=== PATIENT | female | born 1960 | race Caucasian/White ===

== ENCOUNTER 2017-02-17 14:08 | Emergency (ER) | payer MEDICAID, SELFPAY ==
[2017-02-17 14:09] VITALS: BP 162/93; PULSE 95; RESP 16; TEMP 36.9; O2SAT 99; BMI 18.6
--- NOTE | 2017-02-17 14:19 | RAD_ITS ---
STUDY: X-RAY - LEFT ELBOW REASON FOR EXAM: Female, 56 years old. Pain after fall. TECHNIQUE: 3 view(s) of the elbow. COMPARISON: None. FINDINGS: Normal visualized humerus, radius and ulna. Normal radiocapitellar and ulnotrochlear articulations. There is borderline dorsal soft tissue swelling. There is no demonstrated fracture. RAD/Elbow min 3 Views IMPRESSION: No acute fracture of the left elbow. Electronically Signed: Joey Masterson MD at 14:52 EDT , Service support ,
--- NOTE | 2017-02-17 14:19 | RAD_ITS ---
STUDY: X-RAY - LEFT SHOULDER REASON FOR EXAM: Female, 56 years old. Fall, pain. TECHNIQUE: 2 view(s) of the shoulder. COMPARISON: None. FINDINGS: Normal glenohumeral articulation. Normal acromioclavicular joint. Normal acromion. Normal humeral head and visualized proximal humerus. There is suggestion of posterior lateral soft tissue swelling. 4-5 mm calcification seen along the superficial and deep soft tissue interface of the dorsal lateral proximal left upper arm. There is no demonstrated fracture. Normal visualized pulmonary apex. There are degenerative arthroses of the mid cervical spine. RAD/Shoulder min 2 Views IMPRESSION: No acute fracture of the left shoulder. Electronically Signed: Joey Masterson MD at 14:55 EDT , Service support ,
--- NOTE | 2017-02-17 14:20 | ED.VISSUMM ---
- ER Visit Summary Date of Service: 02/17/17 Chief Complaint: Fall History of Present Illness: The patient is a 56 F who was kicking a ball when she stepped on it and fell onto her left shoulder and elbow. This happened last night. She currently has pain in the left elbow and shoulder. She tried ibuprofen at home without any relief. No previous injuries or surgeries to these areas Physical Examination: Left shoulder exam reveals tenderness distally. There is no clavicular tenderness. She has painful range of motion. Left elbow is tender on the lateral condyle. No olecranon tenderness. No swelling. She has painful range of motion of that area as well. Test Results: Left shoulder and left elbow x-rays interpreted by myself reveal no evidence of fracture or dislocation Emergency Department Course and Treatment: She will be discharged with naproxen. She will ice each area and will follow up with her PCP Treatment Plan: [] Disposition: Discharge Impression: Left shoulder contusion, left elbow contusion ED Disposition - Plan for ED Patient: Chief Complaint: Fall Referrals: Leslie Snowden [Primary Care Provider] -
[2017-02-17 14:21] VITALS: BP 168/85; PULSE 90; RESP 14; O2SAT 95
[2017-02-17] MEDS: HYDROcodone Bitartrate/Apap 5/325 Tablet PO (14:48)
--- NOTE | 2017-02-17 14:48 | ED.DEP ---
ED Disposition - Plan for ED Patient: Disposition: Home or Assisted Living Chief Complaint: Fall Instructions: ED Contusion Upper Ext Prescriptions: Naproxen [Naprosyn] 500 mg PO BID PRN #20 tablet Referrals: Leslie Snowden [Primary Care Provider] -
[2017-02-17 14:58] VITALS: BP 156/70; PULSE 80; RESP 14; O2SAT 99
== END 2017-02-17 15:00 | disposition home or self-care (01) ==
PROVIDERS: Emergency Provider Emergency Medicine
DX: S40.012A Contusion of left shoulder, initial encounter (principal); S50.02XA Contusion of left elbow, initial encounter; J44.9 Chronic obstructive pulmonary disease, unspecified; Z72.0 Tobacco use; Z79.51 Long term (current) use of inhaled steroids; Z79.899 Other long term (current) drug therapy; W18.31XA Fall on same level due to stepping on an object, initial encounter; Y92.89 Other specified places as the place of occurrence of the external cause; Y99.8 Other external cause status
CPT/HCPCS: 73030; 73080; 99283

== ENCOUNTER 2017-07-18 09:53 | Emergency (ER) | payer MEDICAID, SELFPAY ==
[2017-07-18 09:54] VITALS: BP 163/98; PULSE 82; RESP 18; TEMP 36; O2SAT 99; BMI 19.2
[2017-07-18 10:37] VITALS: PULSE 84; RESP 24; O2SAT 99
[2017-07-18] MEDS: Ipratropium/Albuterol Sulfate 3 ML AMPUL.NEB INHALATION (10:37)
--- NOTE | 2017-07-18 10:52 | RAD_ITS ---
STUDY: X-RAY CHEST REASON FOR EXAM: Female, 56 years old. Two-week history of generalized illness. History of asthma. TECHNIQUE: PA and lateral views of the chest. COMPARISON: Comparison is made with prior study dated July 25, 2016. FINDINGS: Hyperinflation. Stable mild increased interstitial markings at the lung bases suggestive of bibasilar scarring. No acute infiltration is seen. There is no demonstrated pleural abnormality. Normal size heart. Normal mediastinum and lenka. Normal visualized pulmonary arteries. Normal visualized aortic arch and descending thoracic aorta. Normal visualized thoracic spine. Normal visualized ribs, clavicles, and shoulders. There is no demonstrated abnormality of the visualized soft tissue structures of the upper abdomen. RAD/Chest PA and Lateral IMPRESSION: Hyperinflation. Stable bibasilar linear scarring. Electronically Signed: Pato Paniagua MD at 11:11 EDT Tel [phone], Service support ,
--- NOTE | 2017-07-18 11:41 | ED.VISSUMM ---
- ER Visit Summary Date of Service: 07/18/17 Chief Complaint: Possible pneumonia History of Present Illness: The patient is a 56 F presenting for evaluation due to concern for possible pneumonia. Patient states that she has been sick over the course the last 2 weeks. She has an underlying history of COPD. Patient states that for 2 weeks she has had subjective fevers cough that is productive of sputum. Patient states that her albuterol inhalers have not been helping. She denies runny nose or sore throat. Patient does smoke. She denies any chest pain associated with this. Review of systems otherwise negative. Physical Examination: Vital signs are within normal limits, patient is afebrile. General: Patient is well-nourished well-developed and in no acute distress. Head: Normocephalic, atraumatic Eyes: Pupils equal round and reactive bilaterally, extra occular motion intact bialterally ENT: Moist mucous membranes Neck: Supple, no lymphadenopathy, no JVD, no meningismus CVS: Heart regular rate and rhythm, no murmurs, rubs or gallops, radial pulses 2+ bilaterally Resp: Respirations nondistressed, wheezes throughout the lung schwab bilaterally Abdomen: Soft, nontender, nondistended, no palpable masses, normal bowel sounds Back: Nontender Extremities: Nontender, atraumatic, active full range of motion, no peripheral edema Skin: warm, no rashes, no petechia Neuro: Alert and oriented x 4, CN 2-12 intact, no lateralizing neurological defecits Psyc: Normal affect Test Results: PA and lateral chest x-ray by radiology found to show chronic changes no acute pathology Emergency Department Course and Treatment: Patient presented secondary to 2 weeks of illness with cough and wheezing. X-ray shows no infiltrate. Patient will be treated for bronchitis at this point with a course of prednisone and follow-up with her primary care physician. Disposition: Discharge Impression: 1. Bronchitis 2. Tobacco use This note was generated with [employer] dictation software. It may contain incorrect words, spelling, and punctuation that were not noted in review of the chart prior to signing ED Disposition - Plan for ED Patient: Disposition: Home or Assisted Living Chief Complaint: General Illness Diagnosis: Bronchitis Instructions: ED COPD Flare Prescriptions: Prednisone [Deltasone] 60 mg PO DAILY #15 tab Referrals: Leslie Snowden [Primary Care Provider] - 1 Week if not improving
[2017-07-18 11:48] VITALS: BP 134/84; PULSE 88; RESP 16; O2SAT 98
== END 2017-07-18 11:49 | disposition home or self-care (01) ==
PROVIDERS: Emergency Provider Emergency Medicine
DX: J40 Bronchitis, not specified as acute or chronic (principal); J44.9 Chronic obstructive pulmonary disease, unspecified; Z72.0 Tobacco use; I11.0 Hypertensive heart disease with heart failure; I50.9 Heart failure, unspecified; G62.9 Polyneuropathy, unspecified; Z79.51 Long term (current) use of inhaled steroids; Z79.52 Long term (current) use of systemic steroids; Z79.899 Other long term (current) drug therapy
CPT/HCPCS: 71046; 94640; 99282

== ENCOUNTER 2017-09-28 11:23 | Emergency (ER) | payer MEDICARE, MEDICAID, SELFPAY ==
[2017-09-28 11:24] VITALS: BP 160/98; PULSE 101; RESP 16; TEMP 36.5; BMI 18.8
--- NOTE | 2017-09-28 11:35 | ED.VISSUMM ---
- ER Visit Summary Date of Service: 09/28/17 Chief Complaint: Right hand pain status post fall 9 days ago History of Present Illness: The patient is a 57 F who presents with right hand pain status post fall. She was walking her dog 9 days ago. She presents because of persistent pain. She states the pain is worse with movement of her right little finger and if she applies any pressure to her hand. She is right-hand dominant. She denies any other injury. Physical Examination: Blood pressure is elevated 160/98 heart rate is 101. There is pain the patient over the fifth metacarpal and MCP joint. There is no rotational malalignment. Sensation is normal. Capillary refill is normal. Median, radial and ulnar function intact. Test Results: Three-view x-ray of the hand was obtained. There is no evidence of fracture, subluxation or dislocation. There is arthritic changes noted of the DIP joint in particular right index and right middle finger. No foreign body noted. Emergency Department Course and Treatment: Three-view x-ray of the right hand was ordered to evaluate for fracture. Treatment Plan: Ice, elevation, rest and anti-inflammatory medication Disposition: Discharged to home with appropriate home-going instructions Impression: Right hand pain secondary to blunt trauma (contusion), initial encounter This note was generated with [employer] dictation software. It may contain incorrect words, spelling, and punctuation that were not noted in review of the chart prior to signing ED Disposition - Plan for ED Patient: Disposition: Home or Assisted Living Chief Complaint: Upper Extremity Injury Instructions: ED Contusion Hand Referrals: Leslie Snowden [Primary Care Provider] - As Needed Additional Instructions: Take either 4 Advil every 8 hours for the next 2-3 days for pain or 2 Aleve every 12 hours for the next 2-3 days for pain.
--- NOTE | 2017-09-28 11:45 | RAD_ITS ---
STUDY: X-RAY - RIGHT HAND REASON FOR EXAM: Hurt hand last day walking her dog. TECHNIQUE: 3 view(s) of the hand. COMPARISON: Radiographs 04/21/2016. FINDINGS: Normal radiocarpal articulation. Normal distal radioulnar joint. Normal visualized carpal bones. Normal carpal articulations There is joint space narrowing of the carpometacarpal articulation of the thumb. Normal second through fifth carpometacarpal joints. Normal metacarpi. Normal metacarpophalangeal joint of the thumb. Normal interphalangeal joint of the thumb. Normal proximal and distal phalanges of the thumb. Normal metacarpophalangeal joints of the second through fifth fingers. There is joint space narrowing of the second through fifth distal interphalangeal joints with marginal osteophytes of the second and fifth distal interphalangeal joints. Normal phalanges of the second through fifth fingers. The soft tissue structures are unremarkable. RAD/Hand Min 3 Views IMPRESSION: Arthrosis of the first carpometacarpal joint and second through fifth distal interphalangeal joints. No demonstrated fracture on the current study. Electronically Signed: Philip Dobson MD at 12:29 EDT Tel , Service support ,
== END 2017-09-28 12:20 | disposition home or self-care (01) ==
PROVIDERS: Emergency Provider Emergency Medicine
DX: S60.221A Contusion of right hand, initial encounter (principal); M79.641 Pain in right hand; I10 Essential (primary) hypertension; J44.9 Chronic obstructive pulmonary disease, unspecified; Z72.0 Tobacco use; Z79.899 Other long term (current) drug therapy; W18.30XA Fall on same level, unspecified, initial encounter; Y93.K1 Activity, walking an animal; Y92.89 Other specified places as the place of occurrence of the external cause; Y99.8 Other external cause status
CPT/HCPCS: 73130; 99282

== ENCOUNTER 2017-12-08 21:14 | Inpatient (IN) | payer MEDICARE, MEDICAID, SELFPAY ==
[2017-12-08] VITALS (10 sets, daily range): BP systolic 148–195; BP diastolic 89–139; PULSE 97–125; RESP 18–31; TEMP 36.7–36.9; O2SAT 95–98; BMI 19.0; BMI 19.2
[2017-12-08] MEDS: 0.9% Normal Saline 1,000 ML 150 ML IV (21:21)
[2017-12-08] MEDS: Ipratropium/Albuterol Sulfate 3 ML AMPUL.NEB INHALATION (21:21)
[2017-12-08] MEDS: MethylPREDNISolone 125 MG/2 ML Vial IV (21:21)
[2017-12-08] MEDS: Albuterol 2.5 MG/3 ML VIAL.NEB. INHALATION ×3 (21:23→21:38)
--- NOTE | 2017-12-08 21:23 | ED.DCSUM_ITS ---
- ER Visit Summary Date of Service: 12/08/17 Chief Complaint: Shortness of breath History of Present Illness: The patient is a 57 F presents to the emergency department increasing shortness of breath. Patient has a history of COPD and is on home oxygen. She states over the past 24 hours, she has had gradual worsening shortness of breath. She feels like she cannot take a deep breath. She is coughing with some scant sputum. She has chest tightness when she coughs. She has tried nebulizers at home with little relief. Last time she was on antibiotics was greater than 4 months ago. She denies any fevers or chills. She denies any exertional chest pain. Physical Examination: Vital signs reviewed General: Well-nourished, well-developed Head: Normocephalic, atraumatic Eyes: Pupils equal and reactive, extraocular muscles intact Neck, supple, no lymphadenopathy Heart: Regular rate and rhythm Respiratory: Mild respiratory distress with wheezing throughout Abdomen: Soft, nontender, nondistended, no peritoneal signs Back: Nontender Extremities: Nontender, no edema, no cords Skin: Normal color no rash Neuro: Alert and oriented, no focal or lateralizing deficits Test Results: [] Emergency Department Course and Treatment: The patient presents with moderate respiratory distress, wheezing in all schwab, diminished air movement. IV was established. The patient was started on nebulized aerosols. She was given Solu -Medrol. Her x-ray does not show any infiltrate. Screening labs including cardiac enzymes are normal. Her EKG shows sinus tachycardia without acute ischemic change. Even with treatment, the patient had persistent bronchospasm. She still had resting tachypnea. She was covered with azithromycin. Given her persistent tachypnea and new oxygen requirement, I do for the patient is going require admission. Patient was discussed with the hospitalist. Treatment Plan: [] Disposition: Admit Impression: COPD exacerbation with hypoxia This note was generated with [employer] dictation software. It may contain incorrect words, spelling, and punctuation that were not noted in review of the chart prior to signing ED Disposition - Plan for ED Patient: Chief Complaint: Shortness of Breath Referrals: Leslie Snowden [Primary Care Provider] -
[2017-12-08 21:34] LABS: Absolute Lymphocyte Count 2.75 X10^3/ul (0.83-4.51); Absolute Neutrophil Count 5.8 X10^3/uL (2.0-7.7); Basophil# 0.02 X10^3/uL; Basophil% 0.2 % (0-1); Differential Indicated SCAN CRITERIA MET; Eosinophil# 0.08 X10^3/uL; Eosinophils% 0.8 % (0-5); Hemoglobin 14.8 g/dl (12.0-15.0); Lymphocyte # 2.75 X10^3/ul (4.0); Lymphocyte % 28.8 % (19-41); Mean Corp Hgb Conc 33.6 g/gl (32-36); Mean Corpuscular Hgb 31.8 pg (27.0-32.0); Mean Corpuscular Volume 94.6 fL (81-99); Mean Platelet Vol. 9.1 fl (6.2-12.0); Monocyte# 0.85 X10^3/uL; Monocyte% 8.9 % (0-10); Neutrophil # 5.83 X10^3/uL (2.7-7.7); Neutrophil % 61.1 % (47-70); POSITIVE COUNT NO; POSITIVE DIFFERENTIAL NO; POSITIVE MORPHOLOGY YES; Platelet Count 184 K/mm3 (150-450); RBC Distribution Width SD 44.9 fl (35.1-43.9); Red Blood Count 4.65 M/mm3 (4.2-5.4); White Blood Count 9.6 K/mm3 (4.4-11.0)
[2017-12-08 21:43] LABS: Anion Gap 13 (5-15); BUN 8 mg/dL (7-18); BUN/Creat Ratio 12.2 RATIO (10-20); Calcium,Total 9.7 mg/dL (8.5-10.1); Chloride 106 mmol/L (98-107); Creatinine, Serum 0.66 mg/dL (0.55-1.02); EST Glomerular Filtration Rate 99 mL/min (>60); Est Glom Filt Rate - Afr Amer 120 mL/min (>60); Estimated Creatinine Clearance 76.31 ml/min; Glucose 83 mg/dL (74-106); Potassium 3.3 mmol/L (3.5-5.1); Sodium Level 140 mmol/L (136-145)
[2017-12-08 21:59] LABS: Differential Comment SCANNED
--- NOTE | 2017-12-08 22:36 | PCM.HP.STD ---
Problem List (1) COPD exacerbation Status: Acute (2) History of carpal tunnel surgery of left wrist Status: Resolved (3) Asthma Status: Chronic (4) Emphysema Status: Chronic (5) Orthopnea Status: Chronic (6) Body aches Status: Chronic (7) Depression Status: Chronic (8) [place] (obstructive sleep apnea) Status: Chronic Comment: Continued non-compliance. Patient states she is unable to tolerate the CPAP because of things from my past. (9) COLD (chronic obstructive lung disease) Status: Chronic Comment: Recent pulmonary function test actually show some improvement. No change in maintenance medications. No signs of an exacerbation at this time. Educated patient that as long as she continues to smoke PFTs will be every 6 months. Follow up with Dr Ragland in 6 months after obtaining PFTs. (10) Benign essential hypertension Status: Chronic (11) Tobacco user Status: Chronic Comment: Strongly encouraged smoking cessation. Patient is not interested at this time. (12) History of pulmonary embolism Status: Chronic (13) COPD with acute exacerbation Status: Suspected (14) Angioedema Status: Chronic (15) Hyponatremia Status: Chronic (16) Thrush Status: Chronic History of Present Illness Date of Admission: 12/08/17 Chief Complaint: Shortness of breath for 2 days The patient is a 57 year old F with history of COPD with chronic shortness of breath but not on home oxygen and noncompliant to CPAP came to ER with progressive worsening of shortness of breath for 2 days along with wheezing. Patient had sick contact with her grandson who probably has asthma/viral bronchitis. She has chronic cough but has gotten worse sputum. Chest x-ray in ED does not show acute infiltrates. [] In ED, she is sinus tachycardia, heart rate in 1 14/min, blood pressure elevated 152/97, tachypneic 25-30/min pulse ox 95%, on room air Past Medical History Past Medical History (Chronic Problems): Chronic Problems (Last Reviewed 03/23/17 @ 10:52 by RAJAN Hall) Asthma (Chronic) Emphysema (Chronic) Orthopnea (Chronic) Body aches (Chronic) Depression (Chronic) [place] (obstructive sleep apnea) (Chronic) Continued non-compliance. Patient states she is unable to tolerate the CPAP because of things from my past. COLD (chronic obstructive lung disease) (Chronic) Recent pulmonary function test actually show some improvement. No change in maintenance medications. No signs of an exacerbation at this time. Educated patient that as long as she continues to smoke PFTs will be every 6 months. Follow up with Dr Ragland in 6 months after obtaining PFTs. Benign essential hypertension (Chronic) Tobacco user (Chronic) Strongly encouraged smoking cessation. Patient is not interested at this time. History of pulmonary embolism (Chronic) Angioedema (Chronic) Hyponatremia (Chronic) Thrush (Chronic) Medical History: Medical History (Last Reviewed 03/23/17 @ 10:52 by Carolina Thomason NP-Sky) Asthma (Chronic) J45.909 Emphysema (Chronic) J43.9 Orthopnea (Chronic) R06.01 Body aches (Chronic) R52 Depression (Chronic) F32.9 [place] (obstructive sleep apnea) (Chronic) G47.33 Continued non-compliance. Patient states she is unable to tolerate the CPAP because of things from my past. COLD (chronic obstructive lung disease) (Chronic) J44.9 Recent pulmonary function test actually show some improvement. No change in maintenance medications. No signs of an exacerbation at this time. Educated patient that as long as she continues to smoke PFTs will be every 6 months. Follow up with Dr Ragland in 6 months after obtaining PFTs. Benign essential hypertension (Chronic) I10 Tobacco user (Chronic) Z72.0 Strongly encouraged smoking cessation. Patient is not interested at this time. History of pulmonary embolism (Chronic) Z86.711 COPD with acute exacerbation (Suspected) J44.1 Angioedema (Acute) T78.3XXA Hyponatremia (Acute) E87.1 Thrush (Acute) B37.0 Allergies lisinopril Allergy (Verified 07/18/17 09:55) Angioedema codeine Adverse Reaction (Intermediate, Verified 07/18/17 09:55) / Home Medications: Ambulatory Orders Medication Instructions Recorded Fluticasone/Vilanterol [Breo 1 puff INHALATION BID 07/25/16 Ellipta 100-25 Mcg INH] umeclidinium 62.5 mcg/actuation 1 inh INHALATION QDAY #30 ea 11/23/17 blister powder for inhalation Surgical History: Surgical History (Last Reviewed 03/23/17 @ 10:52 by RAJAN Hall) History of carpal tunnel surgery of left wrist (Resolved) Z98.890 Surgical History: no surgical history Psychiatric History: No pertinent psych hx [employer] History: No pertinent [employer] history Smoking Status: Current every day smoker - *Family History Paternal Family History: Family History (Last Reviewed 03/23/17 @ 10:52 by RAJAN Hall) Mother Asthma Depression Father Respiratory abnormality, unspecified History Items: COPD Sibling Family History: Family History (Last Reviewed 03/23/17 @ 10:52 by RAJAN Hall) Mother Asthma Depression Father Respiratory abnormality, unspecified History Items: COPD Maternal Family History: Family History (Last Reviewed 03/23/17 @ 10:52 by RAJAN Hall) Mother Asthma Depression Father Respiratory abnormality, unspecified History Items: COPD, No pertinent history Review of Systems Constitutional: Denies: Chills, Fever, Weight Change HEENT: Denies: Head Aches, Sinus Congestion, Sinus Drainage Cardiovascular: Denies: Chest Pain, Palpitations Respiratory: Reports: Cough, Shortness of breath at rest, Shortness of breath upon exertion, Sputum production, Wheezing Gastrointestinal: Denies: Abdominal Pain, Nausea, Vomiting Genitourinary: Denies: Dysuria Musculoskeletal: Denies: Joint Pain, Joint Tenderness Skin: Denies: Rash, Wounds Neurological: Denies: Numbness, Tingling, Focal weakness Psychiatric: Denies: Anxiety, Depression, Homicidal Ideations, Suicidal Ideations Hematologic/ Lymphatic: Denies: Easy Bruising, Easy Bleeding VTE Information - Inpt Only VTE Present on Admission: No VTE Mechan Device Prophylaxis: None VTE Pharm Prophylaxis ordered?: Yes Patient Problems: Active and Suspected Problems (Last Reviewed 03/23/17 @ 10:52 by RAJAN Hall) COPD exacerbation (Acute) - Physical Exam General: Alert, Oriented x3, Cooperative HEENT: Atraumatic, PERRLA, EOMI, Normocephalic Neck: Supple, No JVD, Negative Carotid Bruits Lungs: Diminished, Rhonchi, Short of Breath, Tachypneic, Using Accessory Muscles, Wheezes Cardiovascular: Normal S1, Normal S2, No murmurs, Tachycardic Abdomen: Bowel Sounds Present, Soft, Non Tender, Non-Distended Extremities: No edema, Capillary Refill Less than 3 Seconds Skin: No rashes, No breakdown Musculoskeletal: No Tenderness to Palpation of Joints or Extremities, Arthritic Changes, Muscle Wasting Neurological: Cranial nerves II-XII grossly intact, Neuro grossly intact Psych/Mental Status: Normal Affect, Appropriate Vital Signs Temp Pulse Resp BP Pulse Ox 98.0 F 114 H 18 152/97 H 97 12/08/17 21:15 12/08/17 22:29 12/08/17 22:29 12/08/17 22:29 12/08/17 22:29 Oxygen Delivery Method Room Air Weight: 113 lb 5.082 oz Body Mass Index (BMI) 19.0 Laboratory Tests Past 24 Hrs 12/08/17 12/08/17 21:19 21:19 WBC 9.6 RBC 4.65 Hgb 14.8 Hct 44.0 MCV 94.6 MCH 31.8 MCHC 33.6 RDW 13.0 RDW Differential 44.9 H Plt Count 184 MPV 9.1 Immature Gran % (Auto) 0.200 Neut % (Auto) 61.1 Lymph % (Auto) 28.8 [place] % (Auto) 8.9 Eos % (Auto) 0.8 Baso % (Auto) 0.2 Absolute Neuts (auto) 5.8 Absolute Lymphs (auto) 2.75 Total Counted Not Reportable Differential Comment SCANNED Sodium 140 Potassium 3.3 L Chloride 106 Carbon Dioxide 21.0 Anion Gap 13 BUN 8 Creatinine 0.66 Estim Creat Clear Calc 76.31 Est GFR (MDRD) Af Amer 120 Est GFR (MDRD) Non-Af 99 BUN/Creatinine Ratio 12.2 Glucose 83 Calcium 9.7 Troponin I < 0.015 Assessment/Plan All Active Problems (Last Reviewed 03/23/17 @ 10:52 by Carolina Thomason, OCE[employer]OGRAPHIC METEOROLOGIST-C) COPD exacerbation (Acute) History of carpal tunnel surgery of left wrist (Resolved) The patient is a 57 year old F with history of COPD with chronic shortness of breath but not on home oxygen and noncompliant to CPAP came to ER with progressive worsening of shortness of breath for 2 days along with wheezing. Patient had sick contact with her grandson who probably has asthma/viral bronchitis. She has chronic cough but has gotten worse sputum. Chest x-ray in ED does not show acute infiltrates. [] In ED, she is sinus tachycardia, heart rate in 1 14/min, blood pressure elevated 181/105, 152/97, tachypneic 25-30/min pulse ox 95%, on room air 1 COPD exacerbation probably due to viral bronchitis: Patient is being admitted in MedSurg floor. On bronchodilator [id number], IV Solu-Medrol, chest physiotherapy, incentive spirometry and oxygen therapy to keep pulse ox more than 90%. BiPAP as needed for extreme shortness of breath or respiratory failure 2. Obstructive sleep apnea, noncompliant to CPAP: Patient states that she cannot get CPAP. 3. Hypertension: Blood pressure is elevated. She has angioedema because of lisinopril. Not on any antihypertensive medication at home. Started on hydralazine and HCTZ. Other comorbidities include chronic tobacco use and dependence, and history of pulmonary embolism. Tobacco cessation advised patient had PE January 2013 and completed treatment DVT prophylaxis: Lovenox 40 mg subcutaneous daily Code Visit Inpatient E&M: [id number] In Hosp L3
[2017-12-08] MEDS: 0.9% Normal Saline 1,000 ML 50 ML IV (23:30)
[2017-12-08] MEDS: hydrALAZINE 25 MG Tablet PO (23:54)
[2017-12-08] MEDS: Enoxaparin 40 MG/0.4 ML Syringe SC (23:54)
[2017-12-09] VITALS (10 sets, daily range): BP systolic 132–164; BP diastolic 75–99; PULSE 78–95; RESP 14–22; TEMP 36.6–36.9; O2SAT 96–99
[2017-12-09] MEDS: hydrALAZINE 25 MG Tablet PO (05:52)
[2017-12-09] MEDS: 0.9% NaCl Peripheral Flush Adult/Peds IV ×2 (05:56→11:35)
[2017-12-09 06:37] LABS: Anion Gap 12 (5-15); BUN 7 mg/dL (7-18); BUN/Creat Ratio 13.5 RATIO (10-20); Chloride 107 mmol/L (98-107); Creatinine, Serum 0.52 mg/dL (0.55-1.02); EST Glomerular Filtration Rate 129 mL/min (>60); Est Glom Filt Rate - Afr Amer 156 mL/min (>60); Estimated Creatinine Clearance 95.72 ml/min; Glucose 167 mg/dL (74-106); Potassium 4.2 mmol/L (3.5-5.1); Sodium Level 141 mmol/L (136-145)
[2017-12-09] MEDS: Ipratropium/Albuterol Sulfate 3 ML AMPUL.NEB INHALATION ×3 (07:23→19:08)
[2017-12-09] MEDS: Acetaminophen 325 MG Tablet 650 MG PO ×2 (08:24→21:22)
[2017-12-09] MEDS: HYDROCHLOROTHIAZIDE 12.5 MG CAPSULE PO (08:25)
[2017-12-09] MEDS: guaiFENesin 1,200 MG Tablet 1200 MG PO ×2 (08:25→21:18)
[2017-12-09] MEDS: Enoxaparin 40 MG/0.4 ML Syringe SC (08:25)
--- NOTE | 2017-12-09 08:40 | CPS ---
Patient working on PEP therapy on own.
--- NOTE | 2017-12-09 09:45 | PCM.PROGNOTE ---
Patient Problems: Active and Suspected Problems (Last Updated 12/09/17 @ 08:41 by Lloyd Shirley MD) COPD exacerbation (Acute) Subjective: Chief complaint: Follow-up after admission for acute COPD exacerbation and probably an anxiety. Patient seen and examined. No acute events overnight. She reported some improvement of his shortness of breath. She was breathing hard although her chest auscultation was clear. She is anxious and restless. She reported dry cough, no sputum production. She denied chest pain, palpitation or dizziness. Her vital signs are stable, pulse ox is maintained at 99% on 2 L. - Physical Exam General: Alert, Oriented x3, Cooperative, - - Anxious, restless. HEENT: Atraumatic, PERRLA, EOMI, Normocephalic Oral: Moist Mucosa, No Gingival or Mucosal Lesions/ Ulcerations Neck: Supple, No JVD, Negative Carotid Bruits, Trachea Midline, Thyroid Normal Size and Texture Lungs: Clear to auscultation, No rhonchi, No wheeze, No rales, Diminished Cardiovascular: Regular rate, Regular Rhythm, Normal S1, Normal S2, No murmurs Abdomen: Bowel Sounds Present, Soft, Non Tender, Non-Distended, No Hepato-splenomegaly Extremities: No clubbing, No cyanosis, No edema Skin: No rashes, No breakdown Lymphatic: No Cervical, Supraclavicular, or Inguinal Adenopathy Neurological: Cranial nerves II-XII grossly intact, Motor Exam 5/5 strength throughout Psych/Mental Status: Anxious, Restless, Alert and oriented to time, place, person, mood and affect Vital Signs Temp Pulse Resp BP Pulse Ox 98.4 F 79 22 H 149/96 H 99 12/09/17 08:30 12/09/17 08:30 12/09/17 08:30 12/09/17 08:30 12/09/17 08:30 Oxygen Flow Rate (L/min) 2 Oxygen Delivery Method Nasal Cannula Weight: 111 lb 15.917 oz Body Mass Index (BMI) 19.2 Intake and Output for Last 24 Hours 12/07/17 12/08/17 12/09/17 23:59 23:59 23:59 Intake Total 313 / 313 2047 Balance 313 / 313 2047 Microbiology Past 72 Hours 12/08/17 23:30 Influenza Types A,B Direct FA (FELIBERTO) - Final Mucosa - Nasopharyngeal 12/08/17 23:15 Gram Stain - Preliminary Sputum, Expectorated/Coughed Laboratory Tests Past 24 Hrs 12/09/17 05:40 Sodium 141 Potassium 4.2 Chloride 107 Carbon Dioxide 22.0 Anion Gap 12 BUN 7 Creatinine 0.52 L Estim Creat Clear Calc 95.72 Est GFR (MDRD) Af Amer 156 Est GFR (MDRD) Non-Af 129 BUN/Creatinine Ratio 13.5 Glucose 167 H Calcium 9.0 Clinical Impression(s) from Imaging Studies Chest X-Ray 12/08/17 21:18 IMPRESSION: Hyperexpansion of the lungs, consistent with COPD. No evidence for acute cardiopulmonary pathology. Electronically Signed: Valentin Harvey MD at 22:27 EDT , Service support , Medical Necessity - Tobacco Use Smoking Status: Current every day smoker Tobacco Use: Cigarettes Assessment/Plan All Active Problems (Last Reviewed 03/23/17 @ 10:52 by Carolina Thomason NP-C) COPD exacerbation (Acute) History of carpal tunnel surgery of left wrist (Resolved) This is a 57 years old female patient presented to the ED because of shortness of breath and she was admitted as a case of acute COPD exacerbation for treatment. #1 acute COPD exacerbation: She is on IV steroids, antibiotics and bronchodilators. This morning, patient is anxious, restless, breathing hard. Chest auscultation is clear, no wheezing or rhonchi, no rails. Her pulse ox is 99% on 2 L. A chest x-ray showed no acute findings. She may have mild COPD exacerbation but definitely, she has an anxiety attack and she is restless. Plan: Continue bronchodilators, DC IV steroids, start oral prednisone, DC IV azithromycin, start Xanax as needed for anxiety, ambulate. #2 anxiety/depression: Patient has been on citalopram at home. At this time, she is anxious, restless. This is contributing to her symptoms. Plan to continue citalopram and will start Xanax as needed. #3 hypertension: Blood pressure is slightly elevated. She was started on hydralazine and HCTZ on admission. At home, she has been on Norvasc and Aldactone. Plan: Will DC hydralazine, resume Norvasc, continue HCTZ, hold Aldactone. #4 DVT prophylaxis: Subcu Lovenox. This note was generated with [employer] dictation software. It may contain incorrect words, spelling, and punctuation that were not noted in checking the note before signing. Code Visit Inpatient E&M: 18206 Subs Hosp L2
[2017-12-09] MEDS: ALPRAZolam 0.5 MG Tablet PO ×2 (10:26→21:22)
[2017-12-09] MEDS: Famotidine 20 MG Tablet PO (10:26)
[2017-12-09] MEDS: amLODIPine 5 MG Tablet PO (10:26)
[2017-12-09] MEDS: Montelukast 10 MG Tablet PO (10:26)
[2017-12-09] MEDS: Citalopram 20 MG Tablet PO (10:26)
[2017-12-09] MEDS: Albuterol 2.5 MG/3 ML VIAL.NEB. INHALATION (11:09)
[2017-12-09] MEDS: Gabapentin 100 MG Capsule 200 MG PO ×2 (11:33→16:31)
--- NOTE | 2017-12-09 12:10 | CPS ---
PEP therapy done on own.
[2017-12-09] MEDS: Pravastatin 20 MG Tablet 10 MG PO (21:17)
[2017-12-10] MEDS: Ipratropium/Albuterol Sulfate 3 ML AMPUL.NEB INHALATION ×2 (00:29→06:50)
[2017-12-10 00:31] VITALS: PULSE 86; RESP 16
[2017-12-10 03:00] VITALS: BP 124/78; PULSE 65; RESP 14; TEMP 36.9; O2SAT 96
[2017-12-10 06:50] VITALS: PULSE 88; RESP 16; O2SAT 94
[2017-12-10 08:08] VITALS: BP 134/86; PULSE 80; RESP 18; TEMP 37.1; O2SAT 98
[2017-12-10 08:10] VITALS: O2SAT 97; O2SAT 98
[2017-12-10] MEDS: Gabapentin 100 MG Capsule 200 MG PO (08:11)
[2017-12-10] MEDS: predniSONE 20 MG Tablet 40 MG PO (08:11)
[2017-12-10] MEDS: amLODIPine 5 MG Tablet PO (08:12)
[2017-12-10] MEDS: Citalopram 20 MG Tablet PO (08:12)
[2017-12-10] MEDS: Famotidine 20 MG Tablet PO (08:12)
[2017-12-10] MEDS: guaiFENesin 1,200 MG Tablet 1200 MG PO (08:12)
[2017-12-10] MEDS: HYDROCHLOROTHIAZIDE 12.5 MG CAPSULE PO (08:13)
[2017-12-10] MEDS: Montelukast 10 MG Tablet PO (08:13)
[2017-12-10] MEDS: 0.9% NaCl Peripheral Flush Adult/Peds IV (09:32)
--- NOTE | 2017-12-10 09:47 | PCM.DC ---
- Discharge Diagnoses Current Active Problems: Current Active and Chronic Problems (Last Updated 12/09/17 @ 08:41 by Lloyd Shirley MD) COPD exacerbation (Acute) You will use the following diet at home:: Cardiac Your food should be the consistency of: Regular Your liquids should be the consistency of: Regular/Thin Discharge Activity: Return to Normal Activity May resume sexual activity in: No Restrictions Weight Bearing Status: Weight bearing as tolerated Call your doctor if you observe: Shortness of breath Allergies/Adverse Reactions: Allergies lisinopril Allergy (Verified 07/18/17 09:55) Angioedema codeine Adverse Reaction (Intermediate, Verified 07/18/17 09:55) / Medications to take at Discharge Fluticasone/Vilanterol [Breo Ellipta 100-25 Mcg INH] 1 puff INHALATION BID 07/25/16 umeclidinium 62.5 mcg/actuation blister powder for inhalation 1 inh INHALATION QDAY #30 ea 11/23/17 Albuterol Inhaler [Ventolin Hfa] 2 puff INHALATION Q4H PRN PRN 12/08/17 Amlodipine [Norvasc] 5 mg PO DAILY 12/09/17 Cholecalciferol (Vitamin D3) [Vitamin D3] 50,000 unit PO QWEEK 12/09/17 Citalopram [Celexa] 20 mg PO DAILY 12/09/17 Gabapentin [Neurontin] 200 mg PO TIDCM 12/09/17 Montelukast [Singulair] 10 mg PO DAILY 12/09/17 Pravastatin Sodium [Pravachol] 10 mg PO QHS 12/09/17 Ranitidine [Zantac] 150 mg PO DAILY 12/09/17 Spironolactone 25 mg PO DAILY 12/09/17 Azithromycin 500 mg PO DAILY #3 tab 12/10/17 Prednisone 40 mg PO DAILY #10 tab 12/10/17 The following prescriptions were given: Azithromycin 500 mg PO DAILY #3 tab Prednisone 40 mg PO DAILY #10 tab Primary Care Physician: Leslie Snowden [Primary Care Provider] - Please follow up with your Primary Care Physician in: one week Test Results: Test results from this visit will be discussed in further detail at your follow-up appointment, if applicable. Please Follow Up With: Jelani Ragland MD When: one sue Proposed Discharge Date: 12/10/17
--- NOTE | 2017-12-10 09:51 | DCINST_ITS ---
- Discharge Diagnoses Current Active Problems: Current Active and Chronic Problems (Last Updated 12/09/17 @ 08:41 by Lloyd Shirley MD) COPD exacerbation (Acute) You will use the following diet at home:: Cardiac Your food should be the consistency of: Regular Your liquids should be the consistency of: Regular/Thin Discharge Activity: Return to Normal Activity May resume sexual activity in: No Restrictions Weight Bearing Status: Weight bearing as tolerated Call your doctor if you observe: Shortness of breath Allergies/Adverse Reactions: Allergies lisinopril Allergy (Verified 07/18/17 09:55) Angioedema codeine Adverse Reaction (Intermediate, Verified 07/18/17 09:55) / Medications to take at Discharge Fluticasone/Vilanterol [Breo Ellipta 100-25 Mcg INH] 1 puff INHALATION BID 07/25 umeclidinium 62.5 mcg/actuation blister powder for inhalation 1 inh INHALATION QDAY #30 ea 11/23/17 Albuterol Inhaler [Ventolin Hfa] 2 puff INHALATION Q4H PRN PRN 12/08/17 Amlodipine [Norvasc] 5 mg PO DAILY 12/09/17 Cholecalciferol (Vitamin D3) [Vitamin D3] 50,000 unit PO QWEEK 12/09/17 Citalopram [Celexa] 20 mg PO DAILY 12/09/17 Gabapentin [Neurontin] 200 mg PO TIDCM 12/09/17 Montelukast [Singulair] 10 mg PO DAILY 12/09/17 Pravastatin Sodium [Pravachol] 10 mg PO QHS 12/09/17 Ranitidine [Zantac] 150 mg PO DAILY 12/09/17 Spironolactone 25 mg PO DAILY 12/09/17 Azithromycin 500 mg PO DAILY #3 tab 12/10/17 Prednisone 40 mg PO DAILY #10 tab 12/10/17 The following prescriptions were given: Azithromycin 500 mg PO DAILY #3 tab Prednisone 40 mg PO DAILY #10 tab Primary Care Physician: Leslie Snowden [Primary Care Provider] - Please follow up with your Primary Care Physician in: one week Test Results: Test results from this visit will be discussed in further detail at your follow- up appointment, if applicable. Please Follow Up With: Jelani Ragland MD When: one sue Proposed Discharge Date: 12/10/17
--- NOTE | 2017-12-10 09:51 | PCM.DC.SUM ---
Discharge Date and Diagnosis Date of Admission: 12/08/17 Date of Discharge: 12/10/17 - Primary Discharge Diagnosis Active and Suspected Problems (Last Updated 12/09/17 @ 08:41 by Lloyd Shirley MD) COPD exacerbation (Acute) - Secondary Discharge Diagnosis Chronic Problems (Last Updated 12/09/17 @ 08:41 by Lloyd Shirley MD) Asthma (Chronic) Emphysema (Chronic) Depression (Chronic) [place] (obstructive sleep apnea) (Chronic) Continued non-compliance. Patient states she is unable to tolerate the CPAP because of things from my past. Benign essential hypertension (Chronic) Tobacco user (Chronic) Strongly encouraged smoking cessation. Patient is not interested at this time. History of pulmonary embolism (Chronic) Angioedema (Chronic) Hospital Course and Treatment Imaging Results: Diagnostic Data Chest X-Ray 12/08/17 21:18 IMPRESSION: Hyperexpansion of the lungs, consistent with COPD. No evidence for acute cardiopulmonary pathology. Electronically Signed: Valentin Harvey MD at 22:27 EDT , Service support , Laboratory Tests 12/08/17 12/08/17 12/09/17 21:19 21:19 05:40 WBC 9.6 RBC 4.65 Hgb 14.8 Hct 44.0 MCV 94.6 MCH 31.8 MCHC 33.6 RDW 13.0 RDW Differential 44.9 H Plt Count 184 MPV 9.1 Immature Gran % (Auto) 0.200 Neut % (Auto) 61.1 Lymph % (Auto) 28.8 Rowan % (Auto) 8.9 Eos % (Auto) 0.8 Baso % (Auto) 0.2 Absolute Neuts (auto) 5.8 Absolute Lymphs (auto) 2.75 Total Counted Not Reportable Differential Comment SCANNED Sodium 140 141 Potassium 3.3 L 4.2 Chloride 106 107 Carbon Dioxide 21.0 22.0 Anion Gap 13 12 BUN 8 7 Creatinine 0.66 0.52 L Estim Creat Clear Calc 76.31 95.72 Est GFR (MDRD) Af Amer 120 156 Est GFR (MDRD) Non-Af 99 129 BUN/Creatinine Ratio 12.2 13.5 Glucose 83 167 H Calcium 9.7 9.0 Troponin I < 0.015 none Operations: None Procedures: None Summary of Care Provided: The patient is a 57 year old F with a history of COPD, not on home oxyen, HTN, history of remote PE and hyponatremia. She was admitted with a complaint of worsening shortness of breath with associated wheezing. She had been in contact with her grandson who has asthma and viral bronchitis. She was admitted and managed for acute COPD exacerbation. Chest x-ray done in the ED did not show any acute infiltrates. She was started on IV azithromycin and breathing treatments with DuoNeb's and also Solu-Medrol. Patient improved shortness of breath resolved. Wheezing also resolved and patient was discharged home on 12/10/2017. Patient seen and examined today prior to discharge. She had no complaints and felt very well. She denied any fever or chills, any cough or chest pain, shortness of breath, abdominal pain, any diarrhea vomiting. She claims compliance with her inhalers at home and this was reinforced that she should be compliant with them. Review of systems otherwise negative. On examination Vitals: Vital Signs Height 5 ft 4 in Weight: 111 lb 15.917 oz Weight in Pounds 112.0 lbs Pulse Ox [AMBULATING on Room 97 Air] Pulse Ox [At REST on Room Air] 98 Pulse Ox 98 Temperature 98.7 F Pulse Rate 80 Respiratory Rate 18 Blood Pressure 134/86 Blood Pressure Position Sitting []General: Alert, Oriented x3, Cooperative,calm HEENT: Atraumatic, PERRLA, EOMI, Normocephalic Oral: Moist Mucosa, No Gingival or Mucosal Lesions/ Ulcerations Neck: Supple, No JVD, Negative Carotid Bruits, Trachea Midline, Lungs: Clear to auscultation, No rhonchi, No wheeze, No rales, Cardiovascular: Regular rate, Regular Rhythm, Normal S1, Normal S2, No murmurs Abdomen: Bowel Sounds Present, Soft, Non Tender, Non-Distended, No Hepato-splenomegaly Extremities: No clubbing, No cyanosis, No edema Skin: No rashes, No breakdown Lymphatic: No Cervical, Supraclavicular, or Inguinal Adenopathy Neurological: Cranial nerves II-XII grossly intact, Motor Exam 5/5 strength throughout Psych/Mental Status: normal affect,Alert and oriented to time, place, person, mood and affect Plan is to discharge patient home today on p.o. azithromycin 500 mg ?3 days and a 5 day course of p.o. prednisone 40 mg daily. 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 Discharge Activity: Return to Normal Activity May resume sexual activity in: No Restrictions Weight Bearing Status: Weight bearing as tolerated Call your doctor if you observe: Shortness of breath Home Medications: Medications to take at Discharge Fluticasone/Vilanterol [Breo Ellipta 100-25 Mcg INH] 1 puff INHALATION BID 07/25/16 umeclidinium 62.5 mcg/actuation blister powder for inhalation 1 inh INHALATION QDAY #30 ea 11/23/17 Albuterol Inhaler [Ventolin Hfa] 2 puff INHALATION Q4H PRN PRN 12/08/17 Amlodipine [Norvasc] 5 mg PO DAILY 12/09/17 Cholecalciferol (Vitamin D3) [Vitamin D3] 50,000 unit PO QWEEK 12/09/17 Citalopram [Celexa] 20 mg PO DAILY 12/09/17 Gabapentin [Neurontin] 200 mg PO TIDCM 12/09/17 Montelukast [Singulair] 10 mg PO DAILY 12/09/17 Pravastatin Sodium [Pravachol] 10 mg PO QHS 12/09/17 Ranitidine [Zantac] 150 mg PO DAILY 12/09/17 Spironolactone 25 mg PO DAILY 12/09/17 Amoxicillin/Potassium Clav [Augmentin 875-125 Tablet] 1 ea PO BID #10 tab 12/10/17 Prednisone 40 mg PO DAILY #10 tab 12/10/17 Following Prescrptions Were Given to Patient: Prednisone 40 mg PO DAILY #10 tab Amoxicillin/Potassium Clav [Augmentin 875-125 Tablet] 1 ea PO BID #10 tab Primary Care Physician: Leslie Snowden [Primary Care Provider] - Please follow up with your Primary Care Physician in: one week Please Follow Up With: Jelani Ragland MD When: one wek Disposition: Home Minutes spent on discharge:: 35 Patient Condition:: Stable Medical Necessity - Tobacco Use Smoking Status: Current every day smoker Tobacco Use: Cigarettes Meaningful Use Info Meaningful Use Diagnoses (Choose all that apply): None applicable Code Visit Inpatient E&M: 37173 Disch Hosp
--- NOTE | 2017-12-10 10:25 | CASEMGMT ---
JHONATHAN TIDWELL Face to Face with patient for initial transition planning/care coordination assessment. RN CM introduced self and role at [facility]. Patient sitting up in bed, alert and oriented. Patient willing to participate in assessment and is able to answer all questions appropriately. Care providers, pharmacy, and demographics verified. See link attached. Patient wishes to discharge home, denies need for home health at this time. Patient states she has no further needs or concerns at this time. CM to follow for discharge planning needs that may arise. Disposition Plan: Patient to discharge home with family support and follow-up plans in place. Gabrielle ERWIN, RN, CM
--- NOTE | 2017-12-13 15:41 | CASEMGMT ---
JHONATHAN TIDWELL Discharge Follow-up Phone Call: DARLENE: Fatuma Strata: 4 Call Date: 12/13/17 Discharge Date: 12/10/17 Time of Call: 1540 Duration: 3 min Admitting Diagnosis: COPD EXA JHONATHAN TIDWELL completed follow-up phone call after recent hospitalization. Patient states that she is doing better. Patient had no questions regarding discharge instructions and was able to pickle processor prescriptions with no problems. Patient has follow-up appts scheduled with Dr. Powell and PCP. Patient had no further questions or concerns.
== END 2017-12-10 11:15 | disposition home or self-care (01) | DRG 192 ==
LOC: ED 22:14 → MS3 22:29
PROVIDERS: Admitting Provider Internal Medicine; Emergency Provider Emergency Medicine; Visit Provider Student in an Organized Health Care Education/Training Program
DX: J44.0 Chronic obstructive pulmonary disease with (acute) lower respiratory infection (principal); J20.8 Acute bronchitis due to other specified organisms; J44.1 Chronic obstructive pulmonary disease with (acute) exacerbation; F17.210 Nicotine dependence, cigarettes, uncomplicated; R09.02 Hypoxemia; G47.33 Obstructive sleep apnea (adult) (pediatric); Z86.711 Personal history of pulmonary embolism; I10 Essential (primary) hypertension; F32.9 Major depressive disorder, single episode, unspecified
CPT/HCPCS: 36415; 71045; 80048; 84484; 85025; 87070; 87205; 87804; 93005; 94640; 94667; 94668; 99283; 99406; J7030; A4216

== ENCOUNTER → 2017-12-24 09:12 | Outpatient (CLI) | payer MEDICARE, MEDICAID, SELFPAY ==
--- NOTE | 2017-12-24 13:17 | PFT ---
INTRODUCTION: The patient is a 57-year-old female that presents for pulmonary function testing secondary to a diagnosis of COPD. Respiratory therapy reports good patient effort. Bronchodilators were used during testing. INTERPRETATION: Forced expiration spirometry demonstrates the presence of a moderately severe large airways obstructive ventilatory defect. There was no significant response to aerosolized bronchodilators. Spirograms are of good quality and do not plateau indicating slow emptying of the lungs. Body plethysmography was performed and reveals an elevated TLC and RV, indicative of underlying hyperinflation and air-trapping. Diffusing capacity by single breath CO is moderately reduced at 55% of predicted. When compared to previous pulmonary function studies dated February 2017, there has been a 15% reduction in FEV1. IMPRESSION: These pulmonary function studies demonstrate the presence of an irreversible moderately severe large airways obstructive ventilatory defect with associated hyperinflation, air trapping and reduction in diffusing capacity. There has been worsening in the patient's PFTs since they were last completed in February 2017.
== END ==
PROVIDERS: Visit Provider Nurse Practitioner Acute Care
DX: J43.9 Emphysema, unspecified (principal)
CPT/HCPCS: 94060; 94726; 94729

== ENCOUNTER → 2018-01-05 08:27 | Outpatient (CLI) | payer MEDICARE, MEDICAID, SELFPAY ==
--- NOTE | 2018-01-05 08:17 | BI_ITS ---
MAMMOGRAPHY - BILATERAL SCREENING REASON FOR EXAM: Female, 57 years old. Routine annual screening examination. PERTINENT HISTORY: Non-contributory. TECHNIQUE: Digital bilateral breast tessa (3D mammographic acquisition) in the CC and MLO projections. 2-D mediolateral oblique (MLO) and craniocaudad (CC) views of both breasts were obtained. CAD: Full Field Digital Mammography with Computer Added Detection was performed. COMPARISON: Comparison is made with prior study dated 2016. FINDINGS: Breast Composition: The breasts are heterogeneously dense, which may obscure small masses. There are no dominant masses or suspicious calcifications. No other significant abnormalities are identified. There has been no significant change since the prior study. BI/SCREENING MAMM (CAD), BILAT IMPRESSION: Stable bilateral screening mammogram. Yearly follow-up mammogram recommended. (A) ASSESSMENT CATEGORY: BIRADS Category 1: Negative. A letter regarding these results will be sent to the patient by the facility within 30 days. Approximately 10% of breast cancers are not detected by mammography. A normal mammogram should not delay biopsy of a clinically suspicious abnormality. [id number] Electronically Signed: Pato Paniagua MD at 8:16 EDT Tel [phone], Service support ,
== END ==
DX: Z12.31 Encounter for screening mammogram for malignant neoplasm of breast (principal)
CPT/HCPCS: 77063; 77067

== ENCOUNTER 2018-04-19 07:06 | Day surgery (SDC) | payer MEDICARE, MEDICAID, SELFPAY ==
[2017-12-25 10:53] VITALS: BMI 18.8
[2018-04-19] VITALS (7 sets, daily range): BP systolic 120–140; BP diastolic 80–91; PULSE 76–83; RESP 16–18; TEMP 36.2–36.8; O2SAT 96–98; BMI 19.2
--- NOTE | 2018-04-19 08:25 | H&P.OPEN ---
History of Present Illness Date of Admission: 04/19/18 The patient is a 57 year old F here for screening colonoscopy. She has never had a colonoscopy in the past. She reports that she does have family history of colon cancer in her father who from the colon cancer. This was less than age 60. She denies any abdominal pain or blood in her stool. She has no inadvertent weight loss. Past Medical/Surgical History - Planned Operation Planned Operative Procedure/s: colonoscopy open access Date of Operative Procedure: 03/15/18 Permit Signed: No S.O.S: No Is This Patient Having a Total Joint: No - Previous Hospitalizations/Surgeries HX Hospitalizations: Yes - pneumonia 3yrs ago HX of Surgeries: back injections. deviated septum. carpal tunnel bilat Any Problems With Anesthesia: No You/Your Family Experience Fever (Hyperthermia) With Anes: No Cholinesterase deficiency: No - Cardiovascular Hx Chest Pain within Last 2 months: No Hx of Irregular Heartbeat and/or Afib: No Hx Heart Attack: No Hx Congestive Heart Failure: No Hx Rheumatic Fever: No Hx Hypertension: Yes - controlled with med Hx Internal Defibrillator: No Hx Pacemaker: No Hx Cardiac Catheterization: No Hx Cardiac Surgery/Stents/Etc.: No Hx Stress Test: No - echo 2017 HX Edema: No Hx Pain in Legs when Walking/Leg Cramps: Yes - leg pain d/t back - Respiratory Chronic Cough: Yes HX of Shortness of Breath: Yes - sob with 2 flights of stairs Hoarseness: No Hx Chronic Obstructive Pulmonary Disease (COPD): Yes Hx Asthma: Yes Hx Emphysema: Yes Hx Sleep Apnea: Yes CPAP: Yes - doesnt wear BIPAP: No Hx Oxygen Use at Home: No Hx Respiratory Tract Infection/Cold (presently): No Result (for STOP score): Positive Hx Smoking: Yes - 1ppd for 47 Smoking Status: Current every day smoker - Gastrointestinal Hx Gastroesophageal Reflux: Yes Controlled With Meds: Yes Hx Gastrointestinal Disorders: No Hx Gastrointestinal Bleed: No Hx Ulcer: No Hx Hiatal Hernia: No Difficulty Chewing/Swallowing: No Recent Onset of Swallowing Problems: No Special diet followed at home: No Hx Unplanned Weight Loss of 20#: No HX Unplanned Weight Gain of 20#: No - Neurological Hx Seizures: No HX Syncope/Blackout Spells/Unconsciousness: Yes - passed out many yrs ago Hx CVA/Stroke: No Hx Transient Ischemic Attacks (TIA): No Hx Multiple Sclerosis: No Hx Parkinson's Disease: No Hx Head/Neck Injury: No Hx Headaches: Yes Hx Back Injury/Pain: Yes - back injury yrs ago/back injections/bilat leg pain Recent Onset of Speech Difficulty: No Restless Legs: Yes Does patient have nerve stimulator: No Patient instructed to have device shut off: No Rep notified?: No - Blood Disorder Hx Leukemia: No Bleeding Tendencies: No Hx Deep Vein Thrombosis: Yes - 6yrs ago dvt and pe Hx High Cholesterol: Yes - on med Blood Transmitted Disease: No Hx Hepatitis: No Hx Cirrhosis: No Hx Anemia: Yes - low iron Hx Blood Disorders: No - Reproduction : No Is Patient Lactating: No Hx Hysterectomy: No Hx Tubal Ligation: No Are You Post Menopause: Yes - Genitourinary Hx Renal Disease: No Hx Dialysis: No - Musculoskeletal Hx Arthritis: Yes Hx Rheumatoid Arthritis: No Hx Gout: No Recent Onset of an Orthopedic Problem: No - Endocrine Hx Diabetes: No Thyroid Disease: No Hx Steroid Therapy: Yes - back injection 3 weeks ago - Psycho/Social Hx Substance Use: No Hx Alcohol Use: Yes - ALMOST DAILY 0-4 BEERS PER DAY Hx Anxiety: Yes - on med Hx Depression: Yes - on med Mental Illness: No Hx Dementia: No - Miscellaneous Hx Cancer: No Recent Exposure to Contagious Disease: No Active MRSA: No Hx of C-Diff: No Any Loose Teeth: No - upper denture Additional information pertinent to anesthesia:: SMOKES 1PPD FOR 47+ YRS Allergies lisinopril Allergy (Verified 04/15/18 14:36) Angioedema codeine Adverse Reaction (Intermediate, Verified 04/15/18 14:36) / Paternal Family History: Family History (Last Reviewed 12/25/17 @ 06:57 by Rozina Cardenas) Mother Asthma Depression Father Respiratory abnormality, unspecified COPD Sibling Family History: Family History (Last Reviewed 12/25/17 @ 06:57 by Rozina Cardenas) Mother Asthma Depression Father Respiratory abnormality, unspecified COPD Maternal Family History: Family History (Last Reviewed 12/25/17 @ 06:57 by Rozina Cardenas) Mother Asthma Depression Father Respiratory abnormality, unspecified COPD, No pertinent history - Discharge Is Pt Admitted From a Intermediate, or a [facility]: No Who Could Help: family After D/C, Where Do you Plan to Go: Return Home - Physical Exam General: Alert, Oriented x3, Cooperative Neck: No JVD Lungs: Normal air movement Cardiovascular: Regular rate, Regular Rhythm Abdomen: Soft, Non Tender, Non-Distended Vital Signs Temp Pulse Resp BP Pulse Ox 98.2 F 83 16 136/91 H 96 04/19/18 07:31 04/19/18 07:31 04/19/18 07:31 04/19/18 07:31 04/19/18 07:31 Oxygen Delivery Method Room Air Weight: 111 lb 15.917 oz Body Mass Index (BMI) 19.2 Assessment/Plan All Active Problems (Last Reviewed 12/25/17 @ 06:57 by Rozina Cardenas) COPD exacerbation (Acute) History of carpal tunnel surgery of left wrist (Resolved) 57-year-old female for screening colonoscopy 1. The patient reports that she did have a family history of colon cancer in her father at less than age 60. For that reason even if there are no polyps I would recommend repeat colonoscopy for surveillance in 5 years. 2. I explained endoscopy in detail to the patient. I explained the risks including but not limited to stroke or heart attack with anesthesia, perforation of the GI tract, bleeding, infection. I explained that any of these could necessitate further emergency surgery. The patient understands and all questions were answered sufficiently. The patient wishes to proceed with procedure. Sander Veliz MD Pager: [facility] [address] [place] [address], [address] [place] [address] Office: Surgery Risks - Colonoscopy Risks Include but are not Limited To: Risks include but are not limited to: Bleeding, perforation requiring further surgery, inability to complete colonoscopy requiring barium enema.
--- NOTE | 2018-04-19 08:55 | OP.ENDO_ITS ---
Patient Name: Mariia Reilly Procedure Date: 04/19/2018 8:28 AM Date of : 1960 Age: 57 Procedure: Colonoscopy Indications: Screening in patient at increased risk: Colorectal cancer in father before age 60 Providers: Sander Veliz MD Referring MD: Sander Veliz MD Medicines: Monitored Anesthesia Care Patient Profile: This is a 57 year old female. Refer to note in patient chart for documentation of history and physical. Last Colonoscopy: none. The patient's first colonoscopy is today. Complications: No immediate complications. Procedure: Pre-Anesthesia Assessment: - Prior to the procedure, a History and Physical was performed, and patient medications and allergies were reviewed. The patient's tolerance of previous anesthesia was also reviewed. The risks and benefits of the procedure and the sedation options and risks were discussed with the patient. All questions were answered, and informed consent was obtained. Prior Anticoagulants: The patient has taken no previous anticoagulant or antiplatelet agents. After reviewing the risks and benefits, the patient was deemed in satisfactory condition to undergo the procedure. After I obtained informed consent, the scope was passed under direct vision. Throughout the procedure, the patient's blood pressure, pulse, and oxygen saturations were monitored continuously. The colonoscope was introduced through the anus and advanced to the cecum, identified by appendiceal orifice and ileocecal valve. The colonoscopy was performed without difficulty. The patient tolerated the procedure well. The quality of the bowel preparation was unsatisfactory. Scope In: 8:36:52 AM Scope Withdrawal Time 0 hours 3 minutes 23 seconds Scope Out: 8:51:23 AM Total Procedure Duration Time 0 hours 14 minutes 31 seconds Findings: The exam was otherwise without abnormality on direct and retroflexion views. Impression: - Preparation of the colon was unsatisfactory. - The examination was otherwise normal on direct and retroflexion views. - No specimens collected. Recommendation: - Discharge patient to home. - Resume previous diet. - Continue present medications. - Repeat colonoscopy in 6 months because the bowel preparation was poor. Procedure Code(s): --- Professional --- G0105, 33, Colorectal cancer screening; colonoscopy on individual at high risk Diagnosis Code(s): --- Professional --- Z80.0, Family history of malignant neoplasm of digestive organs CPT copyright 2017 [employer]. All rights reserved. The codes documented in this report are preliminary and upon picking supervisor review may be revised to meet current compliance requirements. Sander Veliz MD 04/19/2018 8:55:11 AM This report has been signed electronically. Number of Addenda: 0 Note Initiated On: 04/19/2018 8:28 AM
== END 2018-04-19 09:37 | disposition home or self-care (01) ==
LOC: EN 07:08 → AC 07:10
PROVIDERS: Referring Provider Surgery; Visit Provider Surgery
PROC: 0DJD8ZZ Inspection of Lower Intestinal Tract, Via Natural or Artificial Opening Endoscopic (ICD-10-PCS; CPT 45378; principal; 2018-04-19 08:25)
DX: Z12.11 Encounter for screening for malignant neoplasm of colon (principal); K21.9 Gastro-esophageal reflux disease without esophagitis; D50.9 Iron deficiency anemia, unspecified; E78.00 Pure hypercholesterolemia, unspecified; F41.9 Anxiety disorder, unspecified; F32.9 Major depressive disorder, single episode, unspecified; I10 Essential (primary) hypertension; J44.9 Chronic obstructive pulmonary disease, unspecified; J45.909 Unspecified asthma, uncomplicated; G47.30 Sleep apnea, unspecified; F17.200 Nicotine dependence, unspecified, uncomplicated; Z80.0 Family history of malignant neoplasm of digestive organs; Z86.718 Personal history of other venous thrombosis and embolism; Z79.899 Other long term (current) drug therapy
CPT/HCPCS: G0121; J7120

== ENCOUNTER → 2018-04-22 09:19 | Outpatient (CLI) | payer MEDICARE, MEDICAID, SELFPAY ==
[2018-04-19 07:31] VITALS: BMI 19.2
--- NOTE | 2018-04-22 10:00 | MRI_ITS ---
STUDY: MRI LUMBAR SPINE WITHOUT CONTRAST REASON FOR EXAM: Female, 57 years old. LOW BACK PAIN, LEFT LEG PAIN, LEG NUMBNESS. TECHNIQUE: Standardized fat and water weighted pulse sequences were obtained in the sagittal and axial planes. COMPARISON: None FINDINGS: T12-L1: Normal endplates. Normal disc height, hydration and morphology. Normal bilateral facet joints. Normal central canal and bilateral lateral recesses. Normal bilateral intervertebral neural foramina. Normal lumbar lordosis. There is mild scoliosis Normal conus medullaris that terminates at the L1 L1-2: There is minimal disc space narrowing and endplate spondylosis. There is no significant disc herniation, central canal or foraminal stenosis. L2-3: There is mild disc space narrowing and endplates spondylosis. There is mild disc bulge asymmetric to the left with mild left foraminal stenosis. There is no significant central canal or right foraminal stenosis. There is mild facet arthropathy L3-4: There is mild disc space narrowing and endplates spondylosis. There is a mild disc bulge and facet arthropathy with mild central canal stenosis. There is mild bilateral foraminal stenosis. L4-5: There is severe disc space narrowing and endplates spondylosis. There is a moderate disc bulge and facet arthropathy asymmetric to the right with severe right foraminal stenosis. There is moderate central canal and mild left foraminal stenosis. L5-S1: There is minimal disc space narrowing and endplates spondylosis. There is mild disc bulge asymmetric to the left with moderate left lateral recess and foraminal stenosis. There is no significant central canal or right foraminal stenosis. Normal visualized sacral ala. Normal visualized paraspinous soft tissue structures. MRI/Spine Lumbar (Routine) IMPRESSION: L4/L5: Severe right foraminal stenosis. Moderate central canal stenosis. L5/S1: Moderate lateral recess and foraminal stenosis. Multilevel degenerative changes. Electronically Signed: Gerardo Levin MD at 9:30 EST Tel , Service support ,
== END ==
PROVIDERS: Referring Provider Anesthesiology Pain Medicine; Visit Provider Anesthesiology Pain Medicine
DX: M54.5 Low back pain (principal); M79.605 Pain in left leg
CPT/HCPCS: 72148

== ENCOUNTER 2018-06-17 14:42 | Inpatient (IN) | payer MEDICARE, MEDICAID, SELFPAY ==
[2018-04-19 07:31] VITALS: BMI 19.2
[2018-06-17] VITALS (13 sets, daily range): BP systolic 125–177; BP diastolic 75–98; PULSE 92–117; RESP 20–28; TEMP 36.4–37.7; O2SAT 96–99; BMI 19.9
--- NOTE | 2018-06-17 15:17 | RAD_ITS ---
STUDY: X-RAY CHEST REASON FOR EXAM: Female, 57 years old. Cough shortness of breath history of COPD TECHNIQUE: Single x2 AP portable view of the chest. COMPARISON: December 08, 2017 chest x-ray FINDINGS: The prior study there is increased haziness of the lung bases and increased interstitial markings. There is no demonstrated pleural abnormality. Normal size heart. Normal mediastinum and lenka. Normal visualized pulmonary arteries. Normal visualized aortic arch and descending thoracic aorta. Normal visualized thoracic spine. Normal visualized ribs, clavicles, and shoulders. There is no demonstrated abnormality of the visualized soft tissue structures of the upper abdomen. RAD/Chest 1 View (Portable) IMPRESSION: Interval increased haziness of the lung bases may represent atelectasis versus developing lower lobe infiltrates. Electronically Signed: Jeanette Chin MD at 16:32 EST Tel , Service support ,
--- NOTE | 2018-06-17 15:17 | EKG12_ITS ---
Test Reason : SOB Blood Pressure : / mmHG Vent. Rate : 099 BPM Atrial Rate : 099 BPM P-R Int : 150 ms QRS Dur : 084 ms QT Int : 388 ms P-R-T Axes : 063 084 073 degrees QTc Int : 497 ms Normal sinus rhythm Nonspecific ST abnormality Prolonged QT Abnormal ECG Confirmed by CAITLIN MART ([id number]), magazine editor HUE ESPINAL ([id number]) on 06/21/2018 1:29:50 PM Referred By: José Manuel Webb Confirmed By:CAITLIN MART
--- NOTE | 2018-06-17 15:18 | ED.VISSUMM ---
- ER Visit Summary Date of Service: 06/17/18 Chief Complaint: Shortness of breath History of Present Illness: The patient is a 57 F with a history of COPD presenting with 3-4 days of shortness of breath, cough, and wheezing. She states that this feels like a COPD exacerbation and see is concerned that she could have bronchitis. She denies pleuritic chest pain or lower extremity pain/swelling. She denies history of DVT or PE. Physical Examination: She is slightly tachypneic and she has diffuse wheezing in all lung schwab but is still moving air fairly well. Moderate respiratory distress. Pulse oximetry 97% on 2 L. Redness along the lower extremity venous system, palpable cords, or other evidence of DVT. Test Results: X-ray reveals questionable early bilateral lower lobe infiltrates. Flu swab negative. Labs fairly unremarkable. Emergency Department Course and Treatment: She was given IV Solu-Medrol and 3 breathing treatments. She improved slightly but is still wheezing a fair amount. Treatment Plan: She ambulated on room air, her heart rate went into the 140s and she was hypoxic. She does not wear home oxygen so I do therefore feel she meets criteria for hospitalization. Disposition: Admit Impression: Initial encounter acute exacerbation of COPD secondary to early community-acquired pneumonia This note was generated with [employer] dictation software. It may contain incorrect words, spelling, and punctuation that were not noted in review of the chart prior to signing ED Disposition - Plan for ED Patient: Referrals: [facility] Alex,Leslie Snowden [NON-STAFF] -
[2018-06-17 15:29] LABS: Absolute Neutrophil Count 2.6 X10^3/uL (2.0-7.7); Basophil# 0.01 X10^3/uL; Basophil% 0.2 % (0-1); Eosinophil# 0.05 X10^3/uL; Hematocrit 45.1 % (37-47); Hemoglobin 15.1 g/dl (12.0-15.0); Lymphocyte % 28.7 % (19-41); Mean Corp Hgb Conc 33.5 g/gl (32-36); Mean Corpuscular Hgb 32.5 pg (27.0-32.0); Monocyte# 0.78 X10^3/uL; Neutrophil # 2.63 X10^3/uL (2.7-7.7); Neutrophil % 53.9 % (47-70); Platelet Count 171 K/mm3 (150-450); RBC Distribution Width CV 12.6 % (11.6-14.6); RBC Distribution Width SD 43.9 fl (35.1-43.9); Red Blood Count 4.65 M/mm3 (4.2-5.4); White Blood Count 4.9 K/mm3 (4.4-11.0)
[2018-06-17 15:33] LABS: POSITIVE COUNT NO; POSITIVE DIFFERENTIAL NO; POSITIVE MORPHOLOGY NO
[2018-06-17] MEDS: Albuterol 2.5 MG/3 ML VIAL.NEB. INHALATION ×3 (15:42→15:59)
[2018-06-17] MEDS: Ipratropium/Albuterol Sulfate 3 ML AMPUL.NEB INHALATION ×2 (15:42→20:22)
[2018-06-17] MEDS: MethylPREDNISolone 125 MG/2 ML Vial IV (15:49)
[2018-06-17 16:40] LABS: Anion Gap 11 (5-15); BUN 9 mg/dL (7-18); BUN/Creat Ratio 14.5 RATIO (10-20); Chloride 105 mmol/L (98-107); Creatinine, Serum 0.62 mg/dL (0.55-1.02); EST Glomerular Filtration Rate 105 mL/min (>60); Est Glom Filt Rate - Afr Amer 127 mL/min (>60); Estimated Creatinine Clearance 83.13 ml/min; Glucose 94 mg/dL (74-106); Potassium 3.1 mmol/L (3.5-5.1); Sodium Level 137 mmol/L (136-145)
--- NOTE | 2018-06-17 16:45 | ED.RN ---
Spoke with Dr. Mendoza about pt's sepsis screen. Due to her heart rate, respirations, and risk for infection she meets sepsis criteria. Dr. Mendoza does not think she is septic.
--- NOTE | 2018-06-17 17:37 | ED.RN ---
pt with increased respiratory rate and hr on ambulation. pt placed back on monitor after ambulating and was satting 90% on ra. pt continues to cough and reports sob. dr. peck at bedside with pt.
--- NOTE | 2018-06-17 17:44 | ED.RN ---
per dr. otero sepsis protocol not needed.
[2018-06-17] MEDS: Ceftriaxone 1 GM/50 ML BAG IV (17:57)
--- NOTE | 2018-06-17 17:59 | PCM.HP.STD ---
Problem List (1) COPD exacerbation Status: Acute History of Present Illness Date of Admission: 06/17/18 Chief Complaint: shortness of breath. The patient is a 57 year old F presents with 3 days of dyspnea on exertion. Patient was doing well up until then where patient has been having chills, chest pain, nonproductive cough and dyspnea on exertion. Patient has had a history of COPD exacerbations before but this is more pronounced. Patient presented to the emergency room and was tachypneic and tachycardic. She received Rocephin, azithromycin, bronchodilators and Solu-Medrol. She is currently off of oxygen but still feeling short of breath particular with her paroxysms of cough. [] Past Medical History Past Medical History (Chronic Problems): Chronic Problems (Last Reviewed 12/25/17 @ 06:57 by Rozina Cardenas) Asthma (Chronic) Emphysema (Chronic) Depression (Chronic) [place] (obstructive sleep apnea) (Chronic) Continued non-compliance. Patient states she is unable to tolerate the CPAP because of things from my past. Benign essential hypertension (Chronic) Tobacco user (Chronic) Strongly encouraged smoking cessation. Patient is not interested at this time. History of pulmonary embolism (Chronic) Angioedema (Chronic) Medical History: Medical History (Last Reviewed 06/17/18 @ 18:01 by José Manuel Webb DO) Asthma (Chronic) J45.909 Emphysema (Chronic) J43.9 Depression (Chronic) F32.9 [place] (obstructive sleep apnea) (Chronic) G47.33 Continued non-compliance. Patient states she is unable to tolerate the CPAP because of things from my past. Benign essential hypertension (Chronic) I10 Tobacco user (Chronic) Z72.0 Strongly encouraged smoking cessation. Patient is not interested at this time. History of pulmonary embolism (Chronic) Z86.711 Angioedema (Chronic) T78.3XXA Allergies lisinopril Allergy (Verified 06/17/18 14:49) Angioedema Sulfa (Sulfonamide Antibiotics) Allergy (Verified 06/17/18 14:49) Itching codeine Adverse Reaction (Intermediate, Verified 06/17/18 14:49) / Home Medications: Ambulatory Orders Medication Instructions Recorded Fluticasone/Vilanterol [Breo 1 puff INHALATION QHS 07/25/16 Ellipta 100-25 Mcg INH] Amlodipine [Norvasc] 5 mg PO DAILY 12/09/17 Gabapentin [Neurontin] 100 mg PO TIDCM 12/09/17 Ranitidine [Zantac] 150 mg PO BID 12/09/17 Spironolactone 25 mg PO DAILY 12/09/17 Meloxicam [Mobic] 7.5 mg PO BID 03/13/18 Duloxetine Hcl [Cymbalta] 30 mg PO DAILY 04/15/18 Albuterol Sulfate [Proair Hfa] 2 puff INHALATION Q4H PRN PRN 06/17/18 Pravastatin Sodium 10 mg PO DAILY 06/17/18 Spironolactone [Aldactone] 25 mg PO DAILY 06/17/18 Umeclidinium [place] Inhaler 1 inh INHALATION DAILY 06/17/18 [Incruse Ellipta Inhaler] Surgical History: Surgical History (Last Reviewed 06/17/18 @ 18:01 by José Manuel Webb DO) History of carpal tunnel surgery of left wrist (Resolved) Z98.890 Psychiatric History: No pertinent psych hx OPERATIONS SECTION MANAGER History: No pertinent OPERATIONS SECTION MANAGER history Smoking Status: Current every day smoker Tobacco Use: Cigarettes Alcohol: Rare Drugs: None - *Family History Paternal Family History: Family History (Last Reviewed 06/17/18 @ 18:01 by José Manuel Webb DO) Mother Asthma Depression Father Respiratory abnormality, unspecified History Items: COPD Sibling Family History: Family History (Last Reviewed 06/17/18 @ 18:01 by José Manuel Webb DO) Mother Asthma Depression Father Respiratory abnormality, unspecified History Items: COPD Maternal Family History: Family History (Last Reviewed 06/17/18 @ 18:01 by José Manuel Webb DO) Mother Asthma Depression Father Respiratory abnormality, unspecified History Items: COPD, No pertinent history Review of Systems Constitutional: Reports: Chills. Denies: Anorexia, Fever Eyes: Denies: Blurred vision, Double vision HEENT: Denies: Head Aches, Sinus Congestion, Sinus Drainage Cardiovascular: Reports: Chest Pain. Denies: Edema Respiratory: Reports: Cough, Shortness of breath upon exertion. Denies: Sputum production Gastrointestinal: Denies: Abdominal Pain, Nausea, Vomiting Genitourinary: Denies: Dysuria Musculoskeletal: Denies: Joint Pain, Joint Tenderness Skin: Denies: Rash, Wounds Neurological: Denies: Blurred vision, Double vision, Focal weakness, Numbness, Tingling Psychiatric: Denies: Homicidal Ideations, Suicidal Ideations Hematologic/ Lymphatic: Denies: Easy Bruising, Easy Bleeding, Hx of blood clot Comment: A 10 point review of systems were negative except as mentioned in the history of present illness and the other review of systems. VTE Information - Inpt Only VTE Present on Admission: No VTE Mechan Device Prophylaxis: None VTE Pharm Prophylaxis ordered?: Yes - Physical Exam General: Alert, Cooperative, No apparent distress HEENT: Atraumatic, Normocephalic, - - Impacted wax in ear canals bilaterally, unable to sit see the tympanic membranes. Oral: Moist Mucosa, No Gingival or Mucosal Lesions/ Ulcerations Neck: No Nodes, Thyroid Normal Size and Texture Lungs: Diminished, Wheezes - Faint Cardiovascular: Regular rate, Regular Rhythm, Normal S1, Normal S2, No murmurs Abdomen: Bowel Sounds Present, Soft, Non Tender, Non-Distended, No Hepato-splenomegaly Extremities: No edema, No Calf Tenderness Skin: No rashes, No breakdown Psych/Mental Status: Normal Affect, Appropriate Vital Signs Temp Pulse Resp BP Pulse Ox 37.7 C H 117 H 20 H 161/96 H 96 06/17/18 17:42 06/17/18 17:57 06/17/18 17:57 06/17/18 17:57 06/17/18 17:57 Oxygen Flow Rate (L/min) 2 Oxygen Delivery Method Room Air Weight: 52.6 kg Body Mass Index (BMI) 19.9 Microbiology Past 72 Hours 06/17/18 15:45 Influenza Types A,B Direct FA (FELIBERTO) - Final Mucosa - Nasopharyngeal Laboratory Tests Past 24 Hrs 06/17/18 06/17/18 06/17/18 15:07 15:07 15:50 WBC 4.9 RBC 4.65 Hgb 15.1 H Hct 45.1 MCV 97.0 MCH 32.5 H MCHC 33.5 RDW 12.6 RDW Differential 43.9 Plt Count 171 MPV 10.0 Immature Gran % (Auto) 0.200 Neut % (Auto) 53.9 Lymph % (Auto) 28.7 [place] % (Auto) 16.0 H Eos % (Auto) 1.0 Baso % (Auto) 0.2 Absolute Neuts (auto) 2.6 Absolute Lymphs (auto) 1.40 Total Counted Not Reportable Sodium Cancelled Cancelled Potassium Cancelled Cancelled Chloride Cancelled Cancelled Carbon Dioxide Cancelled Cancelled Anion Gap Cancelled Cancelled BUN Cancelled Cancelled Creatinine Cancelled Cancelled Estim Creat Clear Calc Cancelled Cancelled Est GFR (MDRD) Af Amer Cancelled Cancelled Est GFR (MDRD) Non-Af Cancelled Cancelled BUN/Creatinine Ratio Cancelled Cancelled Glucose Cancelled Cancelled Calcium Cancelled Cancelled Troponin I Cancelled Cancelled 06/17/18 16:14 WBC RBC Hgb Hct MCV MCH MCHC RDW RDW Differential Plt Count MPV Immature Gran % (Auto) Neut % (Auto) Lymph % (Auto) [place] % (Auto) Eos % (Auto) Baso % (Auto) Absolute Neuts (auto) Absolute Lymphs (auto) Total Counted Sodium 137 Potassium 3.1 L Chloride 105 Carbon Dioxide 21.0 Anion Gap 11 BUN 9 Creatinine 0.62 Estim Creat Clear Calc 83.13 Est GFR (MDRD) Af Amer 127 Est GFR (MDRD) Non-Af 105 BUN/Creatinine Ratio 14.5 Glucose 94 Calcium 9.0 Troponin I < 0.015 EKG reviewed and showed sinus tachycardia with a QTC of 497. Chest x-ray reviewed and showed hyperinflated airways bilaterally. Questionable left lower lobe infiltrate. Assessment/Plan All Active Problems (Last Reviewed 12/25/17 @ 06:57 by Rozina Cardenas) COPD exacerbation (Acute) History of carpal tunnel surgery of left wrist (Resolved) 1. Acute COPD exacerbation: Patient is tachypneic and wheezing with diminished breath sounds. Continue with bronchodilators and Solu-Medrol. Comp gated by her ongoing smoking. 2. Possible pneumococcal pneumonia: Patient will be on azithromycin and Rocephin. Check sputum culture, urinary antigens for Streptococcus and Legionella. Pulmonary toilet. 3. Hypokalemia: Replace. Check magnesium. 4. DVT prophylaxis with low molecular weight heparin. Code Visit OBSV E&M: 93321 Initial observation care L2
[2018-06-17] MEDS: Pravastatin 20 MG Tablet 10 MG PO (21:27)
[2018-06-17] MEDS: guaiFENesin 1,200 MG Tablet 1200 MG PO (21:32)
[2018-06-17] MEDS: Famotidine 20 MG Tablet PO (21:32)
[2018-06-17] MEDS: Meloxicam 7.5 MG Tablet PO (21:32)
[2018-06-17] MEDS: 0.9% NaCl Peripheral Flush Adult/Peds IV (21:33)
[2018-06-17] MEDS: Acetaminophen 325 MG Tablet 650 MG PO (23:08)
[2018-06-18] VITALS (10 sets, daily range): BP systolic 137–157; BP diastolic 78–99; PULSE 57–103; RESP 16–20; TEMP 36.6–37.2; O2SAT 94–97
[2018-06-18] MEDS: 0.9% NaCl Peripheral Flush Adult/Peds IV ×3 (05:34→12:37)
[2018-06-18 05:51] LABS: Anion Gap 11 (5-15); BUN 14 mg/dL (7-18); BUN/Creat Ratio 24.8 RATIO (10-20); Calcium,Total 8.9 mg/dL (8.5-10.1); Chloride 105 mmol/L (98-107); Creatinine, Serum 0.56 mg/dL (0.55-1.02); EST Glomerular Filtration Rate 117 mL/min (>60); Est Glom Filt Rate - Afr Amer 142 mL/min (>60); Estimated Creatinine Clearance 92.04 ml/min; Glucose 152 mg/dL (74-106); Magnesium 2.1 mg/dL (1.6-2.6); Potassium 4.2 mmol/L (3.5-5.1); Sodium Level 135 mmol/L (136-145)
[2018-06-18] MEDS: Acetaminophen 325 MG Tablet 650 MG PO ×3 (06:31→21:56)
[2018-06-18] MEDS: Ipratropium/Albuterol Sulfate 3 ML AMPUL.NEB INHALATION ×5 (06:41→23:32)
[2018-06-18] MEDS: Gabapentin 100 MG Capsule 200 MG PO ×3 (08:31→17:34)
[2018-06-18] MEDS: Umeclidinium Bromide Inhaler 1 PUFF INHALATION (08:32)
--- NOTE | 2018-06-18 10:25 | CASEMGMT ---
RN YAW Face to Face with patient for initial transition planning/care coordination assessment. RN CM introduced self and role at [facility]. Patient lying in bed, alert and oriented. Patient willing to participate in assessment and is able to answer all questions appropriately. Care providers, pharmacy, and demographics verified. Patient wishes to discharge home, denies need for home health at this time. Patient states she has no further needs or concerns at this time. CM to follow for discharge planning needs that may arise. PCP: Leslie dubois Specialists: Obie, pulmonology Preferred Pharmacy: [facility] Pres[facility] Benefit: yes Living Will/HPOA: None LNOK: Fiance Living Arrangements: Patient lives with momo in 1 story home with 2 steps to enter to the home. Patient states that she is independent at home. Transportation: self/fiance DME/HHC: Patient states she has a nebulizer at home. Patient states that she had a cpap or bipap but she couldn't stand it so she threw it out. No home oxygen at home. Denied previous HHC/SNF. Patient was to have PFT this week but rescheduled testing and follow-up appt with Obie. Disposition Plan: Patient to discharge home with family support and follow-up plans in place. Gabrielle ERWIN, RN, CM
[2018-06-18] MEDS: DULoxetine Hcl 30 MG Capsule PO (10:38)
[2018-06-18] MEDS: guaiFENesin 1,200 MG Tablet 1200 MG PO ×2 (10:38→21:55)
[2018-06-18] MEDS: Meloxicam 7.5 MG Tablet PO ×2 (10:38→21:55)
[2018-06-18] MEDS: Enoxaparin 40 MG/0.4 ML Syringe SC (10:38)
[2018-06-18] MEDS: Ceftriaxone 1 GM/50 ML BAG IV (10:38)
[2018-06-18] MEDS: Spironolactone 25 MG Tablet PO (10:38)
[2018-06-18] MEDS: amLODIPine 5 MG Tablet PO (10:38)
[2018-06-18] MEDS: Famotidine 20 MG Tablet PO ×2 (10:38→21:54)
--- NOTE | 2018-06-18 12:58 | PCM.PN.HOSP ---
Subjective: Continues to have a nonproductive cough and says that she feels short of breath despite the fact that she has oxygenating to 98% on room air Vitals/I&O's: Vital Signs Temp Pulse Resp BP Pulse Ox 98.7 F 85 20 H 157/96 H 96 06/18/18 08:27 06/18/18 11:14 06/18/18 11:14 06/18/18 08:27 06/18/18 08:27 Oxygen Flow Rate (L/min) 1 Oxygen Delivery Method Room Air Weight: 115 lb 15.41 oz Body Mass Index (BMI) 19.9 Intake and Output for Last 24 Hours 06/16/18 06/17/18 06/18/18 23:59 23:59 23:59 Intake Total 1341 / 1341 2053 / 2053 Output Total 3100 / 3100 Balance 1341 / 1341 -1046 / -1046 General: Alert, Oriented x3, Cooperative, No apparent distress HEENT: Atraumatic, PERRLA, EOMI, Normocephalic Oral: Moist Mucosa Neck: Supple, No JVD, Trachea Midline Lungs: Normal air movement, No rhonchi, No rales, Diminished, Wheezes Cardiovascular: Regular rate, Regular Rhythm, Normal S1, Normal S2, No murmurs Abdomen: Soft, Non Tender, Non-Distended, No Hepato-splenomegaly Extremities: No edema, Capillary Refill Less than 3 Seconds Skin: No rashes, No breakdown Neurological: Neuro grossly intact, Sensory exam intact to light touch and pain Psych/Mental Status: Normal Affect, Appropriate Microbiology Past 72 Hours 06/17/18 22:20 Urine, Clean Catch Streptococcus pneumoniae Antigen (M - Final 06/17/18 22:20 Urine, Clean Catch Legionella Antigen - Final 06/17/18 15:45 Mucosa - Nasopharyngeal Influenza Types A,B Direct FA (FELIBERTO) - Final Laboratory Results 06/17/18 15:07: WBC 4.9, RBC 4.65, Hgb 15.1 H, Hct 45.1, MCV 97.0, MCH 32.5 H, MCHC 33.5, RDW 12.6, RDW Differential 43.9, Plt Count 171, MPV 10.0, Immature Gran % (Auto) 0.200, Neut % (Auto) 53.9, Lymph % (Auto) 28.7, [place] % (Auto) 16.0 H, Eos % (Auto) 1.0, Baso % (Auto) 0.2, Absolute Neuts (auto) 2.6, Absolute Lymphs (auto) 1.40, Total Counted Not Reportable 06/17/18 15:07: Sodium Cancelled, Potassium Cancelled, Chloride Cancelled, Carbon Dioxide Cancelled, Anion Gap Cancelled, BUN Cancelled, Creatinine Cancelled, Estim Creat Clear Calc Cancelled, Est GFR (MDRD) Af Amer Cancelled, Est GFR (MDRD) Non-Af Cancelled, BUN/Creatinine Ratio Cancelled, Glucose Cancelled, Calcium Cancelled, Troponin I Cancelled 06/17/18 15:50: Sodium Cancelled, Potassium Cancelled, Chloride Cancelled, Carbon Dioxide Cancelled, Anion Gap Cancelled, BUN Cancelled, Creatinine Cancelled, Estim Creat Clear Calc Cancelled, Est GFR (MDRD) Af Amer Cancelled, Est GFR (MDRD) Non-Af Cancelled, BUN/Creatinine Ratio Cancelled, Glucose Cancelled, Calcium Cancelled, Troponin I Cancelled 06/17/18 16:14: Sodium 137, Potassium 3.1 L, Chloride 105, Carbon Dioxide 21.0, Anion Gap 11, BUN 9, Creatinine 0.62, Estim Creat Clear Calc 83.13, Est GFR (MDRD) Af Amer 127, Est GFR (MDRD) Non-Af 105, BUN/Creatinine Ratio 14.5, Glucose 94, Calcium 9.0, Troponin I < 0.015 06/18/18 05:18: Sodium 135 L, Potassium 4.2, Chloride 105, Carbon Dioxide 19.0 L, Anion Gap 11, BUN 14, Creatinine 0.56, Estim Creat Clear Calc 92.04, Est GFR (MDRD) Af Amer 142, Est GFR (MDRD) Non-Af 117, BUN/Creatinine Ratio 24.8 H, Glucose 152 H, Calcium 8.9, Magnesium 2.1 Current Medications Acetaminophen (Tylenol) 650 mg PO Q6H PRN PRN PRN Reason: Mild Pain (1-3)/Temp > 100.7 F Last Admin: 06/18/18 12:37 Dose: 650 mg Albuterol Sulfate (Ventolin Aerosols) 2.5 mg INHALATION Q2H PRN PRN PRN Reason: SHORTNESS OF BREATH Albuterol/Ipratropium (Duoneb) 3 ml INHALATION Q4H.RT [facility] Last Admin: 06/18/18 11:14 Dose: 3 ml Amlodipine Besylate (Norvasc) 5 mg PO DAILY [facility] Last Admin: 06/18/18 10:38 Dose: 5 mg Duloxetine HCl (Cymbalta) 30 mg PO DAILY [facility] Last Admin: 06/18/18 10:38 Dose: 30 mg Enoxaparin Sodium (Lovenox) 40 mg SC DAILY@1000 [facility] Last Admin: 06/18/18 10:38 Dose: 40 mg Famotidine (Pepcid) 20 mg PO BID [facility] Last Admin: 06/18/18 10:38 Dose: 20 mg Gabapentin (Neurontin) 200 mg PO TIDCM [facility] Last Admin: 06/18/18 11:30 Dose: 200 mg Guaifenesin (Mucinex) 1,200 mg PO BID [facility] Last Admin: 06/18/18 10:38 Dose: 1,200 mg Sodium Chloride () 500 mls @ 999 mls/hr IV .Q31M ONE Last Admin: 06/17/18 15:49 Dose: 999 mls/hr Azithromycin 500 mg/ Dextrose 255 mls @ 250 mls/hr IV Q24 [facility] Stop: 06/20/18 11:02 Last Admin: 06/18/18 11:26 Dose: 250 mls/hr Ceftriaxone Sodium (Rocephin) 1 gm in 50 mls @ 100 mls/hr IV Q24 [facility] Last Admin: 06/18/18 10:38 Dose: 100 mls/hr Magnesium Hydroxide (Milk Of Magnesia) 30 ml PO DAILY PRN PRN PRN Reason: Constipation Meloxicam (Mobic) 7.5 mg PO BID [facility] Last Admin: 06/18/18 10:38 Dose: 7.5 mg Methylprednisolone (Solu-Medrol) 40 mg IV Q8 [facility] Last Admin: 06/18/18 05:34 Dose: 40 mg Nicotine (Nicoderm Cq (Pbkc)) 21 mg TRANSDERM. DAILY [facility] Last Admin: 06/18/18 10:38 Dose: 21 mg Ondansetron HCl (Zofran) 4 mg IV Q8H PRN PRN PRN Reason: NAUSEA Pravastatin Sodium (Pravachol) 10 mg PO QHS [facility] Last Admin: 06/17/18 21:27 Dose: 10 mg Sodium Chloride () 5 - 15 ml IV UD PRN PRN Reason: SALINE FLUSH Last Admin: 06/18/18 12:37 Dose: 10 ml Spironolactone (Aldactone) 25 mg PO DAILY [facility] Last Admin: 06/18/18 10:38 Dose: 25 mg Medical Necessity - Tobacco Use Smoking Status: Current every day smoker Tobacco Use: Cigarettes Assessment/Plan All Active Problems (Last Reviewed 06/17/18 @ 18:01 by José Manuel Webb DO) COPD exacerbation (Acute) History of carpal tunnel surgery of left wrist (Resolved) 1. Acute COPD exacerbation/Community acquired pneumonia -O2 sat normal on RA - C/w steroids and inhalers - C/w rocephin and azithro based on the CXR with possible b/l lower lobe infiltrates 2. Depression - stable - c/w cymbalta 3. HTN/HLD - stable - c./w norvasc, aldactone and pravastatin DVT: Lovenox Code Visit Inpatient E&M: 19446 Subs Hosp L2
--- NOTE | 2018-06-18 13:10 | PN_ITS ---
Subjective: Continues to have a nonproductive cough and says that she feels short of breath despite the fact that she has oxygenating to 98% on room air Vitals/I&O's: Vital Signs Temp Pulse Resp BP Pulse Ox 98.7 F 85 20 H 157/96 H 96 06/18/18 08:27 06/18/18 11:14 06/18/18 11:14 06/18/18 08:27 06/18/18 08:27 Oxygen Flow Rate (L/min) 1 Oxygen Delivery Method Room Air Weight: 115 lb 15.41 oz Body Mass Index (BMI) 19.9 Intake and Output for Last 24 Hours 06/16/18 06/17/18 06/18/18 23:59 23:59 23:59 Intake Total 1341 / 1341 2053 / 2053 Output Total 3100 / 3100 Balance 1341 / 1341 -1046 / -1046 General: Alert, Oriented x3, Cooperative, No apparent distress HEENT: Atraumatic, PERRLA, EOMI, Normocephalic Oral: Moist Mucosa Neck: Supple, No JVD, Trachea Midline Lungs: Normal air movement, No rhonchi, No rales, Diminished, Wheezes Cardiovascular: Regular rate, Regular Rhythm, Normal S1, Normal S2, No murmurs Abdomen: Soft, Non Tender, Non-Distended, No Hepato-splenomegaly Extremities: No edema, Capillary Refill Less than 3 Seconds Skin: No rashes, No breakdown Neurological: Neuro grossly intact, Sensory exam intact to light touch and pain Psych/Mental Status: Normal Affect, Appropriate Microbiology Past 72 Hours 06/17/18 22:20 Urine, Clean Catch Streptococcus pneumoniae Antigen (M - Final 06/17/18 22:20 Urine, Clean Catch Legionella Antigen - Final 06/17/18 15:45 Mucosa - Nasopharyngeal Influenza Types A,B Direct FA (FELIBERTO) - Final Laboratory Results 06/17/18 15:07: WBC 4.9, RBC 4.65, Hgb 15.1 H, Hct 45.1, MCV 97.0, MCH 32.5 H, MCHC 33.5, RDW 12.6, RDW Differential 43.9, Plt Count 171, MPV 10.0, Immature Gran % (Auto) 0.200, Neut % (Auto) 53.9, Lymph % (Auto) 28.7, [place] % (Auto) 16.0 H, Eos % (Auto) 1.0, Baso % (Auto) 0.2, Absolute Neuts (auto) 2.6, Absolute Lymphs (auto) 1.40, Total Counted Not Reportable 06/17/18 15:07: Sodium Cancelled, Potassium Cancelled, Chloride Cancelled, Carbon Dioxide Cancelled, Anion Gap Cancelled, BUN Cancelled, Creatinine Cancelled, Estim Creat Clear Calc Cancelled, Est GFR (MDRD) Af Amer Cancelled, Est GFR (MDRD) Non-Af Cancelled, BUN/Creatinine Ratio Cancelled, Glucose Cancelled, Calcium Cancelled, Troponin I Cancelled 06/17/18 15:50: Sodium Cancelled, Potassium Cancelled, Chloride Cancelled, Carbon Dioxide Cancelled, Anion Gap Cancelled, BUN Cancelled, Creatinine Cancelled, Estim Creat Clear Calc Cancelled, Est GFR (MDRD) Af Amer Cancelled, Est GFR (MDRD) Non-Af Cancelled, BUN/Creatinine Ratio Cancelled, Glucose Cancelled, Calcium Cancelled, Troponin I Cancelled 06/17/18 16:14: Sodium 137, Potassium 3.1 L, Chloride 105, Carbon Dioxide 21.0, Anion Gap 11, BUN 9, Creatinine 0.62, Estim Creat Clear Calc 83.13, Est GFR (MDRD) Af Amer 127, Est GFR (MDRD) Non-Af 105, BUN/Creatinine Ratio 14.5, Glucose 94, Calcium 9.0, Troponin I < 0.015 06/18/18 05:18: Sodium 135 L, Potassium 4.2, Chloride 105, Carbon Dioxide 19.0 L , Anion Gap 11, BUN 14, Creatinine 0.56, Estim Creat Clear Calc 92.04, Est GFR (MDRD) Af Amer 142, Est GFR (MDRD) Non-Af 117, BUN/Creatinine Ratio 24.8 H, Glucose 152 H, Calcium 8.9, Magnesium 2.1 Current Medications Acetaminophen (Tylenol) 650 mg PO Q6H PRN PRN PRN Reason: Mild Pain (1-3)/Temp > 100.7 F Last Admin: 06/18/18 12:37 Dose: 650 mg Albuterol Sulfate (Ventolin Aerosols) 2.5 mg INHALATION Q2H PRN PRN PRN Reason: SHORTNESS OF BREATH Albuterol/Ipratropium (Duoneb) 3 ml INHALATION Q4H.RT [facility] Last Admin: 06/18/18 11:14 Dose: 3 ml Amlodipine Besylate (Norvasc) 5 mg PO DAILY [facility] Last Admin: 06/18/18 10:38 Dose: 5 mg Duloxetine HCl (Cymbalta) 30 mg PO DAILY [facility] Last Admin: 06/18/18 10:38 Dose: 30 mg Enoxaparin Sodium (Lovenox) 40 mg SC DAILY@1000 [facility] Last Admin: 06/18/18 10:38 Dose: 40 mg Famotidine (Pepcid) 20 mg PO BID [facility] Last Admin: 06/18/18 10:38 Dose: 20 mg Gabapentin (Neurontin) 200 mg PO TIDCM [facility] Last Admin: 06/18/18 11:30 Dose: 200 mg Guaifenesin (Mucinex) 1,200 mg PO BID [facility] Last Admin: 06/18/18 10:38 Dose: 1,200 mg Sodium Chloride () 500 mls @ 999 mls/hr IV .Q31M ONE Last Admin: 06/17/18 15:49 Dose: 999 mls/hr Azithromycin 500 mg/ Dextrose 255 mls @ 250 mls/hr IV Q24 [facility] Stop: 06/20/18 11:02 Last Admin: 06/18/18 11:26 Dose: 250 mls/hr Ceftriaxone Sodium (Rocephin) 1 gm in 50 mls @ 100 mls/hr IV Q24 [facility] Last Admin: 06/18/18 10:38 Dose: 100 mls/hr Magnesium Hydroxide (Milk Of Magnesia) 30 ml PO DAILY PRN PRN PRN Reason: Constipation Meloxicam (Mobic) 7.5 mg PO BID [facility] Last Admin: 06/18/18 10:38 Dose: 7.5 mg Methylprednisolone (Solu-Medrol) 40 mg IV Q8 [facility] Last Admin: 06/18/18 05:34 Dose: 40 mg Nicotine (Nicoderm Cq (Pbkc)) 21 mg TRANSDERM. DAILY [facility] Last Admin: 06/18/18 10:38 Dose: 21 mg Ondansetron HCl (Zofran) 4 mg IV Q8H PRN PRN PRN Reason: NAUSEA Pravastatin Sodium (Pravachol) 10 mg PO QHS [facility] Last Admin: 06/17/18 21:27 Dose: 10 mg Sodium Chloride () 5 - 15 ml IV UD PRN PRN Reason: SALINE FLUSH Last Admin: 06/18/18 12:37 Dose: 10 ml Spironolactone (Aldactone) 25 mg PO DAILY [facility] Last Admin: 06/18/18 10:38 Dose: 25 mg Medical Necessity - Tobacco Use Smoking Status: Current every day smoker Tobacco Use: Cigarettes Assessment/Plan All Active Problems (Last Reviewed 06/17/18 @ 18:01 by José Manuel Webb DO) COPD exacerbation (Acute) History of carpal tunnel surgery of left wrist (Resolved) 1. Acute COPD exacerbation/Community acquired pneumonia -O2 sat normal on RA - C/w steroids and inhalers - C/w rocephin and azithro based on the CXR with possible b/l lower lobe infiltrates 2. Depression - stable - c/w cymbalta 3. HTN/HLD - stable - c./w norvasc, aldactone and pravastatin DVT: Lovenox Code Visit Inpatient E&M: 79820 Subs Hosp L2
[2018-06-18] MEDS: Pravastatin 20 MG Tablet 10 MG PO (21:55)
[2018-06-19] MEDS: Ipratropium/Albuterol Sulfate 3 ML AMPUL.NEB INHALATION ×3 (02:37→10:41)
[2018-06-19 02:38] VITALS: PULSE 92; RESP 16
[2018-06-19 03:15] VITALS: BP 157/72; PULSE 108; RESP 16; TEMP 36.8; O2SAT 97
[2018-06-19] MEDS: Acetaminophen 325 MG Tablet 650 MG PO ×2 (05:26→11:21)
[2018-06-19 06:53] VITALS: PULSE 88; RESP 20; O2SAT 91
--- NOTE | 2018-06-19 08:34 | PCM.DC ---
You will use the following diet at home:: Regular Your food should be the consistency of: Regular Your liquids should be the consistency of: Regular/Thin Discharge Activity: Return to Normal Activity, No Restrictions Call your doctor if you observe: Fever of 101 or Higher, Shortness of breath, Dizziness, Fainting spells, Swelling in the ankles, Chest pain, Increased palpitations (irregular heartbeat) Allergies/Adverse Reactions: Allergies lisinopril Allergy (Verified 06/17/18 14:49) Angioedema Sulfa (Sulfonamide Antibiotics) Allergy (Verified 06/17/18 14:49) Itching codeine Adverse Reaction (Intermediate, Verified 06/17/18 14:49) / Medications to take at Discharge Fluticasone/Vilanterol [Breo Ellipta 100-25 Mcg INH] 1 puff INHALATION QHS 07/25/16 Amlodipine [Norvasc] 5 mg PO DAILY 12/09/17 Gabapentin [Neurontin] 100 mg PO TIDCM 12/09/17 Ranitidine [Zantac] 150 mg PO BID 12/09/17 Meloxicam [Mobic] 7.5 mg PO BID 03/13/18 Duloxetine Hcl [Cymbalta] 30 mg PO DAILY 04/15/18 Albuterol Sulfate [Proair Hfa] 2 puff INHALATION Q4H PRN PRN 06/17/18 Pravastatin Sodium 10 mg PO DAILY 06/17/18 Spironolactone [Aldactone] 25 mg PO DAILY 06/17/18 Umeclidinium [place] Inhaler [Incruse Ellipta Inhaler] 1 inh INHALATION DAILY 06/17/18 Amoxicillin/Potassium Clav [Augmentin 875-125 Tablet] 1 each PO BID #10 tablet 06/19/18 Azithromycin 500 mg PO DAILY #4 tablet 06/19/18 Prednisone [Deltasone] 40 mg PO DAILY #14 tablet 06/19/18 The following prescriptions were given: Azithromycin 500 mg PO DAILY #4 tablet Prednisone [Deltasone] 40 mg PO DAILY #14 tablet Amoxicillin/Potassium Clav [Augmentin 875-125 Tablet] 1 each PO BID #10 tablet Primary Care Physician: Leslie Valles [NON-STAFF] - Please follow up with your Primary Care Physician in: 3-5 days Test Results: Test results from this visit will be discussed in further detail at your follow-up appointment, if applicable.
--- NOTE | 2018-06-19 08:40 | DS.PCM_ITS ---
Discharge Date and Diagnosis Date of Admission: 06/17/18 Date of Discharge: 06/19/18 - Secondary Discharge Diagnosis Chronic Problems (Last Reviewed 06/17/18 @ 18:01 by José Manuel Webb DO) Asthma (Chronic) Emphysema (Chronic) Depression (Chronic) [place] (obstructive sleep apnea) (Chronic) Continued non-compliance. Patient states she is unable to tolerate the CPAP because of things from my past. Benign essential hypertension (Chronic) Tobacco user (Chronic) Strongly encouraged smoking cessation. Patient is not interested at this time. History of pulmonary embolism (Chronic) Angioedema (Chronic) Hospital Course and Treatment Imaging Results: CXR IMPRESSION: Interval increased haziness of the lung bases may represent atelectasis versus developing lower lobe infiltrates. Consults: None Operations: None Procedures: None Summary of Care Provided: Per HPI: The patient is a 57 year old F presents with 3 days of dyspnea on exertion. Patient was doing well up until then where patient has been having chills, chest pain, nonproductive cough and dyspnea on exertion. Patient has had a history of COPD exacerbations before but this is more pronounced. Patient presented to the emergency room and was tachypneic and tachycardic. She received Rocephin, azithromycin, bronchodilators and Solu-Medrol. She is currently off of oxygen but still feeling short of breath particular with her paroxysms of cough. Hospital Course: 1. Acute COPD exacerbation/community-acquired pneumonia likely gram-positive [id number] female who presented with 3 days of dyspnea on exertion. She was found to have bilateral lower lobe infiltrates with a nonproductive cough. She said that she was having chills but did not have a fever. She was started on steroids and antibiotics which she has tolerated well and has significantly improved in her symptoms. She is okay to go home and will finish Augmentin and azithromycin as well as prednisone for 7 days. She is to follow- up with her PCP in 3-5 days. 2. Her other medical diagnoses were evaluated in her home medications were continued where appropriate Objective: General: Alert, Oriented x3, Cooperative, No apparent distress HEENT: Atraumatic, PERRLA, EOMI, Normocephalic Oral: Moist Mucosa Neck: Supple, No JVD, Trachea Midline Lungs: Normal air movement, No rhonchi, No rales, Diminished, Wheezes Cardiovascular: Regular rate, Regular Rhythm, Normal S1, Normal S2, No murmurs Abdomen: Soft, Non Tender, Non-Distended, No Hepato-splenomegaly Extremities: No edema, Capillary Refill Less than 3 Seconds Skin: No rashes, No breakdown Neurological: Neuro grossly intact, Sensory exam intact to light touch and pain Psych/Mental Status: Normal Affect, Appropriate - Physical Exam Vital Signs Temp Pulse Resp BP Pulse Ox 98.2 F 88 20 H 157/72 H 91 06/19/18 03:15 06/19/18 06:53 06/19/18 06:53 06/19/18 03:15 06/19/18 06:53 Oxygen Flow Rate (L/min) 1 Oxygen Delivery Method Room Air Weight: 115 lb 15.41 oz Body Mass Index (BMI) 19.9 Intake and Output for Last 24 Hours 06/17/18 06/18/18 06/19/18 23:59 23:59 23:59 Intake Total 1341 / 1341 2054 / 2054 900 / 900 Output Total 3100 / 3100 Balance 1341 / 1341 -1046 / -1046 900 / 900 Microbiology Past 72 Hours 06/17/18 22:20 Streptococcus pneumoniae Antigen (M - Final Urine, Clean Catch 06/17/18 22:20 Legionella Antigen - Final Urine, Clean Catch 06/17/18 15:45 Influenza Types A,B Direct FA (FELIBERTO) - Final Mucosa - Nasopharyngeal Discharge Activity: Return to Normal Activity, No Restrictions Call your doctor if you observe: Fever of 101 or Higher, Shortness of breath, Dizziness, Fainting spells, Swelling in the ankles, Chest pain, Increased palpitations (irregular heartbeat) Home Medications: Medications to take at Discharge Fluticasone/Vilanterol [Breo Ellipta 100-25 Mcg INH] 1 puff INHALATION QHS 07/25/16 Amlodipine [Norvasc] 5 mg PO DAILY 12/09/17 Gabapentin [Neurontin] 100 mg PO TIDCM 12/09/17 Ranitidine [Zantac] 150 mg PO BID 12/09/17 Meloxicam [Mobic] 7.5 mg PO BID 03/13/18 Duloxetine Hcl [Cymbalta] 30 mg PO DAILY 04/15/18 Albuterol Sulfate [Proair Hfa] 2 puff INHALATION Q4H PRN PRN 06/17/18 Pravastatin Sodium 10 mg PO DAILY 06/17/18 Spironolactone [Aldactone] 25 mg PO DAILY 06/17/18 Umeclidinium [place] Inhaler [Incruse Ellipta Inhaler] 1 inh INHALATION DAILY 06/17/18 Amoxicillin/Potassium Clav [Augmentin 875-125 Tablet] 1 each PO BID #10 tablet 06/19/18 Azithromycin 500 mg PO DAILY #4 tablet 06/19/18 Prednisone [Deltasone] 40 mg PO DAILY #14 tablet 06/19/18 Following Prescrptions Were Given to Patient: Azithromycin 500 mg PO DAILY #4 tablet Prednisone [Deltasone] 40 mg PO DAILY #14 tablet Amoxicillin/Potassium Clav [Augmentin 875-125 Tablet] 1 each PO BID #10 tablet Primary Care Physician: Leslie Valles [NON-STAFF] - Please follow up with your Primary Care Physician in: 3-5 days Disposition: Home Minutes spent on discharge:: 35 Patient Condition:: Good Medical Necessity - Tobacco Use Smoking Status: Current every day smoker Tobacco Use: Cigarettes Meaningful Use Info Meaningful Use Diagnoses (Choose all that apply): None applicable Code Visit Inpatient E&M: 02604 Disch Hosp
[2018-06-19 09:46] VITALS: BP 157/95; PULSE 98; RESP 22; TEMP 36.9; O2SAT 98
[2018-06-19] MEDS: amLODIPine 5 MG Tablet PO (09:48)
[2018-06-19] MEDS: Enoxaparin 40 MG/0.4 ML Syringe SC (09:48)
[2018-06-19] MEDS: Gabapentin 100 MG Capsule 200 MG PO ×2 (09:48→11:21)
[2018-06-19] MEDS: DULoxetine Hcl 30 MG Capsule PO (09:48)
[2018-06-19] MEDS: Spironolactone 25 MG Tablet PO (09:48)
[2018-06-19] MEDS: Meloxicam 7.5 MG Tablet PO (09:48)
[2018-06-19] MEDS: Umeclidinium Bromide Inhaler 1 PUFF INHALATION (09:48)
[2018-06-19] MEDS: Famotidine 20 MG Tablet PO (09:48)
[2018-06-19] MEDS: guaiFENesin 1,200 MG Tablet 1200 MG PO (09:48)
[2018-06-19] MEDS: Ceftriaxone 1 GM/50 ML BAG IV (10:00)
[2018-06-19] MEDS: 0.9% NaCl Peripheral Flush Adult/Peds IV (10:00)
[2018-06-19 10:41] VITALS: PULSE 88; RESP 20
[2018-06-19] MEDS: Benzonatate 100 MG Capsule PO (11:21)
--- NOTE | 2018-06-20 15:15 | CASEMGMT ---
JHONATHAN TIDWELL Discharge Follow-Up Phone Call. Lace:?9? Strata: 3 Discharge Date: 06/19/18 Adm Dx:?? COPD Call placed to pt to inquire about how she has been feeling since she was discharged from the hospital. When pt answered the phone, noted pt sounded very SOB and having difficulty speaking in full sentences. Pt states that she can barely walk from room to room d/t the SOB. Pt states she still feels as bad and as SOB as she did when she came into the hospital. Pt states she has been taking her prescriptions as prescribed and made an appt @ the [facility] for Saturday 06/24 and that she has a call out to Dr Ragland and is awaiting a return call. Advised pt to return to [facility] ER to be evaluated. Pt states she does not have a ride to come to the hospital at this time but that her fiance will be returning in a couple of hours and she will see if he can bring her in. Suggested for pt to call but pt states I am not going to call the squad. Pt stated, I'm just going to wait until my fiance gets here. Discussed concerns with pt waiting for her fiance to return home and pt made aware respiratory status can worsen/decline rapidly and again advised she call . Pt again states she is going to wait on her fiance to arrive. Analy ERWIN RN, CM
== END 2018-06-19 13:30 | disposition home or self-care (01) | DRG 190 ==
LOC: ED 15:45 → MS3 18:15
PROVIDERS: Emergency Provider Emergency Medicine; Family Provider Nurse Practitioner Family; PCP Nurse Practitioner Family; Visit Provider Family Medicine
DX: J44.0 Chronic obstructive pulmonary disease with (acute) lower respiratory infection (principal); J15.9 Unspecified bacterial pneumonia; E87.6 Hypokalemia; J44.1 Chronic obstructive pulmonary disease with (acute) exacerbation; F17.210 Nicotine dependence, cigarettes, uncomplicated; F32.9 Major depressive disorder, single episode, unspecified; I10 Essential (primary) hypertension; Z86.711 Personal history of pulmonary embolism; G47.33 Obstructive sleep apnea (adult) (pediatric); Z91.19 Patient's noncompliance with other medical treatment and regimen; Z79.899 Other long term (current) drug therapy
CPT/HCPCS: 36415; 71045; 80048; 83735; 84484; 85025; 87449; 87804; 93005; 94640; 94667; 94668; 99285; 99406; J7030; J7040; A4216

== ENCOUNTER 2018-06-20 18:20 | Inpatient (IN) | payer MEDICARE, MEDICAID, SELFPAY ==
[2018-06-17 18:46] VITALS: BMI 19.9
[2018-06-20] VITALS (11 sets, daily range): BP systolic 134–167; BP diastolic 90–106; PULSE 85–108; RESP 16–22; TEMP 36.5–36.9; O2SAT 92–97
--- NOTE | 2018-06-20 19:26 | EKG12_ITS ---
Test Reason : SOB Blood Pressure : / mmHG Vent. Rate : 105 BPM Atrial Rate : 105 BPM P-R Int : 142 ms QRS Dur : 078 ms QT Int : 356 ms P-R-T Axes : 076 085 071 degrees QTc Int : 470 ms Sinus tachycardia Possible Anterior infarct , age undetermined Abnormal ECG Confirmed by TEDDY MILLIGAN, TERRY ([id number]), advertising editor HUE ESPINAL ([id number]) on 06/25/2018 9:12:11 AM Referred By: MOY Confirmed By:TERRY ESPINAL MD
--- NOTE | 2018-06-20 19:30 | RAD_ITS ---
STUDY: X-RAY CHEST REASON FOR EXAM: Female, 57 years old. Cough TECHNIQUE: Single AP portable view of the chest. COMPARISON: 06/17/2018. FINDINGS: The lungs are hyperexpanded. There are coarsened interstitial markings suggestive of mild chronic fibrosis. No gross focal infiltrates. No gross effusions. Normal size heart. Normal mediastinum and lenka. There is prominence of the pulmonary hilar arteries without peripheral pulmonary vascular congestion, suggesting pulmonary hypertension. Normal visualized aortic arch and descending thoracic aorta. Normal visualized thoracic spine. Normal visualized ribs, clavicles, and shoulders. There is no demonstrated abnormality of the visualized soft tissue structures of the upper abdomen. RAD/Chest 1 View (Portable) IMPRESSION: There are findings consistent with COPD. There is no evidence of acute chest disease. Electronically Signed: Cain Gordillo MD at 19:54 EST , Service support ,
[2018-06-20] MEDS: Ipratropium/Albuterol Sulfate 3 ML AMPUL.NEB INHALATION (19:51)
[2018-06-20 19:54] LABS: Absolute Lymphocyte Count 0.81 X10^3/ul (0.83-4.51); Absolute Neutrophil Count 4.2 X10^3/uL (2.0-7.7); Basophil# 0.01 X10^3/uL; Basophil% 0.2 % (0-1); Hematocrit 43.7 % (37-47); Hemoglobin 14.9 g/dl (12.0-15.0); Lymphocyte # 0.81 X10^3/ul (4.0); Mean Corp Hgb Conc 34.1 g/gl (32-36); Mean Corpuscular Hgb 32.8 pg (27.0-32.0); Mean Corpuscular Volume 96.3 fL (81-99); Mean Platelet Vol. 9.6 fl (6.2-12.0); Monocyte# 0.73 X10^3/uL; Monocyte% 12.7 % (0-10); Neutrophil # 4.22 X10^3/uL (2.7-7.7); Neutrophil % 73.1 % (47-70); POSITIVE COUNT NO; POSITIVE DIFFERENTIAL NO; POSITIVE MORPHOLOGY NO; Platelet Count 188 K/mm3 (150-450); RBC Distribution Width CV 12.3 % (11.6-14.6); RBC Distribution Width SD 43.4 fl (35.1-43.9); Red Blood Count 4.54 M/mm3 (4.2-5.4); White Blood Count 5.8 K/mm3 (4.4-11.0)
[2018-06-20] MEDS: MethylPREDNISolone 125 MG/2 ML Vial 60 MG IV (20:03)
[2018-06-20] MEDS: 0.9% Normal Saline 1,000 ML 150 ML IV (20:03)
[2018-06-20 20:06] LABS: Anion Gap 9 (5-15); BUN 11 mg/dL (7-18); BUN/Creat Ratio 19.2 RATIO (10-20); Calcium,Total 9.3 mg/dL (8.5-10.1); Chloride 101 mmol/L (98-107); Creatinine, Serum 0.57 mg/dL (0.55-1.02); EST Glomerular Filtration Rate 115 mL/min (>60); Est Glom Filt Rate - Afr Amer 139 mL/min (>60); Estimated Creatinine Clearance 90.77 ml/min; Glucose 95 mg/dL (74-106); Potassium 3.7 mmol/L (3.5-5.1); Sodium Level 134 mmol/L (136-145)
--- NOTE | 2018-06-20 21:22 | CT_ITS ---
STUDY: CTA CHEST REASON FOR EXAM: Female, 57 years old. Increasing shortness of breath. Currently being treated for pneumonia. RADIATION DOSAGE (If Supplied By Facility): CTDIvol = ( 6.33 ) mGy, DLP = ( 158.64 ) mGycm TECHNIQUE: The examination was performed with the intravenous administration of Isovue 370 100 IV. Post-processing of the angiographic images was performed, with multiplanar reformation and 3D reconstruction. Individualized dose optimization techniques were used for this CT. COMPARISON: Chest, June 20, 2018. CTA of the chest, July 25, 2016. FINDINGS: Normal enhancement of the main pulmonary artery and right and left pulmonary arteries. Normal enhancement of the bilateral peripheral pulmonary arteries. There is no demonstrated pulmonary embolism. There is atherosclerotic changes of the thoracic aorta without aneurysm There is no demonstrated aortic dissection. Normal heart and pericardium. Normal mediastinum. Normal hilar regions. Normal visualized trachea and bronchi. The lungs are hyper expanded, with flattening of the hemidiaphragms. There are mild emphysematous changes in lungs without mass or infiltrate. Normal pulmonary parenchyma. Normal pleura. Normal chest wall structures. There is a small hypodensity in the anterior right thyroid measuring approximately 6 mm . There are degenerative changes of thoracic spine. Normal visualized upper abdomen. CT/CTA Chest W/WO Contrast IMPRESSION: 1. No evidence of pulmonary embolus. 2. Atherosclerotic changes of the thoracic aorta without aneurysm or dissection. 3. Emphysematous changes lungs without mass or infiltrate. Electronically Signed: Mundo Watson DO at 22:00 EST Tel [phone], Service support ,
--- NOTE | 2018-06-20 23:03 | ED.VISSUMM ---
- ER Visit Summary Date of Service: 06/20/18 Chief Complaint: Shortness of breath History of Present Illness: The patient is a 57 F who was discharged in the hospital yesterday after being admitted 2 days for pneumonia. She is currently on Augmentin, Zithromax, and prednisone. Patient does have a history of asthma and COPD. She states she cannot hold a conversation or walk because of her shortness of breath. She continues to have dry cough. She tried 3 aerosol treatments today without significant improvement. She has not noted fever. Physical Examination: Blood pressure is 167/106, temperature 97.7, heart rate 108, respiratory rate 20, pulse ox 97% on room air. Patient is sitting upright in bed. She is in no acute distress. She is able to speak for a 5 word sentences, but does become winded when straining together multiple sentences. Head and neck examination unremarkable. Heart is regular rate and rhythm. Lung sounds are slightly diminished throughout. Abdomen is soft and nontender. Test Results: EKG is sinus at 105 with no acute ischemia. Portable chest x-ray shows COPD changes with no acute disease. CBC and chemistry studies are normal. Lactate is normal. Blood cultures were obtained. CTA of the chest shows no evidence of PE. There are atherosclerotic changes of the thoracic aorta noted. Emphysematous changes to the lungs are noted without mass or infiltrate. Emergency Department Course and Treatment: Patient did receive a DuoNeb treatment here along with Solu-Medrol. On repeat evaluation O2 sats were 90-92% on room air. She has good air movement on auscultation without wheezes. Patient is ambulated down the lin to the restroom. She became very dyspneic and was holding on in order to ambulate. O2 sats dropped to 88 with ambulation. Once sitting at rest in bed symptoms did improve. At this time patient will be discussed with hospitalist for readmission. She will need ambulation pulse ox to determine if she needs home oxygen. Treatment Plan: [] Disposition: Admit Impression: COPD exacerbation with mild hypoxia This note was generated with [employer] dictation software. It may contain incorrect words, spelling, and punctuation that were not noted in review of the chart prior to signing ED Disposition - Plan for ED Patient: Referrals: Aminah Brown, PEDRO LUIS-C [Primary Care Provider] -
--- NOTE | 2018-06-20 23:36 | HP.PCM_ITS ---
Problem List (1) COPD exacerbation Status: Acute (2) DEN[place] (obstructive sleep apnea) Status: Chronic Comment: Continued non-compliance. Patient states she is unable to tolerate the CPAP because of things from my past. (3) Tobacco user Status: Chronic Comment: Strongly encouraged smoking cessation. Patient is not interested at this time. History of Present Illness Date of Admission: 06/20/18 Chief Complaint: SHORTNESS OF BREATH The patient is a 57 year old F with a significant history of hypertension; depression; PE; obstructive sleep apnea; who was admitted on 06/17/2018 and discharged on 06/19/2018 for acute COPD exacerbation and possible community- acquired pneumonia presenting unremitting shortness of breath. Patient denies shortness of breath at rest. However she reports shortness of breath with mild activities like a conversant and mild exertion like going to the bathroom. At the emergency department patient was found to have oxygen saturation of 88% on room air. She reports wheezing at home. On her last discharge as stated above patient was discharged home on azithromycin and Augmentin as well as prednisone. She reports being compliant with all her medication. On the last admission her rapid influenza screen was unremarkable. On this presentation to emergency department CTA of the chest was unremarkable for PE. Past Medical History Past Medical History (Chronic Problems): Chronic Problems (Last Reviewed 06/21/18 @ 00:19 by David Nails MD) Asthma (Chronic) Emphysema (Chronic) Depression (Chronic) DENVER (obstructive sleep apnea) (Chronic) Continued non-compliance. Patient states she is unable to tolerate the CPAP because of things from my past. Benign essential hypertension (Chronic) Tobacco user (Chronic) Strongly encouraged smoking cessation. Patient is not interested at this time. History of pulmonary embolism (Chronic) Angioedema (Chronic) Medical History: Medical History (Last Reviewed 06/21/18 @ 00:19 by David Nails MD) Asthma (Chronic) J45.909 Emphysema (Chronic) J43.9 Depression (Chronic) F32.9 DEN[place] (obstructive sleep apnea) (Chronic) G47.33 Continued non-compliance. Patient states she is unable to tolerate the CPAP because of things from my past. Benign essential hypertension (Chronic) I10 Tobacco user (Chronic) Z72.0 Strongly encouraged smoking cessation. Patient is not interested at this time. History of pulmonary embolism (Chronic) Z86.711 Angioedema (Chronic) T78.3XXA Allergies lisinopril Allergy (Verified 06/20/18 18:21) Angioedema Sulfa (Sulfonamide Antibiotics) Allergy (Verified 06/20/18 18:21) Itching codeine Adverse Reaction (Intermediate, Verified 06/20/18 18:21) / Home Medications: Ambulatory Orders Medication Instructions Recorded Fluticasone/Vilanterol [Breo 1 puff INHALATION QHS 07/25/16 Ellipta 100-25 Mcg INH] Amlodipine [Norvasc] 5 mg PO DAILY 12/09/17 Gabapentin [Neurontin] 100 mg PO TIDCM 12/09/17 Ranitidine [Zantac] 150 mg PO BID 12/09/17 Meloxicam [Mobic] 7.5 mg PO BID 03/13/18 Duloxetine Hcl [Cymbalta] 30 mg PO DAILY 04/15/18 Albuterol Sulfate [Proair Hfa] 2 puff INHALATION Q4H PRN PRN 06/17/18 Pravastatin Sodium 10 mg PO DAILY 06/17/18 Spironolactone [Aldactone] 25 mg PO DAILY 06/17/18 Umeclidinium [place] Inhaler 1 inh INHALATION DAILY 06/17/18 [Incruse Ellipta Inhaler] Amoxicillin/Potassium Clav 1 each PO BID #10 tablet 06/19/18 [Augmentin 875-125 Tablet] Azithromycin 500 mg PO DAILY #4 tablet 06/19/18 Prednisone [Deltasone] 40 mg PO DAILY #14 tablet 06/19/18 nicotine 14 mg/24 hr daily 1 patch TRANSDERMAL DAILY #28 ea 06/20/18 transdermal patch Surgical History: Surgical History (Last Reviewed 06/21/18 @ 00:19 by David Nails MD) History of carpal tunnel surgery of left wrist (Resolved) Z98.890 Lives: With Family Smoking Status: Current every day smoker Tobacco Use: Cigarettes Alcohol: Rare - *Family History Paternal Family History: Family History (Last Reviewed 06/21/18 @ 00:19 by David Nails MD) Mother Asthma Depression Father Respiratory abnormality, unspecified History Items: COPD Sibling Family History: Family History (Last Reviewed 06/21/18 @ 00:19 by David Nails MD) Mother Asthma Depression Father Respiratory abnormality, unspecified History Items: COPD Maternal Family History: Family History (Last Reviewed 06/21/18 @ 00:19 by David Nails MD) Mother Asthma Depression Father Respiratory abnormality, unspecified History Items: COPD, No pertinent history Review of Systems Constitutional: Denies: Chills, Fever, Weight Change HEENT: Denies: Head Aches, Sinus Congestion, Sinus Drainage Cardiovascular: Denies: Chest Pain, Palpitations Respiratory: Reports: Cough, Shortness of breath upon exertion, Wheezing. Denies: Shortness of breath at rest, Sputum production Gastrointestinal: Denies: Abdominal Pain, Nausea, Vomiting Genitourinary: Denies: Dysuria Musculoskeletal: Denies: Joint Pain, Joint Tenderness Skin: Denies: Rash, Wounds Neurological: Denies: Numbness, Tingling, Focal weakness Psychiatric: Denies: Anxiety, Depression, Homicidal Ideations, Suicidal Ideations Hematologic/ Lymphatic: Denies: Easy Bruising, Easy Bleeding VTE Information - Inpt Only VTE Present on Admission: No VTE Mechan Device Prophylaxis: None VTE Pharm Prophylaxis ordered?: Yes - Physical Exam General: Alert, Oriented x3, Cooperative HEENT: Atraumatic, PERRLA, EOMI, Normocephalic Neck: Supple, No JVD, Negative Carotid Bruits Lungs: Tachypneic, Wheezes - mild and transient; lungs were clear therafter. Cardiovascular: Regular rate, No murmurs Abdomen: Bowel Sounds Present, Soft, Non Tender Extremities: No edema, Capillary Refill Less than 3 Seconds Skin: No rashes, No breakdown Musculoskeletal: No Tenderness to Palpation of Joints or Extremities Neurological: Neuro grossly intact Psych/Mental Status: Normal Affect, Appropriate Vital Signs Temp Pulse Resp BP Pulse Ox 98.5 F 89 16 134/92 H 94 06/20/18 23:14 06/20/18 23:14 06/20/18 23:14 06/20/18 21:20 06/20/18 23:14 Oxygen Flow Rate (L/min) 2 Oxygen Delivery Method Room Air Weight: 52.8 kg Body Mass Index (BMI) 20.0 Laboratory Tests Past 24 Hrs 06/20/18 06/20/18 06/20/18 19:40 19:40 19:40 WBC 5.8 RBC 4.54 Hgb 14.9 Hct 43.7 MCV 96.3 MCH 32.8 H MCHC 34.1 RDW 12.3 RDW Differential 43.4 Plt Count 188 MPV 9.6 Immature Gran % (Auto) 0.000 Neut % (Auto) 73.1 H Lymph % (Auto) 14.0 L [place] % (Auto) 12.7 H Eos % (Auto) 0.0 Baso % (Auto) 0.2 Absolute Neuts (auto) 4.2 Absolute Lymphs (auto) 0.81 L Total Counted Not Reportable Sodium 134 L Potassium 3.7 Chloride 101 Carbon Dioxide 24.0 Anion Gap 9 BUN 11 Creatinine 0.57 Estim Creat Clear Calc 90.77 Est GFR (MDRD) Af Amer 139 Est GFR (MDRD) Non-Af 115 BUN/Creatinine Ratio 19.2 Glucose 95 Lactic Acid 1.0 Calcium 9.3 Assessment/Plan All Active Problems (Last Reviewed 06/21/18 @ 00:19 by David Nails MD) COPD exacerbation (Acute) History of carpal tunnel surgery of left wrist (Resolved) The patient is a 57 year old F with a significant history of hypertension; depression; PE; obstructive sleep apnea; who was admitted on 06/17/2018 and discharged on 06/19/2018 for acute COPD exacerbation and possible community- acquired pneumonia returning with persistent shortness of breath consistent with acute exacerbation of COPD Acute exacerbation of COPD CXR independently reviewed confirms hyperinflated lungs with flattening of diaphragms consistent with COPD with no acute cardiopulmonary process. A chest CTA did not show pulmonary embolism. It showed emphysematous changes of the lung without any mass or infiltrates. Scheduled DuoNeb Albuterol as needed Received Solu-Medrol 125 mg at emergency department. We will continue Solu- Medrol 40 mg every 8 hours. We will continue Augmentin and azithromycin the patient was discharged home on. Oxygen as needed Incruse and Breo Ellipta continued. Mucinex for cough We will order comprehensive respiratory pathogen panel. Monitor BMP and CBC Hypertension On presentation her blood pressure was not within goal. Amlodipine continued. Trend blood pressure and adjust blood pressure medication. Obstructive sleep apnea Patient reports that she is unable to tolerate home CPAP so she does not use it. Oxygen as needed. Hyperlipidemia Pravastatin continued GERD Zantac continued Tobacco abuse We will continue home nicotine patch Counselled Chronic lower back pain Mobic and Neurontin continued. Depression Cymbalta continued DVT Prophylaxis Lovenox ordered Code Visit Inpatient E&M: 18838 Init Hosp L3
[2018-06-21] VITALS (14 sets, daily range): BP systolic 131–160; BP diastolic 70–94; PULSE 65–104; RESP 16–24; TEMP 36.6–37.3; O2SAT 93–97; BMI 19.3
[2018-06-21] MEDS: Albuterol 2.5 MG/3 ML VIAL.NEB. INHALATION ×2 (01:07→08:49)
[2018-06-21] MEDS: 0.9% NaCl Peripheral Flush Adult/Peds IV ×3 (05:37→22:15)
[2018-06-21] MEDS: Ipratropium/Albuterol Sulfate 3 ML AMPUL.NEB INHALATION ×5 (05:48→22:30)
[2018-06-21 07:32] LABS: Absolute Lymphocyte Count 0.55 X10^3/ul (0.83-4.51); Absolute Neutrophil Count 2.3 X10^3/uL (2.0-7.7); Basophil# 0.01 X10^3/uL; Basophil% 0.3 % (0-1); Hematocrit 44.1 % (37-47); Hemoglobin 14.8 g/dl (12.0-15.0); Lymphocyte # 0.55 X10^3/ul (4.0); Lymphocyte % 18.3 % (19-41); Mean Corp Hgb Conc 33.6 g/gl (32-36); Mean Corpuscular Hgb 31.9 pg (27.0-32.0); Mean Platelet Vol. 9.4 fl (6.2-12.0); Monocyte# 0.16 X10^3/uL; Monocyte% 5.3 % (0-10); Neutrophil # 2.28 X10^3/uL (2.7-7.7); Neutrophil % 75.8 % (47-70); Platelet Count 194 K/mm3 (150-450); RBC Distribution Width CV 12.3 % (11.6-14.6); RBC Distribution Width SD 42.5 fl (35.1-43.9); Red Blood Count 4.64 M/mm3 (4.2-5.4)
[2018-06-21 07:34] LABS: Differential Indicated SCAN CRITERIA MET; POSITIVE COUNT NO; POSITIVE DIFFERENTIAL YES; POSITIVE MORPHOLOGY NO
[2018-06-21 07:39] LABS: Anion Gap 9 (5-15); BUN 12 mg/dL (7-18); BUN/Creat Ratio 21.9 RATIO (10-20); Calcium,Total 9.3 mg/dL (8.5-10.1); Chloride 100 mmol/L (98-107); Creatinine, Serum 0.55 mg/dL (0.55-1.02); EST Glomerular Filtration Rate 121 mL/min (>60); Est Glom Filt Rate - Afr Amer 146 mL/min (>60); Estimated Creatinine Clearance 90.83 ml/min; Glucose 122 mg/dL (74-106); Potassium 3.9 mmol/L (3.5-5.1); Sodium Level 131 mmol/L (136-145)
--- NOTE | 2018-06-21 08:23 | NURSING ---
Pt is very SOB just sitting in chair. Asking about inhalers that she takes at home that she hasn't had. This nurse texted Dr. Weinstein to see if we can resume these meds.
[2018-06-21] MEDS: Gabapentin 100 MG Capsule PO ×3 (08:35→17:18)
[2018-06-21] MEDS: amLODIPine 5 MG Tablet PO (08:50)
[2018-06-21] MEDS: Enoxaparin 40 MG/0.4 ML Syringe SC (08:50)
[2018-06-21] MEDS: Spironolactone 25 MG Tablet PO (08:50)
[2018-06-21] MEDS: Famotidine 20 MG Tablet PO ×2 (08:50→22:16)
[2018-06-21] MEDS: Meloxicam 7.5 MG Tablet PO ×2 (08:50→22:16)
[2018-06-21] MEDS: Azithromycin 250 MG Tablet 500 MG PO (08:50)
[2018-06-21] MEDS: DULoxetine Hcl 30 MG Capsule PO (08:50)
[2018-06-21] MEDS: Amox/Clavulanate 875 MG Tablet PO ×2 (08:50→17:24)
[2018-06-21] MEDS: guaiFENesin 1,200 MG Tablet 1200 MG PO ×2 (08:51→22:16)
[2018-06-21] MEDS: Acetaminophen 325 MG Tablet 650 MG PO ×2 (08:51→17:18)
--- NOTE | 2018-06-21 09:06 | PN_ITS ---
Subjective: Patient seen and examined. She complained of feeling vey SOB. Has a non- productive cough. Denies fever or chills. Vitals/I&O's: Vital Signs Temp Pulse Resp BP Pulse Ox 98.1 F 98 24 H 131/78 H 93 06/21/18 08:41 06/21/18 08:41 06/21/18 08:41 06/21/18 08:41 06/21/18 08:41 Oxygen Flow Rate (L/min) 2 Oxygen Delivery Method Room Air Weight: 50.984 kg Body Mass Index (BMI) 19.3 Intake and Output for Last 24 Hours 06/19/18 06/20/18 06/21/18 23:59 23:59 23:59 Intake Total 350 / 350 Balance 350 / 350 General: Alert, Oriented x3, Cooperative, - - in mild respiratory distress HEENT: Atraumatic, PERRLA, EOMI, Normocephalic Oral: Moist Mucosa Neck: Supple, No JVD, Negative Carotid Bruits Lungs: Diminished Cardiovascular: Regular rate, Regular Rhythm, Normal S1, Normal S2, No murmurs Abdomen: Bowel Sounds Present, Soft, Non Tender, Non-Distended, No Hepato- splenomegaly Extremities: No edema Skin: No rashes, No breakdown Musculoskeletal: No Tenderness to Palpation of Joints or Extremities Lymphatic: No Cervical, Supraclavicular, or Inguinal Adenopathy Neurological: Cranial nerves II-XII grossly intact, Neuro grossly intact Psych/Mental Status: Normal Affect, Appropriate Laboratory Results 06/20/18 19:40: WBC 5.8, RBC 4.54, Hgb 14.9, Hct 43.7, MCV 96.3, MCH 32.8 H, MCHC 34.1, RDW 12.3, RDW Differential 43.4, Plt Count 188, MPV 9.6, Immature Gran % (Auto) 0.000, Neut % (Auto) 73.1 H, Lymph % (Auto) 14.0 L, [place] % (Auto) 12.7 H, Eos % (Auto) 0.0, Baso % (Auto) 0.2, Absolute Neuts (auto) 4.2, Absolute Lymphs (auto) 0.81 L, Total Counted Not Reportable 06/20/18 19:40: Sodium 134 L, Potassium 3.7, Chloride 101, Carbon Dioxide 24.0, Anion Gap 9, BUN 11, Creatinine 0.57, Estim Creat Clear Calc 90.77, Est GFR (MDRD) Af Amer 139, Est GFR (MDRD) Non-Af 115, BUN/Creatinine Ratio 19.2, Glucose 95, Calcium 9.3 06/20/18 19:40: Lactic Acid 1.0 06/21/18 06:50: Sodium 131 L, Potassium 3.9, Chloride 100, Carbon Dioxide 22.0, Anion Gap 9, BUN 12, Creatinine 0.55, Estim Creat Clear Calc 90.83, Est GFR (MDRD) Af Amer 146, Est GFR (MDRD) Non-Af 121, BUN/Creatinine Ratio 21.9 H, Glucose 122 H, Calcium 9.3 06/21/18 06:50: WBC 3.0 L, RBC 4.64, Hgb 14.8, Hct 44.1, MCV 95.0, MCH 31.9, MCHC 33.6, RDW 12.3, RDW Differential 42.5, Plt Count 194, MPV 9.4, Immature Gran % (Auto) 0.300, Neut % (Auto) 75.8 H, Lymph % (Auto) 18.3 L, [place] % (Auto) 5.3, Eos % (Auto) 0.0, Baso % (Auto) 0.3, Absolute Neuts (auto) 2.3, Absolute Lymphs (auto) 0.55 L, Total Counted Not Reportable, Differential Comment COMMENT Current Medications Acetaminophen (Tylenol) 650 mg PO Q6H PRN PRN PRN Reason: PAIN Last Admin: 06/21/18 08:51 Dose: 650 mg Albuterol Sulfate (Ventolin Aerosols) 2.5 mg INHALATION Q2H PRN PRN PRN Reason: SHORTNESS OF BREATH Last Admin: 06/21/18 08:49 Dose: 2.5 mg Albuterol/Ipratropium (Duoneb) 3 ml INHALATION Q4H.RT SERGIO Last Admin: 06/21/18 05:48 Dose: 3 ml Amlodipine Besylate (Norvasc) 5 mg PO DAILY [facility] Last Admin: 06/21/18 08:50 Dose: 5 mg Amoxicillin/Clavulanate Potassium (Augmentin Tablet) 875 mg PO BIDCM [facility] Stop: 03/11/19 08:01 Last Admin: 06/21/18 08:50 Dose: 875 mg Azithromycin (Zithromax) 500 mg PO DAILY [facility] Stop: 06/21/18 10:01 Last Admin: 06/21/18 08:50 Dose: 500 mg Benzonatate (Tessalon Perle) 100 mg PO Q4H PRN PRN PRN Reason: COUGH Duloxetine HCl (Cymbalta) 30 mg PO DAILY [facility] Last Admin: 06/21/18 08:50 Dose: 30 mg Enoxaparin Sodium (Lovenox) 40 mg SC DAILY@1000 [facility] Last Admin: 06/21/18 08:50 Dose: 40 mg Famotidine (Pepcid) 20 mg PO BID [facility] Last Admin: 06/21/18 08:50 Dose: 20 mg Gabapentin (Neurontin) 100 mg PO TIDCM [facility] Last Admin: 06/21/18 08:35 Dose: 100 mg Guaifenesin (Mucinex) 1,200 mg PO BID [facility] Last Admin: 06/21/18 08:51 Dose: 1,200 mg Magnesium Hydroxide (Milk Of Magnesia) 30 ml PO DAILY PRN PRN PRN Reason: Constipation Meloxicam (Mobic) 7.5 mg PO BID [facility] Last Admin: 06/21/18 08:50 Dose: 7.5 mg Methylprednisolone (Solu-Medrol) 40 mg IV Q8 [facility] Last Admin: 06/21/18 05:34 Dose: 40 mg Nicotine (Nicoderm Cq (Pbkc)) 21 mg TRANSDERM. DAILY [facility] Last Admin: 06/21/18 08:50 Dose: 21 mg Pravastatin Sodium (Pravachol) 10 mg PO DAILY@2200 [facility] Sodium Chloride () 5 - 15 ml IV UD PRN PRN Reason: SALINE FLUSH Last Admin: 06/21/18 05:37 Dose: 10 ml Spironolactone (Aldactone) 25 mg PO DAILY [facility] Last Admin: 06/21/18 08:50 Dose: 25 mg Medical Necessity - Tobacco Use Smoking Status: Current every day smoker Tobacco Use: Cigarettes Assessment/Plan All Active Problems (Last Reviewed 06/21/18 @ 00:19 by David Nails MD) COPD exacerbation (Acute) History of carpal tunnel surgery of left wrist (Resolved) 57-year-old female past medical history hypertension, depression, history of PE, [place] was recently admitted and discharged for acute COPD exacerbation seen with progressive shortness of breath. 1. Acute COPD exacerbation, history of COPD, not on oxygen, currently on 4 L of oxygen Admitting CT was negative for PE. Patient is on oral antibiotics that she was discharged home with. Resp panel is negative Will continue on breathing treatments, IV steroids 2.Hypertension, controlled, continue home medication, continue to monitor vitals. 3.DEN[place], non-compliant with CPAP 4. Hyperlipidemia, on statin 5. GERD, on Zantac 6. Nicotine dependence, advised to quit 7. DVT prophylaxis with Lovenox subcu Code Visit Inpatient E&M: 72412 Subs Hosp L2
--- NOTE | 2018-06-21 09:08 | NURSING ---
Addendum entered by Valentina Prince 06/21/18 09:12: Rajan from [facility] Original Note: ABg's ordered and EKG. Rajan up here and already in room performing.
--- NOTE | 2018-06-21 09:12 | EKGRS_ITS ---
Test Reason : Blood Pressure : / mmHG Vent. Rate : 092 BPM Atrial Rate : 092 BPM P-R Int : 150 ms QRS Dur : 088 ms QT Int : 384 ms P-R-T Axes : 079 085 074 degrees QTc Int : 474 ms Normal sinus rhythm Normal ECG When compared with ECG of 20-JUN-2018 18:35, MANUAL COMPARISON REQUIRED, DATA IS UNCONFIRMED Confirmed by TEDDY MILLIGAN, TERRY ([id number]), associate entertainment editor HUE ESPINAL ([id number]) on 06/28/2018 9:05:27 AM Referred By: GREER Confirmed By:TERRY ESPINAL MD
--- NOTE | 2018-06-21 09:26 | NURSING ---
ABG's done and EKG done. Dr. Weinstein aware of Normal EKG.
[2018-06-21 09:36] LABS: Allen Test POS; Base Excess -4 mmol/L (-2 to +2); Bicarbonate 19.9 mmol/L (22-26); Blood Gas Specimen Type ART; O2 Delivery Device Room Air; PO2 63 mmHG (75-100); SITE L Radial; SO2 94 % (95-99); Time Given 920; Total Carbon Dioxide 21 mmol/L; pCO2 26.9 mmHg (35-45); pH 7.48 (7.35-7.45)
[2018-06-21] MEDS: LORazepam 1 MG Tablet PO (10:34)
--- NOTE | 2018-06-21 11:30 | CASEMGMT ---
JHONATHAN TIDWELL Re-admission note: Recent admission to [facility] w/Acute Exac COPD and CAP. Was treated with IV atb's and solumedrol. Discharged home 06/19/18 on PO atb's and Prednisone and instructions were to f/u with PCP @ [facility] in 3-5 days. Per CM note, pt had PFT's scheduled this week, but had to reschedule testing and follow-up appt with Dr Ragland. 06/20/18: Re-admitted to [facility] with Acute Exac COPD. To room to talk with pt. Pt sitting up in chair bedside bed. Introduced self and JHONATHAN TIDWELL role. *Pt states she was able to get in for an appt with Dr Ragland on 07/12 but does not think the PFT's will be done until July but she is unsure. *Does not have home O2. Will need Home oxygen qualification testing completed on day of discharge. States does not have preference of DME company. Anticipate that pt will discharge over the weekend. JHONATHAN TIDWELL, Gabrielle, states she will place Green sheet on chart for weekend staff w/instructions for setting up home O2 in the event that pt does qualify for O2. *Discussed CCN with pt for COPD. Pt provided with CCN rac card. Pt states she will consider it and will let staff know if she would like a referral sent. *Disposition Plan: Patient to discharge home with support of fiance and follow-up plans in place. May need Home O2. Pt is considering CCN referral. Analy WILLIAMSONN JHONATHAN TIDWELL
[2018-06-21] MEDS: Benzonatate 100 MG Capsule PO ×2 (12:58→17:18)
--- NOTE | 2018-06-21 13:03 | NURSING ---
tHIS NURSE AWARE THAT RESP PANEL WAS NOT READ TODAY B/C IT WAS CONTAMINATED.
[2018-06-21] MEDS: Pravastatin 20 MG Tablet 10 MG PO (22:16)
[2018-06-22] VITALS (15 sets, daily range): BP systolic 137–149; BP diastolic 80–93; PULSE 85–99; RESP 16–24; TEMP 36.8–37.4; O2SAT 90–100
[2018-06-22] MEDS: Acetaminophen 325 MG Tablet 650 MG PO ×3 (02:29→17:19)
[2018-06-22] MEDS: Benzonatate 100 MG Capsule PO ×3 (02:30→17:18)
[2018-06-22] MEDS: 0.9% NaCl Peripheral Flush Adult/Peds IV ×3 (05:39→21:54)
[2018-06-22] MEDS: Ipratropium/Albuterol Sulfate 3 ML AMPUL.NEB INHALATION ×5 (07:05→23:23)
[2018-06-22] MEDS: Gabapentin 100 MG Capsule PO ×3 (08:34→17:18)
[2018-06-22] MEDS: Meloxicam 7.5 MG Tablet PO ×2 (08:34→21:53)
[2018-06-22] MEDS: Enoxaparin 40 MG/0.4 ML Syringe SC (08:34)
[2018-06-22] MEDS: Spironolactone 25 MG Tablet PO (08:34)
[2018-06-22] MEDS: Amox/Clavulanate 875 MG Tablet PO ×2 (08:35→17:18)
[2018-06-22] MEDS: DULoxetine Hcl 30 MG Capsule PO (08:35)
[2018-06-22] MEDS: amLODIPine 5 MG Tablet PO (08:35)
[2018-06-22] MEDS: guaiFENesin 1,200 MG Tablet 1200 MG PO ×2 (08:35→21:52)
[2018-06-22] MEDS: Famotidine 20 MG Tablet PO ×2 (08:35→21:49)
--- NOTE | 2018-06-22 08:48 | NURSING ---
wALKED AROUND THE UNIT WITH THIS NURSE AND PHYSICAL THERAPY. SPO2 92-94% ON RA WHILE WALKING.
--- NOTE | 2018-06-22 09:24 | CPS ---
Patient reported work on PEP Therapy Device on own.
--- NOTE | 2018-06-22 09:25 | CPS ---
Patient weaned to room air, sats at 90%, placed patient back on 1lpm for patient comfort, RN aware.
[2018-06-22] MEDS: Oseltamivir Phosphate 75 MG Capsule PO ×2 (12:35→21:52)
--- NOTE | 2018-06-22 13:57 | CPS ---
Patient working on PEP Therapy on own.
--- NOTE | 2018-06-22 16:06 | PCM.PN.HOSP ---
Subjective: Patient seen and examined. She feels a little better. Still has shortness of breath. Been off oxygen. Respiratory panel came back positive for influenza. Objective: Physical exam: General: Alert, Oriented x3, Cooperative, appears comfortable at rest, not on oxygen, no conversational dyspnea HEENT: Atraumatic, PERRLA, EOMI, Normocephalic Oral: Moist Mucosa Neck: Supple, No JVD, Negative Carotid Bruits Lungs: Diminished Cardiovascular: Regular rate, Regular Rhythm, Normal S1, Normal S2, No murmurs Abdomen: Bowel Sounds Present, Soft, Non Tender, Non-Distended, No Hepato-splenomegaly Extremities: No edema Skin: No rashes, No breakdown Musculoskeletal: No Tenderness to Palpation of Joints or Extremities Lymphatic: No Cervical, Supraclavicular, or Inguinal Adenopathy Neurological: Cranial nerves II-XII grossly intact, Neuro grossly intact Psych/Mental Status: Normal Affect, Appropriate Vitals/I&O's: Vital Signs Temp Pulse Resp BP Pulse Ox 98.6 F 99 20 H 146/93 H 91 06/22/18 15:32 06/22/18 15:32 06/22/18 15:32 06/22/18 15:32 06/22/18 15:32 Oxygen Flow Rate (L/min) 1 Oxygen Delivery Method Room Air Weight: 50.984 kg Body Mass Index (BMI) 19.3 Intake and Output for Last 24 Hours 06/20/18 06/21/18 06/22/18 23:59 23:59 23:59 Intake Total 1450 / 1450 850 / 850 Balance 1450 / 1450 850 / 850 Microbiology Past 72 Hours 06/21/18 12:51 Mucosa - Nasopharyngeal Respiratory Panel (PCR) - Final Influenza A (Subtype H3) Current Medications Acetaminophen (Tylenol) 650 mg PO Q6H PRN PRN PRN Reason: PAIN Last Admin: 06/22/18 08:35 Dose: 650 mg Albuterol Sulfate (Ventolin Aerosols) 2.5 mg INHALATION Q2H PRN PRN PRN Reason: SHORTNESS OF BREATH Last Admin: 06/21/18 08:49 Dose: 2.5 mg Albuterol/Ipratropium (Duoneb) 3 ml INHALATION Q4H.RT SERGIO Last Admin: 06/22/18 15:29 Dose: 3 ml Amlodipine Besylate (Norvasc) 5 mg PO DAILY [facility] Last Admin: 06/22/18 08:35 Dose: 5 mg Amoxicillin/Clavulanate Potassium ([facility]in [facility]) [facility] Stop: 06/24/18 08:01 Last Admin: 06/22/18 08:35 Dose: 875 mg Benzonatate (Tessalon Perle) 100 mg PO Q4H PRN PRN PRN Reason: COUGH Last Admin: 06/22/18 08:34 Dose: 100 mg Duloxetine HCl (Cymbalta) 30 mg PO DAILY [facility] Last Admin: 06/22/18 08:35 Dose: 30 mg Enoxaparin Sodium (Lovenox) 40 mg SC DAILY@1000 [facility] Last Admin: 06/22/18 08:34 Dose: 40 mg Famotidine (Pepcid) 20 mg PO BID [facility] Last Admin: 06/22/18 08:35 Dose: 20 mg Gabapentin (Neurontin) 100 mg PO TIDCM [facility] Last Admin: 06/22/18 12:35 Dose: 100 mg Guaifenesin (Mucinex) 1,200 mg PO BID [facility] Last Admin: 06/22/18 08:35 Dose: 1,200 mg Magnesium Hydroxide (Milk Of Magnesia) 30 ml PO DAILY PRN PRN PRN Reason: Constipation Meloxicam (Mobic) 7.5 mg PO BID [facility] Last Admin: 06/22/18 08:34 Dose: 7.5 mg Methylprednisolone (Solu-Medrol) 40 mg IV Q8 [facility] Last Admin: 06/22/18 15:29 Dose: 40 mg Nicotine (Nicoderm Cq (Pbkc)) 21 mg TRANSDERM. DAILY [facility] Last Admin: 06/22/18 08:33 Dose: 21 mg Oseltamivir Phosphate (Tamiflu) 75 mg PO BID [facility] Stop: 06/26/18 22:01 Last Admin: 06/22/18 12:35 Dose: 75 mg Pravastatin Sodium (Pravachol) 10 mg PO DAILY@2200 [facility] Last Admin: 06/21/18 22:16 Dose: 10 mg Sodium Chloride () 5 - 15 ml IV UD PRN PRN Reason: SALINE FLUSH Last Admin: 06/22/18 15:29 Dose: 10 ml Spironolactone (Aldactone) 25 mg PO DAILY [facility] Last Admin: 06/22/18 08:34 Dose: 25 mg Medical Necessity - Tobacco Use Smoking Status: Current every day smoker Tobacco Use: Cigarettes Assessment/Plan All Active Problems (Last Reviewed 06/21/18 @ 00:19 by David Nails MD) COPD exacerbation (Acute) History of carpal tunnel surgery of left wrist (Resolved) 57-year-old female past medical history hypertension, depression, history of PE, [place] was recently admitted and discharged for acute COPD exacerbation seen with progressive shortness of breath. 1. Acute COPD exacerbation secondary to acute influenza A bronchitis, history of COPD, Improving, will continue on IV steroids, breathing treatments, oral antibiotics 2. Acute influenza A bronchitis, on Tamiflu 3.Hypertension, controlled, continue home medication, continue to monitor vitals. 4.[place], non-compliant with CPAP 5. Hyperlipidemia, on statin 6. GERD, on Zantac 7. Nicotine dependence, advised to quit 8. DVT prophylaxis with Lovenox subcu Code Visit Inpatient E&M: 92564 Subs Hosp L2
--- NOTE | 2018-06-22 16:09 | PN_ITS ---
Subjective: Patient seen and examined. She feels a little better. Still has shortness of breath. Been off oxygen. Respiratory panel came back positive for influenza. Objective: Physical exam: General: Alert, Oriented x3, Cooperative, appears comfortable at rest, not on oxygen, no conversational dyspnea HEENT: Atraumatic, PERRLA, EOMI, Normocephalic Oral: Moist Mucosa Neck: Supple, No JVD, Negative Carotid Bruits Lungs: Diminished Cardiovascular: Regular rate, Regular Rhythm, Normal S1, Normal S2, No murmurs Abdomen: Bowel Sounds Present, Soft, Non Tender, Non-Distended, No Hepato- splenomegaly Extremities: No edema Skin: No rashes, No breakdown Musculoskeletal: No Tenderness to Palpation of Joints or Extremities Lymphatic: No Cervical, Supraclavicular, or Inguinal Adenopathy Neurological: Cranial nerves II-XII grossly intact, Neuro grossly intact Psych/Mental Status: Normal Affect, Appropriate Vitals/I&O's: Vital Signs Temp Pulse Resp BP Pulse Ox 98.6 F 99 20 H 146/93 H 91 06/22/18 15:32 06/22/18 15:32 06/22/18 15:32 06/22/18 15:32 06/22/18 15:32 Oxygen Flow Rate (L/min) 1 Oxygen Delivery Method Room Air Weight: 50.984 kg Body Mass Index (BMI) 19.3 Intake and Output for Last 24 Hours 06/20/18 06/21/18 06/22/18 23:59 23:59 23:59 Intake Total 1450 / 1450 850 / 850 Balance 1450 / 1450 850 / 850 Microbiology Past 72 Hours 06/21/18 12:51 Mucosa - Nasopharyngeal Respiratory Panel (PCR) - Final Influenza A (Subtype H3) Current Medications Acetaminophen (Tylenol) 650 mg PO Q6H PRN PRN PRN Reason: PAIN Last Admin: 06/22/18 08:35 Dose: 650 mg Albuterol Sulfate (Ventolin Aerosols) 2.5 mg INHALATION Q2H PRN PRN PRN Reason: SHORTNESS OF BREATH Last Admin: 06/21/18 08:49 Dose: 2.5 mg Albuterol/Ipratropium (Duoneb) 3 ml INHALATION Q4H.RT SERGIO Last Admin: 06/22/18 15:29 Dose: 3 ml Amlodipine Besylate (Norvasc) 5 mg PO DAILY [facility] Last Admin: 06/22/18 08:35 Dose: 5 mg Amoxicillin/Clavulanate Potassium ([facility]in Tablet) [facility] Stop: 06/24/18 08:01 Last Admin: 06/22/18 08:35 Dose: 875 mg Benzonatate (Tessalon Perle) 100 mg PO Q4H PRN PRN PRN Reason: COUGH Last Admin: 06/22/18 08:34 Dose: 100 mg Duloxetine HCl (Cymbalta) 30 mg PO DAILY [facility] Last Admin: 06/22/18 08:35 Dose: 30 mg Enoxaparin Sodium (Lovenox) 40 mg SC DAILY@1000 [facility] Last Admin: 06/22/18 08:34 Dose: 40 mg Famotidine (Pepcid) 20 mg PO BID [facility] Last Admin: 06/22/18 08:35 Dose: 20 mg Gabapentin (Neurontin) 100 mg PO TIDCM [facility] Last Admin: 06/22/18 12:35 Dose: 100 mg Guaifenesin (Mucinex) 1,200 mg PO BID [facility] Last Admin: 06/22/18 08:35 Dose: 1,200 mg Magnesium Hydroxide (Milk Of Magnesia) 30 ml PO DAILY PRN PRN PRN Reason: Constipation Meloxicam (Mobic) 7.5 mg PO BID [facility] Last Admin: 06/22/18 08:34 Dose: 7.5 mg Methylprednisolone (Solu-Medrol) 40 mg IV Q8 [facility] Last Admin: 06/22/18 15:29 Dose: 40 mg Nicotine (Nicoderm Cq (Pbkc)) 21 mg TRANSDERM. DAILY [facility] Last Admin: 06/22/18 08:33 Dose: 21 mg Oseltamivir Phosphate (Tamiflu) 75 mg PO BID [facility] Stop: 06/26/18 22:01 Last Admin: 06/22/18 12:35 Dose: 75 mg Pravastatin Sodium (Pravachol) 10 mg PO DAILY@2200 [facility] Last Admin: 06/21/18 22:16 Dose: 10 mg Sodium Chloride () 5 - 15 ml IV UD PRN PRN Reason: SALINE FLUSH Last Admin: 06/22/18 15:29 Dose: 10 ml Spironolactone (Aldactone) 25 mg PO DAILY [facility] Last Admin: 06/22/18 08:34 Dose: 25 mg Medical Necessity - Tobacco Use Smoking Status: Current every day smoker Tobacco Use: Cigarettes Assessment/Plan All Active Problems (Last Reviewed 06/21/18 @ 00:19 by David Nails MD) COPD exacerbation (Acute) History of carpal tunnel surgery of left wrist (Resolved) 57-year-old female past medical history hypertension, depression, history of PE, [place] was recently admitted and discharged for acute COPD exacerbation seen with progressive shortness of breath. 1. Acute COPD exacerbation secondary to acute influenza A bronchitis, history of COPD, Improving, will continue on IV steroids, breathing treatments, oral antibiotics 2. Acute influenza A bronchitis, on Tamiflu 3.Hypertension, controlled, continue home medication, continue to monitor vitals. 4.[place], non-compliant with CPAP 5. Hyperlipidemia, on statin 6. GERD, on Zantac 7. Nicotine dependence, advised to quit 8. DVT prophylaxis with Lovenox subcu Code Visit Inpatient E&M: 50548 Subs Hosp L2
[2018-06-22] MEDS: Pravastatin 20 MG Tablet 10 MG PO (21:49)
[2018-06-23] MEDS: Ipratropium/Albuterol Sulfate 3 ML AMPUL.NEB INHALATION ×2 (03:19→07:24)
[2018-06-23 03:20] VITALS: PULSE 86; RESP 18
[2018-06-23 03:32] VITALS: BP 141/80; PULSE 79; RESP 18; TEMP 36.8; O2SAT 96
[2018-06-23] MEDS: 0.9% NaCl Peripheral Flush Adult/Peds IV (06:05)
[2018-06-23 07:03] LABS: Absolute Lymphocyte Count 0.56 X10^3/ul (0.83-4.51); Absolute Neutrophil Count 4.7 X10^3/uL (2.0-7.7); Hematocrit 41.5 % (37-47); Hemoglobin 13.7 g/dl (12.0-15.0); Lymphocyte # 0.56 X10^3/ul (4.0); Lymphocyte % 9.7 % (19-41); Mean Corpuscular Hgb 31.9 pg (27.0-32.0); Mean Corpuscular Volume 96.7 fL (81-99); Mean Platelet Vol. 9.2 fl (6.2-12.0); Monocyte# 0.46 X10^3/uL; Neutrophil % 81.8 % (47-70); Platelet Count 231 K/mm3 (150-450); RBC Distribution Width CV 11.8 % (11.6-14.6); RBC Distribution Width SD 40.9 fl (35.1-43.9); Red Blood Count 4.29 M/mm3 (4.2-5.4); White Blood Count 5.8 K/mm3 (4.4-11.0)
[2018-06-23 07:04] LABS: POSITIVE COUNT NO; POSITIVE DIFFERENTIAL YES; POSITIVE MORPHOLOGY YES
[2018-06-23 07:05] LABS: Differential Indicated SCAN CRITERIA MET
[2018-06-23 07:06] LABS: Anion Gap 9 (5-15); BUN 14 mg/dL (7-18); BUN/Creat Ratio 26.2 RATIO (10-20); Calcium,Total 8.8 mg/dL (8.5-10.1); Chloride 107 mmol/L (98-107); Creatinine, Serum 0.53 mg/dL (0.55-1.02); EST Glomerular Filtration Rate 125 mL/min (>60); Est Glom Filt Rate - Afr Amer 151 mL/min (>60); Estimated Creatinine Clearance 94.26 ml/min; Glucose 139 mg/dL (74-106); Potassium 4.1 mmol/L (3.5-5.1); Sodium Level 138 mmol/L (136-145)
[2018-06-23] MEDS: DULoxetine Hcl 30 MG Capsule PO (08:08)
[2018-06-23] MEDS: guaiFENesin 1,200 MG Tablet 1200 MG PO (08:08)
[2018-06-23] MEDS: Amox/Clavulanate 875 MG Tablet PO (08:09)
[2018-06-23] MEDS: Spironolactone 25 MG Tablet PO (08:09)
[2018-06-23] MEDS: Benzonatate 100 MG Capsule PO (08:09)
[2018-06-23] MEDS: Oseltamivir Phosphate 75 MG Capsule PO (08:09)
[2018-06-23] MEDS: Famotidine 20 MG Tablet PO (08:09)
[2018-06-23] MEDS: Enoxaparin 40 MG/0.4 ML Syringe SC (08:10)
[2018-06-23] MEDS: Gabapentin 100 MG Capsule PO (08:10)
[2018-06-23] MEDS: Meloxicam 7.5 MG Tablet PO (08:10)
[2018-06-23] MEDS: Acetaminophen 325 MG Tablet 650 MG PO (08:10)
[2018-06-23] MEDS: amLODIPine 5 MG Tablet PO (08:11)
[2018-06-23 08:15] VITALS: O2SAT 94
[2018-06-23 08:24] VITALS: BP 147/86; PULSE 78; RESP 18; TEMP 36.6; O2SAT 94
[2018-06-23 08:49] VITALS: PULSE 94; RESP 18; O2SAT 94
--- NOTE | 2018-06-23 09:36 | PCM.DC ---
- Discharge Diagnoses Reason(s) for Visit for Discharge Instructions: Shortness of breath You will use the following diet at home:: Cardiac Your food should be the consistency of: Regular Your liquids should be the consistency of: Regular/Thin Discharge Activity: Return to Normal Activity Additional Instructions: Complete your antibiotics on 06/26/18 evening. Take your prednisone as prescribed. You are strongly advised to continue to quit smoking. 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 Allergies/Adverse Reactions: Allergies lisinopril Allergy (Verified 06/20/18 18:21) Angioedema Sulfa (Sulfonamide Antibiotics) Allergy (Verified 06/20/18 18:21) Itching codeine Adverse Reaction (Intermediate, Verified 06/20/18 18:21) / Medications to take at Discharge Fluticasone/Vilanterol [Breo Ellipta 100-25 Mcg INH] 1 puff INHALATION QHS 07/25/16 Amlodipine [Norvasc] 5 mg PO DAILY 12/09/17 Gabapentin [Neurontin] 100 mg PO TIDCM 12/09/17 Ranitidine [Zantac] 150 mg PO BID 12/09/17 Meloxicam [Mobic] 7.5 mg PO BID 03/13/18 Duloxetine Hcl [Cymbalta] 30 mg PO DAILY 04/15/18 Albuterol Sulfate [Proair Hfa] 2 puff INHALATION Q4H PRN PRN 06/17/18 Pravastatin Sodium 10 mg PO DAILY 06/17/18 Spironolactone [Aldactone] 25 mg PO DAILY 06/17/18 Umeclidinium [place] Inhaler [Incruse Ellipta Inhaler] 1 inh INHALATION DAILY 06/17/18 Amoxicillin/Potassium Clav [Augmentin 875-125 Tablet] 1 each PO BID #10 tablet 06/19/18 Prednisone [Deltasone] 40 mg PO DAILY #14 tablet 06/19/18 nicotine 14 mg/24 hr daily transdermal patch 1 patch TRANSDERMAL DAILY #28 ea 06/20/18 Acetaminophen [Tylenol Tablet] 650 mg PO Q6H PRN PRN tablet 06/23/18 Benzonatate [Tessalon Perle] 100 mg PO Q4H PRN PRN #20 capsule 06/23/18 Guaifenesin [Mucinex] 1,200 mg PO BID #20 tablet 06/23/18 Prednisone 10 mg PO DAILY #30 tablet 06/23/18 The following prescriptions were given: Benzonatate [Tessalon Perle] 100 mg PO Q4H PRN PRN #20 capsule PRN Reason: COUGH Prednisone 10 mg PO DAILY #30 tablet Guaifenesin [Mucinex] 1,200 mg PO BID #20 tablet Primary Care Physician: Aminah Brown NP-C [Primary Care Provider] - Please follow up with your Primary Care Physician in: within 1-2 weeks Test Results: Test results from this visit will be discussed in further detail at your follow-up appointment, if applicable. Proposed Discharge Date: 06/23/18
--- NOTE | 2018-06-23 09:39 | DCINST_ITS ---
- Discharge Diagnoses Reason(s) for Visit for Discharge Instructions: Shortness of breath You will use the following diet at home:: Cardiac Your food should be the consistency of: Regular Your liquids should be the consistency of: Regular/Thin Discharge Activity: Return to Normal Activity Additional Instructions: Complete your antibiotics on 06/26/18 evening. Take your prednisone as prescribed. You are strongly advised to continue to quit smoking. 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 Allergies/Adverse Reactions: Allergies lisinopril Allergy (Verified 06/20/18 18:21) Angioedema Sulfa (Sulfonamide Antibiotics) Allergy (Verified 06/20/18 18:21) Itching codeine Adverse Reaction (Intermediate, Verified 06/20/18 18:21) / Medications to take at Discharge Fluticasone/Vilanterol [Breo Ellipta 100-25 Mcg INH] 1 puff INHALATION QHS 07/25/16 Amlodipine [Norvasc] 5 mg PO DAILY 12/09/17 Gabapentin [Neurontin] 100 mg PO TIDCM 12/09/17 Ranitidine [Zantac] 150 mg PO BID 12/09/17 Meloxicam [Mobic] 7.5 mg PO BID 03/13/18 Duloxetine Hcl [Cymbalta] 30 mg PO DAILY 04/15/18 Albuterol Sulfate [Proair Hfa] 2 puff INHALATION Q4H PRN PRN 06/17/18 Pravastatin Sodium 10 mg PO DAILY 06/17/18 Spironolactone [Aldactone] 25 mg PO DAILY 06/17/18 Umeclidinium [place] Inhaler [Incruse Ellipta Inhaler] 1 inh INHALATION DAILY 06/17/18 Amoxicillin/Potassium Clav [Augmentin 875-125 Tablet] 1 each PO BID #10 tablet 06/19/18 Prednisone [Deltasone] 40 mg PO DAILY #14 tablet 06/19/18 nicotine 14 mg/24 hr daily transdermal patch 1 patch TRANSDERMAL DAILY #28 ea 06/20/18 Acetaminophen [Tylenol Tablet] 650 mg PO Q6H PRN PRN tablet 06/23/18 Benzonatate [Tessalon Perle] 100 mg PO Q4H PRN PRN #20 capsule 06/23/18 Guaifenesin [Mucinex] 1,200 mg PO BID #20 tablet 06/23/18 Prednisone 10 mg PO DAILY #30 tablet 06/23/18 The following prescriptions were given: Benzonatate [Tessalon Perle] 100 mg PO Q4H PRN PRN #20 capsule PRN Reason: COUGH Prednisone 10 mg PO DAILY #30 tablet Guaifenesin [Mucinex] 1,200 mg PO BID #20 tablet Primary Care Physician: Aminah Brown NP-C [Primary Care Provider] - Please follow up with your Primary Care Physician in: within 1-2 weeks Test Results: Test results from this visit will be discussed in further detail at your follow- up appointment, if applicable. Proposed Discharge Date: 06/23/18
--- NOTE | 2018-06-23 09:42 | PCM.DC.SUM ---
Discharge Date and Diagnosis Date of Admission: 06/20/18 Date of Discharge: 06/23/18 - Primary Discharge Diagnosis Acute influenza A bronchitis Acute COPD exacerbation Nicotine dependence - Secondary Discharge Diagnosis Chronic Problems (Last Reviewed 06/21/18 @ 00:19 by David Nails MD) Asthma (Chronic) Emphysema (Chronic) Depression (Chronic) [place] (obstructive sleep apnea) (Chronic) Continued non-compliance. Patient states she is unable to tolerate the CPAP because of things from my past. Benign essential hypertension (Chronic) Tobacco user (Chronic) Strongly encouraged smoking cessation. Patient is not interested at this time. History of pulmonary embolism (Chronic) Angioedema (Chronic) Hospital Course and Treatment Imaging Results: Clinical Impression(s) from Imaging Studies Chest X-Ray 06/20/18 19:30 IMPRESSION: There are findings consistent with COPD. There is no evidence of acute chest disease. Electronically Signed: Cain Gordillo MD at 19:54 EST , Service support , Chest CTA 06/20/18 21:22 IMPRESSION: 1. No evidence of pulmonary embolus. 2. Atherosclerotic changes of the thoracic aorta without aneurysm or dissection. 3. Emphysematous changes lungs without mass or infiltrate. Electronically Signed: Mundo Watson DO at 22:00 EST Tel [phone], Service support , None Operations: None Procedures: None Summary of Care Provided: 57-year-old female past medical history hypertension, depression, history of PE, [place] was recently admitted and discharged for acute COPD exacerbation seen with progressive shortness of breath. She was admitted to the floor, started on IV steroids, breathing treatments. Respiratory panel was positive for influenza A, started on Tamiflu. Patient was intermittently short of breath, SPO2 was more than 94%. She follows up with pulmonology as an outpatient. She was strongly advised to quit smoking. She was discharged on steroid taper, asked to complete 3 more days of antibiotics, and complete also her Tamiflu. Subjective: The day of discharge, patient was seen and examined. Denied any new complaints. Not on oxygen Objective: Physical exam: General: Alert, Oriented x3, Cooperative, appears comfortable at rest, not on oxygen, no conversational dyspnea HEENT: Atraumatic, PERRLA, EOMI, Normocephalic Oral: Moist Mucosa Neck: Supple, No JVD, Negative Carotid Bruits Lungs: Diminished Cardiovascular: Regular rate, Regular Rhythm, Normal S1, Normal S2, No murmurs Abdomen: Bowel Sounds Present, Soft, Non Tender, Non-Distended, No Hepato-splenomegaly Extremities: No edema Skin: No rashes, No breakdown Musculoskeletal: No Tenderness to Palpation of Joints or Extremities Lymphatic: No Cervical, Supraclavicular, or Inguinal Adenopathy Neurological: Cranial nerves II-XII grossly intact, Neuro grossly intact Psych/Mental Status: Normal Affect, Appropriate - Physical Exam Vital Signs Temp Pulse Resp BP Pulse Ox 97.9 F 94 18 147/86 H 94 06/23/18 08:24 06/23/18 08:49 06/23/18 08:49 06/23/18 08:24 06/23/18 08:49 Oxygen Flow Rate (L/min) 2 Oxygen Delivery Method Nasal Cannula Weight: 50.984 kg Body Mass Index (BMI) 19.3 Intake and Output for Last 24 Hours 06/21/18 06/22/18 06/24/18 23:59 23:59 00:59 Intake Total 1450 / 1450 2150 / 2150 200 / 200 Balance 1450 / 1450 2150 / 2150 200 / 200 Microbiology Past 72 Hours 06/21/18 12:51 Respiratory Panel (PCR) - Final Mucosa - Nasopharyngeal Influenza A (Subtype H3) Laboratory Tests Past 24 Hrs 06/23/18 06/23/18 05:35 05:35 WBC 5.8 RBC 4.29 Hgb 13.7 Hct 41.5 MCV 96.7 MCH 31.9 MCHC 33.0 RDW 11.8 RDW Differential 40.9 Plt Count 231 MPV 9.2 Immature Gran % (Auto) 0.500 Neut % (Auto) 81.8 H Lymph % (Auto) 9.7 L Hendricks % (Auto) 8.0 Eos % (Auto) 0.0 Baso % (Auto) 0.0 Absolute Neuts (auto) 4.7 Absolute Lymphs (auto) 0.56 L Total Counted Not Reportable Sodium 138 Potassium 4.1 Chloride 107 Carbon Dioxide 22.0 Anion Gap 9 BUN 14 Creatinine 0.53 L Estim Creat Clear Calc 94.26 Est GFR (MDRD) Af Amer 151 Est GFR (MDRD) Non-Af 125 BUN/Creatinine Ratio 26.2 H Glucose 139 H Calcium 8.8 Discharge Diet: Low fat/ Low Cholesterol, 2000 mg Sodium Diet Discharge Activity: Return to Normal Activity Home Medications: Medications to take at Discharge Fluticasone/Vilanterol [Breo Ellipta 100-25 Mcg INH] 1 puff INHALATION QHS 07/25/16 Amlodipine [Norvasc] 5 mg PO DAILY 12/09/17 Gabapentin [Neurontin] 100 mg PO TIDCM 12/09/17 Ranitidine [Zantac] 150 mg PO BID 12/09/17 Meloxicam [Mobic] 7.5 mg PO BID 03/13/18 Duloxetine Hcl [Cymbalta] 30 mg PO DAILY 04/15/18 Albuterol Sulfate [Proair Hfa] 2 puff INHALATION Q4H PRN PRN 06/17/18 Pravastatin Sodium 10 mg PO DAILY 06/17/18 Spironolactone [Aldactone] 25 mg PO DAILY 06/17/18 Umeclidinium [place] Inhaler [Incruse Ellipta Inhaler] 1 inh INHALATION DAILY 06/17/18 Amoxicillin/Potassium Clav [Augmentin 875-125 Tablet] 1 each PO BID #10 tablet 06/19/18 Prednisone [Deltasone] 40 mg PO DAILY #14 tablet 06/19/18 nicotine 14 mg/24 hr daily transdermal patch 1 patch TRANSDERMAL DAILY #28 ea 06/20/18 Acetaminophen [Tylenol Tablet] 650 mg PO Q6H PRN PRN tablet 06/23/18 Benzonatate [Tessalon Perle] 100 mg PO Q4H PRN PRN #20 capsule 06/23/18 Guaifenesin [Mucinex] 1,200 mg PO BID #20 tablet 06/23/18 Oseltamivir Phosphate [Tamiflu] 75 mg PO BID #7 capsule 06/23/18 Prednisone 10 mg PO DAILY #30 tablet 06/23/18 Following Prescrptions Were Given to Patient: Benzonatate [Tessalon Perle] 100 mg PO Q4H PRN PRN #20 capsule PRN Reason: COUGH Prednisone 10 mg PO DAILY #30 tablet Guaifenesin [Mucinex] 1,200 mg PO BID #20 tablet Oseltamivir Phosphate [Tamiflu] 75 mg PO BID #7 capsule Primary Care Physician: Aminah Brown NP-C [Primary Care Provider] - Please follow up with your Primary Care Physician in: within 1-2 weeks Disposition: Home Minutes spent on discharge:: 40 Patient Condition:: Stable Medical Necessity - Tobacco Use Smoking Status: Current every day smoker Tobacco Use: Cigarettes Meaningful Use Info Meaningful Use Diagnoses (Choose all that apply): None applicable Code Visit Inpatient E&M: 74027 Disch Hosp
--- NOTE | 2018-06-25 14:09 | CASEMGMT ---
RN CM DC PHONE CALL DC DATE: 06/23/18 DC Disposition: home LACE/STRATA: 02/16 Intro role of CM to patient via phone. Pt states she is improving, still tired and winded with too much activity. No questions re: dc instructions, medications or f/u. Patient states she has follow up appointment. No care improvement suggestions given. Emily WILLIAMSONN RN ACM
== END 2018-06-23 11:09 | disposition home or self-care (01) | DRG 194 ==
LOC: ED 19:33 → MS3 06-21 05:19
PROVIDERS: Admitting Provider Hospitalist; Emergency Provider Emergency Medicine; Family Provider Nurse Practitioner Family; PCP Nurse Practitioner Family; Visit Provider Internal Medicine
DX: J10.1 Influenza due to other identified influenza virus with other respiratory manifestations (principal); J44.0 Chronic obstructive pulmonary disease with (acute) lower respiratory infection; J44.1 Chronic obstructive pulmonary disease with (acute) exacerbation; F17.210 Nicotine dependence, cigarettes, uncomplicated; E78.5 Hyperlipidemia, unspecified; G89.29 Other chronic pain; M54.5 Low back pain; G47.33 Obstructive sleep apnea (adult) (pediatric); Z86.711 Personal history of pulmonary embolism; I10 Essential (primary) hypertension; F32.9 Major depressive disorder, single episode, unspecified
CPT/HCPCS: 36415; 36600; 71045; 71275; 80048; 82803; 83605; 85025; 87040; 87633; 93005; 94640; 94667; 94668; 97116; 97161; 97165; 99284; J7030; Q9967; A4216

== ENCOUNTER → 2018-07-09 10:37 | Outpatient (CLI) | payer MEDICARE, MEDICAID, SELFPAY ==
[2018-07-09 10:30] VITALS: BMI 19.3
--- NOTE | 2018-07-09 10:39 | RAD_ITS ---
HISTORY: LBP EXAM/TECHNIQUE: XR Spine Lumbar Min 4 Views: COMPARISON: 04/22/18 MRI lumbar spine. FINDINGS: # of images incl. paperwork: 4 No fracture or dislocation or osseous destruction. Sagittal alignment anatomic. Moderate right scoliosis centered at L2. Mild facet degeneration lower lumbar spine. No acute findings in the soft tissues. RAD/L/S Spine Min 4 Views IMPRESSION: No acute findings. at 1056 Reported and signed by: Matti Peguero MD Electronically Signed: Matti Peguero, at 10:55 EDT Tel , Service support ,
== END ==
PROVIDERS: Family Provider Nurse Practitioner Family; Referring Provider Orthopaedic Surgery; Visit Provider Orthopaedic Surgery
DX: M54.5 Low back pain (principal); J43.9 Emphysema, unspecified; J45.909 Unspecified asthma, uncomplicated; G47.33 Obstructive sleep apnea (adult) (pediatric); Z72.0 Tobacco use
CPT/HCPCS: 72110; 94060; 94726; 94729

== ENCOUNTER → 2018-07-09 13:23 | Outpatient (CLI) | payer MEDICARE, MEDICAID, SELFPAY ==
[2018-07-09 10:30] VITALS: BMI 19.3
--- NOTE | 2018-07-09 15:29 | PFTCOMP ---
COMPLETE PULMONARY FUNCTION TEST INTERPRETATION Brief HPI: Patient is a 57 year old female, currently under the care of myself, who presents to [facility] for complete pulmonary function tests secondary to diagnosis of asthma. Respiratory therapist reports good effort and reproducible results. Interpretation: Forced expiration spirometry shows a moderately-severe large airways obstructive ventilatory defect with an FEV1 of 58% predicted. There is no significant bronchodilator response by strict ATS criteria. Spirograms are of good quality and plateau slowly, indicating slowly emptying areas of the lungs. The respiratory flow volume loop shows decreased expiratory flow rates at all lung volumes consistent with airway obstruction. Lung volumes by body plethysmography show an elevated total lung capacity at 6.16 L, 125% predicted. FRC and RV are elevated out of proportion. Lung volume measurements are consistent with hyperinflation and air-trapping. Diffusion capacity by carbon monoxide is at the lower limit of normal at 56% predicted. The airway resistance is elevated. Compared to previous pulmonary function tests from 12/24/2017, there has been no significant change. Impression: Irreversible moderately severe large airways obstructive ventilatory defect resulting in air trapping with hyperinflation and a symmetric reduction diffusion capacity, consistent with a diagnosis of COPD.
== END ==
PROVIDERS: Referring Provider Internal Medicine Critical Care Medicine; Visit Provider Internal Medicine Critical Care Medicine
DX: J43.9 Emphysema, unspecified (principal)
CPT/HCPCS: 94060; 94726; 94729

== ENCOUNTER → 2018-07-12 10:42 | Outpatient (CLI) | payer MEDICARE, MEDICAID, SELFPAY ==
[2018-07-09 10:30] VITALS: BMI 19.3
[2018-07-12 11:42] VITALS: PULSE 102; PULSE 106; PULSE 118; PULSE 119; PULSE 120; PULSE 122; O2SAT 94; O2SAT 95; O2SAT 96; O2SAT 97
--- NOTE | 2018-07-14 10:03 | PCM.PSN.6M ---
PSN 6 Minute Walk Test - 6 Minute Walk Test 6 Minute Walk Test: 6 Minute Walk Test PSN:6-Minute Walk Test Start: 07/12/18 11:41 Freq: Status: Active Protocol: [id number] Document 07/12/18 11:42 [facility] (Rec: 07/12/18 11:45 [facility] [id number]) 6 Minute Walk Test Date Performed 07/12/18 Time Performed 11:00 Height 5 ft 4 in Weight: 114 lb Weight in Pounds 114.[address]: Jelani Ragland Assistive device used: None Pre-test Oxygen Delivery Method Room Air Pulse Ox (%) 96 Pulse Rate (60-100 beats/min) 106 H Dyspnea Nakia Scale (0-10) 3 1st minute Oxygen Delivery Method Room Air Pulse Ox (%) 95 Pulse Rate (60-100 beats/min) 119 H Dyspnea Nakia Scale (0-10) 4 Reported Symptoms Increased Work of Breathing 2nd minute Oxygen Delivery Method Room Air Pulse Ox (%) 97 Pulse Rate (60-100 beats/min) 122 H Dyspnea Nakia Scale (0-10) 4 Reported Symptoms Increased Work of Breathing 3rd minute Oxygen Delivery Method Room Air Pulse Ox (%) 95 Pulse Rate (60-100 beats/min) 118 H Dyspnea Nakia Scale (0-10) 4 Reported Symptoms Increased Work of Breathing 4th minute Oxygen Delivery Method Room Air Pulse Ox (%) 94 Pulse Rate (60-100 beats/min) 120 H Dyspnea Nakia Scale (0-10) 4 Reported Symptoms Increased Work of Breathing 5th minute Oxygen Delivery Method Room Air Pulse Ox (%) 94 Pulse Rate (60-100 beats/min) 119 H Dyspnea Nakia Scale (0-10) 4 Reported Symptoms Increased Work of Breathing 6th minute Oxygen Delivery Method Room Air Pulse Ox (%) 96 Pulse Rate (60-100 beats/min) 122 H Dyspnea Nakia Scale (0-10) 4 Reported Symptoms Increased Work of Breathing Post-test Oxygen Delivery Method Room Air Pulse Ox (%) 96 Pulse Rate (60-100 beats/min) 102 H Dyspnea Nakia Scale (0-10) 3 Full Laps Walked 18 Partial Lap, Number of Tiles Walked 5 Total Distance Walked (ft) 1067 - Interpretation Interpretation: The patient ambulated 1067 feet over the course of 6 minutes beginning on room air without assistive devices or breaks. Pretesting oxygen saturation was noted to be 96% on room air. With ambulation, the zoey oxygen saturation was 94%. The patient did become progressively tachycardic with exertion. There was no evidence of significant exertional oxygen desaturation. - Recommendations Recommendations: There is no indication for the use of supplemental oxygen at this time.
== END ==
PROVIDERS: Referring Provider Internal Medicine Critical Care Medicine; Visit Provider Internal Medicine Critical Care Medicine
DX: G47.33 Obstructive sleep apnea (adult) (pediatric) (principal); J43.9 Emphysema, unspecified; Z72.0 Tobacco use
CPT/HCPCS: 94618

== ENCOUNTER 2018-08-08 14:00 | Outpatient (RCR) | payer MEDICARE, MEDICAID, SELFPAY ==
[2018-07-19 09:36] VITALS: BMI 19.5
--- NOTE | 2018-08-01 13:03 | HP.PTEVAL_ITS ---
Patient's Visit Information STEFANO TURNER is a 57 year old F referred to Physical Therapy by Sarah Pollock MD with a diagnosis of LBP/LEG PAIN. Date of Evaluation: 08/01/18 Physical Therapist: Zoraida Mcege PT, Cert MDT - Visit Plan Frequency: 2-3x /Week Duration: 4-6 Weeks Plan: AQUATIC THERAPY (STARTING SLOW AND PROGRESSING TOLERATED) FOR POSTURE CORRECTION/STRENGTHENING, INSTRUCTION IN APPROPRIATE BODY MECHANICS AND ACTIVITY MODIFICATIONS. DLS STARTING WITH A NEUTRAL SPINE PROGRESSING ROM TOLERATED. KRYSTLE LE ROM, STRETCHING AND STRENGTHENING. HEP INSTRUCTION. - Subjective Findings: Work/Leisure: UNEMPLOYEED. Disability: YES - FOR COPD AND BACK. Present symptoms: KRYSTLE LOW BACK, RIGHT HIP, RIGHT THIGH AND RIGHT LEG PAIN. RIGHT LE NUMBNESS AND TINGLING. NO FOOT SX'S. LEFT THIGH PAIN, NUMBNESS AND TINGLING TOO. RIGHT LE SX'S > LEFT. Present since: ABOUT A YEAR AGO. Pain Scale: WORST 10/10, LEAST 4/10. Currently: 10. Commenced as a result of: NO APPARENT REASON. Symptoms at onset: LOW BACK. 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 Better: NOTHING. Disturbed sleep: YES. Previous history: PHYSICAL THERAPY - NEVER WORKED. PAIN MGMT - A LOT OF INJECTIONS WITH THE LAST INJECTIONS BEING JAN 2018 - STOPPED BECAUSE THEY DON'T WORK. NO BACK SURGERY. PATIENT REPORTS DR. POLLOCK TOLD HER SHE DOES NOT NEED SURGERY. Coughing/sneezing/straining: POSITIVE. Gait: PATIENT REPORTS SHE WALKS SLOW AND LIMPS. NO AD'S. Difficulty initiating urinatin: NO. Accidents: NO. Unexplained weight loss: NO. Imaging: RECENT LUMBAR X-RAYS AND MRI SHOWING SCOLIOSIS, A BUNCH OF ARTHRITIS, BULGING DISCS, AND A PINCHED NERVE. PMH: COPD, HTN. PLOF (Prior Level of Function): ABLE TO GO UP AND DOWN THE STEPS TO THE BASEMENT A LOT BETTER ABOUT 6 MONTHS AGO. COOKING, BAKING, MOPPING AND VACUUMING TOO. - Objective Sitting/Standing Posture: POOR. INCREASED TRUNK FLEXION. SCOLIOSIS. Lordosis: REDUCED. Active Correction of posture: WORSE. Other Observations: INDEP GAIT INTO PT WITHOUT ANY ASSISTIVE DEVICES WITH DECREASED CADANCE AND INCREASED TRUNK FLEXION. Motor deficit: KRYSTLE LE WEAKNESS. RIGHT: HIP 3+/5, KNEE 4-/5, ANKLE 5/5. LEFT: HIP 4-/5, KNEE 4/5, ANKLE 5/5. Sensory deficit: KRYSTLE LE LIGHT TOUCH SENSATION APPEARS INTACT AND SYMMETRICAL WITH TESTING TODAY. ROM deficit: KRYSTLE HIP FLEXOR AND HS TIGHTNESS. Reflexes: KRYSTLE QUADS 2/3, KRYSTLE ACHILES 1/3. Dural Signs: POSITIVE KRYSTLE LE'S RIGHT > LEFT. Lumbar mvmt loss: flex - TIARA. ext - TIARA. R SG - MOD. L SG - TIARA. PATIENT C/O INCREASED BACK PAIN AND LEG SX'S WITH LUMBAR ROM TESTING ALL PLANES. Core strength: POOR. Palpation: TENDERNESS AND INCREASED MUSCLE TONE THROUGHOUT LUMBAR REGION. - Goals Goal 1:: DECREASE C/O BACK AND LE SX'S. Goal Time Frame: 4-6 Weeks Goal 2:: IMPROVE LIFTING, TRAVEL, SITTING, STANDING, WALKING, ADL, HOMEMAKING AND LEISURE FUNCTION Goal Time Frame: 4-6 Weeks Goal 3:: INSTRUCT IN PROPHYLAXIS Goal Time Frame: 4-6 Weeks - Rehabilitation Potential Rehabilitation Potential: Fair - Anticipated Interventions Patient/Client Instruction: Educate patient on: Condition, Plan of Care, Risk Factors, Benefits of Fitness Program For the Purpose of:: To improve self management Therapeutic Exercise to Include: Strength training, Body mechanics, Postural training, Flexibilty training, Gait and locomotor training, In an aquatic setting, Active ROM, Dynamic Lumbar Stabilization For the Purpose of:: To decrease pain, To increase ROM, To improve muscle performance and motor function, To increase tolerance to activity/condition/position, To improve ability of physical actions for home/community/work/leisure, To improve gait and locomotor functions Thank you for the opportunity to evaluate your patient. For Medicare and Medicare HMO plans, please review the plan of care and approve it. It will need to be FAXED BACK to us at [phone] for Medicare purposes. For Medicare only, by signing this I certify the plan of care. Please let me know if there are questions or concerns regarding this plan of care. Physician Signature: Date:
--- NOTE | 2018-09-05 11:53 | HP.PTDCSUM ---
HP - PT D/C Summary It has been my pleasure to treat STEFANO TURNER under orders from Sarah Iverson MD, for the diagnosis of LBP/LEG PAIN for a total of 2 visit(s). Discharge Date: Please see the following information for a summary of their discharge status. - Subjective Subjective: Reports pain radiating into post. LEs, not quite to knee. - Pain Lumbar Spine Pain Intensity (Out of 10): 7 BLAT LEs Pain Intensity (Out of 10): 7 - Objective Objective/Function: Pt arrived early, having already turned in pool paperwork. Pt was oriented to pool and educated on the principles of AT and pool rules for safety, I before Rx. Pt was educated on emergency pull cord accesibility at edge of pool. Pt was educated on hydrostatic pressure and use of jet massage for improved circulation and blood flow. Very tender, leading pt further from the jet initially (about 12). Pt was educated on good positioning against viscosity and buoyancy of water as needed for good body mechanics and posture - given as HEP with written descriptions. Pt tending to push into too fast of speeds and becoming painful quickly - cues to reduced and reduced step length with improved tolance. - Goals Goal 1:: DECREASE C/O BACK AND LE SX'S. Goal 2:: IMPROVE LIFTING, TRAVEL, SITTING, STANDING, WALKING, ADL, HOMEMAKING AND LEISURE FUNCTION Goal 3:: INSTRUCT IN PROPHYLAXIS - Plan Plan: f/u with postural corrections. Add Ue core, DLP and VH next. - D/C Information If there are questions or concerns regarding this patient's physical therapy, please feel free to call me at [phone]. Thank you for the referral of this patient. Sincerely, Zoraida Mcgee, PT, Cert MDT
--- NOTE | 2018-09-05 11:54 | HP.PTDCNRP_ITS ---
HP - Discharge Summary (1) - Patient Information STEFANO TURNER was seen in my office for initial evaluation on 08/01/18. The following Plan of Care was established for this patient: Initial Frequency: 2-3x /Week Initial Duration: 4-6 Weeks - Anticipated Interventions Patient/Client Instruction: Educate patient on: Condition, Plan of Care, Risk Factors, Benefits of Fitness Program For the Purpose of:: To improve self management Therapeutic Exercise to Include: Strength training, Body mechanics, Postural training, Flexibilty training, Gait and locomotor training, In an aquatic setting, Active ROM, Dynamic Lumbar Stabilization For the Purpose of:: To decrease pain, To increase ROM, To improve muscle performance and motor function, To increase tolerance to act ivity/condition/position, To improve ability of physical actions for home/community/work/leisure, To improve gait and locomotor functions This patient was last seen in our office . Pertinent comments regarding their Physical therapy will appear below: This patient has not returned to Physical Therapy and is appropriate to return to MD for further follow-up as needed. At this point I will be discontinuing this patient from physical therapy. I would be happy to see this patient again in the future if found appropriate by the physician. Thank you! Zoraida Mcgee, PT, Cert MDT
== END 2018-08-08 19:00 | disposition home or self-care (01) ==
LOC: PT 14:00
PROVIDERS: Referring Provider Orthopaedic Surgery; Visit Provider Orthopaedic Surgery
DX: M54.5 Low back pain (principal); M79.606 Pain in leg, unspecified
CPT/HCPCS: 97113; 97162

== ENCOUNTER → 2018-08-16 | Outpatient (CLI) | payer MEDICARE, MEDICAID, SELFPAY ==
[2018-07-19 09:36] VITALS: BMI 19.5
--- NOTE | 2018-08-16 13:40 | CT_ITS ---
HISTORY: tobacco use, 1 ppd x 47 yrs. copd EXAMINATION: CT Low Dose CT Chest for Lung Cancer Screening TECHNIQUE: Helically acquired images were obtained of the chest. A radiation dose optimization technique was used for this scan. IV Contrast dosage and agent: None. COMPARISON: None FINDINGS: UPPER ABDOMEN: No acute pathology. HEART AND PERICARDIUM: Heart size is normal. There is no pericardial effusion. VESSELS: Thoracic aorta is not dilated. MEDIASTINUM AND CAROLANN: There is no mediastinal or hilar adenopathy. Esophagus is unremarkable. There is no hiatal hernia. OTHER SOFT TISSUES: Included thyroid gland is unremarkable. There is no axillary, supraclavicular or lower cervical adenopathy. LUNGS AND LARGE AIRWAYS: No pneumonia, pulmonary edema, or concerning nodules or masses in the lungs. Mild linear atelectasis on bases. Mild emphysema. No pneumothorax. PLEURA: Unremarkable. No pleural effusion or thickening. BONES: No suspicious lytic or blastic abnormality observed. CT/Low Dose CT Lung Screening IMPRESSION: No concerning nodules. Lung RADS 1. Individualized dose optimization techniques were used for this CT. at 2133 Reported and signed by: Matti Peguero MD Electronically Signed: Matti Peguero, at 21:32 EDT Tel , Service support ,
== END | disposition home or self-care (01) ==
LOC: CT 13:39
PROVIDERS: Referring Provider Nurse Practitioner Acute Care; Visit Provider Nurse Practitioner Acute Care
DX: Z12.2 Encounter for screening for malignant neoplasm of respiratory organs (principal); F17.200 Nicotine dependence, unspecified, uncomplicated; Z87.891 Personal history of nicotine dependence
CPT/HCPCS: G0297

== ENCOUNTER → 2018-09-11 | Outpatient (CLI) | payer MEDICARE, MEDICAID, SELFPAY ==
[2018-07-19 09:36] VITALS: BMI 19.5
--- NOTE | 2018-09-11 10:17 | RAD_ITS ---
STUDY: X-RAY - CERVICAL SPINE REASON FOR EXAM: Female, 57 years old. Neck pain TECHNIQUE: 6 view(s) of the cervical spine were obtained. COMPARISON: None FINDINGS: Normal anterior atlantoaxial articulation. Normal odontoid process. Normal cervical lordosis. There is multi-level endplate spondylosis. There is multi-level degenerative disc disease with multilevel disc space narrowing. There is multi-level osseous foraminal stenosis. The soft tissue structures are unremarkable. There is no demonstrated fracture of the cervical spine. RAD/Cerv Spine 4 or 5 Views IMPRESSION: Degenerative changes Electronically Signed: Brennon Fowler DO at 8:37 EDT Tel , Service support ,
== END | disposition home or self-care (01) ==
PROVIDERS: Referring Provider Nurse Practitioner Family; Visit Provider Nurse Practitioner Family
DX: M54.2 Cervicalgia (principal)
CPT/HCPCS: 72050

== ENCOUNTER → 2018-09-20 | Outpatient (CLI) | payer MEDICARE, MEDICAID, SELFPAY ==
[2018-07-19 09:36] VITALS: BMI 19.5
--- NOTE | 2018-09-20 12:43 | RAD_ITS ---
STUDY: X-RAY - PELVIS AND RIGHT HIP REASON FOR EXAM: Female, 58 years old. Hip pain TECHNIQUE: views of the pelvis and 3 right hip. COMPARISON: None. FINDINGS: There is a non-specific bowel gas pattern. Normal visualized soft tissue structures. Normal bilateral iliac wings, sacroiliac joints and visualized sacrum. Normal bilateral superior and inferior pubic rami. Normal pubic symphysis. Normal bilateral ischial tuberosities. Normal visualized femoral head. Normal acetabulum. Normal hip joint. RAD/HIP, UNI W/ Pelvis 2-3 Views IMPRESSION: Normal x-ray examination of the pelvis and right hip. Electronically Signed: Beto Ralph, at 13:24 EDT Tel , Service support ,
== END | disposition home or self-care (01) ==
PROVIDERS: Referring Provider Anesthesiology Pain Medicine; Visit Provider Anesthesiology Pain Medicine
DX: M25.551 Pain in right hip (principal)
CPT/HCPCS: 73502

== ENCOUNTER → 2019-06-12 | Outpatient (CLI) | payer MEDICARE, MEDICAID, SELFPAY ==
[2018-11-01 09:20] VITALS: BMI 19.5
--- NOTE | 2019-06-12 15:41 | BD_ITS ---
STUDY: DUAL ENERGY X-RAY ABSORPTIOMETRY / DXA REASON FOR EXAM: Female, 58 years old. Age of ilene- 35. Pat is 113# and 63.25 and quot; a loss of 1.5 and quot; per pat. Hx of smoking for 44 yrs. 40 figs a day. Off and on steroid usage. Gabapentin in the past. Fam hx of osteo. Hx of lumbar surgery. TECHNIQUE: Bone Mineral Density (BMD) measurements of lumbar spine and bilateral hips were obtained. COMPARISON: Comparison is made with prior study dated January 20, 2014. FINDINGS: Lumbar Spine (L1-L4): g/cm2 (0.719) / T-score (-3.7) / Z-score (-2.6) Findings are suggestive of osteoporosis with a high fracture risk. Left Femur Total: g/cm2 (0.641) / T-score (-2.9) / Z-score (-2.1) Left Femoral Neck: g/cm2 (0.709) / T-score (-2.4) / Z-score (-1.2) Right Femur Total: g/cm2 (0.629) / T-score (-3.0) / Z-score (-2.2) Right Femoral Neck: g/cm2 (0.723) / T-score (-2.3) / Z-score (-1.1) The T-Scores on the most recent prior examination were: Lumbar Spine (L1-L4): There has been worsening of bone density since the previous examination. Left Femur Total: which represents a worsening of 13.8%. Right Femur Total: which represents a worsening of 14.5%. IMPRESSION: The patient is considered osteoporotic as outlined below according to World Joshua Organization (WHO) criteria with a high fracture risk. There has been worsening of bone density since the previous examination. Reference Information: The T-score is the number of standard deviations above or below the standard which is normal for young adults at their peak bone mineral density. The World Health Organization (WHO) interprets the T-scores as follows: Above -1 Normal bone density Between -1 and -2.5 Osteopenia Equal to / or below -2.5 Osteoporosis As a practical clinical guideline, osteopenia may be graded as follows: Mild -1 through -1.5 Moderate -1.6 through -2.0 Severe -2.1 through -2.4 The Z-score is the number of standard deviations above or below age-matched controls. A Z-score of less than -1.5 would be considered abnormal. References: 1. NIH Osteoporosis and Related Bone Diseases http://www.osteo.org 2. International Society for Clinical Densitometry http://www.iscd.org 3. National Osteoporosis Foundation http://www.nof.org Electronically Signed: Pato Siva, at 15:53 EST , Service support , STUDY: DUAL ENERGY X-RAY ABSORPTIOMETRY / DXA REASON FOR EXAM: Female, 58 years old. Age of ilene-- 35. Pat is 113# and 63.25 and quot; a loss of 1.5 and quot; per pat. Hx of smoking for 44 yrs.. 40 cigs a day. Off and on steroid usage. Gabapentin in the past. Fam hx of osteo. Hx of lumbar surgery. TECHNIQUE: Bone Mineral Density (BMD) measurements of the left forearm was obtained. COMPARISON: None. FINDINGS: Left Forearm: g/cm2 (0.593) / T-score (-3.2) / Z-score (-2.4) BD/Dexa Bone Density Study IMPRESSION: The patient is considered osteoporotic as outlined below according to World Joshua Organization (WHO) criteria with a high fracture risk. . Reference Information: The T-score is the number of standard deviations above or below the standard which is normal for young adults at their peak bone mineral density. The World Health Organization (WHO) interprets the T-scores as follows: Above -1 Normal bone density Between -1 and -2.5 Osteopenia Equal to / or below -2.5 Osteoporosis As a practical clinical guideline, osteopenia may be graded as follows: Mild -1 through -1.5 Moderate -1.6 through -2.0 Severe -2.1 through -2.4 The Z-score is the number of standard deviations above or below age-matched controls. A Z-score of less than -1.5 would be considered abnormal. References: 1. NIH Osteoporosis and Related Bone Diseases http://www.osteo.org 2. International Society for Clinical Densitometry http://www.iscd.org 3. National Osteoporosis Foundation http://www.nof.org Electronically Signed: Pato Paniagua, at 15:54 EST , Service support ,
== END | disposition home or self-care (01) ==
LOC: OPBD 15:36
PROVIDERS: PCP Nurse Practitioner Family
DX: M85.80 Other specified disorders of bone density and structure, unspecified site (principal); Z78.0 Asymptomatic menopausal state
CPT/HCPCS: 77080

== ENCOUNTER 2019-06-30 09:39 | Day surgery (SDC) | payer MEDICARE, MEDICAID, SELFPAY ==
[2018-11-01 09:20] VITALS: BMI 19.5
[2019-06-30] VITALS (7 sets, daily range): BP systolic 132–166; BP diastolic 73–90; PULSE 73–86; RESP 14–20; TEMP 36.6–37.1; O2SAT 92–98; BMI 19.2
[2019-06-30] MEDS: Cefazolin 2 GM in 0.9% Normal Saline 100 ML IV (11:39)
--- NOTE | 2019-06-30 11:42 | RAD_ITS ---
STUDY: Fluoroscopic- LUMBAR SPINE REASON FOR EXAM: Female, 58 years old. Spinal cord stimulator insertion TECHNIQUE: 9 view(s) of the lumbar spine were obtained. COMPARISON: None FINDINGS: Interval fluoroscopic images were obtained with the initial study demonstrating a hemostat marking a level at approximately L1. The final image demonstrates a spinal catheter with its termination at approximately the level of T9. Fluoroscopy time is described as 310.9 seconds RAD/Lumbar Spine 2 or 3 Views IMPRESSION: Insertion of a spinal catheter in progress as detailed above over 9 fluoroscopic images. Electronically Signed: Jeanette Chin MD at 0:54 EDT Tel , Service support ,
[2019-06-30] MEDS: 0.9% Normal Saline (Pres. free 10 ML Vial (12:05)
[2019-06-30] MEDS: Bupivacaine 0.25% 30 ML Vial (12:45)
--- NOTE | 2019-06-30 13:40 | PCM.OPRPT ---
Report of Operation Date of Procedure: 06/30/19 Description of Surgical Findings:: Pre-Operative Diagnosis: Lumbosacral radiculopathy, lumbosacral degenerative disc disease, lumbosacral spinal stenosis Post-Operative Diagnosis: Lumbosacral radiculopathy, lumbosacral degenerative disc disease, lumbosacral spinal stenosis Surgery/Procedure Performed:: 1. Spinal cord stimulator thoracolumbar leads placement x2 #2 spinal cord stimulator Medtronic intellus generator placement #3 spinal cord stimulator generator pocket creation at the left gluteal region #4 spinal cord stimulator simple programming, 5-intraoperative fluoroscopic interpretation Description of Surgical Findings:: PROCEDURES: 1. Spinal cord stimulator thoracolumbar leads placement x2 #2 spinal cord stimulator Medtronic intellus generator placement #3 spinal cord stimulator generator pocket creation at the left gluteal region #4 spinal cord stimulator simple programming 5-intraoperative fluoroscopic interpretation PREOPERATIVE DIAGNOSES: Lumbosacral radiculopathy, lumbosacral degenerative disc disease, lumbosacral spinal stenosis POSTOPERATIVE DIAGNOSES: Lumbosacral radiculopathy, lumbosacral degenerative disc disease, lumbosacral spinal stenosis ANESTHESIA: MAC COMPLICATIONS: None BLOOD LOSS: Minimal Implanted device: Spinal cord stimulator lead [id number] lot number [id number], lead #2 [id number] lot number [id number] Medtronic spinal cord stimulator generator intellus serial number [id number] PROCEDURE IN DETAIL: History and physical today was reviewed. Risks and benefits of procedure explained. The patient understood, agreed to procedure, informed consent was obtained. IV inserted per routine protocol. The patient was taken to the operating room, placed in the prone position with a pillow positioned underneath the abdomen. A 2 g of Ancef IV piggyback was infused per anesthesia. The lower back and left gluteal area was prepped and draped in a sterile fashion using iodine x3 Ioban was placed. The C-arm was brought in position for AP view at the L2-3 vertebral bodies under direct visualization fluoroscopy on a true AP view the L2-3 interlaminar space was identified skin and subcutaneous tissue and size approximately 10 cc of a mix of 2% lidocaine and 0.25% Marcaine using a 25-gauge regular needle followed by a 25-gauge 3-1/2 inch spinal needle towards the interlaminar space at L2-3, the skin and subcutaneous tissue were then anesthetized and using an 11-gauge blade was then taken down to the skin and subcutaneous tissue using a 14-gauge 3-1/2 inch Touhy needle provided by the [employer] DBtronic kit the needle was passed through the skin towards the interlaminar space at L2-3 and a paramedian approach the needle was then advanced under direct visualization fluoroscopy towards the interlaminar space at L2-3 [id number] technique was then carried to air towards the interlaminar space at L2-3 once the tip of the needle was in the epidural space and loss of resistance was encountered to air and after confirmation of AP as well as oblique view of the spinal cord stimulator lead was then advanced under direct visualization fluoroscopy to be at the tip of the lead at T8 and the bottom of the lead around mid T10 after confirmation of AP as well as lateral view to confirm correct placement of the lead in the posterior compartment of the epidural space the previous procedure was then repeated to a level above at L1-2 interlaminar space the second lead was then inserted under direct visualization with fluoroscopy to be at the mid T8 and mid T10 area the leads were were then connected to the external neurostimulator and patient was then awakened to confirm satisfactory coverage of the painful area once satisfactory coverage was then achieved the stylette of each needle was then removed and the skin and subcutaneous tissue on to the left of the paramedian needles was then taken anesthetized with a total of 10 cc of the previous mixture of 0.25% Marcaine and 2% lidocaine using a 25-gauge regular needle the incision was then taken down through the skin and subcutaneous tissue towards the fascia making sure hemostasis was then maintained via cautery, the spinal cord stimulator leads were then passed through the above incision and secured using the biwing and sutured down with a 2-0 silk to the fascia at that level the spinal cord stimulator leads were then tunneled via a tunneler provided by the [employer] DBtronic kit towards the previously incised spinal cord stimulator battery at the left gluteal region skin and subcutaneous tissue were anesthetized with approximately 10 cc of a mix of 2% lidocaine and 0.25% Marcaine using a 25 gauge regular needle, skin and subcutaneous tissue was then taken down with the 11-gauge blade hemostasis was maintained with Bovie and direct pressure the incision was then taken down to the fascia and the battery was then secured with the 2-0 silk sutures that were the spinal cord stimulator leads the upper lead was then marked the new until spinal cord stimulator battery was then provided Via Sanaexpert kit the battery was then reattached of the spinal cord stimulator make ensure that the top lead is attached to the top position from 0-7 electrodes and the bottom from 8-15 electrodes once impedance was then checked to be in the proper average number the intellus battery was then inserted into the pocket and impedance with when checked again the pocket was then inspected to confirm hemostasis in place, the intellus battery was then secured to the fascia using a 2-0 silk to the upper eyes of the battery confirming an upward writing of the intellus facing posterior, once complete confirmation the battery was then placed in the position and the the mid paramedian and the gluteal incisions were then closed primarily through a 3-0 Vicryl in a running fashion followed by a 4-0 Vicryl to the skin, hemostasis was then maintained during the procedure the skin was then covered with a Steri-Strips and bacitracin patient was then returned into the supine position in a stable condition and returned to recovery in a stable condition patient experienced no signs or symptoms of intrathecal or intravascular injection patient experienced no paresthesia the procedure was completed without any apparent difficulty any complication the patient appeared to tolerate well, motor as well as sensory function was unchanged from prior to the procedure ESTIMATED BLOOD LOSS: Minimal less than 25 mL ASSESSMENT AND PLAN: This is a 58-year-old female with lumbosacral radiculopathy lumbosacral degenerative disc disease lumbosacral spinal stenosis status post 1. Spinal cord stimulator thoracolumbar leads placement x2 #2 spinal cord stimulator Medtronic intellus generator placement #3 spinal cord stimulator generator pocket creation at the left gluteal region #4 spinal cord stimulator simple programming, 5-intraoperative fluoroscopic interpretation patient will continue her current medications a prescription was provided to the patient Keflex 500 mg 1 p.o. every 8 hours for 7 days postop instruction were given in writing to the patient and her significant other as well as verbally and in writing, patient will follow approximately 1 week for reevaluation
== END 2019-06-30 14:34 | disposition home or self-care (01) ==
LOC: SDC 09:41 → AC 10:02
PROVIDERS: Referring Provider Anesthesiology Pain Medicine; Visit Provider Anesthesiology Pain Medicine
PROC: (CPT 63685; principal; 2019-06-30 11:50)
DX: M48.07 Spinal stenosis, lumbosacral region (principal); M51.17 Intervertebral disc disorders with radiculopathy, lumbosacral region; M47.27 Other spondylosis with radiculopathy, lumbosacral region; M50.10 Cervical disc disorder with radiculopathy, unspecified cervical region; M47.22 Other spondylosis with radiculopathy, cervical region; M53.3 Sacrococcygeal disorders, not elsewhere classified; M46.98 Unspecified inflammatory spondylopathy, sacral and sacrococcygeal region; I10 Essential (primary) hypertension; J45.909 Unspecified asthma, uncomplicated; M19.90 Unspecified osteoarthritis, unspecified site; M06.9 Rheumatoid arthritis, unspecified; F41.9 Anxiety disorder, unspecified; F32.9 Major depressive disorder, single episode, unspecified; F17.200 Nicotine dependence, unspecified, uncomplicated; Z79.51 Long term (current) use of inhaled steroids; Z79.1 Long term (current) use of non-steroidal anti-inflammatories (NSAID); Z79.891 Long term (current) use of opiate analgesic; Z79.899 Other long term (current) drug therapy
CPT/HCPCS: 00300; 63650 ×2; 63685; 95971; 72100; 76000; C1778; C1820; J7120; J3490

== ENCOUNTER → 2019-08-27 | Outpatient (CLI) | payer MEDICARE, MEDICAID, SELFPAY ==
[2019-06-30 11:01] VITALS: BMI 19.2
--- NOTE | 2019-08-27 09:29 | RAD_ITS ---
STUDY: X-RAY - RIGHT KNEE REASON FOR EXAM: Female, 58 years old. PAIN TECHNIQUE: AP and lateral view(s) of the knee. COMPARISON: None. FINDINGS: Normal visualized distal femur. Normal visualized proximal tibia and fibula. Normal proximal tibiofibular articulation. Normal medial femorotibial compartment. Normal lateral femorotibial compartment. Normal patellofemoral articulation. The soft tissue structures are unremarkable. RAD/Knee 1 or 2 Views IMPRESSION: Normal x-ray examination of the knee. Electronically Signed: Pato Paniagua, at 9:53 EDT , Service support ,
== END | disposition home or self-care (01) ==
PROVIDERS: Visit Provider Nurse Practitioner Family
DX: M25.561 Pain in right knee (principal)
CPT/HCPCS: 73560

== ENCOUNTER → 2020-02-17 10:14 | Outpatient (CLI) | payer MEDICARE, MEDICAID, SELFPAY ==
[2019-11-21 12:56] VITALS: BMI 19.2
--- NOTE | 2020-02-17 10:23 | MRI_ITS ---
STUDY: MRI RIGHT HIP REASON FOR EXAM: Right hip and right leg pain, fall several years ago. TECHNIQUE: Standardized fat and water weighted pulse sequences were obtained in all 3 orthogonal planes. COMPARISON: Radiographs 09/20/2018. FINDINGS: Normal hip joint without articular joint space narrowing. Normal acetabulum. There is a small tear at the base of the anterosuperior labrum (proton-density sagittal image 17). Normal right femoral head. Normal right femoral neck and intratrochanteric region. There is avascular necrosis of the contralateral left femoral head (T1 coronal images 19-21). There is mild peritendinitis of the right gluteus medius tendon (inversion recovery coronal images 15, 16) without tendon tear. Normal gluteus minimus and iliopsoas tendons and distal insertions. There is a small volume of fluid in the greater trochanteric bursae bilaterally (inversion recovery coronal images 17-19). Normal superior and inferior pubic rami. Normal pubic symphysis. Normal ischial tuberosity. Normal origin of the hamstring tendons. Normal visualized iliac wing, sacroiliac joint, and sacral ala. There is artifact from a neurostimulator in the posterior left buttocks. MRI/Lower Ext Joint Only (Routine) IMPRESSION: Mild peritendinitis of the right gluteus medius tendon. Mild bilateral greater trochanteric bursitis. Small right anterosuperior labral tear. 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 Electronically Signed: Philip Dobson MD at 12:00 EST Tel , Service support ,
== END ==
PROVIDERS: Referring Provider Nurse Practitioner Family; Visit Provider Nurse Practitioner Family
DX: M25.551 Pain in right hip (principal)
CPT/HCPCS: 73721

== ENCOUNTER → 2020-04-02 10:13 | Outpatient (CLI) | payer MEDICARE, MEDICAID, SELFPAY ==
[2019-11-21 12:56] VITALS: BMI 19.2
--- NOTE | 2020-04-02 10:18 | MRI_ITS ---
STUDY: MRI LUMBAR SPINE WITHOUT CONTRAST REASON FOR EXAM: Female, 59 years old. Back pain radiates into R hip and leg x 6 months TECHNIQUE: Standardized fat and water weighted pulse sequences were obtained in the sagittal and axial planes. COMPARISON: MRI lumbar spine without contrast 04/22/2018. FINDINGS: T11-T12: (Sagittal only). Normal endplates. Normal disc height, hydration and morphology. Normal central canal and bilateral intervertebral neural foramina. T12-L1: (Sagittal only). Normal endplates. Normal disc height, hydration and morphology. Normal central canal and bilateral intervertebral neural foramina. Normal lumbar lordosis. There is no substantial scoliosis. Normal conus medullaris that terminates at the mid L1 vertebral body level. L1-2: Normal endplates. Normal disc height, hydration and morphology. Normal bilateral facet joints. Normal central canal and bilateral lateral recesses. Normal bilateral intervertebral neural foramina. L2-3: Normal endplates. Normal disc height. Small posterior bulging disc. Mild central canal stenosis with an AP canal diameter of 8.4 mm. Normal bilateral lateral recesses. Mild to moderate left degenerative facet arthropathy. Normal right facet joint. Normal bilateral intervertebral neural foramina. L3-4: Normal endplates. Normal disc height. Small posterior bulging disc. Moderately pronounced central canal stenosis with an AP canal diameter of 6.3 mm. Mild dorsal epidural lipomatosis. Normal bilateral lateral recesses. Moderate bilateral degenerative facet hypertrophy. Normal bilateral intervertebral neural foramina. Subcutaneous implant behind the spinous processes of L5 3 of L4. L4-5: Anterior marginal spurs. Moderate pronounced disc space height narrowing. Small posterior annular bulging disc. Moderately pronounced central canal stenosis with an AP canal diameter of 6.5 mm. Normal bilateral lateral recesses. Mild to moderate left degenerative facet arthropathy. Mild right degenerative facet arthropathy. Moderately pronounced stenosis of the left intervertebral neural foramen with suspicious impingement/entrapment of the left L4 nerve. Normal right intervertebral neural foramen. L5-S1: Normal endplates. Normal disc height, hydration and morphology. Normal central canal and bilateral lateral recesses. Mild degenerative facet arthropathy. Moderate stenosis of the right intervertebral neural foramen. Normal left intervertebral neural foramen. Normal visualized sacral ala. Normal visualized paraspinous soft tissue structures. MRI/Spine Lumbar (Routine) IMPRESSION: 1. Moderately pronounced central canal stenosis at L3-L4 disc space level with an AP canal diameter of 6.3 mm and small posterior bulging disc. 2. Subcutaneous implant behind the spinous processes of L3 on L4. This is a new finding. 3. Moderately pronounced central canal stenosis at L4-L5 disc space level with an AP canal diameter of 6.5 mm and moderately pronounced stenosis of the left L4-L5 intervertebral neural foramen with suspicious impingement/entrapment of the left L4 nerve. 4. Moderate stenosis of the right L5-S1 intervertebral neural foramen. 5. Small L2-L3 posterior bulging disc with mild central canal stenosis. The AP canal diameter is 8.4 mm. 6. No MRI evidence of lumbar extruded disc fragment. 7. No significant interval change when compared to 04/22/2018. Electronically Signed: Enmanuel Kiser MD at 15:46 EST , Service support ,
== END ==
PROVIDERS: Referring Provider Specialist; Visit Provider Specialist
DX: M54.16 Radiculopathy, lumbar region (principal)
CPT/HCPCS: 72148

== ENCOUNTER → 2020-06-08 14:24 | Outpatient (CLI) | payer MEDICARE, MEDICAID, SELFPAY ==
[2019-11-21 12:56] VITALS: BMI 19.2
== END ==
PROVIDERS: Referring Provider Orthopaedic Surgery; Visit Provider Orthopaedic Surgery
DX: Z11.52 Encounter for screening for COVID-19 (principal)
CPT/HCPCS: 87635; C9803; U0005; U0003

== ENCOUNTER → 2020-06-10 08:53 | Outpatient (CLI) | payer MEDICARE, MEDICAID, SELFPAY ==
[2019-11-21 12:56] VITALS: BMI 19.2
--- NOTE | 2020-06-10 08:57 | EKG12_ITS ---
Test Reason : PRE OP Blood Pressure : / mmHG Vent. Rate : 081 BPM Atrial Rate : 081 BPM P-R Int : 150 ms QRS Dur : 082 ms QT Int : 408 ms P-R-T Axes : 075 084 072 degrees QTc Int : 473 ms Normal sinus rhythm Normal ECG Confirmed by BERNADETTE MILLIGAN, KENYA ([id number]), video editor LUIS SILVA ([id number]) on 06/14/2020 7:51:56 AM Referred By: RENO Confirmed By:LEELA FLEMING MD
--- NOTE | 2020-06-10 09:09 | RAD_ITS ---
STUDY: X-RAY CHEST REASON FOR EXAM: Female, 59 years old. PRE OP for spine surgery -- no chest complaints TECHNIQUE: 2 views of the chest. COMPARISON: 07/18/2017. FINDINGS: There are large lung volumes/hyperexpansion consistent with COPD. No focal alveolar consolidation. Probable fibrotic blunting of costophrenic angles. No pneumothorax. No pleural effusion. The cardiomediastinal silhouette appears stable and remarkable for calcified plaque involving the thoracic aortic arch. Thoracic spine level neurostimulator leads are identified. Pulmonary vasculature appears unremarkable. No evident acute osseous abnormality. There is no demonstrated abnormality of the visualized soft tissue structures of the upper abdomen. RAD/Chest PA and Lateral IMPRESSION: Stigmata of moderate to severe COPD. No focal alveolar opacification. No pleural effusion. No pneumothorax. Calcified vascular plaque, otherwise unremarkable appearing cardiomediastinal silhouette and pulmonary vascularity. Electronically Signed: Jamison Oneal MD at 7:50 EST , Service support ,
[2020-06-10 10:22] LABS: Absolute Lymphocyte Count 2.07 X10^3/uL (0.83-4.51); Absolute Neutrophil Count 2.8 X10^3/uL (2.0-7.7); Basophil# 0.03 X10^3/uL; Basophil% 0.5 % (0-1); Eosinophil# 0.15 X10^3/uL; Eosinophils% 2.7 % (0-5); Hematocrit 47.3 % (37-47); Hemoglobin 15.7 g/dL (12.0-15.0); Lymphocyte # 2.07 X10^3/ul (4.0); Lymphocyte % 36.7 % (19-41); Mean Corp Hgb Conc 33.2 g/dL (32-36); Mean Corpuscular Hgb 31.4 pg (27.0-32.0); Mean Corpuscular Volume 94.6 fL (81-99); Mean Platelet Vol. 9.5 fl (6.2-12.0); Monocyte# 0.58 X10^3/uL; Monocyte% 10.3 % (0-10); NRBC Flagged by Analyzer 0 % (0-5); Neutrophil % 49.6 % (47-70); Platelet Count 197 K/mm3 (150-450); RBC Distribution Width SD 42.2 fl (35.1-43.9); White Blood Count 5.6 K/mm3 (4.4-11.0)
[2020-06-10 10:29] LABS: International Normalized Ratio 0.9
[2020-06-10 10:30] LABS: Partial Thromboplast Time 24.6 Seconds (24.1-36.2)
[2020-06-10 10:56] LABS: Anion Gap 7 (5-15); BUN 10 mg/dL (7-18); BUN/Creat Ratio 19.2 RATIO (10-20); Calcium,Total 9.5 mg/dL (8.5-10.1); Chloride 103 mmol/L (98-107); Creatinine, Serum 0.52 mg/dL (0.55-1.02); EST Glomerular Filtration Rate 128 mL/min (>60); Est Glom Filt Rate - Afr Amer 155 mL/min (>60); Glucose 89 mg/dL (74-106); Potassium 3.9 mmol/L (3.5-5.1); Sodium Level 137 mmol/L (136-145)
[2020-06-10 10:57] LABS: Hemoglobin A1c 5.1 % (3.8-5.6)
== END ==
PROVIDERS: Visit Provider Orthopaedic Surgery
DX: Z01.818 Encounter for other preprocedural examination (principal)
CPT/HCPCS: 36415; 71046; 80048; 83036; 85025; 85610; 85730; 93005

== ENCOUNTER 2020-11-07 11:22 | Emergency (ER) | payer MEDICARE, MEDICAID, SELFPAY ==
[2020-11-03 09:56] VITALS: BMI 20.2
[2020-11-07 11:23] VITALS: BP 144/81; PULSE 108; RESP 16; TEMP 37; O2SAT 97; BMI 21.2
[2020-11-07] MEDS: Ondansetron ODT 4 MG Tablet PO (12:03)
[2020-11-07] MEDS: HYDROcodone Bitartrate/Apap 5/325 Tablet PO (12:11)
--- NOTE | 2020-11-07 12:41 | VDLE_ITS ---
Reason For Study: DVT w/increased pain RIGHT LEFT CFV is compressible, spontaneous, phasic, DEIV, CFV, FV, PFV, POP V, T/P TRUNK, PTV, & competent and demonstrates normal GASSTROCNEMIUS V are NON-COMPRESSILBE with augmentation. intraluminal echoes noted within vessel C/W Procedure ACUTE DVT. This is a venous duplex using B-mode, color flow and spectral Doppler. PER V is PARTIALLY COMPRESSIBLE. Exam performed in department. A preliminary report was called and/or faxed GSV IS NON-COMPRESSIBLE aove the knee. to ED & Dr.J Abad. GSV is compressible below the knee. NO significant change from report obtained from [facility] on 10/29/2020. VL/Venous Duplex US, Unilateral Interpretation Summary Acute deep venous thrombosis left distal external iliac, common femoral, femora l, profunda femoral, popliteal, tibioperoneal, posterior tibial, peroneal and gastrocnemius veins. Superficial thrombophlebitis left great saphenous vein above the knee Normal flow patterns right common femoral vein Similar to report from [facility] 10/29/20 Ordering Physician: Shelby Abad Referring Physician: David Muller Performed By: Bhavya Fine, EMMETTCS, RVT
[2020-11-07 13:39] VITALS: BP 132/79; PULSE 85; RESP 15
--- NOTE | 2020-11-07 14:57 | EX.ED.DYSGE1 ---
HPI History of Present Illness Chief Complaint: Lower Extremity Injury Informant: patient Onset/Context/Timing Onset: Days Context: Gradual Onset Current Severity: Mild Maximum Severity: Moderate Narrative Narrative: Patient presents secondary to increased pain in her left leg. Patient was diagnosed with a DVT on October 29. She was started on Xarelto. Initial diagnosis was made at [facility]. Patient has seen Dr. Muller in follow-up. Patient states for the past 3 days she has had increased pain in her calf and thigh. She states the swelling has been coming and going. She has not taken anything for pain. She denies chest pain or shortness of breath. [facility] Medical History (Updated 11/07/20 @ 15:[address] Shelby Abad MD) Age related osteoporosis Angioedema Asthma Benign essential hypertension Chronic pain syndrome COPD (chronic obstructive pulmonary disease) Depression DVT (deep venous thrombosis) Emphysema GERD (gastroesophageal reflux disease) History of pulmonary embolism Hypertension [place] (obstructive sleep apnea) Spinal cord stimulator status Tobacco user Vitamin D deficiency Home Medications amlodipine 5 mg PO DAILY 12/09/17 [History Last Taken 06/20/18] meloxicam 7.5 mg PO BID 03/13/18 [History Last Taken 06/20/18] duloxetine 30 mg PO DAILY 04/15/18 [History Last Taken 06/20/18] pravastatin 10 mg PO DAILY 06/17/18 [History Last Taken 06/20/18] acetaminophen 650 mg PO Q6H PRN PRN tab 06/23/18 [Rx Last Taken Unknown] albuterol sulfate 2 puff INHALATION Q4H PRN PRN 06/30/19 [History Last Taken Unknown] albuterol sulfate 2.5 mg INHALATION Q4H PRN PRN 06/30/19 [History Last Taken Unknown] ipratropium-albuterol 3 ml INHALATION Q4H.RT 06/30/19 [History Last Taken Unknown] montelukast 10 mg PO DAILY 06/30/19 [History Last Taken Unknown] pregabalin 75 mg PO DAILY 06/30/19 [History Last Taken Unknown] umeclidinium 1 puff INHALATION DAILY 06/30/19 [History Last Taken Unknown] alendronate 70 mg tablet 70 mg PO QWEEK 09/17/19 [History Last Taken Unknown] fluticasone furoate 100 mcg-vilanterol 25 mcg/dose inhalation powder 1 inh INHALATION DAILY #60 ea 11/11/19 [Rx Last Taken Unknown] hydrocodone-acetaminophen 1 tab PO Q6H PRN 3 Days #10 tab 11/07/20 [Rx Last Taken Unknown] ondansetron 4 mg PO Q8H PRN #10 tab 11/07/20 [Rx Last Taken Unknown] Allergy/AdvReac Type Severity Reaction Status Date / Time buspirone Allergy Angioedema Verified 11/07/20 11:23 lisinopril Allergy Angioedema Verified 11/07/20 11:23 Sulfa (Sulfonamide Allergy Itching Verified 11/07/20 11:23 Antibiotics) codeine AdvReac Intermediate / Verified 11/07/20 11:23 Family History Mother Asthma Depression COPD (chronic obstructive pulmonary disease) Hypertension Hyperchloremia Father Respiratory abnormality, unspecified Hypertension Sister COPD (chronic obstructive pulmonary disease) Surgical History History of carpal tunnel surgery of left wrist History of laminectomy Status post correction of deviated nasal septum Social History household members: significant other Smoking Status: Current every day smoker tobacco type: cigarettes Tobacco: How many years used: 50 Electronic Cigarette Use: not used second hand exposure: Yes quit status: not considering quitting alcohol intake: current details: beer daily 4-5 cans beer per night substance use type: does not use ROS ROS ED Constitutional Constitutional ED: Denies chills or fever(s) Eyes Eyes: Denies change in vision ENT ENT ED: Denies sore throat Cardiovascular Cardiovascular: Denies chest pain Respiratory/Chest Respiratory/Chest: Denies cough or dyspnea Gastrointestinal Gastrointestinal: Denies abdominal pain, diarrhea, nausea or vomiting Genitourinary Genitourinary ED: Denies dysuria Musculoskeletal Musculoskeletal: Reports arthralgias and myalgias; Denies back pain Integumentary Denies rash Neurologic Neurologic: Denies headache(s) or weakness Psychiatric Psychiatric: Denies anxiety or depression Endocrine Endocrinology: Denies polydipsia or polyuria Allergic/Immunologic Allergic/Immunologic ED: Denies urticaria EXAM Physical Exam Const Vital Signs: 11/07/20 11:23 11/07/20 13:39 11/07/20 15:10 Temperature 98.6 F Temperature Source Oral Pulse Rate 108 H 85 80 Respiratory Rate 16 15 15 Blood Pressure 144/81 H 132/79 H Blood Pressure Mean 102 96 Pulse Ox 97 Oxygen Delivery Method Room Air Positive well nourished and well developed General Appearance ED: well developed HEENT Reports normocephalic and head/scalp atraumatic Eyes PERRL and EOMs intact bilaterally Neck supple Chest Wall inspection of chest normal and palpation of chest normal Resp normal respiratory effort and clear to auscultation bilaterally Cardio regular rate and regular rhythm GI normal to inspection, nondistended, normoactive bowel sounds Palpation: soft Extremity Extremity Narrative: Left lower extremity edema. Minimal tenderness in the calf and thigh. No bony tenderness. Strong distal pulses. Normal skin. Neuro oriented x3 and no sensory deficits noted Sensorium / Orientation: alert Motor Exam: strength 5/5 throughout Psych mental status grossly normal MDM MDM MDM Narrative Medical decision making narrative: Patient was given [place] for pain. She was given Zofran with it to help control any nausea symptoms. I spoke with Dr. Muller who did suggest repeating the venous ultrasound. Treatment and Re-Evaluation Comments:: Venous ultrasound reveals significant clot throughout the left lower extremity. I did have engineering technician review the report from her initial scan on October 29 at [facility]. There appears to be minimal to no significant change. Patient will be discharged with [place] for pain control. She is to continue her Xarelto. Discharge Plan Triage Chief Complaint: Lower Extremity Injury ED Provider: Shelby Abad Dx/Rx/DC Orders Clinical Impression: DVT (deep venous thrombosis) Instructions: ED Deep Vein Thrombosis (DVT) Prescriptions: New hydrocodone-acetaminophen 5-325 mg tablet 1 tab PO Q6H PRN (Reason: pain) 3 Days Qty: 10 RF: 0 ondansetron 4 mg tablet,disintegrating 4 mg PO Q8H PRN (Reason: nausea and vomiting) Qty: 10 RF: 0 No Action alendronate [Fosamax] 70 mg tablet 70 mg PO QWEEK RF: 0 amlodipine 5 MG tablet 5 mg PO DAILY RF: 0 meloxicam 7.5 MG tablet 7.5 mg PO BID RF: 0 duloxetine 30 MG capsule 30 mg PO DAILY RF: 0 pravastatin 10 MG tablet 10 mg PO DAILY RF: 0 acetaminophen 325 MG tablet 650 mg PO Q6H PRN PRN (Reason: Pain) RF: 0 ipratropium-albuterol 3 ML solution for nebulization 3 ml inhalation Q4H.RT RF: 0 albuterol sulfate 2.5 MG/3 ML solution for nebulization 2.5 mg inhalation Q4H PRN PRN (Reason: Shortness Of Breath) RF: 0 montelukast 10 MG tablet 10 mg PO DAILY RF: 0 albuterol sulfate 1 PUFF inhaler 2 puff inhalation Q4H PRN PRN (Reason: Shortness Of Breath) RF: 0 pregabalin 75 MG capsule 75 mg PO DAILY RF: 0 umeclidinium 62.5 mcg/actuation blister with device 1 puff inhalation DAILY RF: 0 Breo Ellipta 100-25 mcg/dose blister with device 1 inh INHALATION DAILY Qty: 60 RF: 11 [facility]: David Muller MD [NON-STAFF] - 1 Week [facility],Leslie Snowden [Primary Care Provider] - Disposition Disposition: Home, Self Care Discharge Date/Time: 11/07/20 15:11
[2020-11-07 15:10] VITALS: PULSE 80; RESP 15
== END 2020-11-07 15:11 | disposition home or self-care (01) ==
PROVIDERS: Emergency Provider Emergency Medicine
DX: I82.422 Acute embolism and thrombosis of left iliac vein (principal); I82.412 Acute embolism and thrombosis of left femoral vein; I82.432 Acute embolism and thrombosis of left popliteal vein; I82.442 Acute embolism and thrombosis of left tibial vein; I82.452 Acute embolism and thrombosis of left peroneal vein; I82.462 Acute embolism and thrombosis of left calf muscular vein; I10 Essential (primary) hypertension; J44.9 Chronic obstructive pulmonary disease, unspecified; F32.9 Major depressive disorder, single episode, unspecified; K21.9 Gastro-esophageal reflux disease without esophagitis; F17.210 Nicotine dependence, cigarettes, uncomplicated; Z79.02 Long term (current) use of antithrombotics/antiplatelets; Z79.51 Long term (current) use of inhaled steroids; Z79.899 Other long term (current) drug therapy
CPT/HCPCS: 93971; 99283

== ENCOUNTER → 2021-01-28 14:24 | Outpatient (CLI) | payer MEDICARE, MEDICAID, SELFPAY ==
--- NOTE | 2021-01-28 14:27 | CT_ITS ---
STUDY: LOW DOSE CT LUNG CANCER SCREENING REASON FOR EXAM: Female, 60 years old. TOBACCO USE RADIATION DOSAGE (If Supplied By Facility): CTDIvol = ( 1.58 ) mGy, DLP = ( 55.37 ) mGycm TECHNIQUE: No contrast was administered. Low dose technique was utilized (average mAS-38 and kVp 120). 1.25 mm axial source images with a slice interval of 1.25-mm were reconstructed in lung windows. 2.5 mm axial source images with a slice interval of 2.5-mm were reconstructed in lung windows. 5.0 mm axial source images with a slice interval of 5.0-mm were reconstructed in soft tissue windows. Nodule measured using lung windows on PACS and/or independent workstation with automated measurement of minimum and maximum diameter. Nodule measurement reported as average diameter rounded to the nearest whole number. Growth is defined as an increase ins size of greater than 1.5 mm. COMPARISON: 16 Aug 2018, 25 July 2016, 25 June 2014 Findings: Lungs are moderately to severely emphysematous with scarring in the right middle lobe and lingula. There are no focal high risk opacities. Pleural surfaces are intact. Airways are patent. Spinal stimulator electrode is in place terminating in the midthoracic spine. Appearance is stable since prior. CT/Low Dose CT Lung Screening IMPRESSION: 1. Lung RADS category 1. 2. Severe emphysema. IMPORTANT NOTES FOR USE: ACR Lung-RADS Version 1.1 Assessment Categories Release Date: 2018 Category: Coded 0-4 bases on nodule(s) with highest degree of suspicion. Negative screen is defined as categories 1 and 2; a positive screen is defined as categories 3 and 4. Category 3 and 4A nodules that are unchanged on interval CT should be coded as category 2, and individuals returned to screening in 12 months. Category 4X: Category 3 or 4 nodules with additional imaging findings that increase the suspicion of lung cancer, such as spiculation, GGN that doubles in size in 1 year, enlarged lymph notes, etc. Category Modifiers: S (significant finding unrelated to lung cancer) Electronically Signed: Jessica Gibson MD at 13:09 EDT Tel , Service support ,
== END ==
DX: Z72.0 Tobacco use (principal); Z12.2 Encounter for screening for malignant neoplasm of respiratory organs
CPT/HCPCS: 71271

== ENCOUNTER 2021-04-28 12:53 | Outpatient (CLI) | payer MEDICARE, MEDICAID, SELFPAY ==
--- NOTE | 2021-04-29 12:35 | PFT ---
INTRODUCTION: The patient is a 60-year-old female that presents for pulmonary function studies secondary to a diagnosis of COPD. Respiratory therapy reported good patient effort. Bronchodilators were used during testing. INTERPRETATION: Forced expiration spirometry demonstrates the presence of a severe large airways obstructive ventilatory defect. There was no significant response to aerosolized bronchodilators. Spirograms are of good quality but do not plateau indicating slow emptying of the lungs. Body plethysmography was performed and revealed an elevated RV to 176% of predicted, indicative of underlying air trapping. Diffusing capacity by single breath CO is reduced at 49% of predicted. IMPRESSION: Irreversible severe large airways obstructive ventilatory defect with associated air trapping and symmetric reduction in diffusing capacity.
== END 2021-04-28 23:59 | disposition short-term general hospital (02) ==
LOC: PSN 12:58
PROVIDERS: Referring Provider Internal Medicine Critical Care Medicine; Visit Provider Internal Medicine Critical Care Medicine
DX: J44.9 Chronic obstructive pulmonary disease, unspecified (principal)
CPT/HCPCS: 94060; 94726; 94729

== ENCOUNTER 2021-05-17 13:42 | Outpatient (CLI) | payer MEDICARE, MEDICAID, SELFPAY ==
[2021-05-17 13:45] VITALS: PULSE 72; PULSE 75; PULSE 78; PULSE 83; PULSE 84; PULSE 85; PULSE 86; O2SAT 93; O2SAT 94; O2SAT 95; O2SAT 96
--- NOTE | 2021-05-17 14:39 | PCM.PSN.6M ---
PSN 6 Minute Walk Test 6 Minute Walk Test 6 Minute Walk Test: 6 Minute Walk Test PSN:6-Minute Walk Test Start: 05/17/21 14:08 Freq: Status: Active Protocol: [id number] Document 05/17/21 13:45 (Rec: 05/17/21 14:12 [id number]) 6 Minute Walk Test Date Performed 05/17/21 Time Performed 13:45 Height 5 ft 4 in Weight: 56.245 kg Weight in Pounds 124.[address]: Jelani Ragland FIO2 (% Oxygen) 21 Assistive device used: None Pre-test Oxygen Delivery Method Room Air Pulse Ox (%) 95 Pulse Rate (60-100 beats/min) 72 Dyspnea Nakia Scale (0-10) 0 Exertion Nakia Scale (6-20) 6 1st minute Oxygen Delivery Method Room Air Pulse Ox (%) 95 Pulse Rate (60-100 beats/min) 78 2nd minute Oxygen Delivery Method Room Air Pulse Ox (%) 93 Pulse Rate (60-100 beats/min) 85 3rd minute Oxygen Delivery Method Room Air Pulse Ox (%) 95 Pulse Rate (60-100 beats/min) 85 4th minute Oxygen Delivery Method Room Air Pulse Ox (%) 94 Pulse Rate (60-100 beats/min) 84 5th minute Oxygen Delivery Method Room Air Pulse Ox (%) 96 Pulse Rate (60-100 beats/min) 86 6th minute Oxygen Delivery Method Room Air Pulse Ox (%) 95 Pulse Rate (60-100 beats/min) 83 Post-test Oxygen Delivery Method Room Air Pulse Ox (%) 96 Pulse Rate (60-100 beats/min) 75 Dyspnea Nakia Scale (0-10) 2 Exertion Nakia Scale (6-20) 6 Full Laps Walked 13 Partial Lap, Number of Tiles Walked 0 Total Distance Walked (ft) 767 Interpretation Interpretation: The patient was able to ambulate 767 feet over the course of 6 minutes on room air with no assistive devices or breaks. The patient experienced no significant desaturation or tachycardia. These findings are consistent with a musculoskeletal limitation exercise tolerance. Recommendations Recommendations: No supplemental oxygen is indicated at this time.
== END 2021-05-17 23:59 | disposition short-term general hospital (02) ==
PROVIDERS: Referring Provider Internal Medicine Critical Care Medicine; Visit Provider Internal Medicine Critical Care Medicine
DX: J44.9 Chronic obstructive pulmonary disease, unspecified (principal)
CPT/HCPCS: 94618

== ENCOUNTER 2021-09-07 21:44 | Emergency (ER) | payer MEDICARE, MEDICAID, SELFPAY ==
[2021-09-07 21:45] VITALS: BP 156/77; PULSE 111; RESP 25; TEMP 36.4; O2SAT 92; BMI 20.5
[2021-09-07 21:58] VITALS: BP 136/82; PULSE 102; RESP 16; TEMP 36.9; O2SAT 93
--- NOTE | 2021-09-07 22:08 | EKG12_ITS ---
Test Reason : DYSRHYTHMIA Blood Pressure : / mmHG Vent. Rate : 095 BPM Atrial Rate : 095 BPM P-R Int : 154 ms QRS Dur : 080 ms QT Int : 386 ms P-R-T Axes : 068 080 075 degrees QTc Int : 485 ms Normal sinus rhythm Prolonged QT Abnormal ECG Confirmed by TEDDY MILLIGAN, TERRY ([id number]), photographic editor LUIS SILVA ([id number]) on 09/08/2021 11:24:43 AM Referred By: MILLA Confirmed By:TERRY ESPINAL MD
--- NOTE | 2021-09-07 22:11 | EDS_ITS ---
HPI History of Present Illness Chief Complaint: Shortness of Breath Detail of Chief Complaint: Shortness of breath and not feeling well for 3 days Informant: patient Narrative Narrative: Patient presents to the emergency department with multiple complaints. Patient states that she got sick 3 days ago and diagnosed with COVID this morning. Patient is coughing. She complains of body aches and headache. Cough mostly nonproductive. She feels short of breath with activity. Patient has history of COPD, hypertension, asthma, DVT. Patient on Xarelto. She denies any chest pain. Patient significant other recently had COVID. [facility] Medical History Age related osteoporosis Angioedema Asthma Benign essential hypertension Chronic pain syndrome COPD (chronic obstructive pulmonary disease) Depression DVT (deep venous thrombosis) Emphysema GERD (gastroesophageal reflux disease) History of pulmonary embolism Hypertension [place] (obstructive sleep apnea) Spinal cord stimulator status Tobacco user Vitamin D deficiency Home Medications amlodipine 5 mg PO DAILY 12/09/17 [History Last Taken 06/20/18] duloxetine 30 mg PO DAILY 04/15/18 [History Last Taken 06/20/18] pravastatin 10 mg PO DAILY 06/17/18 [History Last Taken 06/20/18] acetaminophen 650 mg PO Q6H PRN PRN tab 06/23/18 [Rx Last Taken Unknown] albuterol sulfate 2 puff INHALATION Q4H PRN PRN 06/30/19 [History Last Taken Unknown] albuterol sulfate 2.5 mg INHALATION Q4H PRN PRN 06/30/19 [History Last Taken Unknown] montelukast 10 mg PO DAILY 06/30/19 [History Last Taken Unknown] pregabalin 75 mg PO DAILY 06/30/19 [History Last Taken Unknown] alendronate 70 mg tablet 70 mg PO QWEEK 09/17/19 [History Last Taken Unknown] fluticasone furoate 100 mcg-vilanterol 25 mcg/dose inhalation powder 1 inh INHALATION DAILY #60 ea 11/11/19 [Rx Last Taken Unknown] hydrocodone-acetaminophen 1 tab PO Q6H PRN 3 Days #10 tab 11/07/20 [Rx Last Taken Unknown] ondansetron 4 mg PO Q8H PRN #10 tab 11/07/20 [Rx Last Taken Unknown] famotidine 20 mg tablet 20 mg PO BID 04/11/21 [History Last Taken Unknown] ipratropium 0.5 mg-albuterol 3 mg (2.5 mg base)/3 mL nebulization soln 3 ml INHALATION Q4H.RT #180 ml 04/11/21 [Rx Last Taken Unknown] metoprolol succinate 25 mg tablet,extended release 24 hr 25 mg PO DAILY 04/11/21 [History Last Taken Unknown] spironolactone 25 mg tablet 25 mg PO DAILY 04/11/21 [History Last Taken Unknown] tizanidine 4 mg capsule 4 mg PO BID PRN 04/11/21 [History Last Taken Unknown] umeclidinium 62.5 mcg/actuation blister powder for inhalation 1 inh INHALATION DAILY #30 ea 04/11/21 [Rx Last Taken Unknown] rivaroxaban 20 mg tablet 20 mg PO DAILY #30 tab 08/18/21 [Rx Last Taken Unknown] prednisone 20 mg PO BID #10 tab 09/07/21 [Rx Last Taken Unknown] Allergy/AdvReac Type Severity Reaction Status Date / Time buspirone Allergy Angioedema Verified 09/07/21 21:48 lisinopril Allergy Angioedema Verified 09/07/21 21:48 Sulfa (Sulfonamide Allergy Itching Verified 09/07/21 21:48 Antibiotics) codeine AdvReac Intermediate / Verified 09/07/21 21:48 Family History Mother Asthma Depression COPD (chronic obstructive pulmonary disease) Hypertension Hyperchloremia Father Respiratory abnormality, unspecified Hypertension Sister COPD (chronic obstructive pulmonary disease) Surgical History History of carpal tunnel surgery of left wrist History of laminectomy Status post correction of deviated nasal septum Social History household members: significant other Smoking Status: Current every day smoker tobacco type: cigarettes Tobacco: How many years used: 50 Electronic Cigarette Use: not used second hand exposure: Yes quit status: not considering quitting alcohol intake: current details: beer daily 4-5 cans beer per night substance use type: does not use ROS ROS ED Constitutional Constitutional ED: Reports systems reviewed and no addt'l complaints, except as documented and fever(s); Denies body ache(s), change in weight or chills Eyes Eyes: Denies acute decrease in peripheral vision, change in vision, double vision or loss of vision ENT ENT ED: Reports none; Denies ear pain, lip swelling, loss taste/smell, neck pain, otalgia or sore throat Cardiovascular Cardiovascular: Reports none; Denies abdominal pain, chest pain with activity, leg edema, lightheadedness, palpitations, rapid heart rate or syncope Respiratory/Chest Respiratory/Chest: Reports none, cough and dyspnea; Denies change in mental status, dry cough, hemoptysis, shortness of breath at rest or shortness of breath with exertion Gastrointestinal Gastrointestinal: Reports none; Denies abdominal pain, change in stool character, diarrhea, hematemesis, hematochezia, melena, rectal bleeding or vomiting Genitourinary Genitourinary ED: Reports none; Denies abdominal discomfort, anuria, dysuria, genital pain or polyuria Musculoskeletal Musculoskeletal: Reports none and myalgias; Denies arthralgias, back pain, difficulty walking, extremity pain or muscle weakness Integumentary Reports none; Denies abscess or rash Neurologic Neurologic: Reports none and headache(s); Denies abnormal gait, confusion, focal weakness, frequent falls, loss of vision, numbness, paresthesias, radicular pain, vertigo or weakness Psychiatric Psychiatric: Reports systems reviewed and no addt'l complaints, except as documented and none; Denies behavioral changes, confusion, difficulty concentrating, hallucinations, suicidal ideation, tactile hallucinations or visual hallucinations Endocrine Endocrinology: Denies none, cold intolerance, excessive sweating, fatigue or heat intolerance Hematologic/Lymphatic Hematologic/Lymphatic: Reports none; Denies anemia, easy bleeding or easy bruising Allergic/Immunologic Allergic/Immunologic ED: Denies as per HPI, none, lip swelling, mouth swelling, throat swelling, tongue swelling or hives EXAM Physical Exam Const Vital Signs: 09/07/21 21:45 09/07/21 21:58 09/07/21 22:20 Temperature 97.6 F L 98.4 F Temperature Source Temporal Temporal Pulse Rate 111 H 102 H 97 Respiratory Rate 25 H 16 26 H Respiratory Effort Normal Normal Short of Breath Respiratory Depth Normal Shallow Respiratory Pattern Normal Tachypnea Blood Pressure 156/77 H 136/82 H Blood Pressure Mean 103 100 Pulse Ox 92 93 94 Oxygen Delivery Method Room Air Nasal Cannula Room Air Oxygen Flow Rate (L/min) 3 Positive well nourished and well developed General Appearance ED: well developed and NAD HEENT Reports TM's clear and moist mucous membranes normocephalic and atraumatic; Negative for trauma or tenderness Tympanic Membrane ED: Yes TM's clear Eyes PERRL and EOMs intact bilaterally General Eye ED: Negative for pale conjunctiva or scleral icterus Neck no lymphadenopathy, supple and no JVD General: Negative for tenderness Chest Wall inspection of chest normal and palpation of chest normal Chest: Negative for tenderness Resp normal respiratory effort and clear to auscultation bilaterally Resp Narrative: Few rhonchi bilaterally with some faint expiratory wheezes noted bilaterally. Mild tachypnea. No excess or muscle use or retractions. Effort and Inspection: Negative for respiratory distress or pain with movement Auscultation: wheezes; Negative for rhonchi or diminished lung sounds Cardio regular rate, regular rhythm, S1 normal heart sound, S2 normal heart sound and no murmurs Peripheral Pulses: pulses 2+ throughout GI normal to inspection, nondistended, normoactive bowel sounds, soft to palpation, non-tender, non-distended and no masses Back/Spine no CVA tenderness and no thoracic nor lumbar tenderness Extremity normal to inspection General Extremety ED: Negative for edema General Extremity: Negative for edema Neuro oriented x3, CN's II-XII intact bilaterally, no sensory deficits noted and gait normal Sensorium / Orientation: awake, alert, oriented to person, oriented to place and oriented to time Motor Exam: strength 5/5 throughout and strength abnormal Psych mental status grossly normal Skin no rashes or lesions noted and no wounds MDM MDM MDM Narrative Medical decision making narrative: IV line established on arrival. Patient had essentially normal blood work. Patient was ambulated in the department and her O2 sat remained above 93% on room air. She did receive a DuoNeb aerosol and Solu-Medrol 125 mg IV. Because of her COPD history and wheezing noted she be treated with prednisone for 5 days. Patient advised to follow-up with her primary care physician in 5 to 7 days. She is advised to return if increasing shortness of breath, hypoxemia, or condition should worsen anyway. Patient to continue with her Xarelto. Lab Data Attestation: I reviewed the patient's lab results. Labs: Laboratory Results - last 24 hr 09/07/21 09/07/21 22:10 22:10 WBC 5.4 RBC 4.84 Hgb 15.1 H Hct 44.1 MCV 91.1 MCH 31.2 MCHC 34.2 RDW Std Deviation 43.9 RDW Coeff of Jaqueline 13.2 Plt Count 183 MPV 9.0 Immature Gran % (Auto) 0.400 Neut % (Auto) 49.4 Lymph % (Auto) 31.9 [place] % (Auto) 17.3 H Eos % (Auto) 0.6 Baso % (Auto) 0.4 Absolute Neuts (auto) 2.7 Absolute Lymphs (auto) 1.72 Nucleated RBC % 0 Sodium 130 L Potassium 3.6 Chloride 98 Carbon Dioxide 23.0 Anion Gap 9 BUN 7 Creatinine 0.76 Estim Creat Clear Calc 67.64 Est GFR (MDRD) Af Amer 100 Est GFR (MDRD) Non-Af 82 BUN/Creatinine Ratio 9.2 L Glucose 111 H Calcium 9.4 Radiography Diagnostic Testing: Clinical Impression(s) from Imaging Studies Chest X-Ray 09/07/21 22:14 IMPRESSION: No acute pulmonary disease. Electronically Signed: Ortega Win MD at 22:58 EDT Reading Location ID and State: [address] [place] [address] Tel , Service support , 1 view chest x-ray obtained reviewed by myself no acute disease process. Official report from radiology is pending. EKG Initial EKG: Attestation: I personally reviewed and interpreted this EKG as follows: Comments: Sinus rhythm with a ventricular rate of 96 bpm with no acute ST segment changes Discharge Plan Triage Chief Complaint: Shortness of Breath ED Provider: Sue Chow Dx/Rx/DC Orders Clinical Impression: COVID-19, Acute dyspnea Instructions: ED Dyspnea, Caring for Someone Who Has COVID-19 Prescriptions: New prednisone 20 mg tablet 20 mg PO BID Qty: 10 RF: 0 No Action alendronate [Fosamax] 70 mg tablet 70 mg PO QWEEK RF: 0 famotidine 20 mg tablet 20 mg PO BID RF: 0 tizanidine 4 mg capsule 4 mg PO BID PRNRF: 0 spironolactone 25 mg tablet 25 mg PO DAILY RF: 0 metoprolol succinate 25 mg tablet extended release 24 hr 25 mg PO DAILY RF: 0 umeclidinium 62.5 mcg/actuation blister with device 1 inh inhalation DAILY Qty: 30 RF: 11 ipratropium-albuterol 0.5 mg-3 mg(2.5 mg base)/3 mL solution for nebulization 3 ml inhalation Q4H.RT Qty: 180 RF: 10 amlodipine 5 MG tablet 5 mg PO DAILY RF: 0 duloxetine 30 MG capsule 30 mg PO DAILY RF: 0 pravastatin 10 MG tablet 10 mg PO DAILY RF: 0 acetaminophen 325 MG tablet 650 mg PO Q6H PRN PRN (Reason: Pain) RF: 0 albuterol sulfate 2.5 MG/3 ML solution for nebulization 2.5 mg inhalation Q4H PRN PRN (Reason: Shortness Of Breath) RF: 0 montelukast 10 MG tablet 10 mg PO DAILY RF: 0 albuterol sulfate 1 PUFF inhaler 2 puff inhalation Q4H PRN PRN (Reason: Shortness Of Breath) RF: 0 pregabalin 75 MG capsule 75 mg PO DAILY RF: 0 hydrocodone-acetaminophen 5-325 mg tablet 1 tab PO Q6H PRN (Reason: pain) 3 Days Qty: 10 RF: 0 ondansetron 4 mg tablet,disintegrating 4 mg PO Q8H PRN (Reason: nausea and vomiting) Qty: 10 RF: 0 Breo Ellipta 100-25 mcg/dose blister with device 1 inh INHALATION DAILY Qty: 60 RF: 11 Xarelto 20 mg tablet 20 mg PO DAILY Qty: 30 RF: 1 [facility] - Disposition Disposition: Home, Self Care
--- NOTE | 2021-09-07 22:14 | RAD_ITS ---
INDICATION: dyspnea EXAMINATION: Frontal view of the chest COMPARISON: None. FINDINGS: Frontal view of the chest was obtained. The cardiac silhouette is not enlarged. Mild atelectasis and/or scarring at the lung bases. No confluent airspace disease. No pneumothorax. A spinal stimulator is identified. RAD/Chest 1 View (Portable) IMPRESSION: No acute pulmonary disease. Electronically Signed: Ortega Win MD at 22:58 EDT ,
[2021-09-07 22:20] VITALS: PULSE 97; RESP 22; RESP 26; O2SAT 94
[2021-09-07] MEDS: Ipratropium/Albuterol Sulfate 3 ML AMPUL.NEB INHALATION (22:20)
[2021-09-07] MEDS: 0.9% Normal Saline 1,000 ML 150 ML IV (22:22)
[2021-09-07] MEDS: MethylPREDNISolone 125 MG/2 ML Vial IV (22:22)
[2021-09-07] MEDS: Ketorolac 15 MG/ML Vial IV (22:23)
[2021-09-07 22:27] VITALS: O2SAT 93
[2021-09-07 22:31] LABS: Absolute Lymphocyte Count 1.72 X10^3/uL (0.83-4.51); Absolute Neutrophil Count 2.7 X10^3/uL (2.0-7.7); Basophil# 0.02 X10^3/uL; Basophil% 0.4 % (0-1); Eosinophil# 0.03 X10^3/uL; Eosinophils% 0.6 % (0-5); Hematocrit 44.1 % (37-47); Hemoglobin 15.1 g/dL (12.0-15.0); Lymphocyte # 1.72 X10^3/ul (0.83-4.51); Lymphocyte % 31.9 % (19-41); Mean Corp Hgb Conc 34.2 g/dL (32-36); Mean Corpuscular Hgb 31.2 pg (27.0-32.0); Mean Corpuscular Volume 91.1 fL (81-99); Monocyte# 0.93 X10^3/uL; Monocyte% 17.3 % (0-10); NRBC Flagged by Analyzer 0 % (0-5); Neutrophil # 2.67 X10^3/uL (2.7-7.7); Neutrophil % 49.4 % (47-70); Platelet Count 183 K/mm3 (150-450); RBC Distribution Width CV 13.2 % (11.6-14.6); RBC Distribution Width SD 43.9 fl (35.1-43.9); Red Blood Count 4.84 M/mm3 (4.2-5.4); White Blood Count 5.4 K/mm3 (4.4-11.0)
[2021-09-07 22:44] LABS: Anion Gap 9 (5-15); BUN 7 mg/dL (7-18); BUN/Creat Ratio 9.2 RATIO (10-20); Calcium,Total 9.4 mg/dL (8.5-10.1); Chloride 98 mmol/L (98-107); Creatinine, Serum 0.76 mg/dL (0.55-1.02); EST Glomerular Filtration Rate 82 mL/min (>60); Est Glom Filt Rate - Afr Amer 100 mL/min (>60); Estimated Creatinine Clearance 67.64 ml/min; Glucose 111 mg/dL (74-106); Potassium 3.6 mmol/L (3.5-5.1); Sodium Level 130 mmol/L (136-145)
[2021-09-07 23:05] VITALS: BP 143/88; PULSE 98; RESP 16; TEMP 37.2; O2SAT 95
== END 2021-09-07 23:06 | disposition home or self-care (01) ==
PROVIDERS: Emergency Provider Emergency Medicine; Visit Provider Emergency Medicine
DX: U07.1 COVID-19 (principal); J43.9 Emphysema, unspecified; I10 Essential (primary) hypertension; G89.4 Chronic pain syndrome; G47.33 Obstructive sleep apnea (adult) (pediatric); F17.210 Nicotine dependence, cigarettes, uncomplicated; Z79.01 Long term (current) use of anticoagulants; Z79.899 Other long term (current) drug therapy; Z86.718 Personal history of other venous thrombosis and embolism
CPT/HCPCS: 71045; 80048; 85025; 93005; 94640; 96361; 96374; 96375; 99251; 99284; J7030; G0463

== ENCOUNTER 2021-09-08 14:23 | Outpatient (CLI) | payer MEDICARE, MEDICAID, SELFPAY ==
[2021-09-08 14:37] VITALS: BP 133/84; PULSE 80; RESP 18; TEMP 36.4; O2SAT 97; BMI 20.5
[2021-09-08] MEDS: 0.9% Saline Lock 10 ML Syringe IV ×3 (14:47→15:04)
[2021-09-08] MEDS: BEBTELOVIMAB 175 MG/2 ML VIAL IV (15:00)
[2021-09-08 15:30] VITALS: BP 119/77; PULSE 83; RESP 18; TEMP 36.5; O2SAT 96
[2021-09-08 15:52] VITALS: BP 118/76; PULSE 80; RESP 18; TEMP 36.7; O2SAT 96
== END 2021-09-08 16:00 | disposition home or self-care (01) ==
LOC: MS3OUT 14:24 → MS2 14:25
PROVIDERS: Referring Provider Nurse Practitioner Adult Health; Visit Provider Nurse Practitioner Adult Health
DX: U07.1 COVID-19 (principal)
CPT/HCPCS: M0222; Q0222; A4216

== ENCOUNTER → 2021-11-14 | Outpatient (CLI) | payer MEDICARE, MEDICAID, SELFPAY ==
--- NOTE | 2021-11-14 10:36 | MRI_ITS ---
STUDY: MRI RIGHT HIP REASON FOR EXAM: Right hip pain. TECHNIQUE: Standardized fat and water weighted pulse sequences were obtained in all 3 orthogonal planes. COMPARISON: MRI images 07/18/2019, radiographs 09/20/2018. FINDINGS: Normal hip joint without articular joint space narrowing. Normal acetabulum. There is a small tear of the right anterosuperior labrum (proton-density sagittal image 16) as on the prior study. Normal right femoral head. Normal femoral neck and intratrochanteric region. There is avascular necrosis of the contralateral left femoral head (T1 coronal images 18, 19). There is mild peritendinitis of the right gluteus medius tendon (inversion recovery coronal image 14) without tendon tear. Normal gluteus minimus and iliopsoas tendons and distal insertions. There is very mild right greater trochanteric bursitis (inversion recovery coronal images 17, 18). Normal superior and inferior pubic rami. Normal pubic symphysis. Normal ischial tuberosity. Normal origin of the hamstring tendons. Normal visualized iliac wing, sacroiliac joint, and sacral ala. Normal visualized soft tissue structures of the pelvis. MRI/Lower Ext Joint Only (Routine) IMPRESSION: Mild peritendinitis of the right gluteus medius tendon Very mild right greater trochanteric bursitis. Small right anterosuperior labral tear. 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 Electronically Signed: Philip Dobson MD at 12:43 EDT ,
== END | disposition home or self-care (01) ==
LOC: MRI 10:31
PROVIDERS: Visit Provider Nurse Practitioner Family
DX: M25.551 Pain in right hip (principal)
CPT/HCPCS: 73721

== ENCOUNTER → 2021-12-09 | Outpatient (CLI) | payer MEDICARE, MEDICAID, SELFPAY ==
--- NOTE | 2021-12-09 12:48 | VDLE_ITS ---
Reason For Study: Pain RIGHT LEFT CFV is compressible, spontaneous, phasic, GSV is normal. competent and demonstrates normal Acute deep vein thrombosis is noted in the augmentation. left EIV. Procedure CFV is partially compressible with bright This is a venous duplex using B-mode, color intraluminal echoes consistent with Chronic flow and spectral Doppler. DVT. Normal venous flow noted. Exam performed in department. FV is compressible, spontaneous, phasic, A preliminary report was called and/or faxed competent and demonstrates normal to Dayna and Nora. augmentation. POP V is compressible, spontaneous, phasic, competent and demonstrates normal augmentation. T/P Trunk is compressible. PTV is compressible. LT PerV is compressible. VL/Venous Duplex US, Unilateral Interpretation Summary Deep venous thrombosis left external iliac vein Chronic deep venous thrombosis left common femoral vein Patent, compressible left great saphenous vein Normal flow patterns right common femoral vein Refer to extensive deep venous thrombosis 11/07/21 Ordering Physician: Denisse Red Referring Physician: [facility] Performed By: Gabrielle Hogue RVT
== END | disposition home or self-care (01) ==
LOC: CVS 12:47
PROVIDERS: Referring Provider Nurse Practitioner Family; Visit Provider Nurse Practitioner Family
DX: I82.412 Acute embolism and thrombosis of left femoral vein (principal)
CPT/HCPCS: 93971

== ENCOUNTER → 2022-01-30 | Outpatient (CLI) | payer MEDICARE, MEDICAID, SELFPAY ==
--- NOTE | 2022-01-30 12:58 | CT_ITS ---
STUDY: LOW DOSE CT LUNG CANCER SCREENING REASON FOR EXAM: Female, 61 years old. Current smoker 40 pack-year history. RADIATION DOSAGE (If Supplied By Facility): CTDIvol = ( 1.57 ) mGy, DLP = ( 53.95 ) mGycm TECHNIQUE: No contrast was administered. Low dose technique was utilized (average mAS-38 and kVp 120). 1.25 mm axial source images with a slice interval of 1.25-mm were reconstructed in lung windows. 2.5 mm axial source images with a slice interval of 2.5-mm were reconstructed in lung windows. 5.0 mm axial source images with a slice interval of 5.0-mm were reconstructed in soft tissue windows. COMPARISON: 01/28/2021. NODULES: Total lung nodules (excluding granulomas): 0 Emphysema: Stable emphysematous changes without mass. Endobronchial lesion: None Aorta: Stable atherosclerotic changes of the thoracic aorta without aneurysm. CORONARY ARTERIES: Coronary artery calcification : Minimal Heart: Normal in size Pulmonary artery: Normal Mediastinal nodes: Subcentimeter mediastinal lymphadenopathy. Other chest and abdominal findings: . 3 is evidence of a dorsal column stimulator. CT/Low Dose CT Lung Screening IMPRESSION: Lung-RADS category 1 - Continue annual screening with LDCT in 12 months. IMPORTANT NOTES FOR USE: ACR Lung-RADS Version 1.1 Assessment Categories Release Date: 2018 Category: Coded 0-4 bases on nodule(s) with highest degree of suspicion. Negative screen is defined as categories 1 and 2; a positive screen is defined as categories 3 and 4. Category 3 and 4A nodules that are unchanged on interval CT should be coded as category 2, and individuals returned to screening in 12 months. Category 4X: Category 3 or 4 nodules with additional imaging findings that increase the suspicion of lung cancer, such as spiculation, GGN that doubles in size in 1 year, enlarged lymph notes, etc. Category Modifiers: S (significant finding unrelated to lung cancer) Electronically Signed: Mundo Watson DO at 18:45 EDT Reading Location ID and State: [facility] / [place] Tel [phone], Service support ,
== END | disposition home or self-care (01) ==
LOC: CT 12:57
PROVIDERS: Referring Provider Internal Medicine Critical Care Medicine; Visit Provider Internal Medicine Critical Care Medicine
DX: Z87.891 Personal history of nicotine dependence (principal)
CPT/HCPCS: 71271

== ENCOUNTER 2022-02-13 10:00 | Inpatient (IN) | payer MEDICARE, MEDICAID, SELFPAY ==
[2022-02-13] VITALS (19 sets, daily range): BP systolic 123–173; BP diastolic 72–95; PULSE 88–102; RESP 18–30; TEMP -12.7–37; O2SAT 91–98; BMI 19.5
--- NOTE | 2022-02-13 10:35 | EKG12_ITS ---
Test Reason : Blood Pressure : / mmHG Vent. Rate : 088 BPM Atrial Rate : 088 BPM P-R Int : 148 ms QRS Dur : 084 ms QT Int : 402 ms P-R-T Axes : 058 083 061 degrees QTc Int : 486 ms Normal sinus rhythm Septal MO, age undetermined, cannot be excluded Confirmed by JESI MILLIGAN, KEYON ([id number]), newspaper copy editor LUIS SILVA ([id number]) on 02/15/2022 9:24:19 AM Referred By: BIRGIT Confirmed By:KEYON DENNISON MD
--- NOTE | 2022-02-13 10:36 | RAD_ITS ---
STUDY: X-RAY CHEST REASON FOR EXAM: Female, 61 years old. Cough, shortness of breath and COPD. TECHNIQUE: PA and lateral views of the chest. COMPARISON: Comparison is made with prior study 09/07/2021. FINDINGS: EKG electrodes are seen. Electrodes from a pain stimulator device are seen. The tip is at the T7-T8 level. Hyperinflation. There now is evidence of increased markings in the right middle lobe suggestive of a early infiltrate superimposed on bibasilar scarring. There is no demonstrated pleural abnormality. Normal size heart. Normal mediastinum and lenka. Normal visualized pulmonary arteries. There is atherosclerotic calcification of the aortic arch with tortuosity. Normal visualized thoracic spine. Normal visualized ribs, clavicles, and shoulders. There is no demonstrated abnormality of the visualized soft tissue structures of the upper abdomen. RAD/Chest PA and Lateral IMPRESSION: Hyperinflation. Findings suggestive of a new focal infiltrate in the right middle lobe superimposed on bibasilar scarring. Electronically Signed: Pato Paniagua MD at 12:51 EDT ,
[2022-02-13] MEDS: Albuterol 2.5 MG/3 ML VIAL.NEB. INHALATION (10:50)
[2022-02-13] MEDS: Ipratropium/Albuterol Sulfate 3 ML AMPUL.NEB INHALATION ×3 (10:50→19:01)
--- NOTE | 2022-02-13 11:02 | ED.VIS.DYS ---
HPI History of Present Illness Chief Complaint: Shortness of Breath Informant: patient Narrative Narrative: 3-day history dyspnea cough wheezing. Sick contact with grandchildren. History of COPD no home oxygen. Denies diabetes. Tobacco history. Nonvaccinated for COVID. Had 2 COVID infections in the past not requiring hospitalization. Last hospitalization was year ago for COPD. History of recurrent DVTs currently on Eliquis no missed doses. Reports grandkids are getting better however symptoms are worsening she has nebulizers and aerosol treatments at home. Last treatment was yesterday. Prior similar symptoms: Yes PFSH PFSH Medical History (Updated 02/13/22 @ 15:48 by Roxanna Wilhelm) Age related osteoporosis Alcohol abuse Angioedema Anxiety Asthma Benign essential hypertension Chronic pain syndrome COPD (chronic obstructive pulmonary disease) Depression DVT (deep venous thrombosis) Emphysema GERD (gastroesophageal reflux disease) History of pulmonary embolism Hypertension Left leg pain [place] (obstructive sleep apnea) Sleep apnea Smoker Spinal cord stimulator status Tobacco user Vitamin D deficiency Home Medications amlodipine 5 mg tablet 5 mg PO DAILY blood pressure 12/09/17 [History Last Taken 02/12/22] duloxetine 30 mg capsule,delayed release 30 mg PO DAILY depression 04/15/18 [History Last Taken 02/12/22] acetaminophen 325 mg tablet 650 mg PO Q6H PRN PRN Pain 06/23/18 [Rx Last Taken Unknown] albuterol sulfate 2.5 mg/3 mL (0.083 %) solution for nebulization 2.5 mg inhalation Q4H PRN PRN Shortness Of Breath 06/30/19 [History Last Taken 02/12/22] albuterol sulfate 90 mcg/actuation aerosol inhaler 2 puff inhalation Q4H PRN PRN Shortness Of Breath 06/30/19 [History Last Taken 02/12/22] alendronate 70 mg tablet (Fosamax) 70 mg PO QWEEK bone health\ 09/17/19 [History Last Taken 01/09/22] fluticasone furoate 100 mcg-vilanterol 25 mcg/dose inhalation powder (Breo Ellipta) 1 inh inhalation DAILY #60 ea 11/11/19 [Rx Last Taken 02/12/22] famotidine 20 mg tablet 20 mg PO BID gerd 04/11/21 [History Last Taken 02/12/22] metoprolol succinate 25 mg tablet,extended release 24 hr 25 mg PO DAILY bp 04/11/21 [History Last Taken 02/12/22] tizanidine 4 mg capsule 4 mg PO BID PRN Pain 04/11/21 [History Last Taken 02/12/22] apixaban 5 mg tablet (Eliquis) 5 mg PO DAILY blood clot 02/13/22 [History Last Taken 02/12/22] Allergy/AdvReac Type Severity Reaction Status Date / Time buspirone Allergy Angioedema Verified 01/10/22 11:03 lisinopril Allergy Angioedema Verified 01/10/22 11:03 Sulfa (Sulfonamide Allergy Itching Verified 01/10/22 11:03 Antibiotics) codeine AdvReac Intermediate / Verified 01/10/22 11:03 Family History Mother Asthma Depression COPD (chronic obstructive pulmonary disease) Hypertension Hyperchloremia Father Respiratory abnormality, unspecified Hypertension Sister COPD (chronic obstructive pulmonary disease) Surgical History History of carpal tunnel surgery of left wrist History of laminectomy Status post correction of deviated nasal septum Social History (Updated 02/13/22 @ 16:[address] Kristen Bateman MD) household members: significant other Smoking Status: Current every day smoker tobacco type: cigarettes Smoking packs per day: 1 Smoking cigarettes per day: 20.0 Years smoked: 50 Smoking pack-years: 50.00 Tobacco: How many years used: 50 Electronic Cigarette Use: not used second hand exposure: Yes quit status: not considering quitting alcohol intake: current details: Currently 6-8 beers daily. substance use type: does not use ROS ROS ED Constitutional Constitutional ED: Denies chills, fever(s) or sweats Eyes Eyes: Denies change in vision ENT ENT ED: Denies dysphagia or sore throat Cardiovascular Cardiovascular: Denies chest pain, leg edema, palpitations or racing heartbeat Respiratory/Chest Respiratory/Chest: Reports cough and dyspnea; Denies dyspnea on exertion Gastrointestinal Gastrointestinal: Denies abdominal pain, diarrhea, nausea or vomiting Genitourinary Genitourinary ED: Denies dysuria, hematuria or urinary frequency Musculoskeletal Musculoskeletal: Denies back pain, extremity pain or neck pain Integumentary Denies rash or wounds Neurologic Neurologic: Denies headache(s), paresthesias or weakness EXAM Physical Exam Const Vital Signs: 02/13/22 10:01 02/13/22 10:10 02/13/22 10:11 Temperature 9 F L Temperature Source Temporal Pulse Rate 98 Respiratory Rate 30 H Respiratory Effort Short of Breath Respiratory Depth Shallow Respiratory Pattern Tachypnea Blood Pressure 173/95 H Blood Pressure Mean 121 Pulse Ox 98 95 Oxygen Delivery Method Room Air Nasal Cannula Nasal Cannula Oxygen Flow Rate (L/min) 2 2 02/13/22 10:35 02/13/22 11:12 02/13/22 10:50 Temperature Temperature Source Pulse Rate 91 88 Respiratory Rate 20 H 20 H Respiratory Effort Respiratory Depth Respiratory Pattern Normal Blood Pressure Blood Pressure Mean Pulse Ox 96 Oxygen Delivery Method Nasal Cannula Room Air Oxygen Flow Rate (L/min) 2 02/13/22 12:18 02/13/22 13:32 Temperature Temperature Source Pulse Rate 95 102 H Respiratory Rate 20 H 24 H Respiratory Effort Respiratory Depth Respiratory Pattern Blood Pressure 130/74 H Blood Pressure Mean 92 Pulse Ox 96 95 Oxygen Delivery Method Nasal Cannula Room Air Oxygen Flow Rate (L/min) 2 Positive well nourished and well developed Constitutional Narrative: Speaking in short sentences General Appearance ED: well developed HEENT Reports moist mucous membranes normocephalic and atraumatic Eyes PERRL, EOMs intact bilaterally and conjunctivae normal General Eye ED: Yes normal appearance of both eyes Neck no lymphadenopathy and supple General: Negative for tenderness Chest Wall Chest: Negative for tenderness Resp Resp Narrative: Diminished breath sounds, mild expiratory wheeze. Effort and Inspection: symmetric chest movement; Negative for respiratory distress Cardio regular rate, regular rhythm and no murmurs Peripheral Pulses: pulses 2+ throughout GI normal to inspection, nondistended, normoactive bowel sounds and non-tender Palpation: Negative for guarding or rebound tenderness present Back/Spine no CVA tenderness and no thoracic nor lumbar tenderness Extremity normal to inspection General Extremety ED: Negative for edema or tenderness General Extremity: Negative for edema Neuro oriented x3 and no sensory deficits noted Sensorium / Orientation: awake and alert Skin no rashes or lesions noted and no wounds MDM MDM MDM Narrative Medical decision making narrative: Patient speaking in short sentences empirically was placed on 2 L oxygen by nursing prior to my evaluation. Treated with aerosol treatment and steroids. Two-view chest x-ray reviewed by myself read by radiology concerns for right middle lobe infiltrate. Her labs are stable. COVID-negative. Reevaluation clinically was improving. With amatory off oxygen dropped down to 87%. With rest this improved. She is covered with Rocephin and Zithromax for commune acquired pneumonia. I discussed with hospitalist Dr. Bateman for admission. Lab Data Attestation: I reviewed the patient's lab results. Labs: Laboratory Results - last 24 hr 02/13/22 02/13/22 11:08 11:08 WBC 6.8 RBC 4.74 Hgb 14.8 Hct 42.9 MCV 90.5 MCH 31.2 MCHC 34.5 RDW Std Deviation 42.7 RDW Coeff of Jaqueline 12.9 Plt Count 216 MPV 9.1 Immature Gran % (Auto) 0.100 Neut % (Auto) 56.0 Lymph % (Auto) 29.4 [place] % (Auto) 12.1 H Eos % (Auto) 2.0 Baso % (Auto) 0.4 Absolute Neuts (auto) 3.8 Absolute Lymphs (auto) 2.01 Nucleated RBC % 0 Sodium 135 L Potassium 3.6 Chloride 101 Carbon Dioxide 24.0 Anion Gap 10 BUN 6 L Creatinine 0.57 Estim Creat Clear Calc 86.83 Est GFR (MDRD) Af Amer 140 Est GFR (MDRD) Non-Af 115 BUN/Creatinine Ratio 10.6 Glucose 89 Calcium 9.6 Radiography Diagnostic Testing: Clinical Impression(s) from Imaging Studies Chest X-Ray 02/13/22 10:36 IMPRESSION: Hyperinflation. Findings suggestive of a new focal infiltrate in the right middle lobe superimposed on bibasilar scarring. Electronically Signed: Pato Paniagua MD at 12:51 EDT , EKG Initial EKG: Attestation: I personally reviewed and interpreted this EKG as follows: Comments: Sinus rate of 88, no ST or T wave changes. Discharge Plan Dx/Rx/DC Orders Clinical Impression: Hypoxia, COPD exacerbation, Community acquired pneumonia Disposition Disposition: Acute Care Hospital [facility] Discharge Date/Time: 02/13/22 15:22
[2022-02-13] MEDS: MethylPREDNISolone 125 MG/2 ML Vial IV (11:19)
[2022-02-13 11:28] LABS: Absolute Lymphocyte Count 2.01 X10^3/uL (0.83-4.51); Absolute Neutrophil Count 3.8 X10^3/uL (2.0-7.7); Basophil# 0.03 X10^3/uL; Basophil% 0.4 % (0-1); Eosinophil# 0.14 X10^3/uL; Hematocrit 42.9 % (37-47); Hemoglobin 14.8 g/dL (12.0-15.0); Lymphocyte # 2.01 X10^3/ul (0.83-4.51); Lymphocyte % 29.4 % (19-41); Mean Corp Hgb Conc 34.5 g/dL (32-36); Mean Corpuscular Hgb 31.2 pg (27.0-32.0); Mean Corpuscular Volume 90.5 fL (81-99); Mean Platelet Vol. 9.1 fl (6.2-12.0); Monocyte# 0.83 X10^3/uL; Monocyte% 12.1 % (0-10); NRBC Flagged by Analyzer 0 % (0-5); Neutrophil # 3.82 X10^3/uL (2.7-7.7); Platelet Count 216 K/mm3 (150-450); RBC Distribution Width CV 12.9 % (11.6-14.6); RBC Distribution Width SD 42.7 fl (35.1-43.9); Red Blood Count 4.74 M/mm3 (4.2-5.4); White Blood Count 6.8 K/mm3 (4.4-11.0)
[2022-02-13 11:38] LABS: Anion Gap 10 (5-15); BUN 6 mg/dL (7-18); BUN/Creat Ratio 10.6 RATIO (10-20); Calcium,Total 9.6 mg/dL (8.5-10.1); Chloride 101 mmol/L (98-107); Creatinine, Serum 0.57 mg/dL (0.55-1.02); EST Glomerular Filtration Rate 115 mL/min (>60); Est Glom Filt Rate - Afr Amer 140 mL/min (>60); Estimated Creatinine Clearance 86.83 ml/min; Glucose 89 mg/dL (74-106); Potassium 3.6 mmol/L (3.5-5.1); Sodium Level 135 mmol/L (136-145)
--- NOTE | 2022-02-13 13:30 | ED.RN ---
INCREASED WORK OF BREATHING AND SOB WITH TALKING OR MINIMAL ACTIVITY
--- NOTE | 2022-02-13 13:50 | PCM.HP.STD ---
HPI - General General Date of Admission: 02/13/22 Date of Service: 02/13/22 Chief Complaint: Dyspnea HPI Narrative The patient is a 61 y/o F w/ PMHx: EtOH abuse (6-8 beers daily), HTN, HLD, Asthma/COPD, Chronic pain syndrome w/ chronic spinal cord stimulator, Depression and Anxiety, Hx VTE (recurrent on Eliquis), [place], Tobacco use who presents to the [facility] ED on 02/13/22 with history of recent exposure to several sick grandchildren with a 3-day history of progressive worsening dyspnea, cough that is specifically nonproductive as well as wheezing with no history of home oxygen supplementation usage and reportedly unvaccinated against COVID with history of 2 COVID illnesses in the past without improvement with any nebulizers or aerosol treatments at home prompting eventual ED evaluation. She denies any associated fevers or chills. She notes that the grandchildren seem to have improved however she has gotten worse up in the ED included afebrile, heart rate 98, BP initially 173/95 with most recent repeat 130/74, respiratory rate initially 30 with most recent repeat 24, 96% on 2 L nasal cannula but was initially 87% on room air with ambulation, CBC with WC 6.8, hemoglobin 14.8, platelet 216 without marked shift, BMP with sodium 135 otherwise unremarkable, rapid COVID antigen negative, chest x-ray with findings suggestive of new focal infiltrate in right middle lobe superimposed on bibasilar scarring. In the ED patient ministered albuterol, DuoNeb therapy, Solu-Medrol 125 mg IV x1, Rocephin and azithromycin. [facility] Medical History (Updated 02/13/22 @ 15:48 by Roxanna Wilhelm) Age related osteoporosis Alcohol abuse Angioedema Anxiety Asthma Benign essential hypertension Chronic pain syndrome COPD (chronic obstructive pulmonary disease) Depression DVT (deep venous thrombosis) Emphysema GERD (gastroesophageal reflux disease) History of pulmonary embolism Hypertension Left leg pain [place] (obstructive sleep apnea) Sleep apnea Smoker Spinal cord stimulator status Tobacco user Vitamin D deficiency Home Medications amlodipine 5 mg tablet 5 mg PO DAILY blood pressure 12/09/17 [History Last Taken 02/12/22] duloxetine 30 mg capsule,delayed release 30 mg PO DAILY depression 04/15/18 [History Last Taken 02/12/22] acetaminophen 325 mg tablet 650 mg PO Q6H PRN PRN Pain 06/23/18 [Rx Last Taken Unknown] albuterol sulfate 2.5 mg/3 mL (0.083 %) solution for nebulization 2.5 mg inhalation Q4H PRN PRN Shortness Of Breath 06/30/19 [History Last Taken 02/12/22] albuterol sulfate 90 mcg/actuation aerosol inhaler 2 puff inhalation Q4H PRN PRN Shortness Of Breath 06/30/19 [History Last Taken 02/12/22] alendronate 70 mg tablet (Fosamax) 70 mg PO QWEEK bone health\ 09/17/19 [History Last Taken 01/09/22] fluticasone furoate 100 mcg-vilanterol 25 mcg/dose inhalation powder (Breo Ellipta) 1 inh inhalation DAILY #60 ea 11/11/19 [Rx Last Taken 02/12/22] famotidine 20 mg tablet 20 mg PO BID gerd 04/11/21 [History Last Taken 02/12/22] metoprolol succinate 25 mg tablet,extended release 24 hr 25 mg PO DAILY bp 04/11/21 [History Last Taken 02/12/22] tizanidine 4 mg capsule 4 mg PO BID PRN Pain 04/11/21 [History Last Taken 02/12/22] apixaban 5 mg tablet (Eliquis) 5 mg PO DAILY blood clot 02/13/22 [History Last Taken 02/12/22] Allergy/AdvReac Type Severity Reaction Status Date / Time buspirone Allergy Angioedema Verified 01/10/22 11:03 lisinopril Allergy Angioedema Verified 01/10/22 11:03 Sulfa (Sulfonamide Allergy Itching Verified 01/10/22 11:03 Antibiotics) codeine AdvReac Intermediate / Verified 01/10/22 11:03 Family History Mother Asthma Depression COPD (chronic obstructive pulmonary disease) Hypertension Hyperchloremia Father Respiratory abnormality, unspecified Hypertension Sister COPD (chronic obstructive pulmonary disease) Surgical History History of carpal tunnel surgery of left wrist History of laminectomy Status post correction of deviated nasal septum Social History (Updated 02/13/22 @ 16:[address] Kristen Bateman MD) household members: significant other Smoking Status: Current every day smoker tobacco type: cigarettes Smoking packs per day: 1 Smoking cigarettes per day: 20.0 Years smoked: 50 Smoking pack-years: 50.00 Tobacco: How many years used: 50 Electronic Cigarette Use: not used second hand exposure: Yes quit status: not considering quitting alcohol intake: current details: Currently 6-8 beers daily. substance use type: does not use ROS ROS Narrative Admission Review of Systems: CONSTITUTIONAL: No weight loss, fever, chills, + weakness or fatigue. HEENT: + Congestion, sore throat, rhinorrhea. Eyes: No visual loss, blurred vision, double vision or yellow sclerae. Ears, Nose, Throat: No hearing loss, sneezing. SKIN: No rash or itching, lesions, wounds. CARDIOVASCULAR: No chest pain, chest pressure or chest discomfort, palpitations, edema, orthopnea, syncopal events. RESPIRATORY: + shortness of breath, cough without marked sputum, wheezing, No hemoptysis. GASTROINTESTINAL: + anorexia, No nausea, vomiting or diarrhea, abdominal pain, melena, BRBPR. GENITOURINARY: No dysuria, frequency, urgency or retention. NEUROLOGICAL: No headache, dizziness, syncope, paralysis, ataxia, numbness or tingling in the extremities, focal weakness, change in bowel or bladder control, seizure. MUSCULOSKELETAL:+ muscle, back pain, joint pain or stiffness. HEMATOLOGIC: No anemia, bleeding or bruising. LYMPHATICS: No enlarged nodes. No history of splenectomy. PSYCHIATRIC: No history of depression or anxiety. ENDOCRINOLOGIC: No reports of sweating, cold or heat intolerance. No polyuria or polydipsia. ALLERGIES: + history of asthma, rhinitis. Vital Signs Vital Signs Vital Signs: 02/13/22 10:01 02/13/22 10:10 02/13/22 10:11 Temperature 9 F L Temperature Source Temporal Pulse Rate 98 Respiratory Rate 30 H Respiratory Effort Short of Breath Respiratory Depth Shallow Respiratory Pattern Tachypnea Blood Pressure 173/95 H Blood Pressure Mean 121 Pulse Ox 98 95 Oxygen Delivery Method Room Air Nasal Cannula Nasal Cannula Oxygen Flow Rate (L/min) 2 2 02/13/22 10:35 02/13/22 11:12 02/13/22 10:50 Temperature Temperature Source Pulse Rate 91 88 Respiratory Rate 20 H 20 H Respiratory Effort Respiratory Depth Respiratory Pattern Normal Blood Pressure Blood Pressure Mean Pulse Ox 96 Oxygen Delivery Method Nasal Cannula Room Air Oxygen Flow Rate (L/min) 2 02/13/22 12:18 02/13/22 13:32 Temperature Temperature Source Pulse Rate 95 102 H Respiratory Rate 20 H 24 H Respiratory Effort Respiratory Depth Respiratory Pattern Blood Pressure 130/74 H Blood Pressure Mean 92 Pulse Ox 96 95 Oxygen Delivery Method Nasal Cannula Room Air Oxygen Flow Rate (L/min) 2 Weight Weight: 117 lb Body Mass Index (BMI) 20.0 Physical Exam Narrative Physical Examination: General: Awake, alert, oriented x 3 and cooperative, seated upright in the ED bed, fatigued, ill-appearing, no acute distress at. Skin: Normal color, normal turgor, no icterus, no cyanosis. HEENT: AT/NC, EOMI, PERRLA, mildly dry MM, no carotid bruits or JVD noted. Lungs: Diminished, greater bases, right greater than left, occasional end expiratory wheeze, no obvious rales or rhonchi, no evidence of any distress. Heart: Mildly tachycardic with regular rhythm; no gallop, rub audible. Abdomen: Soft, NTTP, ND, distant normal BS, no HSM. Extremities: No cyanosis, clubbing, or edema. Neurological: Patient awake, alert, oriented as noted, cognitive function intact; pupils equally reactive to light and accommodation, cranial nerves II-XII grossly normal, moving all 4 extremities, no focal deficits, strength moderately to severely globally decreased secondary to acute presentation. Psychiatric: Affect appears fatigued, ill-appearing, no acute evidence of depressive or anxiety feelings. Results Lab / Micro Data Result Diagrams: 02/13/22 11:08 02/13/22 11:08 Labs: Laboratory Results - last 24 hr 02/13/22 11:08: WBC 6.8, RBC 4.74, Hgb 14.8, Hct 42.9, MCV 90.5, MCH 31.2, MCHC 34.5, RDW Std Deviation 42.7, RDW Coeff of Jaqueline 12.9, Plt Count 216, MPV 9.1, Immature Gran % (Auto) 0.100, Neut % (Auto) 56.0, Lymph % (Auto) 29.4, [place] % (Auto) 12.1 H, Eos % (Auto) 2.0, Baso % (Auto) 0.4, Absolute Neuts (auto) 3.8, Absolute Lymphs (auto) 2.01, Nucleated RBC % 0 02/13/22 11:08: Sodium 135 L, Potassium 3.6, Chloride 101, Carbon Dioxide 24.0, Anion Gap 10, BUN 6 L, Creatinine 0.57, Estim Creat Clear Calc 86.83, Est GFR (MDRD) Af Amer 140, Est GFR (MDRD) Non-Af 115, BUN/Creatinine Ratio 10.6, Glucose 89, Calcium 9.6 Micro: Microbiology 02/13/22 10:46 Nasal Secretion SARS-CoV-2 Antigen (Rapid) - Final Radiology Impression Chest X-Ray 02/13/22 10:36 IMPRESSION: Hyperinflation. Findings suggestive of a new focal infiltrate in the right middle lobe superimposed on bibasilar scarring. Electronically Signed: Pato Paniagua MD at 12:51 EDT , Assessment & Plan Assessment/Plan (1) COPD exacerbation: PLAN: Plan The patient is a 61 y/o F w/ PMHx: EtOH abuse (6-8 beers daily), HTN, HLD, Asthma/COPD, Chronic pain syndrome w/ chronic spinal cord stimulator, Depression and Anxiety, Hx VTE (recurrent on Eliquis), [place], Tobacco use who presents to the [facility] ED on 02/13/22 with history of recent exposure to several sick grandchildren with a 3-day history of progressive worsening dyspnea, cough that is specifically nonproductive as well as wheezing with no history of home oxygen supplementation usage and reportedly unvaccinated against COVID with history of 2 COVID illnesses in the past without improvement with any nebulizers or aerosol treatments at home prompting eventual ED evaluation. #1. Acute Hypoxia secondary to Acute on chronic COPD/Asthma exacerbation w/ associated right middle lobe pneumonia likely superimposed on recent acute viral syndrome: We will admit to medical surgical floor, maintain on oxygen with wean as tolerated to room air, continue ATC duonebs, PRN albuterol, IV methylprednisolone with prednisone transition, HOB, IS parameters, IV Rocephin and azithromycin pending sputum culture, full respiratory viral panel and urinary antigens. #2. EtOH Abuse: Patient notes routine consumption of 6-8 beers per day. Will maintain on CIWA protocol, MVI, thiamine and folic acid. Magnesium and phosphorus levels requested. Case management consulted for substance abuse. #3. History of recurrent VTE: Patient with history of recurrent DVT, PE, we will continue patient home Eliquis regimen #4. Hypertension: Continue home regimen including amlodipine, spironolactone, metoprolol, PRN hydralazine. #5. Hyperlipidemia: Not on regimen, defer to outpatient. #6. Chronic pain syndrome: Patient status post pain cord stimulator placement, encourage frequent positional changes, recommended follow-up with pain physician outpatient as previously arranged. #7. Anxiety and depression: We will continue patient home duloxetine regimen. #8. Tobacco Abuse: Encouraged cessation, inpatient consultation per RT, NR if desired. #9. GERD: We will continue patient on famotidine regimen. #10. DVT prophylaxis: SCDs, continue patient home Eliquis regimen. Charges/Coding Visit Charges Inpatient E&M: 42201 Init Hosp L3
[2022-02-13] MEDS: Ceftriaxone 1 GM/50 ML BAG IV (13:57)
--- NOTE | 2022-02-13 14:26 | NURSING ---
MED SURG WHITE HYPOXIA, COPD EXAC, PNEUMONIA
[2022-02-13] MEDS: 0.9% Normal Saline 1,000 ML 100 ML IV (16:30)
[2022-02-13] MEDS: Ensure Plus High Protein 120 ML LIQUID PO (17:11)
[2022-02-13 17:22] LABS: Magnesium 2.2 mg/dL (1.6-2.6); Phosphorus 2.8 mg/dL (2.5-4.9)
[2022-02-13 17:23] LABS: Procalcitonin < 0.04 ng/mL (0.00-0.09)
[2022-02-13] MEDS: APIXABAN 5 MG TABLET PO (21:53)
[2022-02-13] MEDS: Famotidine 20 MG Tablet PO (21:54)
[2022-02-14] VITALS (14 sets, daily range): BP systolic 110–142; BP diastolic 68–84; PULSE 72–100; RESP 17–22; TEMP 36.6–37.1; O2SAT 94–99
[2022-02-14] MEDS: 0.9% Saline Lock 10 ML Syringe IV ×2 (05:22→22:20)
[2022-02-14 05:47] LABS: Absolute Lymphocyte Count 0.58 X10^3/uL (0.83-4.51); Absolute Neutrophil Count 5.8 X10^3/uL (2.0-7.7); Hematocrit 40.3 % (37-47); Lymphocyte # 0.58 X10^3/ul (0.83-4.51); Lymphocyte % 8.7 % (19-41); Mean Corp Hgb Conc 34.7 g/dL (32-36); Mean Corpuscular Hgb 31.3 pg (27.0-32.0); Monocyte# 0.28 X10^3/uL; Monocyte% 4.2 % (0-10); NRBC Flagged by Analyzer 0 % (0-5); Neutrophil # 5.75 X10^3/uL (2.7-7.7); Neutrophil % 86.6 % (47-70); POSITIVE DIFFERENTIAL YES; Platelet Count 210 K/mm3 (150-450); RBC Distribution Width CV 12.6 % (11.6-14.6); RBC Distribution Width SD 41.7 fl (35.1-43.9); Red Blood Count 4.48 M/mm3 (4.2-5.4); White Blood Count 6.6 K/mm3 (4.4-11.0)
[2022-02-14 06:00] LABS: Differential Indicated SCAN CRITERIA MET
[2022-02-14 06:30] LABS: ALB/GLOB Ratio 0.8 RATIO (0.9-2.4); AST(SGOT) 19 U/L (15-37); Alanine Aminotransfer ALT/SGPT 31 U/L (13-56); Albumin, Serum 3.4 g/dL (3.2-5.0); Alkaline Phosphatase 58 U/L (45-117); Anion Gap 7 (5-15); BUN 7 mg/dL (7-18); BUN/Creat Ratio 14.5 RATIO (10-20); Chloride 106 mmol/L (98-107); Creatinine, Serum 0.48 mg/dL (0.55-1.02); EST Glomerular Filtration Rate 138 mL/min (>60); Est Glom Filt Rate - Afr Amer 167 mL/min (>60); Estimated Creatinine Clearance 100.47 ml/min; Glucose 155 mg/dL (74-106); Potassium 3.8 mmol/L (3.5-5.1); Protein, Total 7.4 g/dL (6.4-8.2); Sodium Level 135 mmol/L (136-145)
[2022-02-14] MEDS: Ipratropium/Albuterol Sulfate 3 ML AMPUL.NEB INHALATION ×4 (06:56→19:58)
[2022-02-14] MEDS: Ensure Plus High Protein 120 ML LIQUID PO ×3 (07:31→17:19)
[2022-02-14] MEDS: Multivitamins,Therapeutic Tablet 1 TABLET PO (07:33)
[2022-02-14] MEDS: Thiamine Hydrochloride 100 MG Tablet PO (07:33)
[2022-02-14] MEDS: Folic Acid 1 MG Tablet PO (07:33)
--- NOTE | 2022-02-14 08:34 | PCM.PN.HOSP ---
Subjective Subjective Follow-up for COPD exacerbation due to pneumonia. Patient has RSV positive. Still very short of breath, labored breathing and severe bout of cough. Objective Data Objective Data Vital Signs: Vital Signs Temp Pulse Resp BP Pulse Ox O2 Del Method O2 Flow Rate 98.3 F 82 22 H 142/84 H 98 Nasal Cannula 2 02/14/22 05:31 02/14/22 06:56 02/14/22 06:56 02/14/22 05:31 02/14/22 06:56 02/14/22 06:56 02/14/22 06:56 Oxygen Flow Rate (L/min) 2 Oxygen Delivery Method Nasal Cannula Weight: 114 lb Body Mass Index (BMI) 19.5 Intake & Output: Intake and Output for Last 24 Hours 02/12/22 02/13/22 02/14/22 23:59 23:59 23:59 Intake Total 755 / 995 1480 / 1480 Output Total 100 / 100 Balance 655 / 895 1480 / 1480 Lab / Micro Data Result Diagrams: 02/14/22 05:20 02/14/22 05:20 Labs: Laboratory Results - last 24 hr 02/13/22 11:08: WBC 6.8, RBC 4.74, Hgb 14.8, Hct 42.9, MCV 90.5, MCH 31.2, MCHC 34.5, RDW Std Deviation 42.7, RDW Coeff of Jaqueline 12.9, Plt Count 216, MPV 9.1, Immature Gran % (Auto) 0.100, Neut % (Auto) 56.0, Lymph % (Auto) 29.4, [place] % (Auto) 12.1 H, Eos % (Auto) 2.0, Baso % (Auto) 0.4, Absolute Neuts (auto) 3.8, Absolute Lymphs (auto) 2.01, Nucleated RBC % 0 02/13/22 11:08: Sodium 135 L, Potassium 3.6, Chloride 101, Carbon Dioxide 24.0, Anion Gap 10, BUN 6 L, Creatinine 0.57, Estim Creat Clear Calc 86.83, Est GFR (MDRD) Af Amer 140, Est GFR (MDRD) Non-Af 115, BUN/Creatinine Ratio 10.6, Glucose 89, Calcium 9.6 02/13/22 11:08: Phosphorus 2.8, Magnesium 2.2 02/13/22 15:10: Procalcitonin < 0.04 02/14/22 05:20: WBC 6.6, RBC 4.48, Hgb 14.0, Hct 40.3, MCV 90.0, MCH 31.3, MCHC 34.7, RDW Std Deviation 41.7, RDW Coeff of Jaqueline 12.6, Plt Count 210, MPV 9.0, Immature Gran % (Auto) 0.500, Neut % (Auto) 86.6 H, Lymph % (Auto) 8.7 L, [place] % (Auto) 4.2, Eos % (Auto) 0.0, Baso % (Auto) 0.0, Absolute Neuts (auto) 5.8, Absolute Lymphs (auto) 0.58 L, Nucleated RBC % 0 02/14/22 05:20: Sodium 135 L, Potassium 3.8, Chloride 106, Carbon Dioxide 22.0, Anion Gap 7, BUN 7, Creatinine 0.48 L, Estim Creat Clear Calc 100.47, Est GFR (MDRD) Af Amer 167, Est GFR (MDRD) Non-Af 138, BUN/Creatinine Ratio 14.5, Glucose 155 H, Calcium 9.0, Total Bilirubin 0.40, AST 19, ALT 31, Alkaline Phosphatase 58, Total Protein 7.4, Albumin 3.4, Globulin 4.0, Albumin/Globulin Ratio 0.8 L Micro: Microbiology 02/13/22 15:57 Mucosa - Nose Respiratory Panel (PCR) - Final RSV A 02/13/22 16:10 Urine, Clean Catch Legionella Antigen - Final 02/13/22 16:10 Urine, Clean Catch Streptococcus pneumoniae Antigen (M - Final 02/13/22 10:46 Nasal Secretion SARS-CoV-2 Antigen (Rapid) - Final Radiography Diagnostic Testing: Radiology Impression Chest X-Ray 02/13/22 10:36 IMPRESSION: Hyperinflation. Findings suggestive of a new focal infiltrate in the right middle lobe superimposed on bibasilar scarring. Electronically Signed: Pato Paniagua MD at 12:51 EDT , Physical Exam Narrative Patient is able to bring up greenish-yellow sputum. Patient has severe cough. Patient is still smokes a pack per day, started at teenage. Physical exam general: Alert, Oriented x3, Cooperative HEENT: Atraumatic, PERRLA, EOMI, Normocephalic Oral: No Gingival or Mucosal Lesions/ Ulcerations Neck: Supple, No JVD, Negative Carotid Bruits Lungs: Air entry severely diminished in bilateral lungs. Bilateral expiratory rhonchi and wheezing. Labored breathing. Cardiovascular: Regular rate, Regular Rhythm, Normal S1, Normal S2, No murmurs Abdomen: Bowel Sounds Present, Soft, Non Tender, Non-Distended : No renal angle tenderness. No suprapubic tenderness. Extremities: No edema, Capillary Refill Less than 3 Seconds Skin: No rashes, No breakdown Musculoskeletal: No Tenderness to Palpation of Joints or Extremities Neurological: Cranial nerves II-XII grossly intact, DTR 2+/4 and Symmetrical, Neuro grossly intact Psych/Mental Status: Normal Affect, Appropriate. Assessment & Plan Assessment/Plan (1) COPD exacerbation: PLAN: Plan The patient is a 61 y/o F with history of chronic smoking and COPD/asthma bronchitis admitted with severe shortness of breath, cough and chest x-ray suggestive of right middle lobe pneumonia. #1. Acute Hypoxia secondary to COPD/Asthma exacerbation w/ associated right middle lobe RSV possible superimposed bacterial, RML pneumonia: Patient admitted in PCU. On scheduled DuoNeb, IV Solu-Medrol, incentive spirometry, PEP, Rocephin and Zithromax and Mucinex. Respiratory panel positive for RSV 8. Urinary antigens are negative. Rapid SARS-CoV-2 antigen negative. Sputum culture pending. Chest x-ray image reviewed and shows right middle lobe new infiltrate suggestive of pneumonia #2. EtOH Abuse: Patient notes routine consumption of 6-8 beers per day. on CIWA protocol, MVI, thiamine and folic acid. Magnesium and phosphorus levels are normal. Case management consulted for substance abuse. 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 Hypertension: Continue home regimen including amlodipine, spironolactone, metoprolol, PRN hydralazine. #5. Hyperlipidemia: Fasting profile tomorrow AM. #6. Chronic pain syndrome: Patient status post pain cord stimulator placement, encourage frequent positional changes, recommended follow-up with pain physician outpatient as previously arranged. #7. Anxiety and depression: continue patient home duloxetine regimen. #8. Tobacco Abuse: Encouraged cessation, inpatient consultation per RT, NR if desired. #9. GERD: We will continue patient on famotidine regimen. #10. DVT prophylaxis: SCDs, continue patient home Eliquis regimen. Total time of the visit including total time spent in counseling or coordination of care, (more than 50% of the total time, spent in obtaining medical information from nurses and other ancillary care providers,explaining to the patient about labs, imaging, diagnosis and management of active complex medical conditions), smoking cessation, review of labs and imaging is 40 minutes. Microbiology Past 72 Hours 02/13/22 22:00 Sputum, Expectorated/Coughed Gram Stain - Final 02/13/22 22:00 Sputum, Expectorated/Coughed Respiratory Culture - Preliminary 02/13/22 15:57 Mucosa - Nose Respiratory Panel (PCR) - Final RSV A 02/13/22 16:10 Urine, Clean Catch Legionella Antigen - Final 02/13/22 16:10 Urine, Clean Catch Streptococcus pneumoniae Antigen (M - Final 02/13/22 10:46 Nasal Secretion SARS-CoV-2 Antigen (Rapid) - Final Laboratory Results 02/13/22 11:08: Phosphorus 2.8, Magnesium 2.2 02/13/22 15:10: Procalcitonin < 0.04 02/14/22 05:20: WBC 6.6, RBC 4.48, Hgb 14.0, Hct 40.3, MCV 90.0, MCH 31.3, MCHC 34.7, RDW Std Deviation 41.7, RDW Coeff of Jaqueline 12.6, Plt Count 210, MPV 9.0, Immature Gran % (Auto) 0.500, Neut % (Auto) 86.6 H, Lymph % (Auto) 8.7 L, [place] % (Auto) 4.2, Eos % (Auto) 0.0, Baso % (Auto) 0.0, Absolute Neuts (auto) 5.8, Absolute Lymphs (auto) 0.58 L, Nucleated RBC % 0 02/14/22 05:20: Sodium 135 L, Potassium 3.8, Chloride 106, Carbon Dioxide 22.0, Anion Gap 7, BUN 7, Creatinine 0.48 L, Estim Creat Clear Calc 100.47, Est GFR (MDRD) Af Amer 167, Est GFR (MDRD) Non-Af 138, BUN/Creatinine Ratio 14.5, Glucose 155 H, Calcium 9.0, Total Bilirubin 0.40, AST 19, ALT 31, Alkaline Phosphatase 58, Total Protein 7.4, Albumin 3.4, Globulin 4.0, Albumin/Globulin Ratio 0.8 L Charges/Coding Visit Charges Inpatient E&M: 65243 Subs Hosp L3
[2022-02-14] MEDS: Ceftriaxone 1 GM/50 ML BAG IV (09:59)
[2022-02-14] MEDS: FLU VACC QS2022-23(6MOS UP)/PF 60 MCG/0.5 ML SYRINGE IM (10:05)
[2022-02-14] MEDS: APIXABAN 5 MG TABLET PO ×2 (10:09→22:20)
[2022-02-14] MEDS: Metoprolol(XL)Succ 25 MG Tablet PO (10:10)
[2022-02-14] MEDS: Famotidine 20 MG Tablet PO ×2 (10:10→22:20)
[2022-02-14] MEDS: amLODIPine 5 MG Tablet PO (10:10)
[2022-02-14] MEDS: DULoxetine Hcl 30 MG Capsule PO (10:10)
--- NOTE | 2022-02-14 10:40 | CASEMGMT ---
RN YAW Face to Face with patient for initial transition planning/care coordination assessment. RN CM introduced self and role at [facility]. Patient lying in bed, alert and oriented. Patient willing to participate in assessment and is able to answer all questions appropriately. Care providers, pharmacy, and demographics verified. Patient wishes to discharge home, denies need for home health at this time. Patient states she has no further needs or concerns at this time. CM to follow for discharge planning needs that may arise. PCP: Leslie Baer Specialists: Obie, liquor rectifier; Yohana, licensed physical therapist assistant; Carson, pain Preferred Pharmacy: [facility] Insurance: [employer] Prescription Benefit: yes Living Will/HPOA: none LNOK: Fiance Living Arrangements: Patient lives with fiance and family in a 2 story home with bed and bath on first floor. 2 steps to enter the home. Patient states she is independent at home. Transportation: self, fiance DME/HHC: Patient states she has walker and nebulizer at home. Patient states her preferred provider for DME is [facility] and declines list of DME agencies at this time. Will monitor for home oxygen and pulse ox at discharge. No previous HHC or SNF. Disposition Plan: Patient to discharge home with family support and follow-up plans in place. Gabrielle ERWIN, RN, CM
[2022-02-14] MEDS: MELATONIN 3 MG TABLET PO (23:46)
[2022-02-14] MEDS: Acetaminophen 325 MG Tablet 650 MG PO (23:46)
[2022-02-15] VITALS (14 sets, daily range): BP systolic 123–142; BP diastolic 77–82; PULSE 59–86; RESP 14–22; TEMP 36.4–36.9; O2SAT 94–99
[2022-02-15 06:39] LABS: Absolute Lymphocyte Count 0.63 X10^3/uL (0.83-4.51); Absolute Neutrophil Count 11.1 X10^3/uL (2.0-7.7); Basophil# 0.01 X10^3/uL; Basophil% 0.1 % (0-1); Hematocrit 39.7 % (37-47); Hemoglobin 13.5 g/dL (12.0-15.0); Lymphocyte # 0.63 X10^3/ul (0.83-4.51); Lymphocyte % 5.1 % (19-41); Mean Corpuscular Hgb 31.3 pg (27.0-32.0); Mean Corpuscular Volume 91.9 fL (81-99); Mean Platelet Vol. 9.1 fl (6.2-12.0); Monocyte# 0.46 X10^3/uL; Monocyte% 3.7 % (0-10); NRBC Flagged by Analyzer 0 % (0-5); Neutrophil # 11.12 X10^3/uL (2.7-7.7); Neutrophil % 90.5 % (47-70); Platelet Count 233 K/mm3 (150-450); RBC Distribution Width SD 43.8 fl (35.1-43.9); Red Blood Count 4.32 M/mm3 (4.2-5.4); White Blood Count 12.3 K/mm3 (4.4-11.0)
[2022-02-15] MEDS: 0.9% Saline Lock 10 ML Syringe IV ×2 (07:00→22:37)
[2022-02-15 07:13] LABS: Anion Gap 6 (5-15); BUN 15 mg/dL (7-18); BUN/Creat Ratio 32.3 RATIO (10-20); Chloride 108 mmol/L (98-107); Cholesterol 174 mg/dL (200); Creatinine, Serum 0.46 mg/dL (0.55-1.02); EST Glomerular Filtration Rate 145 mL/min (>60); Est Glom Filt Rate - Afr Amer 176 mL/min (>60); Glucose 139 mg/dL (74-106); High Density Lipoprotein 87 mg/dL; Potassium 4.2 mmol/L (3.5-5.1); Sodium Level 137 mmol/L (136-145); Triglycerides 41 mg/dL; Very Low Density Lipoprotein 8 mg/dL (5-40)
[2022-02-15] MEDS: Ipratropium/Albuterol Sulfate 3 ML AMPUL.NEB INHALATION ×4 (07:13→19:26)
--- NOTE | 2022-02-15 08:16 | PN.HOSP_ITS ---
Subjective Subjective Follow-up for COPD exacerbation due to pneumonia complicated by RSV. Objective Data Objective Data Vital Signs: Vital Signs Temp Pulse Resp BP Pulse Ox O2 Del Method O2 Flow Rate 97.5 F L 84 22 H 141/82 H 94 Nasal Cannula 2 02/15/22 04:00 02/15/22 07:13 02/15/22 07:13 02/15/22 04:00 02/15/22 07:13 02/15/22 07:13 02/15/22 07:13 Oxygen Flow Rate (L/min) 2 Oxygen Delivery Method Nasal Cannula Weight: 121 lb 0.54 oz Body Mass Index (BMI) 19.5 Intake & Output: Intake and Output for Last 24 Hours 02/13/22 02/14/22 02/15/22 23:59 23:59 23:59 Intake Total 755 / 995 1785 / 1785 Output Total 100 / 100 200 / 200 Balance 655 / 895 1585 / 1585 Lab / Micro Data Result Diagrams: 02/15/22 06:10 02/15/22 06:10 Labs: Laboratory Results - last 24 hr 02/15/22 06:10: WBC 12.3 H, RBC 4.32, Hgb 13.5, Hct 39.7, MCV 91.9, MCH 31.3, MCHC 34.0, RDW Std Deviation 43.8, RDW Coeff of Jaqueline 13.0, Plt Count 233, MPV 9.1 , Immature Gran % (Auto) 0.600, Neut % (Auto) 90.5 H, Lymph % (Auto) 5.1 L, [place] % (Auto) 3.7, Eos % (Auto) 0.0, Baso % (Auto) 0.1, Absolute Neuts (auto) 11.1 H, Absolute Lymphs (auto) 0.63 L, Nucleated RBC % 0 02/15/22 06:10: Sodium 137, Potassium 4.2, Chloride 108 H, Carbon Dioxide 23.0, Anion Gap 6, BUN 15, Creatinine 0.46 L, Estim Creat Clear Calc 110.90, Est GFR (MDRD) Af Amer 176, Est GFR (MDRD) Non-Af 145, BUN/Creatinine Ratio 32.3 H, Glucose 139 H, Calcium 9.0, Triglycerides 41, Cholesterol 174, LDL Cholesterol 79, VLDL Cholesterol 8, HDL Cholesterol 87 Micro: Microbiology 02/13/22 22:00 Sputum, Expectorated/Coughed Gram Stain - Final 02/13/22 22:00 Sputum, Expectorated/Coughed Respiratory Culture - Preliminary 02/13/22 15:57 Mucosa - Nose Respiratory Panel (PCR) - Final RSV A 02/13/22 16:10 Urine, Clean Catch Legionella Antigen - Final 02/13/22 16:10 Urine, Clean Catch Streptococcus pneumoniae Antigen (M - Final 02/13/22 10:46 Nasal Secretion SARS-CoV-2 Antigen (Rapid) - Final Physical Exam Narrative Patient is coughing out greenish-yellow sputum. Cough is better. Patient is still smokes a pack per day, started at teenage. Physical exam general: Alert, Oriented x3, Cooperative HEENT: Atraumatic, PERRLA, EOMI, Normocephalic Oral: No Gingival or Mucosal Lesions/ Ulcerations Neck: Supple, No JVD, Negative Carotid Bruits Lungs: Air entry severely diminished in bilateral lungs. No dyspnea at rest/labored breathing. Dyspnea on exertion. Bilateral rhonchi/wheezing improved. Cardiovascular: Regular rate, Regular Rhythm, Normal S1, Normal S2, No murmurs Abdomen: Bowel Sounds Present, Soft, Non Tender, Non-Distended : No renal angle tenderness. No suprapubic tenderness. Extremities: No edema, Capillary Refill Less than 3 Seconds Skin: No rashes, No breakdown Musculoskeletal: No Tenderness to Palpation of Joints or Extremities Neurological: Cranial nerves II-XII grossly intact, DTR 2+/4 and Symmetrical, Neuro grossly intact Psych/Mental Status: Normal Affect, Appropriate. Assessment & Plan Assessment/Plan (1) COPD exacerbation: PLAN: Plan The patient is a 61 y/o F with history of chronic smoking and COPD/asthma bronchitis admitted with severe shortness of breath, cough and chest x-ray suggestive of right middle lobe pneumonia. #1. Acute Hypoxia secondary to COPD/Asthma exacerbation w/ associated right middle lobe RSV possible superimposed bacterial, RML pneumonia: Patient admitted in PCU. On scheduled DuoNeb, IV Solu-Medrol, incentive spirometry, PEP, Rocephin and Zithromax and Mucinex. Respiratory panel positive for RSV 8. Urinary antigens are negative. Rapid SARS-CoV-2 antigen negative. Sputum culture pending. Chest x-ray image reviewed and shows right middle lobe new infiltrate suggestive of pneumonia 02/15: Dyspnea on mild exertion. Continue bronchodilator Solu-Medrol and antibiotics. Prelim sputum culture shows 2+ GPC, 2+ G SC and 4+ WBC. Pulse ox noted yesterday was 94% on room air but patient gets dyspnea without oxygen therefore back on O2, currently 95% on 2 L oxygen. Discussed with nursing just #2. EtOH Abuse: Patient notes routine consumption of 6-8 beers per day. on CIWA protocol, MVI, thiamine and folic acid. Magnesium and phosphorus levels are normal. Case management consulted for substance abuse. #3. History of recurrent VTE: Patient with history of recurrent DVT, PE, co ntinue patient home Eliquis regimen #4. Hypertension: Continue home regimen including amlodipine, spironolactone, metoprolol, PRN hydralazine. #5. Hyperlipidemia: 02/15: Fasting profile normal range, LDL 79, HDL 87. Does not need hypolipidemic agent. #6. Chronic pain syndrome: Patient status post pain cord stimulator placement, encourage frequent positional changes, recommended follow-up with pain physician outpatient as previously arranged. #7. Anxiety and depression: continue patient home duloxetine regimen. #8. Tobacco Abuse: Patient on nicotine patch #9. GERD: continue patient on famotidine regimen. #10. DVT prophylaxis: SCDs, continue patient home Eliquis regimen. Total time of the visit including total time spent in counseling or coordination of care, (more than 50% of the total time, spent in obtaining medical information from nurses and other ancillary care providers,explaining to the patient about labs, imaging, diagnosis and management of active complex medical conditions), smoking cessation, review of labs and imaging is 40 minutes. Microbiology Past 72 Hours 02/13/22 22:00 Sputum, Expectorated/Coughed Gram Stain - Final 02/13/22 22:00 Sputum, Expectorated/Coughed Respiratory Culture - Preliminary 02/13/22 15:57 Mucosa - Nose Respiratory Panel (PCR) - Final RSV A 02/13/22 16:10 Urine, Clean Catch Legionella Antigen - Final 02/13/22 16:10 Urine, Clean Catch Streptococcus pneumoniae Antigen (M - Final 02/13/22 10:46 Nasal Secretion SARS-CoV-2 Antigen (Rapid) - Final Laboratory Results 02/15/22 06:10: WBC 12.3 H, RBC 4.32, Hgb 13.5, Hct 39.7, MCV 91.9, MCH 31.3, MCHC 34.0, RDW Std Deviation 43.8, RDW Coeff of Jaqueline 13.0, Plt Count 233, MPV 9.1, Immature Gran % (Auto) 0.600, Neut % (Auto) 90.5 H, Lymph % (Auto) 5.1 L, [place] % (Auto) 3.7, Eos % (Auto) 0.0, Baso % (Auto) 0.1, Absolute Neuts (auto) 11.1 H, Absolute Lymphs (auto) 0.63 L, Nucleated RBC % 0 02/15/22 06:10: Sodium 137, Potassium 4.2, Chloride 108 H, Carbon Dioxide 23.0, Anion Gap 6, BUN 15, Creatinine 0.46 L, Estim Creat Clear Calc 110.90, Est GFR (MDRD) Af Amer 176, Est GFR (MDRD) Non-Af 145, BUN/Creatinine Ratio 32.3 H, Glucose 139 H, Calcium 9.0, Triglycerides 41, Cholesterol 174, LDL Cholesterol 79, VLDL Cholesterol 8, HDL Cholesterol 87 Charges/Coding Visit Charges Inpatient E&M: 22922 Subs Hosp L3
[2022-02-15] MEDS: Ceftriaxone 1 GM/50 ML BAG IV (09:22)
[2022-02-15] MEDS: Multivitamins,Therapeutic Tablet 1 TABLET PO (09:32)
[2022-02-15] MEDS: Thiamine Hydrochloride 100 MG Tablet PO (09:32)
[2022-02-15] MEDS: APIXABAN 5 MG TABLET PO ×2 (09:32→22:37)
[2022-02-15] MEDS: amLODIPine 5 MG Tablet PO (09:33)
[2022-02-15] MEDS: Folic Acid 1 MG Tablet PO (09:34)
[2022-02-15] MEDS: Metoprolol(XL)Succ 25 MG Tablet PO (09:35)
[2022-02-15] MEDS: DULoxetine Hcl 30 MG Capsule PO (09:35)
[2022-02-15] MEDS: Famotidine 20 MG Tablet PO ×2 (09:36→22:37)
[2022-02-15] MEDS: Ensure Plus High Protein 120 ML LIQUID PO (17:27)
[2022-02-15] MEDS: MELATONIN 3 MG TABLET PO (22:37)
[2022-02-16 04:00] VITALS: BP 146/80; PULSE 96; RESP 14; TEMP 36.8; O2SAT 96
[2022-02-16] MEDS: 0.9% Saline Lock 10 ML Syringe IV (05:40)
[2022-02-16 05:44] VITALS: BP 146/80; PULSE 62; RESP 14; TEMP 36.8; O2SAT 94
[2022-02-16 06:39] LABS: Absolute Lymphocyte Count 0.78 X10^3/uL (0.83-4.51); Absolute Neutrophil Count 9.3 X10^3/uL (2.0-7.7); Hematocrit 40.5 % (37-47); Hemoglobin 13.8 g/dL (12.0-15.0); Lymphocyte # 0.78 X10^3/ul (0.83-4.51); Lymphocyte % 7.4 % (19-41); Mean Corp Hgb Conc 34.1 g/dL (32-36); Mean Corpuscular Hgb 31.2 pg (27.0-32.0); Mean Corpuscular Volume 91.6 fL (81-99); Mean Platelet Vol. 8.7 fl (6.2-12.0); Monocyte# 0.44 X10^3/uL; Monocyte% 4.2 % (0-10); NRBC Flagged by Analyzer 0 % (0-5); Neutrophil # 9.32 X10^3/uL (2.7-7.7); Neutrophil % 87.8 % (47-70); Platelet Count 255 K/mm3 (150-450); RBC Distribution Width CV 12.9 % (11.6-14.6); RBC Distribution Width SD 43.4 fl (35.1-43.9); Red Blood Count 4.42 M/mm3 (4.2-5.4); White Blood Count 10.6 K/mm3 (4.4-11.0)
[2022-02-16 06:50] VITALS: PULSE 62; RESP 24; O2SAT 92
[2022-02-16] MEDS: Ipratropium/Albuterol Sulfate 3 ML AMPUL.NEB INHALATION (06:50)
[2022-02-16 07:08] LABS: Anion Gap 8 (5-15); BUN 13 mg/dL (7-18); BUN/Creat Ratio 24.2 RATIO (10-20); Calcium,Total 9.1 mg/dL (8.5-10.1); Chloride 106 mmol/L (98-107); Creatinine, Serum 0.54 mg/dL (0.55-1.02); EST Glomerular Filtration Rate 123 mL/min (>60); Est Glom Filt Rate - Afr Amer 148 mL/min (>60); Estimated Creatinine Clearance 94.47 ml/min; Glucose 125 mg/dL (74-106); Sodium Level 137 mmol/L (136-145)
--- NOTE | 2022-02-16 08:01 | PCM.DC ---
Discharge Instructions Diet Discharge Diet: No restrictions Activity Discharge Activity: Return to Normal Activity Weight Bearing Status: Weight bearing as tolerated Dressing / Incision Call your doctor if you observe: Fever of 101 or Higher, Coldness, Increased Pain, Numbness or Tingling, Change in Color, Inability to urinate, Inability to have a bowel movement, Using more than 1 pad per hour, Shortness of breath, Dizziness, Fainting spells, Swelling in the ankles, Chest pain, Prolonged hiccupping, Increased palpitations (irregular heartbeat) and Calf discomfort Follow Up Care Test Results: Test results from this visit will be discussed in further detail at your follow-up appointment, if applicable. Discharge Plan Admission Admit Date/Time: 02/13/22 14:08 Primary Reason for Your Visit: RSV and bacterial pneumonia, COPD exacerbation Attending Provider: Han Schuler Primary Care Provider: Leslie Ferrari Consulting Providers: Kritsen Bateman Instructions Additional Instructions / Restrictions: Smoking cessation advised. Discharge Orders/Prescriptions Prescriptions: New folic acid 1 mg Tablet 1 mg PO BREAKFAST Qty: 30 0RF thiamine HCl (vitamin B1) [Vitamin B-1] 100 mg Tablet 100 mg PO DAILYCM Qty: 30 0RF nicotine 21 mg/24 hr Patch 24 Hour 21 mg transdermal DAILY Qty: 30 0RF levofloxacin 500 mg tablet 500 mg PO DAILY Qty: 4 0RF prednisone 10 mg tablets,dose pack See Taper PO DAILY Qty: 30 0RF Taper: Prednisone Taper 40 mg WITH BREAKFAST for 3 Days and 0 Hour 30 mg WITH BREAKFAST for 3 Days and 0 Hour 20 mg WITH BREAKFAST for 3 Days and 0 Hour 10 mg WITH BREAKFAST for 3 Days and 0 Hour Continued alendronate [Fosamax] 70 mg tablet 70 mg PO QWEEK Rx Instructions: every sunday famotidine 20 mg tablet 20 mg PO BID tizanidine 4 mg capsule 4 mg PO BID PRN (Reason: Pain) metoprolol succinate 25 mg tablet extended release 24 hr 25 mg PO DAILY amlodipine 5 MG tablet 5 mg PO DAILY duloxetine 30 MG capsule 30 mg PO DAILY acetaminophen 325 MG tablet 650 mg PO Q6H PRN PRN (Reason: Pain) 0RF albuterol sulfate 2.5 MG/3 ML solution for nebulization 2.5 mg inhalation Q4H PRN PRN (Reason: Shortness Of Breath) albuterol sulfate 1 PUFF inhaler 2 puff inhalation Q4H PRN PRN (Reason: Shortness Of Breath) Eliquis 5 mg tablet 5 mg PO BID Breo Ellipta 100-25 mcg/dose blister with device 1 inh INHALATION DAILY Qty: 60 11RF Referrals / Follow Up: [facility],Leslie Snowden [Primary Care Provider] - Within 2 Weeks Jelani Ragland MD [Med Staff - Active Staff] - Within 2 Weeks (Patient has appointment on February 28, 2022) Disposition Disposition (needs filled in before D/C Order can be placed): Home, Self Care
[2022-02-16 09:00] VITALS: BP 130/84; PULSE 96; RESP 18; TEMP 36.8; O2SAT 96
--- NOTE | 2022-02-16 09:03 | DS.PCM_ITS ---
Providers Date of Admission: 02/13/22 Date of Discharge: 02/16/22 Primary Care Physician: Leslie [facility] Reason For Visit: HYPOXIA, COPD/ASTHMA EXAC, PNA Diagnosis Discharge Diagnosis (1) COPD exacerbation: Status: Acute Code(s): J44.1 - Chronic obstructive pulmonary disease with (acute) exacerbation Medications at Discharge Home Medications amlodipine 5 mg tablet 5 mg PO DAILY blood pressure 12/09/17 duloxetine 30 mg capsule,delayed release 30 mg PO DAILY depression 04/15/18 acetaminophen 325 mg tablet 650 mg PO Q6H PRN PRN Pain 06/23/18 albuterol sulfate 2.5 mg/3 mL (0.083 %) solution for nebulization 2.5 mg inhalation Q4H PRN PRN Shortness Of Breath 06/30/19 albuterol sulfate 90 mcg/actuation aerosol inhaler 2 puff inhalation Q4H PRN PRN Shortness Of Breath 06/30/19 alendronate 70 mg tablet (Fosamax) 70 mg PO QWEEK bone health\ 09/17/19 fluticasone furoate 100 mcg-vilanterol 25 mcg/dose inhalation powder (Breo Ellipta) 1 inh inhalation DAILY #60 ea 11/11/19 famotidine 20 mg tablet 20 mg PO BID gerd 04/11/21 metoprolol succinate 25 mg tablet,extended release 24 hr 25 mg PO DAILY bp 04/11/21 tizanidine 4 mg capsule 4 mg PO BID PRN Pain 04/11/21 apixaban 5 mg tablet (Eliquis) 5 mg PO BID blood clot 02/13/22 folic acid 1 mg tablet 1 mg PO BREAKFAST #30 tabs 02/16/22 levofloxacin 500 mg tablet 500 mg PO DAILY #4 tabs 02/16/22 nicotine 21 mg/24 hr daily transdermal patch 21 mg transdermal DAILY #30 ea 02/16/22 prednisone 10 mg tablets in a dose pack See Taper PO DAILY #30 tabs 02/16/22 thiamine HCl (vitamin B1) 100 mg tablet (Vitamin B-1) 100 mg PO DAILYCM #30 tabs 02/16/22 Hospital Course Summary of Care Provided Hospital Course: The patient is a 61 y/o F with history of chronic smoking and COPD/asthma bronchitis admitted with severe shortness of breath, cough and chest x-ray suggestive of right middle lobe pneumonia. #1. Acute Hypoxia secondary to COPD/Asthma exacerbation w/ associated right middle lobe RSV possible superimposed bacterial, RML pneumonia: Patient admitted in PCU. On scheduled DuoNeb, IV Solu-Medrol, incentive spirometry, PEP, Rocephin and Zithromax and Mucinex. Respiratory panel positive for RSV 8. Urinary antigens are negative. Rapid SARS-CoV-2 antigen negative. Sputum culture pending. Chest x-ray image reviewed and shows right middle lobe new infiltrate suggestive of pneumonia 02/15: Dyspnea on mild exertion. Continue bronchodilator Solu-Medrol and antibiotics. Prelim sputum culture shows 2+ GPC, 2+ G MD and 4+ WBC. Pulse ox noted yesterday was 94% on room air but patient gets dyspnea without oxygen therefore back on O2, currently 95% on 2 L oxygen. 02/16: Patient is weaned off oxygen. Home qualification oxygen ordered. Patient has follow-up with Dr. Ragland on February 28. Patient also had appointment for PFT on number seventh which has to be postponed as she is still recovering from COPD exacerbation and pneumonia. Patient is discharged on Levaquin, tapering dose of prednisone. Patient has a rescue and maintenance inhaler at home. Smoking cessation advised. #2. EtOH Abuse: Patient notes routine consumption of 6-8 beers per day. on CIWA protocol, MVI, thiamine and folic acid. Magnesium and phosphorus levels are normal. Case management consulted for substance abuse. Prescription for thiamine and folic acid sent to patient preferred pharmacy. 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 Hypertension: Continue home regimen including amlodipine, spironolactone, metoprolol, PRN hydralazine. #5. Hyperlipidemia: 02/15: Fasting profile normal range, LDL 79, HDL 87. Does not need hypolipidemic agent. #6. Chronic pain syndrome: Patient status post pain cord stimulator placement, encourage frequent positional changes, recommended follow-up with pain physician outpatient as previously arranged. #7. Anxiety and depression: continue patient home duloxetine regimen. #8. Tobacco Abuse: Patient on nicotine patch #9. GERD: continue patient on famotidine regimen. #10. DVT prophylaxis: SCDs, continue patient home Eliquis regimen. Discharge medication reconciliation done. Discharge follow-up instructions completed. Discharge process discussed with the patient and all questions were answered to patient's satisfaction. Total time spent, exact 35 minutes on discharge meds reconciliation, examination, coordination of care with nurses and ancillary staff, review of imaging and blood test and discussion with the patient on follow-up instructions. Microbiology Past 72 Hours 02/13/22 22:00 Sputum, Expectorated/Coughed Gram Stain - Final 02/13/22 22:00 Sputum, Expectorated/Coughed Respiratory Culture - Final Mixed normal respiratory baljit. No Streptococcus pneumoniae, beta-hemolytic Streptococcus or Staphylococcus aureus isolated. 02/13/22 15:57 Mucosa - Nose Respiratory Panel (PCR) - Final RSV A 02/13/22 16:10 Urine, Clean Catch Legionella Antigen - Final 02/13/22 16:10 Urine, Clean Catch Streptococcus pneumoniae Antigen (M - Final 02/13/22 10:46 Nasal Secretion SARS-CoV-2 Antigen (Rapid) - Final Laboratory Results 02/16/22 06:10: WBC 10.6, RBC 4.42, Hgb 13.8, Hct 40.5, MCV 91.6, MCH 31.2, MCHC 34.1, RDW Std Deviation 43.4, RDW Coeff of Jaqueline 12.9, Plt Count 255, MPV 8.7, Immature Gran % (Auto) 0.600, Neut % (Auto) 87.8 H, Lymph % (Auto) 7.4 L, Lynn % (Auto) 4.2, Eos % (Auto) 0.0, Baso % (Auto) 0.0, Absolute Neuts (auto) 9.3 H, Absolute Lymphs (auto) 0.78 L, Nucleated RBC % 0 02/16/22 06:10: Sodium 137, Potassium 4.0, Chloride 106, Carbon Dioxide 23.0, Anion Gap 8, BUN 13, Creatinine 0.54 L, Estim Creat Clear Calc 94.47, Est GFR (MDRD) Af Amer 148, Est GFR (MDRD) Non-Af 123, BUN/Creatinine Ratio 24.2 H, Glucose 125 H, Calcium 9.1 Physical Exam Narrative Patient only has a dry cough. Cough is better tachypnea and hypoxia improved and resolved. Patient is still smokes a pack per day, started at teenage. Physical exam general: Alert, Oriented x3, Cooperative HEENT: Atraumatic, PERRLA, EOMI, Normocephalic Oral: No Gingival or Mucosal Lesions/ Ulcerations Neck: Supple, No JVD, Negative Carotid Bruits Lungs: Air entry severely diminished in bilateral lungs. Dyspnea on minimal exertion. Bilateral rhonchi/wheezing improved. Not on oxygen at rest. Cardiovascular: Regular rate, Regular Rhythm, Normal S1, Normal S2, No murmurs Abdomen: Bowel Sounds Present, Soft, Non Tender, Non-Distended : No renal angle tenderness. No suprapubic tenderness. Extremities: No edema, Capillary Refill Less than 3 Seconds Skin: No rashes, No breakdown Musculoskeletal: No Tenderness to Palpation of Joints or Extremities Neurological: Cranial nerves II-XII grossly intact, DTR 2+/4 and Symmetrical, Neuro grossly intact Psych/Mental Status: Normal Affect, Appropriate. Weight / BMI Weight Weight: 121 lb 0.54 oz Body Mass Index (BMI) 19.5 ABG / Lab / Microbiology Data Result Diagrams: 02/16/22 06:10 02/16/22 06:10 Laboratory: Laboratory Results - last 24 hr 02/16/22 06:10: WBC 10.6, RBC 4.42, Hgb 13.8, Hct 40.5, MCV 91.6, MCH 31.2, MCHC 34.1, RDW Std Deviation 43.4, RDW Coeff of Jaqueline 12.9, Plt Count 255, MPV 8.7, Immature Gran % (Auto) 0.600, Neut % (Auto) 87.8 H, Lymph % (Auto) 7.4 L, Lynn % (Auto) 4.2, Eos % (Auto) 0.0, Baso % (Auto) 0.0, Absolute Neuts (auto) 9.3 H, Absolute Lymphs (auto) 0.78 L, Nucleated RBC % 0 02/16/22 06:10: Sodium 137, Potassium 4.0, Chloride 106, Carbon Dioxide 23.0, Anion Gap 8, BUN 13, Creatinine 0.54 L, Estim Creat Clear Calc 94.47, Est GFR (MDRD) Af Amer 148, Est GFR (MDRD) Non-Af 123, BUN/Creatinine Ratio 24.2 H, Glucose 125 H, Calcium 9.1 Microbiology: Microbiology 02/13/22 22:00 Sputum, Expectorated/Coughed Gram Stain - Final 02/13/22 22:00 Sputum, Expectorated/Coughed Respiratory Culture - Final Mixed normal respiratory baljit. No Streptococcus pneumoniae, beta-hemolytic Streptococcus or Staphylococcus aureus isolated. 02/13/22 15:57 Mucosa - Nose Respiratory Panel (PCR) - Final RSV A 02/13/22 16:10 Urine, Clean Catch Legionella Antigen - Final 02/13/22 16:10 Urine, Clean Catch Streptococcus pneumoniae Antigen (M - Final 02/13/22 10:46 Nasal Secretion SARS-CoV-2 Antigen (Rapid) - Final D/C Instructions Discharge Diet: No restrictions Weight Bearing Status: Weight bearing as tolerated Call your doctor if you observe: Fever of 101 or Higher, Coldness, Increased Pain, Numbness or Tingling, Change in Color, Inability to urinate, Inability to have a bowel movement, Using more than 1 pad per hour, Shortness of breath, Dizziness, Fainting spells, Swelling in the ankles, Chest pain, Prolonged hiccupping, Increased palpitations (irregular heartbeat) and Calf discomfort Meaningful Use Info Meaningful Use Diagnoses (Choose all that apply): None applicable Discharge Plan Admission Admit Date/Time: 02/13/22 14:08 Primary Reason for Your Visit: RSV and bacterial pneumonia, COPD exacerbation Attending Provider: Han Schuler Primary Care Provider: [facility] Leslie Maynard Consulting Providers: Kristen Bateman Instructions Additional Instructions / Restrictions: Smoking cessation advised. Discharge Orders/Prescriptions Prescriptions: New folic acid 1 mg Tablet 1 mg PO BREAKFAST Qty: 30 0RF thiamine HCl (vitamin B1) [Vitamin B-1] 100 mg Tablet 100 mg PO DAILYCM Qty: 30 0RF nicotine 21 mg/24 hr Patch 24 Hour 21 mg transdermal DAILY Qty: 30 0RF levofloxacin 500 mg tablet 500 mg PO DAILY Qty: 4 0RF prednisone 10 mg tablets,dose pack See Taper PO DAILY Qty: 30 0RF Taper: Prednisone Taper 40 mg WITH BREAKFAST for 3 Days and 0 Hour 30 mg WITH BREAKFAST for 3 Days and 0 Hour 20 mg WITH BREAKFAST for 3 Days and 0 Hour 10 mg WITH BREAKFAST for 3 Days and 0 Hour Continued alendronate [Fosamax] 70 mg tablet 70 mg PO QWEEK Rx Instructions: every sunday famotidine 20 mg tablet 20 mg PO BID tizanidine 4 mg capsule 4 mg PO BID PRN (Reason: Pain) metoprolol succinate 25 mg tablet extended release 24 hr 25 mg PO DAILY amlodipine 5 MG tablet 5 mg PO DAILY duloxetine 30 MG capsule 30 mg PO DAILY acetaminophen 325 MG tablet 650 mg PO Q6H PRN PRN (Reason: Pain) 0RF albuterol sulfate 2.5 MG/3 ML solution for nebulization 2.5 mg inhalation Q4H PRN PRN (Reason: Shortness Of Breath) albuterol sulfate 1 PUFF inhaler 2 puff inhalation Q4H PRN PRN (Reason: Shortness Of Breath) Eliquis 5 mg tablet 5 mg PO BID Breo Ellipta 100-25 mcg/dose blister with device 1 inh INHALATION DAILY Qty: 60 11RF Referrals / Follow Up: Jelani Ragland MD [Med Staff - Active Staff] - Within 2 Weeks (Patient has appointment on February 28, 2022) [facility],Leslie Snowden [Primary Care Provider] - Within 2 Weeks Disposition Disposition (needs filled in before D/C Order can be placed): Home, Self Care Charges/Coding Visit Charges Inpatient E&M: 08376 Disch Hosp
[2022-02-16 09:18] VITALS: O2SAT 90; O2SAT 94
[2022-02-16] MEDS: amLODIPine 5 MG Tablet PO (09:27)
[2022-02-16 09:28] VITALS: BP 130/84; PULSE 96
[2022-02-16] MEDS: APIXABAN 5 MG TABLET PO (09:28)
[2022-02-16] MEDS: DULoxetine Hcl 30 MG Capsule PO (09:28)
[2022-02-16] MEDS: Multivitamins,Therapeutic Tablet 1 TABLET PO (09:28)
[2022-02-16] MEDS: Thiamine Hydrochloride 100 MG Tablet PO (09:28)
[2022-02-16] MEDS: Metoprolol(XL)Succ 25 MG Tablet PO (09:28)
[2022-02-16] MEDS: Famotidine 20 MG Tablet PO (09:28)
[2022-02-16] MEDS: Folic Acid 1 MG Tablet PO (09:28)
--- NOTE | 2022-02-16 09:49 | CASEMGMT ---
RN CM in to pt room. Pt did not qualify for home oxygen. Pt does not have pox. Pt aware one will be provided at dc. Pt denies further homegoing needs. Consult to [facility].
== END 2022-02-16 10:34 | disposition home or self-care (01) | DRG 190 ==
LOC: ED 14:18 → MS3 14:29
PROVIDERS: Admitting Provider Family Medicine; Emergency Provider Emergency Medicine; Visit Provider Internal Medicine
DX: J44.1 Chronic obstructive pulmonary disease with (acute) exacerbation (principal); J12.1 Respiratory syncytial virus pneumonia; J44.0 Chronic obstructive pulmonary disease with (acute) lower respiratory infection; K21.9 Gastro-esophageal reflux disease without esophagitis; F10.10 Alcohol abuse, uncomplicated; G47.33 Obstructive sleep apnea (adult) (pediatric); I10 Essential (primary) hypertension; E78.5 Hyperlipidemia, unspecified; F17.210 Nicotine dependence, cigarettes, uncomplicated; J45.909 Unspecified asthma, uncomplicated; F41.9 Anxiety disorder, unspecified; B97.4 Respiratory syncytial virus as the cause of diseases classified elsewhere; G89.4 Chronic pain syndrome; Z20.822 Contact with and (suspected) exposure to COVID-19; Z79.01 Long term (current) use of anticoagulants; Z23 Encounter for immunization; Z79.899 Other long term (current) drug therapy; F32.A Depression, unspecified; Z86.711 Personal history of pulmonary embolism; Z86.718 Personal history of other venous thrombosis and embolism
CPT/HCPCS: 36415; 71046; 80048; 80053; 80061; 83735; 84100; 84145; 85025; 87070; 87205; 87449; 87633; 87811; 93005; 94640; 94667; 94668; 97802; 99251; 99285; 99406; G0008; J7030; 90686; A4216; G0463

== ENCOUNTER 2022-09-05 06:55 | Day surgery (SDC) | payer MEDICARE, MEDICAID, SELFPAY ==
[2022-09-05] MEDS: Lactated Ringers 1,000 ML 15 ML IV (07:05)
[2022-09-05 07:31] VITALS: BP 135/82; PULSE 95; RESP 18; TEMP 36.4; O2SAT 94; BMI 19.3
--- NOTE | 2022-09-05 07:49 | HP.PCM_ITS ---
History and Physical Date of Admission: 09/05/22 Intake Vital Signs ? 08/22/2312:13 Height 5 ft 4 in Weight: 116 lb 2 oz BMI 19.9 BP 129/88 H Blood Pressure Location Rt radial Position Right Lateral Respiration 20 H Pulse 80 Pulse Source Monitor Temp 97.9 F Pulse Oximetry (%) 96 Intake Visit Reasons:?C-Scope last scope poor prep? 2018 TC Chief Complaint: c-scope consult Allergies buspirone Allergy (Verified 06/15/22 11:26) Angioedemalisinopril Allergy (Verified 06/15/22 11:26) AngioedemaSulfa (Sulfonamide Antibiotics) Allergy (Verified 06/15/22 11:26) Itchingcodeine Adverse Reaction (Intermediate, Verified 06/15/22 11:26) / Medications amlodipine 5 mg tablet 5 mg PO DAILY blood pressure 12/09/17 [History Confirmed 08/22/22] duloxetine 30 mg capsule,delayed release 30 mg PO DAILY depression 04/15/18 [History Confirmed 08/22/22] acetaminophen 325 mg tablet 650 mg PO Q6H PRN PRN Pain 06/23/18 [Rx Confirmed 08/22/22] albuterol sulfate 2.5 mg/3 mL (0.083 %) solution for nebulization 2.5 mg inhalation Q4H PRN PRN Shortness Of Breath 06/30/19 [History Confirmed 08/22/22] albuterol sulfate 90 mcg/actuation aerosol inhaler 2 puff inhalation Q4H PRN PRN Shortness Of Breath 06/30/19 [History Confirmed 08/22/22] alendronate 70 mg tablet (Fosamax) 70 mg PO QWEEK bone health\ 09/17/19 [History Confirmed 08/22/22] fluticasone furoate 100 mcg-vilanterol 25 mcg/dose inhalation powder (Breo Ellipta) 1 inh inhalation DAILY #60 ea 11/11/19 [Rx Confirmed 08/22/22] famotidine 20 mg tablet 20 mg PO BID gerd 04/11/21 [History Confirmed 08/22/22] metoprolol succinate 25 mg tablet,extended release 24 hr 25 mg PO DAILY bp 04/11/21 [History Confirmed 08/22/22] tizanidine 4 mg capsule 4 mg PO BID PRN Pain 04/11/21 [History Confirmed 08/22/22] folic acid 1 mg tablet 1 mg PO BREAKFAST #30 tabs 02/16/22 [Rx Confirmed 08/22/22] thiamine HCl (vitamin B1) 100 mg tablet (Vitamin B-1) 100 mg PO DAILYCM #30 tabs 02/16/22 [Rx Confirmed 08/22/22] apixaban 5 mg tablet (Eliquis) 5 mg PO BID blood clot #60 tabs 03/23/22 [Rx Confirmed 08/22/22] umeclidinium 62.5 mcg/actuation blister powder for inhalation (Incruse Ellipta) 1 inh inhalation DAILY 05/25/22 [History Confirmed 08/22/22] PFSH Medical History? Age related osteoporosis Alcohol abuse Angioedema Anxiety Asthma Benign essential hypertension Chronic pain syndrome Community acquired pneumonia COPD (chronic obstructive pulmonary disease) Depression DVT (deep venous thrombosis) Emphysema GERD (gastroesophageal reflux disease) History of pulmonary embolism Hypertension Left leg pain [place] (obstructive sleep apnea) Sleep apnea Smoker Spinal cord stimulator status Tobacco user Vitamin D deficiency Surgical History? History of carpal tunnel surgery of left wrist History of laminectomy Status post correction of deviated nasal septum Family History? Mother Asthma Depression COPD (chronic obstructive pulmonary disease) Hypertension HyperchloremiaFather Respiratory abnormality, unspecified HypertensionSister COPD (chronic obstructive pulmonary disease) Social History? household members:? significant other Smoking Status:? Current every day smoker tobacco type: cigarettes Tobacco: How many years used:? 50 Electronic Cigarette Use:? not used second hand exposure:? Yes quit status:? not considering quitting alcohol intake:? current details:? Currently 6-8 beers daily. substance use type:? does not use HPI HPI HPI: Patient is a 61-year-old female here for anemia and blood in her stool.? Patient reports that off-and-on she has seen blood in the stool for several years.? She reports the blood is dark in color.? She had a colonoscopy a long time ago but she had a poor prep.? She also had positive stool guaiac. ROS General General: No weight change, appetite, fatigue, colon cancer, breast cancer or we akness HEENT HEENT: No difficulty swallowing, eye injury, eye surgery, swollen glands or hoarseness Endo Endocrine: No thyroid disease, diabetes mellitus, thyroid cancer, Hair loss, heat intolerance or cold intolerance Skin Skin: No rash or changing moles Breast Breast: No left breast lump, right breast lump, nipple discharge, breast pain, abnormal mammogram, abnormal US or breast enlargement Musc Musculoskeletal: Yes back problems, arthritis and rheumatoid arthritis; No gout or joint pain Cardio Cardiovascular: No murmur, pacemaker, heart disease, atrial fibrillation, high blood pressure, heart attack, heart stent, palpitations, shortness of breat with exertion or chest pain Psych Psychiatric: Yes depression and anxiety; No hearing voices Resp Respiratory: Yes shortness of breath, Yes sleep apnea, Yes cough, Yes COPD, Yes asthma, Yes emphysema and Yes wheezing Gastro Gastrointestinal: No abdominal pain, No nausea or vomiting, No diarrhea, No constipation, Yes blood in stool, Yes acid reflux, Yes hemorrhoids, No ulcers, No gallbladder problem and No black,tarry stools Dash Hematologic: Yes blood thinners, No blood disorders, No bleeding, No anemia and Yes blood clots Neuro Neurologic: No system reviewed and no additional complaints, except as documented, No as per HPI, No abnormal gait, No abnormal hearing, No abnormal movements, No abnormal speech, No behavioral changes, No burning sensations, No confusion, No convulsions, No disequilibrium, No dizziness, No localized weakness, No frequent falls, No headache(s), No lack of coordination, No loss of vision, No memory loss, No numbness, No other visual disturbances, No radicular pain, No restless legs, No sensory deficit, No syncope, No tingling, No tremor(s), No weakness and No other Exam Const General: cooperative Orientation: alert and oriented x3 HENMT Head: normal to inspection Neck Neck: normal visual inspection and full ROM Chest Chest palpation & inspection: normal inspection of the chest Resp Effort & Inspection: normal respiratory effort Auscultation: clear to auscultation bilaterally Cardio Rate: regular rate Rhythm: regular rhythm GI Inspection: non-distended Palpation: soft and nontender Skin General: no rashes or lesions noted Neuro General: patient alert and patient oriented x3 Extrem General: full ROM Psych Appearance: grossly normal Mental Status: mental status grossly normal Assessment and Plan Assessment and Plan (1) Blood in stool: ?Status:?Acute ?Plan: Patient had gross blood in the stool and positive fecal occult blood test.? She also has iron deficiency anemia.? I discussed doing EGD and colonoscopy with her.? I explained endoscopy in detail to the patient.? I explained the risks including but not limited to stroke or heart attack with anesthesia, perforation of the GI tract, bleeding, infection.? I explained that any of these could necessitate further emergency surgery.? The patient understands and all questions were answered sufficiently.? The patient wishes to proceed with procedure.? She will hold her Eliquis for 3 days prior to the procedure. Sander Veliz MD Pager: [facility] [address] [place] [address], [address] [place] [address] Office: I have examined the patient and the H&P has been reviewed. There are no clinical changes since date of exam.
--- NOTE | 2022-09-05 08:00 | COLBX_PTH ---
PATIENT: STEFANO TURNER LOC: EN U#:[id number] AGE/SX: 61/F ROOM: RE09/05/[address]: Dr. Sander Veliz MD : 1960 BED: DIS: 09/05/2022 SPEC #: [id number] RECD: 09/05/22 15:02 STATUS: TAWANA JULIANA #: [id number] RAJEEV: 09/05/22 08:[address]: Sander Veliz DEPT: SURGICAL PATHOLOGY RECD BY: Yessica Ceron ENTERED: 09/06/22 10:39 SP TYPE: COLON BX OTHR DR: Leslie [facility] Tissues: Gastric mucous membrane Procedures: Surgery Specimen Level IV HEADER OPERATION: Colonoscopy, EGD [place] [place] with biopsy PRE-OP DIAGNOSIS: Blood in stool TISSUE SUBMITTED: Gastric body biopsy for H. pylori and path MICROSCOPIC DIAGNOSIS Gastric body, biopsy: Mild chronic gastritis. See comment. AM:josey 09/07/2022 COMMENT The results of immunohistochemistry for Helicobacter pylori will be reported separately ([id number]). MICROSCOPIC DESCRIPTION Slides are reviewed. GROSS DESCRIPTION Received in fixative is one container labeled with the patient's name and designated gastric body biopsy. The specimen consists of multiple irregular fragments of light berkowitz soft tissue that in aggregate measure 1.0 x 0.4 x 0.1 cm. The specimen is totally submitted in one cassette. / SJ:josey 09/06/2022 TC:3 CPT: 97939
--- NOTE | 2022-09-05 08:00 | IMM_PTH ---
PATIENT: STEFANO TURNER LOC: EN U#:[id number] AGE/SX: 61/F ROOM: RE09/05/[address]: Dr. Sander Veliz MD : 1960 BED: DIS: 09/05/2022 SPEC #: [id number] RECD: 09/06/22 08:35 STATUS: TAWANA RESondra #: [id number] RAJEEV: 09/05/22 08:[address]: Sander Veliz DEPT: IMMUNOHISTOCHEMISTRY RECD BY: Shamika Monson ENTERED: 09/06/22 08:35 SP TYPE: IMMUNO OTHR DR: Leslie [facility] Tissues: Stomach, NOS Procedures: H Pylori (initial) PHYSICIAN & INSTITUTION [place] [id number] SPECIMEN INFORMATION: Tissue Source: Gastric body Clinical Info: Blood in stool Specimen Number: [id number] CPT code: 12191 METHODOLOGY: Deparaffinized sections of prefer/formalin-fixed tissue or PAP/DQ stained slides are incubated with monoclonal/polyclonal antibodies/oligonucleotide probes. Localization is made via biotin free immunoperoxidase method. Appropriate controls are performed and reacted as expected. Results on target cell population are indicated in the following table: RESULTS: ANTIBODY / CLONE RESULT H Pylori (polyclonal) negative These tests were developed and their performance characteristics determined by [facility]. They may not have been cleared or approved by the U.S. Food and Drug Administration. The FDA has determined that such clearance or approval is not necessary. The above immunohistochemical/dualISH markers are ordered and reviewed by the Pathologist. INTERPRETATION: Gastric body, biopsy: Negative for Helicobacter pylori organisms. AM:josey 09/07/2022
[2022-09-05 08:20] VITALS: BP 103/63; BP 135/82; PULSE 79; RESP 16; TEMP 36.8; O2SAT 95
--- NOTE | 2022-09-05 08:23 | OP.CCLET_ITS ---
[facility]05[facility]2022 [facility] for [facility] This procedure was performed on Monday, September 05, 2022. My impressions and recommendations are as follows: Impressions : - Normal esophagus. - Normal examined duodenum. - Gastritis with hemorrhage. Biopsied. Recommendations : - Discharge patient to home. - Resume previous diet. - Continue present medications. - Resume Eliquis (apixaban) at prior dose tomorrow. - Use Prilosec (omeprazole) 40 mg PO daily for 8 weeks. - Use sucralfate tablets 1 gram PO QID for 2 weeks. My findings are described in the full procedure note, which is enclosed. If I can be of further assistance, please feel free to contact me at Doctor phone number(s): , Work: . Sincerely, Sander Veliz MD 09/05/2022 8:22:24 AM This report has been signed electronically.
--- NOTE | 2022-09-05 08:23 | OP.EGD_ITS ---
Patient Name: Mariia Reilly Procedure Date: 09/05/2022 7:45 AM Date of : 1960 Age: 61 Procedure: Upper GI endoscopy Indications: Iron deficiency anemia, Occult blood in stool Providers: Sander Veliz MD Referring MD: Sander Veliz MD Medicines: Monitored Anesthesia Care Patient Profile: This is a 61 year old female. Refer to note in patient chart for documentation of history and physical. Complications: No immediate complications. Procedure: Pre-Anesthesia Assessment: - Prior to the procedure, a History and Physical was performed, and patient medications and allergies were reviewed. The patient's tolerance of previous anesthesia was also reviewed. The risks and benefits of the procedure and the sedation options and risks were discussed with the patient. All questions were answered, and informed consent was obtained. Prior Anticoagulants: The patient has taken Eliquis (apixaban), last dose was 2 days prior to procedure. After reviewing the risks and benefits, the patient was deemed in satisfactory condition to undergo the procedure. After obtaining informed consent, the endoscope was passed under direct vision. Throughout the procedure, the patient's blood pressure, pulse, and oxygen saturations were monitored continuously. The Endoscope was introduced through the mouth, and advanced to the second part of duodenum. The upper GI endoscopy was accomplished without difficulty. The patient tolerated the procedure well. Scope In: 7:59:06 AM Scope Out: 8:02:50 AM Total Procedure Duration Time 0 hours 3 minutes 44 seconds Findings: The esophagus was normal. The examined duodenum was normal. Scattered moderate inflammation with hemorrhage characterized by adherent blood was found in the gastric body. Biopsies were taken with a cold forceps for histology. Impression: - Normal esophagus. - Normal examined duodenum. - Gastritis with hemorrhage. Biopsied. Recommendation: - Discharge patient to home. - Resume previous diet. - Continue present medications. - Resume Eliquis (apixaban) at prior dose tomorrow. - Use Prilosec (omeprazole) 40 mg PO daily for 8 weeks. - Use sucralfate tablets 1 gram PO QID for 2 weeks. Procedure Code(s): --- Professional --- 25522, Esophagogastroduodenoscopy, flexible, transoral; with biopsy, single or multiple Diagnosis Code(s): --- Professional --- K29.71, Gastritis, unspecified, with bleeding D50.9, Iron deficiency anemia, unspecified R19.5, Other fecal abnormalities CPT copyright 2017 [employer]. All rights reserved. The codes documented in this report are preliminary and upon billiard table mechanic review may be revised to meet current compliance requirements. Sander Veliz MD 09/05/2022 8:22:24 AM This report has been signed electronically. Number of Addenda: 0 Note Initiated On: 09/05/2022 7:45 AM
[2022-09-05 08:25] VITALS: BP 106/68; BP 135/82; PULSE 80; RESP 16; O2SAT 94
--- NOTE | 2022-09-05 08:27 | OP.COLON_ITS ---
Patient Name: Mariia Reilly Procedure Date: 09/05/2022 8:05 AM Date of : 1960 Age: 61 Procedure: Colonoscopy Indications: Gastrointestinal occult blood loss Providers: Sander Veliz MD Referring MD: Sander Veliz MD Medicines: Monitored Anesthesia Care Patient Profile: This is a 61 year old female. Refer to note in patient chart for documentation of history and physical. Last Colonoscopy: none. The patient's first colonoscopy is today. Complications: No immediate complications. Procedure: Pre-Anesthesia Assessment: - Prior to the procedure, a History and Physical was performed, and patient medications and allergies were reviewed. The patient's tolerance of previous anesthesia was also reviewed. The risks and benefits of the procedure and the sedation options and risks were discussed with the patient. All questions were answered, and informed consent was obtained. Prior Anticoagulants: The patient has taken Eliquis (apixaban), last dose was 2 days prior to procedure. After reviewing the risks and benefits, the patient was deemed in satisfactory condition to undergo the procedure. After I obtained informed consent, the scope was passed under direct vision. Throughout the procedure, the patient's blood pressure, pulse, and oxygen saturations were monitored continuously. The pediatric colonoscope was introduced through the anus and advanced to the cecum, identified by appendiceal orifice and ileocecal valve. The colonoscopy was performed without difficulty. The patient tolerated the procedure well. The quality of the bowel preparation was good. Scope In: 8:06:02 AM Scope Withdrawal Time 0 hours 3 minutes 26 seconds Scope Out: 8:14:46 AM Total Procedure Duration Time 0 hours 8 minutes 44 seconds Findings: The entire examined colon appeared normal on direct and retroflexion views. Impression: - The entire examined colon is normal on direct and retroflexion views. - No specimens collected. Recommendation: - Discharge patient to home. - Resume previous diet. - Continue present medications. - Repeat colonoscopy in 10 years for screening purposes. Procedure Code(s): --- Professional --- 91067, Colonoscopy, flexible; diagnostic, including collection of specimen(s) by brushing or washing, when performed (separate procedure) Diagnosis Code(s): --- Professional --- R19.5, Other fecal abnormalities CPT copyright 2017 [employer]. All rights reserved. The codes documented in this report are preliminary and upon freight rate clerk review may be revised to meet current compliance requirements. Sander Veliz MD 09/05/2022 8:26:35 AM This report has been signed electronically. Number of Addenda: 0 Note Initiated On: 09/05/2022 8:05 AM
--- NOTE | 2022-09-05 08:27 | OP.CCLET_ITS ---
09/05/2022 Leslie Snowden [facility] Re : Colonoscopy procedure for Mariia Ray [facility] This procedure was performed on Monday, September 05, 2022. My impressions and recommendations are as follows: Impressions : - The entire examined colon is normal on direct and retroflexion views. - No specimens collected. Recommendations : - Discharge patient to home. - Resume previous diet. - Continue present medications. - Repeat colonoscopy in 10 years for screening purposes. My findings are described in the full procedure note, which is enclosed. If I can be of further assistance, please feel free to contact me at Doctor phone number(s): , Work: . Sincerely, Sander Veliz MD 09/05/2022 8:26:35 AM This report has been signed electronically.
[2022-09-05 08:30] VITALS: BP 116/70; BP 135/82; PULSE 78; RESP 16; O2SAT 95
[2022-09-05 08:35] VITALS: BP 120/75; BP 135/82; PULSE 84; RESP 16; TEMP 37.1; O2SAT 95
[2022-09-05 09:00] VITALS: BP 135/82
== END 2022-09-05 09:27 | disposition home or self-care (01) ==
LOC: EN 06:55 → AC 06:57
PROVIDERS: Referring Provider Surgery; Visit Provider Surgery
PROC: 0DJD8ZZ Inspection of Lower Intestinal Tract, Via Natural or Artificial Opening Endoscopic (ICD-10-PCS; CPT 45378; principal; 2022-09-05 07:55)
DX: K29.51 Unspecified chronic gastritis with bleeding (principal); J43.9 Emphysema, unspecified; D50.9 Iron deficiency anemia, unspecified; F17.210 Nicotine dependence, cigarettes, uncomplicated; K21.9 Gastro-esophageal reflux disease without esophagitis; I10 Essential (primary) hypertension; Z79.01 Long term (current) use of anticoagulants; Z79.899 Other long term (current) drug therapy
CPT/HCPCS: 45378; 43239; 88305; 88342; J7120; J2405

== ENCOUNTER → 2022-09-07 | Outpatient (CLI) | payer MEDICARE, MEDICAID, SELFPAY ==
--- NOTE | 2022-09-07 13:02 | BI_ITS ---
MAMMOGRAPHY - BILATERAL SCREENING REASON FOR EXAM: Female, 61 years old. Routine annual screening examination. PERTINENT HISTORY: Non-contributory. TECHNIQUE: Digital bilateral breast nadeem (3D mammographic acquisition) in the CC and MLO projections. 2-D mediolateral oblique (MLO) and craniocaudad (CC) views of both breasts were obtained. CAD: Full Field Digital Mammography with Computer Added Detection was performed. COMPARISON: Screening mammogram from 01/05/2018, 05/01/2016. FINDINGS: Breast Composition: The breasts are extremely dense, which lowers the sensitivity of mammography. There are no dominant masses or suspicious calcifications. No other significant abnormalities are identified. There has been no significant change since the prior study. BI/SCRN MAMM (CAD)W/NADEEM BILAT IMPRESSION: Stable bilateral screening mammogram. Yearly follow-up mammogram recommended. (A) ASSESSMENT CATEGORY: BIRADS Category 1: Negative. A letter regarding these results will be sent to the patient by the facility within 30 days. Approximately 10% of breast cancers are not detected by mammography. A normal mammogram should not delay biopsy of a clinically suspicious abnormality. Electronically Signed: Mahad Ellsworth DO at 12:22 EDT ,
--- NOTE | 2022-09-07 13:03 | BD_ITS ---
STUDY: DUAL ENERGY X-RAY ABSORPTIOMETRY / DXA REASON FOR EXAM: Female, 62 years old. M85.89 TECHNIQUE: Bone Mineral Density (BMD) measurements of lumbar spine and bilateral hips were obtained. COMPARISON: Comparison is made with prior study June 12, 2019. FINDINGS: Lumbar Spine (L1-L4): g/cm2 (0.751) / T-score (-2.1) / Z-score (-0.6) Findings are suggestive of osteopenia with a high fracture risk. Left Femur Total: g/cm2 (0.654) / T-score (-2.4) / Z-score (-1.3) Left Femoral Neck: g/cm2 (0.559) / T-score (-2.6) / Z-score (-1.2) Right Femur Total: g/cm2 (0.666) / T-score (-2.3) / Z-score (-1.2) Right Femoral Neck: g/cm2 (0.609) / T-score (-2.2) / Z-score (-0.8) The T-Scores on the most recent prior examination were: Lumbar Spine (L1-L4): There has been improvement of bone density since the previous examination. Left Femur Total: which represents an improvement of 11.6%. Right Femur Total: which represents an improvement of 16.2%. BD/Dexa Bone Density Study IMPRESSION: The patient is considered osteoporotic as outlined below according to World Joshua Organization (WHO) criteria with a high fracture risk. There has been improvement of bone density since the previous examination. Reference Information: The T-score is the number of standard deviations above or below the standard which is normal for young adults at their peak bone mineral density. The World Health Organization (WHO) interprets the T-scores as follows: Above -1 Normal bone density Between -1 and -2.5 Osteopenia Equal to / or below -2.5 Osteoporosis As a practical clinical guideline, osteopenia may be graded as follows: Mild -1 through -1.5 Moderate -1.6 through -2.0 Severe -2.1 through -2.4 The Z-score is the number of standard deviations above or below age-matched controls. A Z-score of less than -1.5 would be considered abnormal. References: 1. NIH Osteoporosis and Related Bone Diseases www osteo.org 2. International Society for Clinical Densitometry www iscd.org 3. National Osteoporosis Foundation www nof.org Electronically Signed: Pato Paniagua MD at 10:55 EDT ,
== END | disposition home or self-care (01) ==
LOC: OPBD 13:00
PROVIDERS: Referring Provider Nurse Practitioner Family; Visit Provider Nurse Practitioner Family
DX: Z12.31 Encounter for screening mammogram for malignant neoplasm of breast (principal); M85.89 Other specified disorders of bone density and structure, multiple sites
CPT/HCPCS: 77063; 77067; 77080

== ENCOUNTER 2022-11-02 19:39 | Inpatient (IN) | payer MEDICARE, MEDICAID, SELFPAY ==
[2022-11-02 19:41] VITALS: BP 135/81; PULSE 109; RESP 26; TEMP 36.3; O2SAT 90; BMI 20.9
[2022-11-02 19:49] VITALS: O2SAT 84
--- NOTE | 2022-11-02 20:04 | ED.VIS.DYS ---
HPI History of Present Illness Chief Complaint: Shortness of Breath Narrative Narrative: Patient presents with shortness of breath, she is a smoker and has a history of COPD, she has had a cough that has been wet but has not been able to obtain any sputum. She has no fever or chills she was found to be hypoxic at 84 in the waiting room. No lower extreme edema or calf pain she is denying any chest pain [facility] Medical History (Updated 11/02/22 @ 21:[address] Dylon Sanon MD) Age related osteoporosis Alcohol abuse Alcohol use Angioedema Anxiety Arthritis Asthma Autism Back pain Benign essential hypertension Chronic cough Chronic pain syndrome Community acquired pneumonia COPD (chronic obstructive pulmonary disease) Depression DVT (deep venous thrombosis) Emphysema Gastric reflux GERD (gastroesophageal reflux disease) High cholesterol History of echocardiogram History of pain when walking History of pulmonary embolism Hypertension Hypertension Injury of back Left leg pain [place] (obstructive sleep apnea) Post-menopausal Pulmonary embolism Rheumatoid arthritis Shortness of breath on exertion Sleep apnea Sleep apnea Smoker Spinal cord stimulator status Tobacco user Vitamin D deficiency Wears dentures Wears glasses Home Medications amlodipine 5 mg tablet 10 mg PO DAILY blood pressure 12/09/17 [History Last Taken 09/05/22 06:00] duloxetine 30 mg capsule,delayed release 30 mg PO DAILY depression 04/15/18 [History Last Taken 02/12/22] acetaminophen 325 mg tablet 650 mg (2 x 325 mg) PO Q6H PRN PRN Pain 06/23/18 [Rx Last Taken Unknown] albuterol sulfate 2.5 mg/3 mL (0.083 %) solution for nebulization 2.5 mg inhalation Q4H PRN PRN Shortness Of Breath 06/30/19 [History Last Taken 02/12/22] albuterol sulfate 90 mcg/actuation aerosol inhaler 2 puff inhalation Q4H PRN PRN Shortness Of Breath 06/30/19 [History Last Taken 09/05/22 06:00] alendronate 70 mg tablet (Fosamax) 70 mg PO QWEEK bone health\ 09/17/19 [History Last Taken 01/09/22] fluticasone furoate 100 mcg-vilanterol 25 mcg/dose inhalation powder (Breo Ellipta) 1 inh inhalation DAILY #60 ea 11/11/19 [Rx Last Taken 02/12/22] famotidine 20 mg tablet 20 mg PO BID gerd 04/11/21 [History Last Taken 02/12/22] tizanidine 4 mg capsule 2 mg PO BID PRN Pain 04/11/21 [History Last Taken 02/12/22] folic acid 1 mg tablet 1 mg PO BREAKFAST #30 tabs 02/16/22 [Rx Last Taken Unknown] pravastatin 20 mg tablet 20 mg PO QHS 08/30/22 [History Last Taken Unknown] pregabalin 75 mg capsule 75 mg PO BID 08/30/22 [History Last Taken Unknown] omeprazole 40 mg capsule,delayed release 40 mg PO DAILY #30 caps 09/05/22 [Rx Last Taken Unknown] sucralfate 1 gram tablet (Carafate) 1 g PO TID 2 weeks #42 tabs 09/05/22 [Rx Last Taken Unknown] tiotropium bromide 18 mcg capsule with inhalation device (Spiriva with HandiHaler) 1 cap inhalation DAILY #30 inhalations 09/26/22 [Rx Last Taken Unknown] apixaban 5 mg tablet (Eliquis) See Rx Instructions .Route .COMPLEX #60 tabs 10/12/22 [Rx Last Taken Unknown] azithromycin 250 mg tablet 250 mg PO DAILY 11/02/22 [History Last Taken Unknown] benzonatate 200 mg capsule 200 mg PO BID 11/02/22 [History Last Taken Unknown] prednisone 10 mg tablet 10 mg PO .COMPLEX 11/02/22 [History Last Taken Unknown] Allergy/AdvReac Type Severity Reaction Status Date / Time buspirone Allergy Angioedema Verified 11/02/22 19:43 lisinopril Allergy Angioedema Verified 11/02/22 19:43 Sulfa (Sulfonamide Allergy Itching Verified 11/02/22 19:43 Antibiotics) codeine AdvReac Intermediate / Verified 11/02/22 19:43 Family History Mother Asthma Depression COPD (chronic obstructive pulmonary disease) Hypertension Hyperchloremia Father Respiratory abnormality, unspecified Hypertension Sister COPD (chronic obstructive pulmonary disease) Surgical History (Updated 11/02/22 @ 20:03 by Amanda Stephens) History of carpal tunnel release of both wrists History of carpal tunnel surgery of left wrist History of laminectomy Hx of tubal ligation Previous back surgery Status post correction of deviated nasal septum Social History household members: significant other Smoking Status: Current every day smoker tobacco type: cigarettes Tobacco: How many years used: 50 Electronic Cigarette Use: not used second hand exposure: Yes quit status: not considering quitting alcohol intake: current details: Currently 6-8 beers daily. substance use type: does not use ROS ROS ED ROS Narrative Past medical history: Reviewed Medications: Reviewed Social history: Noncontributory Review of systems: General: No fever Eyes: No visual changes ENT: No upper airway congestion, normal voice Neck: No neck pain Cardiovascular: No chest pain Respiratory: As in HPI Gastrointestinal: No abdominal pain, nausea vomiting or diarrhea Genitourinary: No dysuria Musculoskeletal: Denies myalgias no difficulty with ambulation Skin: No rash Neurological: No memory loss, confusion or any focal weakness EXAM Physical Exam Narrative Exam Narrative: Physical exam General: Patient appears uncomfortable Head: Normocephalic, Atraumatic Eyes: Conjunctiva not pale ENT: Moist mucous membranes Neck: Supple, Nontender, No lymphadenopathy Cardiovascular: Regular rate, Regular rhythm Respiratory: Very shallow expirations, some coarse breath sounds and some wheezing. She is tachypneic. Abdomen: Soft, Nontender, Nondistended Back: Nontender, Normal Inspection. Negative for: CVA tenderness Extremities: Nontender, No edema Skin: Normal color, No rash Neurological: Alert, Normal Strength, Normal Sensation Const Vital Signs: 11/02/22 19:41 11/02/22 19:49 11/02/22 20:14 Temperature 97.3 F L Temperature Source Temporal Pulse Rate 109 H 103 H Respiratory Rate 26 H 22 H Respiratory Effort Short of Breath Labored Accessory Muscle Use Respiratory Depth Deep Respiratory Pattern Tachypnea Tachypnea Blood Pressure 135/81 H Blood Pressure Mean 99 Pulse Ox 90 Oxygen Delivery Method Room Air Room Air Oxygen Flow Rate (L/min) 6 MDM MDM MDM Narrative Medical decision making narrative: Patient's work-up is unremarkable. However she has a COPD exacerbation with hypoxia and she is normally not on oxygen. She will need admission. She received antibiotics since her cough changed. There is no pneumonia on the x-ray. There is no pneumothorax. I am not worried about PE, patient does not have any risk factors and this is likely COPD especially that she did have improvement with nebulizers and Solu-Medrol. However because of her symptomatology I will admit I talked to hospitalist. I talked to who gave me some of the history and he is okay with the plan of admission. Lab Data Labs: Laboratory Results - last 24 hr 11/02/22 20:35 WBC 5.1 RBC 4.92 Hgb 14.9 Hct 44.1 MCV 89.6 MCH 30.3 MCHC 33.8 RDW Std Deviation 46.5 H RDW Coeff of Jaqueline 14.0 Plt Count 222 MPV 8.6 Immature Gran % (Auto) 0.400 Neut % (Auto) 76.0 H Lymph % (Auto) 16.5 L [place] % (Auto) 6.5 Eos % (Auto) 0.2 Baso % (Auto) 0.4 Absolute Neuts (auto) 3.9 Absolute Lymphs (auto) 0.84 Nucleated RBC % 0 Sodium 135 L Potassium 3.5 Chloride 103 Carbon Dioxide 22.0 Anion Gap 10 BUN 14 Creatinine 0.68 Estim Creat Clear Calc 70.96 Est GFR (MDRD) Af Amer 113 Est GFR (MDRD) Non-Af 93 BUN/Creatinine Ratio 20.6 H Glucose 117 H Calcium 10.0 Troponin I High Sens < 3 L B-Natriuretic Peptide 36.3 Radiography Diagnostic Testing: Clinical Impression(s) from Imaging Studies Chest X-Ray 11/02/22 20:19 IMPRESSION: Mild basilar interstitial prominence. Electronically Signed: Maxim Rajan DO at 20:46 EDT Reading Location ID and State: [facility] / [place] Tel [phone], Service support , Chest x-ray read by me is unremarkable EKG Initial EKG: Comments: Sinus rhythm with a rate of 95. Normal MO interval with a QTc of 482. No acute ischemic changes. Interpreted by emergency doctor Discharge Plan Triage Chief Complaint: Shortness of Breath ED Provider: Dylon Sanon Dx/Rx/DC Orders Clinical Impression: Hypoxia, COPD (chronic obstructive pulmonary disease), Smoking Prescriptions: No Action alendronate [Fosamax] 70 mg tablet 70 mg PO QWEEK Rx Instructions: every sunday famotidine 20 mg tablet 20 mg PO BID tizanidine 4 mg capsule 2 mg PO BID PRN (Reason: Pain) amlodipine 5 MG tablet 10 mg PO DAILY duloxetine 30 MG capsule 30 mg PO DAILY acetaminophen 325 MG tablet 650 mg PO Q6H PRN PRN (Reason: Pain) 0RF albuterol sulfate 2.5 MG/3 ML solution for nebulization 2.5 mg inhalation Q4H PRN PRN (Reason: Shortness Of Breath) albuterol sulfate 1 PUFF inhaler 2 puff inhalation Q4H PRN PRN (Reason: Shortness Of Breath) folic acid 1 mg Tablet 1 mg PO BREAKFAST Qty: 30 0RF pravastatin 20 mg tablet 20 mg PO QHS Patient Comments: TAKE 1 TABLET BY MOUTH EVERY DAY IN THE EVENING pregabalin 75 mg capsule 75 mg PO BID Patient Comments: TAKE 1 CAPSULE BY MOUTH TWICE A DAY omeprazole 40 mg capsule,delayed release(DR/EC) 40 mg PO DAILY Qty: 30 2RF Hold Instructions: not taking sucralfate [Carafate] 1 gram tablet 1 g PO TID 14 Days Qty: 42 0RF Hold Instructions: not taking azithromycin 250 mg tablet 250 mg PO DAILY benzonatate 200 mg capsule 200 mg PO BID prednisone 10 mg tablet 10 mg PO .COMPLEX Rx Instructions: 10 mg orally; Breo Ellipta 100-25 mcg/dose blister with device 1 inh INHALATION DAILY Qty: 60 11RF Spiriva with HandiHaler 18 mcg capsule, w/inhalation device 1 cap inhalation DAILY Qty: 30 11RF Rx Instructions: puncture 1 cap using device; one dose = 2 inhalations Eliquis 5 mg tablet See Rx Instructions .ROUTE .COMPLEX Qty: 60 3RF Dose Instruction: TAKE 1 TABLET ORALLY TWICE A DAY FOR BLOOD CLOT Rx Instructions: TAKE 1 TABLET ORALLY TWICE A DAY FOR BLOOD CLOT Primary Care Provider: [facility] Leslie Maynard Referrals: [facility] Leslie Maynard [Primary Care Provider] - Disposition Disposition: Acute Care Hospital [facility]
[2022-11-02 20:14] VITALS: PULSE 103; RESP 22
[2022-11-02] MEDS: Ipratropium/Albuterol Sulfate 3 ML AMPUL.NEB INHALATION (20:14)
[2022-11-02] MEDS: Albuterol 2.5 MG/3 ML VIAL.NEB. INHALATION ×2 (20:14→20:32)
--- NOTE | 2022-11-02 20:19 | RAD_ITS ---
INDICATION: sob EXAMINATION/TECHNIQUE: X-RAY - XR Chest 1 View COMPARISON: February 13, 2022 FINDINGS: LINES/DEVICES: None. LUNGS: No consolidation, edema or effusion. Basilar interstitial prominence. No pneumothorax. MEDIASTINUM AND CARDIOVASCULAR STRUCTURES: Cardiac silhouette not enlarged. Central airways and mediastinal contour are unremarkable. BONES AND SOFT TISSUES: Stimulator electrodes at the mid thoracic levels. RAD/Chest 1 View (Portable) IMPRESSION: Mild basilar interstitial prominence. Electronically Signed: Maxim Rajan DO at 20:46 EDT ,
[2022-11-02] MEDS: MethylPREDNISolone 125 MG/2 ML Vial IV (20:39)
[2022-11-02 20:41] LABS: Absolute Lymphocyte Count 0.84 X10^3/uL (0.83-4.51); Absolute Neutrophil Count 3.9 X10^3/uL (2.0-7.7); Basophil# 0.02 X10^3/uL; Basophil% 0.4 % (0-1); Eosinophil# 0.01 X10^3/uL; Eosinophils% 0.2 % (0-5); Hematocrit 44.1 % (37-47); Hemoglobin 14.9 g/dL (12.0-15.0); Lymphocyte # 0.84 X10^3/ul (0.83-4.51); Lymphocyte % 16.5 % (19-41); Mean Corp Hgb Conc 33.8 g/dL (32-36); Mean Corpuscular Hgb 30.3 pg (27.0-32.0); Mean Corpuscular Volume 89.6 fL (81-99); Mean Platelet Vol. 8.6 fl (6.2-12.0); Monocyte# 0.33 X10^3/uL; Monocyte% 6.5 % (0-10); NRBC Flagged by Analyzer 0 % (0-5); Neutrophil # 3.87 X10^3/uL (2.7-7.7); Platelet Count 222 K/mm3 (150-450); RBC Distribution Width SD 46.5 fl (35.1-43.9); Red Blood Count 4.92 M/mm3 (4.2-5.4); White Blood Count 5.1 K/mm3 (4.4-11.0)
[2022-11-02] MEDS: Ceftriaxone 1 GM/50 ML BAG IV (20:43)
--- NOTE | 2022-11-02 20:46 | CPS ---
[2014] x2 Albuterol given to pt. in ER as well. Pt. politely refused third Albuterol at this time. She will notify staff if she feels like she'd benefit from another breathing tx.
[2022-11-02 20:58] LABS: Anion Gap 10 (5-15); BUN 14 mg/dL (7-18); BUN/Creat Ratio 20.6 RATIO (10-20); Chloride 103 mmol/L (98-107); Creatinine, Serum 0.68 mg/dL (0.55-1.02); EST Glomerular Filtration Rate 93 mL/min (>60); Est Glom Filt Rate - Afr Amer 113 mL/min (>60); Estimated Creatinine Clearance 70.96 ml/min; Glucose 117 mg/dL (74-106); Potassium 3.5 mmol/L (3.5-5.1); Sodium Level 135 mmol/L (136-145); Troponin-I HS < 3 pg/mL (3.0-54.0)
[2022-11-02 21:02] LABS: BNP,B-Type NATRIURETIC PEPTIDE 36.3 pg/mL (0-100)
[2022-11-02 21:46] VITALS: BP 142/86; PULSE 108; RESP 21; O2SAT 91
[2022-11-02] MEDS: Acetaminophen 500 MG Tablet 1000 MG PO (22:10)
--- NOTE | 2022-11-02 22:15 | PCM.HP.STD ---
[facility] - General General Date of Admission: 11/02/22 Date of Service: 11/02/22 Chief Complaint: sob HPI Narrative STEFANO TURNER, is a 62 F with a significant history of COPD; DVT on Eliquis; and tobacco abuse who presented to the emergency department with 6-day history of progressive worsening shortness of breath. Associated with his symptoms is nonproductive cough that patient think is improving. She went to see her PCP 3-day before presentation she was given Z-Medardo and a prednisone taper. Yet she continues to have shortness of breath. On presentation to the ED her oxygen saturation was 83% on room air. At baseline patient is not on home oxygen. [facility] Medical History Age related osteoporosis Alcohol abuse Alcohol use Angioedema Anxiety Arthritis Asthma Autism Back pain Benign essential hypertension Chronic cough Chronic pain syndrome Community acquired pneumonia COPD (chronic obstructive pulmonary disease) Depression DVT (deep venous thrombosis) Emphysema Gastric reflux GERD (gastroesophageal reflux disease) High cholesterol History of echocardiogram History of pain when walking History of pulmonary embolism Hypertension Hypertension Injury of back Left leg pain [place] (obstructive sleep apnea) Post-menopausal Pulmonary embolism Rheumatoid arthritis Shortness of breath on exertion Sleep apnea Sleep apnea Smoker Spinal cord stimulator status Tobacco user Vitamin D deficiency Wears dentures Wears glasses Home Medications amlodipine 5 mg tablet 10 mg PO DAILY blood pressure 12/09/17 [History Last Taken 11/02/22] duloxetine 30 mg capsule,delayed release 30 mg PO DAILY depression 04/15/18 [History Last Taken 11/02/22] acetaminophen 325 mg tablet 650 mg (2 x 325 mg) PO Q6H PRN PRN Pain 06/23/18 [Rx Last Taken Unknown] albuterol sulfate 2.5 mg/3 mL (0.083 %) solution for nebulization 2.5 mg inhalation Q4H PRN PRN Shortness Of Breath 06/30/19 [History Last Taken 11/02/22] albuterol sulfate 90 mcg/actuation aerosol inhaler 2 puff inhalation Q4H PRN PRN Shortness Of Breath 06/30/19 [History Last Taken 09/05/22 06:00] alendronate 70 mg tablet (Fosamax) 70 mg PO QWEEK bone health\ 09/17/19 [History Last Taken 01/09/22] fluticasone furoate 100 mcg-vilanterol 25 mcg/dose inhalation powder (Breo Ellipta) 1 inh inhalation DAILY breathing #60 ea 11/11/19 [Rx Last Taken 11/02/22] famotidine 20 mg tablet 20 mg PO BID gerd 04/11/21 [History Last Taken 11/02/22] tizanidine 4 mg capsule 2 mg PO BID PRN Pain 04/11/21 [History Last Taken 11/02/22] folic acid 1 mg tablet 1 mg PO BREAKFAST vitamin #30 tabs 02/16/22 [Rx Last Taken 11/02/22] pravastatin 20 mg tablet 20 mg PO QHS cholesterol 08/30/22 [History Last Taken 11/02/22] pregabalin 75 mg capsule 75 mg PO BID pain 08/30/22 [History Last Taken 11/02/22] omeprazole 40 mg capsule,delayed release 40 mg PO DAILY #30 caps 09/05/22 [Rx Last Taken Unknown] sucralfate 1 gram tablet (Carafate) 1 g PO TID 2 weeks #42 tabs 09/05/22 [Rx Last Taken Unknown] tiotropium bromide 18 mcg capsule with inhalation device (Spiriva with HandiHaler) 1 cap inhalation DAILY breathing #30 inhalations 09/26/22 [Rx Last Taken 11/02/22] apixaban 5 mg tablet (Eliquis) 5 mg PO Q12H blood thinner 11/02/22 [History Last Taken 11/02/22] azithromycin 250 mg tablet 250 mg PO DAILY atb 11/02/22 [History Last Taken 11/02/22] benzonatate 200 mg capsule 200 mg PO BID 11/02/22 [History Last Taken Unknown] prednisone 10 mg tablet 10 mg PO .COMPLEX steroid 11/02/22 [History Last Taken 11/02/22] Allergy/AdvReac Type Severity Reaction Status Date / Time buspirone Allergy Angioedema Verified 11/02/22 19:43 lisinopril Allergy Angioedema Verified 11/02/22 19:43 Sulfa (Sulfonamide Allergy Itching Verified 11/02/22 19:43 Antibiotics) codeine AdvReac Intermediate / Verified 11/02/22 19:43 Family History Mother Asthma Depression COPD (chronic obstructive pulmonary disease) Hypertension Hyperchloremia Father Respiratory abnormality, unspecified Hypertension Sister COPD (chronic obstructive pulmonary disease) Surgical History History of carpal tunnel release of both wrists History of carpal tunnel surgery of left wrist History of laminectomy Hx of tubal ligation Previous back surgery Status post correction of deviated nasal septum Social History household members: significant other Smoking Status: Current every day smoker tobacco type: cigarettes Tobacco: How many years used: 50 Electronic Cigarette Use: not used second hand exposure: Yes quit status: not considering quitting alcohol intake: current details: Currently 6-8 beers daily. substance use type: does not use ROS ROS Narrative Pertinent positives and pertinent negatives as noted in HPI. All other systems were reviewed and are negative Vital Signs Vital Signs Vital Signs: 11/02/22 19:41 11/02/22 19:49 11/02/22 20:14 Temperature 97.3 F L Temperature Source Temporal Pulse Rate 109 H 103 H Respiratory Rate 26 H 22 H Respiratory Effort Short of Breath Labored Accessory Muscle Use Respiratory Depth Deep Respiratory Pattern Tachypnea Tachypnea Blood Pressure 135/81 H Blood Pressure Mean 99 Pulse Ox 90 Oxygen Delivery Method Room Air Room Air Oxygen Flow Rate (L/min) 6 11/02/22 21:46 Temperature Temperature Source Pulse Rate 108 H Respiratory Rate 21 H Respiratory Effort Respiratory Depth Respiratory Pattern Blood Pressure 142/86 H Blood Pressure Mean 104 Pulse Ox 91 Oxygen Delivery Method Nasal Cannula Oxygen Flow Rate (L/min) 4 Weight Weight: 53.6 kg Body Mass Index (BMI) 20.9 Physical Exam Narrative Physical exam: General: Well-nourished, well-developed. Head: Normocephalic, atraumatic, no tenderness Eyes: Vision is grossly intact. EOMI ENT, no trauma, moist mucous membranes, no rhinorrhea Neck: Nontender, No thyromegaly. CVS: Regular rate and rhythm. S1-S2 present. No murmur, gallop or rub. Respiratory : Tachypnea; diminished; chest wall nontender Abdomen: Soft, nontender, nondistended, normal bowel sounds, no masses : Deferred Back: Nontender, no CVA tenderness, no midline spinal tenderness, deformities, step-offs Extremities: Nontender full range of motion, no trauma Skin: Normal color, no trauma, abrasions Neuro: Alert, oriented, cranial nerves II through XII grossly intact. Psychiatry: Normal mood. Normal affect. Not depressed. Not anxious. Results Lab / Micro Data 11/02/22 20:35 11/02/22 20:35 Labs: Laboratory Results - last 24 hr 11/02/22 20:35: WBC 5.1, RBC 4.92, Hgb 14.9, Hct 44.1, MCV 89.6, MCH 30.3, MCHC 33.8, RDW Std Deviation 46.5 H, RDW Coeff of Jaqueline 14.0, Plt Count 222, MPV 8.6, Immature Gran % (Auto) 0.400, Neut % (Auto) 76.0 H, Lymph % (Auto) 16.5 L, [place] % (Auto) 6.5, Eos % (Auto) 0.2, Baso % (Auto) 0.4, Absolute Neuts (auto) 3.9, Absolute Lymphs (auto) 0.84, Nucleated RBC % 0, Sodium 135 L, Potassium 3.5, Chloride 103, Carbon Dioxide 22.0, Anion Gap 10, BUN 14, Creatinine 0.68, Estim Creat Clear Calc 70.96, Est GFR (MDRD) Af Amer 113, Est GFR (MDRD) Non-Af 93, BUN/Creatinine Ratio 20.6 H, Glucose 117 H, Calcium 10.0, Troponin I High Sens < 3 L, B-Natriuretic Peptide 36.3 Radiology Impression Chest X-Ray 11/02/22 20:19 IMPRESSION: Mild basilar interstitial prominence. Electronically Signed: Maxim Rajan DO at 20:46 EDT Reading Location ID and State: [facility] / [place] Tel [phone], Service support , Assessment & Plan Assessment/Plan (1) COPD (chronic obstructive pulmonary disease): QUALIFIERS: COPD type: COPD with acute exacerbation Qualified Code(s): J44.1 - Chronic obstructive pulmonary disease with (acute) exacerbation (2) Smoking: (3) Tobacco user: PLAN: Plan Acute COPD exacerbation Impression of chest x-ray by radiologist:Mild basilar interstitial prominence. CXR independently reviewed and I agree with the interpretation. Scheduled DuoNeb Albuterol as needed Solu-Medrol ordered. Levaquin p.o. ordered. Oxygen as needed Monitor BMP and CBC Alcohol abuse CIWA protocol. Ativan ordered. Tobacco abuse Counseled Nicotine patch prescribed Time spent in the patient's overall evaluation,decision-making process, review of diagnostic data, adjustment of management, discussion with other providers, nursing nursing and ancillary staff involved in patient's care documentation, 58 minutes. Charges/Coding Visit Charges Inpatient E&M: 95466 Init Hosp L3
[2022-11-02 22:35] VITALS: BP 139/86; PULSE 104; RESP 23; TEMP 36.6; O2SAT 93
[2022-11-02 23:10] VITALS: BMI 20.8
[2022-11-02 23:31] VITALS: BP 131/81; PULSE 96; RESP 20; TEMP 36.7; O2SAT 95
[2022-11-02] MEDS: 0.9% Saline Lock 10 ML Syringe IV (23:57)
[2022-11-03] VITALS (13 sets, daily range): BP systolic 130–158; BP diastolic 81–92; PULSE 89–104; RESP 19–24; TEMP 36.6–37.4; O2SAT 92–96
[2022-11-03] MEDS: levoFLOXacin 750 MG Tablet PO (06:10)
[2022-11-03] MEDS: Methylprednisolone Sod Succ 40 MG/ML VIAL IV (06:11)
[2022-11-03 06:46] LABS: Absolute Lymphocyte Count 0.69 X10^3/uL (0.83-4.51); Absolute Neutrophil Count 3.2 X10^3/uL (2.0-7.7); Basophil# 0.01 X10^3/uL; Basophil% 0.2 % (0-1); Hematocrit 42.6 % (37-47); Hemoglobin 14.3 g/dL (12.0-15.0); Lymphocyte # 0.69 X10^3/ul (0.83-4.51); Lymphocyte % 17.2 % (19-41); Mean Corp Hgb Conc 33.6 g/dL (32-36); Mean Corpuscular Volume 89.5 fL (81-99); Mean Platelet Vol. 9.2 fl (6.2-12.0); Monocyte# 0.07 X10^3/uL; Monocyte% 1.7 % (0-10); NRBC Flagged by Analyzer 0 % (0-5); Neutrophil % 79.7 % (47-70); Platelet Count 226 K/mm3 (150-450); RBC Distribution Width CV 13.9 % (11.6-14.6); RBC Distribution Width SD 45.4 fl (35.1-43.9); Red Blood Count 4.76 M/mm3 (4.2-5.4)
[2022-11-03] MEDS: Ipratropium/Albuterol Sulfate 3 ML AMPUL.NEB INHALATION ×4 (07:11→18:21)
[2022-11-03 07:16] LABS: Anion Gap 8 (5-15); BUN 10 mg/dL (7-18); Calcium,Total 9.3 mg/dL (8.5-10.1); Chloride 106 mmol/L (98-107); Creatinine, Serum 0.48 mg/dL (0.55-1.02); EST Glomerular Filtration Rate 140 mL/min (>60); Est Glom Filt Rate - Afr Amer 170 mL/min (>60); Estimated Creatinine Clearance 100.52 ml/min; Glucose 149 mg/dL (74-106); Potassium 3.6 mmol/L (3.5-5.1); Sodium Level 137 mmol/L (136-145)
--- NOTE | 2022-11-03 08:20 | PCM.PN.HOSP ---
Reason for Visit Reason for Visit: Shortness of breath Subjective Subjective Patient is a 62-year-old female with a history of COPD who presented to the emergency department at [facility] on 11/02/2022 after having 6 days of worsening shortness of breath. Progressively had worsened the point where she came to the emergency department to get further evaluated. She had a nonproductive cough that she thinks is improving overall. She went to see her PCP 3 days prior to presentation was given a prednisone taper and a Z-Medardo. On presentation the emergency department her oxygen saturation was found to be 83% on room air and the patient is not oxygen dependent at baseline. She was slightly tachycardic on presentation however this is resolved. She initially required 6 L nasal cannula and has since been weaned to 2 L and oxygen saturations are currently 95%. CBC is unremarkable. She did have a mild left shift at 76% neutrophilia. Chemistry panel is overall unremarkable. Her chest x-ray showed only mild basilar interstitial prominence but was otherwise unremarkable. She was admitted to the medical floor and placed on antibiotics, steroids, pulmonary toilet. Does not appear she has infection so we will go ahead and discontinue antibiotics and check respiratory viral panel and COVID as this may be more viral than bacterial in etiology. Patient reports ongoing considerable shortness of breath. She did states she had sick contacts at home. Oxygen has been weaned but seems to be fluctuating. Does have a dry hacking cough with is irritating for her. Asking if we can start something to help suppress her cough some. Objective Data Objective Data Vital Signs: Vital Signs Temp Pulse Resp BP Pulse Ox O2 Del Method O2 Flow Rate 97.9 F 95 20 H 158/90 H 95 Nasal Cannula 2 11/03/22 06:09 11/03/22 06:09 11/03/22 06:09 11/03/22 06:09 11/03/22 06:16 11/03/22 06:16 11/03/22 06:16 Oxygen Flow Rate (L/min) 2 Oxygen Delivery Method Nasal Cannula Weight: 53.3 kg Body Mass Index (BMI) 20.8 Intake & Output: Intake and Output for Last 24 Hours 11/01/22 11/02/22 11/03/22 23:59 23:59 23:59 Intake Total 310 / 310 400 / 400 Balance 310 / 310 400 / 400 Lab / Micro Data 11/03/22 05:55 11/03/22 05:55 Labs: Laboratory Results - last 24 hr 11/02/22 20:35: WBC 5.1, RBC 4.92, Hgb 14.9, Hct 44.1, MCV 89.6, MCH 30.3, MCHC 33.8, RDW Std Deviation 46.5 H, RDW Coeff of Jaqueline 14.0, Plt Count 222, MPV 8.6, Immature Gran % (Auto) 0.400, Neut % (Auto) 76.0 H, Lymph % (Auto) 16.5 L, [place] % (Auto) 6.5, Eos % (Auto) 0.2, Baso % (Auto) 0.4, Absolute Neuts (auto) 3.9, Absolute Lymphs (auto) 0.84, Nucleated RBC % 0, Sodium 135 L, Potassium 3.5, Chloride 103, Carbon Dioxide 22.0, Anion Gap 10, BUN 14, Creatinine 0.68, Estim Creat Clear Calc 70.96, Est GFR (MDRD) Af Amer 113, Est GFR (MDRD) Non-Af 93, BUN/Creatinine Ratio 20.6 H, Glucose 117 H, Calcium 10.0, Troponin I High Sens < 3 L, B-Natriuretic Peptide 36.3 11/03/22 05:55: WBC 4.0 L, RBC 4.76, Hgb 14.3, Hct 42.6, MCV 89.5, MCH 30.0, MCHC 33.6, RDW Std Deviation 45.4 H, RDW Coeff of Jaqueline 13.9, Plt Count 226, MPV 9.2, Immature Gran % (Auto) 1.200 H, Neut % (Auto) 79.7 H, Lymph % (Auto) 17.2 L, [place] % (Auto) 1.7, Eos % (Auto) 0.0, Baso % (Auto) 0.2, Absolute Neuts (auto) 3.2, Absolute Lymphs (auto) 0.69 L, Nucleated RBC % 0, Sodium 137, Potassium 3.6, Chloride 106, Carbon Dioxide 23.0, Anion Gap 8, BUN 10, Creatinine 0.48 L, Estim Creat Clear Calc 100.52, Est GFR (MDRD) Af Amer 170, Est GFR (MDRD) Non-Af 140, BUN/Creatinine Ratio 21.0 H, Glucose 149 H, Calcium 9.3 Radiography Diagnostic Testing: Radiology Impression Chest X-Ray 11/02/22 20:19 IMPRESSION: Mild basilar interstitial prominence. Electronically Signed: Maxim Rajan DO at 20:46 EDT Reading Location ID and State: [facility] / [place] Tel [phone], Service support , Physical Exam Const alert and oriented x3; Negative for healthy appearing Constitutional Narrative: Middle-aged, white female, appears older than stated age, sitting up in bed mild difficulty with air exchange however not hypoxemic, intermittent coughing and appears as if she is not feeling well. HEENT head/scalp atraumatic and moist oral mucous membranes HEENT Narrative: Mallampati 2, no thrush Head and Scalp: normocephalic Resp No normal respiratory effort, no retractions, no use of accessory muscles and No clear to auscultation bilaterally Resp Narrative: Diffusely diminished with scattered end expiratory wheezes, somewhat coarse in places, mild respiratory distress but no retractions or use of accessory muscles Auscultation: wheezes; Negative for rales or rhonchi Cardio regular rhythm, S1 normal heart sound, S2 normal heart sound, no murmurs, no rub, no gallops and no clicks; Negative for regular rate Cardio Narrative: Mild tachycardia -sinus GI normal to inspection, nondistended, normoactive bowel sounds, soft to palpation and non-tender Extremity no clubbing, cyanosis or edema Extremity Narrative: Pedal pulses are 2+ Neuro oriented x3, moves all extremities and no focal motor deficits Speech: speech normal Psych Psych Narrative: Affect is somewhat flat however appropriate as patient is not feeling well Assessment & Plan Assessment/Plan (1) COPD (chronic obstructive pulmonary disease): QUALIFIERS: COPD type: COPD with acute exacerbation Qualified Code(s): J44.1 - Chronic obstructive pulmonary disease with (acute) exacerbation (2) Acute respiratory failure with hypoxia: PLAN: Plan Acute hypoxic respiratory failure secondary to acute exacerbation of COPD -Patient presented with hypoxia, tachycardia, tachypnea -Low suspicion for bacterial infection with normal white count, afebrile and negative chest x-ray -Discontinue antibiotics -Continue Solu-Medrol -Continue aggressive pulmonary toilet -Continue I-S -Add Acapella -Add Mucinex -Add antitussive -Check respiratory viral panel -Check COVID -Continue oxygen as needed and wean as able -Has subsequently been weaned from 6 L to 2 L and oxygen saturations are 95% Recurrent lower extremity DVT/PE -Continue apixaban 5 mg p.o. twice daily GERD -Continue famotidine 20 twice daily Hyperlipidemia/hypertension -Continue home statin -Continue home amlodipine COPD -Hold home inhalers -Treatment as noted above -Patient is not oxygen dependent at baseline Osteoporosis -We will restart alendronate at discharge Chronic pain -patient has spinal cord stimulator -continue home chronic pain medications Tobacco abuse -Recommend cessation -Nicotine patch if needed Alcohol abuse -Recommend cessation -Drinks 6-8 beers daily -Patient reports that she is able to not drink and have any withdrawal symptoms -Monitor DVT prophylaxis -Continue twice daily apixaban CODE STATUS -Full code Charges/Coding Visit Charges Inpatient E&M: 97462 Subs Hosp L2
[2022-11-03] MEDS: guaiFENesin 1,200 MG Tablet 1200 MG PO ×2 (08:51→21:55)
[2022-11-03] MEDS: Thiamine Hydrochloride 100 MG Tablet PO (08:52)
[2022-11-03] MEDS: DULoxetine Hcl 30 MG Capsule PO (08:52)
[2022-11-03] MEDS: APIXABAN 5 MG TABLET PO ×2 (08:52→21:56)
[2022-11-03] MEDS: Folic Acid 1 MG Tablet PO (08:52)
[2022-11-03] MEDS: Famotidine 20 MG Tablet PO ×2 (08:52→21:57)
[2022-11-03] MEDS: Benzonatate 100 MG Capsule 200 MG PO ×2 (08:52→21:56)
[2022-11-03] MEDS: Pregabalin 75 MG Capsule PO ×2 (08:52→21:55)
[2022-11-03] MEDS: Acetaminophen 325 MG Tablet 650 MG PO ×3 (08:52→21:55)
[2022-11-03] MEDS: amLODIPine 10 MG Tablet PO (08:52)
--- NOTE | 2022-11-03 09:20 | CASEMGMT ---
Addendum entered by Neelam Rothman 11/03/22 12:20: Received notification from [facility], they are unable to accept pt. JHONATHAN TIDWELL into pt room, [facility] chose [facility], referral made to Zoraida at [facility]. Referral accepted for SOC on Sunday. Pt aware. Green sheet on chart for HHC and oxygen should pt be dc'd over the weekend. Addendum entered by Neelam Rothman 11/03/22 11:10: Received tc from Merced at [facility] that they are not able to accept pt d/t staffing. DC account planner to send referral to [facility]. Addendum entered by Neelam Rothman 11/03/22 10:30: Pt has chosen [facility] and [facility] at this time for HHC. Pt did not have a third preference currently. TC to Enmanuel at [facility], referral made. DC creative assistant to send via [employer]. She will review and call back with decision for acceptance. Addendum entered by Neelam Rothman 11/03/22 10:06: Patient was provided a list of HHC providers including quality and resource use data and consistent with the patient?s preferred geographic region, medical needs, and insurance network were provided from the [employer] Guide. Pt to review list and RN YAW to check back. Pt aware of requested top 3 preferences for HHC. Original Note: JHONATHAN TIDWELL Assessment: Face to Face with pt for initial transition planning/care coordination assessment. JHONATHAN TIDWELL introduced self and role at [facility], pt voices understanding and consents to assessment. Pt is A/O x4 and answers all questions appropriately at this time. Pt sitting up in bed with oxygen on in no distress. Care providers, pharmacy, and demographics verified/updated. Admitting Dx: COPD exac PCP:[facility] Specialists:Obie pulm; Yohana, heme; vitaliy Gomez mgmt Preferred Pharmacy: [facility] Insurance: [employer] CRS, [facility] Prescription Benefit: yes LNOK: Feliberto Anthony, sig other Living Arrangements: Pt lives with sig other of 22 years, dtr, son in law, their child and pt has legal custody of another grandchild who is 11 years old. The child is being cared for by her sig other while pt is hospitalized. Pt reports being I in ADL's and denies concerns at home. Transportation: Pt drives self and denies concerns with transportation. DME/HHC/SNF: Pt has a cane, FWW and pox at home. Pt does not typically use AD. Pt denies hx of HHC or SNF stays. Pt states no concerns with going home at time of dc. Discussed local in network DME companies should pt require oxygen upon dc. Reviewed homegoing oxygen instructions. Pt reports she is interested in education regarding COPD. Discussed HHC, pt agreeable. Pt states no further concerns/needs. CM to follow. Advised pt to ask CM if any further question/concerns/needs arise, voices understanding. Pt Goal: Home with HHC Plan: Home with HHC
--- NOTE | 2022-11-03 09:51 | CASEMGMT ---
Discharge Planning HH list created and given to RN YAW. Elissa Stevens, Discharge Planning Asst.
--- NOTE | 2022-11-03 09:52 | CASEMGMT ---
Social Work SW met with pt to discuss alcohol use. Pt states she drinks 4-5 beers each night as a way to wind down. Pt states she has been doing this for 30 years and does not feel it is a problem nor does she have a desire to stop. Pt states she is aware of resources for alcohol abuse and is not interested in additional information from SW at this time. JONI Rush
--- NOTE | 2022-11-03 10:36 | CASEMGMT ---
Discharge Planning HH referral sent to [facility] via [facility]. Elissa Stevens, Discharge Planning Asst.
--- NOTE | 2022-11-03 11:02 | CASEMGMT ---
Discharge Planning Referral sent via [facility] to [facility]. They declined d/t being out of service area. \ Elissa Stevens, Discharge Planning Asst.
--- NOTE | 2022-11-03 12:27 | CASEMGMT ---
Discharge Planning Asst. Referral sent to [facility]. Elissa Stevens, Discharge Planning Asst.
[2022-11-03] MEDS: Benzonatate 100 MG Capsule PO (13:39)
[2022-11-03] MEDS: Ibuprofen 600 MG Tablet PO (13:39)
[2022-11-03] MEDS: 0.9% Saline Lock 10 ML Syringe IV (15:50)
[2022-11-03] MEDS: Pravastatin 20 MG Tablet PO (21:59)
[2022-11-04] VITALS (10 sets, daily range): BP systolic 111–134; BP diastolic 71–85; PULSE 73–101; RESP 16–20; TEMP 36.5–36.7; O2SAT 95–97
[2022-11-04 06:04] LABS: Absolute Lymphocyte Count 0.84 X10^3/uL (0.83-4.51); Absolute Neutrophil Count 8.4 X10^3/uL (2.0-7.7); Basophil# 0.01 X10^3/uL; Basophil% 0.1 % (0-1); Hematocrit 43.3 % (37-47); Hemoglobin 14.5 g/dL (12.0-15.0); Lymphocyte # 0.84 X10^3/ul (0.83-4.51); Lymphocyte % 8.4 % (19-41); Mean Corp Hgb Conc 33.5 g/dL (32-36); Mean Corpuscular Hgb 30.2 pg (27.0-32.0); Mean Corpuscular Volume 90.2 fL (81-99); Mean Platelet Vol. 9.1 fl (6.2-12.0); Monocyte# 0.58 X10^3/uL; Monocyte% 5.8 % (0-10); NRBC Flagged by Analyzer 0 % (0-5); Neutrophil # 8.44 X10^3/uL (2.7-7.7); Neutrophil % 84.9 % (47-70); Platelet Count 224 K/mm3 (150-450); RBC Distribution Width CV 14.3 % (11.6-14.6); RBC Distribution Width SD 47.4 fl (35.1-43.9)
[2022-11-04 07:10] LABS: ALB/GLOB Ratio 0.9 RATIO (0.9-2.4); AST(SGOT) 14 U/L (15-37); Alanine Aminotransfer ALT/SGPT 27 U/L (13-56); Albumin, Serum 3.5 g/dL (3.2-5.0); Alkaline Phosphatase 60 U/L (45-117); Anion Gap 5 (5-15); BUN 14 mg/dL (7-18); BUN/Creat Ratio 27.3 RATIO (10-20); Chloride 108 mmol/L (98-107); Creatinine, Serum 0.51 mg/dL (0.55-1.02); EST Glomerular Filtration Rate 129 mL/min (>60); Est Glom Filt Rate - Afr Amer 156 mL/min (>60); Estimated Creatinine Clearance 94.61 ml/min; Globulin 4.1 g/dL (2.2-4.2); Glucose 138 mg/dL (74-106); Magnesium 2.2 mg/dL (1.6-2.6); Phosphorus 4.2 mg/dL (2.5-4.9); Potassium 3.7 mmol/L (3.5-5.1); Protein, Total 7.6 g/dL (6.4-8.2); Sodium Level 137 mmol/L (136-145)
[2022-11-04] MEDS: Ipratropium/Albuterol Sulfate 3 ML AMPUL.NEB INHALATION ×5 (07:43→23:06)
[2022-11-04] MEDS: Pregabalin 75 MG Capsule PO ×2 (10:45→21:01)
[2022-11-04] MEDS: amLODIPine 10 MG Tablet PO (10:46)
[2022-11-04] MEDS: guaiFENesin 1,200 MG Tablet 1200 MG PO ×2 (10:46→21:00)
[2022-11-04] MEDS: DULoxetine Hcl 30 MG Capsule PO (10:46)
[2022-11-04] MEDS: APIXABAN 5 MG TABLET PO ×2 (10:46→21:01)
[2022-11-04] MEDS: Famotidine 20 MG Tablet PO ×2 (10:46→21:01)
[2022-11-04] MEDS: guaiFENesin/Codeine 5 ML UDC PO (10:59)
[2022-11-04] MEDS: Acetaminophen 325 MG Tablet 650 MG PO (10:59)
--- NOTE | 2022-11-04 11:48 | PCM.PN.HOSP ---
Reason for Visit Reason for Visit: Shortness of breath Subjective Subjective Still significant shortness of breath with intermittent coughing. Efrain Li are not helping much we will add antitussive with codeine and some as needed Benadryl as she indicates codeine has previously made her itchy which is not surprising given histamine relief with narcotics. Objective Data Objective Data Vital Signs: Vital Signs Temp Pulse Resp BP Pulse Ox O2 Del Method O2 Flow Rate 97.7 F L 74 20 H 111/71 95 Nasal Cannula 3 11/04/22 10:50 11/04/22 10:50 11/04/22 10:50 11/04/22 10:50 11/04/22 10:50 11/04/22 10:50 11/04/22 10:50 Oxygen Flow Rate (L/min) 3 Oxygen Delivery Method Nasal Cannula Weight: 53.3 kg Body Mass Index (BMI) 20.8 Intake & Output: Intake and Output for Last 24 Hours 11/02/22 11/03/22 11/04/22 23:59 23:59 23:59 Intake Total 310 / 310 400 / 400 600 / 600 Balance 310 / 310 400 / 400 600 / 600 Lab / Micro Data 11/04/22 05:35 11/04/22 05:35 Labs: Laboratory Results - last 24 hr 11/04/22 05:35: WBC 10.0, RBC 4.80, Hgb 14.5, Hct 43.3, MCV 90.2, MCH 30.2, MCHC 33.5, RDW Std Deviation 47.4 H, RDW Coeff of Jaqueline 14.3, Plt Count 224, MPV 9.1, Immature Gran % (Auto) 0.800, Neut % (Auto) 84.9 H, Lymph % (Auto) 8.4 L, [place] % (Auto) 5.8, Eos % (Auto) 0.0, Baso % (Auto) 0.1, Absolute Neuts (auto) 8.4 H, Absolute Lymphs (auto) 0.84, Nucleated RBC % 0, Sodium 137, Potassium 3.7, Chloride 108 H, Carbon Dioxide 24.0, Anion Gap 5, BUN 14, Creatinine 0.51 L, Estim Creat Clear Calc 94.61, Est GFR (MDRD) Af Amer 156, Est GFR (MDRD) Non-Af 129, BUN/Creatinine Ratio 27.3 H, Glucose 138 H, Calcium 9.0, Phosphorus 4.2, Magnesium 2.2, Total Bilirubin 0.40, AST 14 L, ALT 27, Alkaline Phosphatase 60, Total Protein 7.6, Albumin 3.5, Globulin 4.1, Albumin/Globulin Ratio 0.9 Micro: Microbiology 11/03/22 13:25 Mucosa - Nasopharyngeal Respiratory Panel (PCR) - Final Rhinovirus 11/03/22 08:40 Nasal Secretion SARS-CoV-2 Antigen (Rapid) - Final Physical Exam Const alert and oriented x3; Negative for healthy appearing Constitutional Narrative: Middle-aged, white female, appears older than stated age, returning from the bathroom, intermittent coughing fits still, still with tachypnea HEENT head/scalp atraumatic and moist oral mucous membranes HEENT Narrative: Mallampati 1-2, no thrush Head and Scalp: normocephalic Resp No normal respiratory effort, no retractions, no use of accessory muscles and No clear to auscultation bilaterally Resp Narrative: Diffusely diminished with scattered end expiratory wheezes, somewhat coarse in places, mild respiratory distress but no retractions or use of accessory muscles, no significant improvement as of yet Auscultation: wheezes; Negative for rales or rhonchi Cardio regular rate, regular rhythm, S1 normal heart sound, S2 normal heart sound, no murmurs, no rub, no gallops and no clicks GI normal to inspection, nondistended, normoactive bowel sounds, soft to palpation and non-tender Extremity no clubbing, cyanosis or edema Extremity Narrative: Pedal pulses are 2+ Neuro oriented x3, moves all extremities and no focal motor deficits Speech: speech normal Psych Psych Narrative: Affect is somewhat flat however appropriate as patient is not feeling well Assessment & Plan Assessment/Plan (1) COPD (chronic obstructive pulmonary disease): QUALIFIERS: COPD type: COPD with acute exacerbation Qualified Code(s): J44.1 - Chronic obstructive pulmonary disease with (acute) exacerbation (2) Acute respiratory failure with hypoxia: PLAN: Plan Acute hypoxic respiratory failure secondary to acute exacerbation of COPD due to acute rhinovirus infection -Patient presented with hypoxia, tachycardia, tachypnea -Low suspicion for bacterial infection with normal white count, afebrile and negative chest x-ray -Respiratory viral panel is positive for rhinovirus -COVID-19 is negative -Continue Solu-Medrol -Continue aggressive pulmonary toilet -Continue I-S -Continue Acapella -Continue Mucinex -Continue Tessalon Perles and add Robitussin with codeine as her cough is fairly significant -Continue oxygen as needed and wean as able -Currently requiring 3 L nasal cannula -Patient is aware she may need to go home on supplemental oxygen Recurrent lower extremity DVT/PE -Continue apixaban 5 mg p.o. twice daily GERD -Continue famotidine 20 twice daily Hyperlipidemia/hypertension -Continue home statin -Continue home amlodipine COPD -Hold home inhalers -Treatment as noted above -Patient is not oxygen dependent at baseline Osteoporosis -We will restart alendronate at discharge Chronic pain -patient has spinal cord stimulator -continue home chronic pain medications Tobacco abuse -Recommend cessation -Nicotine patch if needed Alcohol abuse -Recommend cessation -No signs of withdrawal -Drinks 6-8 beers daily -Monitor DVT prophylaxis -Continue twice daily apixaban CODE STATUS -Full code Charges/Coding Visit Charges Inpatient E&M: 56231 Subs Hosp L2
[2022-11-04] MEDS: 0.9% Saline Lock 10 ML Syringe IV (13:58)
[2022-11-04] MEDS: Benzonatate 100 MG Capsule PO ×2 (18:35→21:01)
[2022-11-04] MEDS: Pravastatin 20 MG Tablet PO (21:01)
[2022-11-05] VITALS (9 sets, daily range): BP systolic 121–151; BP diastolic 74–91; PULSE 83–97; RESP 16–20; TEMP 36.6–36.8; O2SAT 95–96
[2022-11-05] MEDS: Ipratropium/Albuterol Sulfate 3 ML AMPUL.NEB INHALATION ×5 (07:07→23:28)
[2022-11-05] MEDS: guaiFENesin/Codeine 5 ML UDC PO (09:39)
[2022-11-05] MEDS: Famotidine 20 MG Tablet PO ×2 (09:41→22:25)
[2022-11-05] MEDS: DULoxetine Hcl 30 MG Capsule PO (09:41)
[2022-11-05] MEDS: APIXABAN 5 MG TABLET PO ×2 (09:42→22:26)
[2022-11-05] MEDS: guaiFENesin 1,200 MG Tablet 1200 MG PO ×2 (09:42→22:26)
[2022-11-05] MEDS: amLODIPine 10 MG Tablet PO (09:42)
[2022-11-05] MEDS: Pregabalin 75 MG Capsule PO ×2 (09:54→22:26)
--- NOTE | 2022-11-05 11:11 | PCM.PN.HOSP ---
Reason for Visit Reason for Visit: Diagnoses Nicotine dependence, unspecified, uncomplicated (11/02/22) Chronic obstructive pulmonary disease with (acute) exacerbation (11/02/22) Acute respiratory failure with hypoxia (11/02/22) Tobacco use (11/02/22) Subjective Subjective Follow-up for acute hypoxic respiratory failure. Objective Data Objective Data Vital Signs: Vital Signs Temp Pulse Resp BP Pulse Ox O2 Del Method O2 Flow Rate 98.1 F 97 20 H 121/78 H 95 Nasal Cannula 2 11/05/22 09:45 11/05/22 10:50 11/05/22 10:50 11/05/22 09:45 11/05/22 09:45 11/05/22 09:45 11/05/22 08:30 FiO2 2 11/05/22 09:45 Oxygen Flow Rate (L/min) 2 Oxygen Delivery Method Nasal Cannula Weight: 117 lb 8.102 oz Body Mass Index (BMI) 20.8 Intake & Output: Intake and Output for Last 24 Hours 11/03/22 11/04/22 11/05/22 23:59 23:59 23:59 Intake Total 400 / 400 2049 / 2049 500 / 500 Balance 400 / 400 2049 / 2049 500 / 500 Lab / Micro Data 11/04/22 05:35 11/04/22 05:35 Micro: Microbiology 11/03/22 13:25 Mucosa - Nasopharyngeal Respiratory Panel (PCR) - Final Rhinovirus 11/03/22 08:40 Nasal Secretion SARS-CoV-2 Antigen (Rapid) - Final Physical Exam Narrative Seen and examined. Patient has dyspnea at rest which gets worse even on walking to bathroom. Patient gets paroxysms of cough. Patient is tachypneic but oxygen requirement came down to 2 L. Physical exam General: Alert, Oriented x3, Cooperative HEENT: Atraumatic, PERRLA, EOMI, Normocephalic Oral: No Gingival or Mucosal Lesions/ Ulcerations Neck: Supple, No JVD, Negative Carotid Bruits Lungs: Air entry equal in both lungs. Mild expiratory rhonchi. Tachypneic. Cardiovascular: Regular rate, Regular Rhythm, Normal S1, Normal S2, No murmurs Abdomen: Bowel Sounds Present, Soft, Non Tender, Non-Distended : No renal angle tenderness. No suprapubic tenderness. Extremities: No edema, Capillary Refill Less than 3 Seconds Skin: No rashes, No breakdown Musculoskeletal: No Tenderness to Palpation of Joints or Extremities. ROM intact. Neurological: Cranial nerves II-XII grossly intact, DTR 2+/4 and Symmetrical, Neuro grossly intact Psych/Mental Status: Flat affect. Assessment & Plan Assessment/Plan (1) COPD (chronic obstructive pulmonary disease): QUALIFIERS: COPD type: COPD with acute exacerbation Qualified Code(s): J44.1 - Chronic obstructive pulmonary disease with (acute) exacerbation (2) Acute respiratory failure with hypoxia: PLAN: Plan Acute hypoxic respiratory failure secondary to acute exacerbation of COPD due to acute rhinovirus bronchitis Patient is still tachycardic, tachypneic but oxygen requirement came down to 2 L. Respiratory panel positive for rhinovirus. Patient on DuoNeb, IV Solu-Medrol, Mucinex, incentive spirometry and Pep. Patient on Robitussin with codeine. Patient not on home oxygen. Recurrent lower extremity DVT/PE -Continue apixaban 5 mg p.o. twice daily GERD -Continue famotidine 20 twice daily Hyperlipidemia/hypertension -Continue home statin -Continue home amlodipine Osteoporosis -We will restart alendronate at discharge Chronic pain -patient has spinal cord stimulator -continue home chronic pain medications Tobacco abuse -Recommend cessation -Nicotine patch if needed Alcohol abuse -Recommend cessation -No signs of withdrawal -Drinks 6-8 beers daily -Monitor DVT prophylaxis -Continue twice daily apixaban CODE STATUS -Full code Clinical Impression(s) from Imaging Studies Chest X-Ray 11/02/22 20:19 IMPRESSION: Mild basilar interstitial prominence. Charges/Coding Visit Charges Inpatient E&M: 82315 Subs Hosp L2
[2022-11-05] MEDS: Acetaminophen 325 MG Tablet 650 MG PO (14:26)
[2022-11-05] MEDS: Benzonatate 100 MG Capsule PO ×2 (14:26→22:26)
[2022-11-05] MEDS: 0.9% Saline Lock 10 ML Syringe IV (14:27)
[2022-11-05] MEDS: Pravastatin 20 MG Tablet PO (22:26)
[2022-11-06] VITALS (7 sets, daily range): BP systolic 133; BP diastolic 82; PULSE 84–88; RESP 20–21; TEMP 36.7; O2SAT 90–97
[2022-11-06] MEDS: Benzonatate 100 MG Capsule PO ×2 (05:53→10:32)
[2022-11-06] MEDS: Alendronate Sodium 70 MG Tablet PO (05:53)
[2022-11-06] MEDS: Ipratropium/Albuterol Sulfate 3 ML AMPUL.NEB INHALATION ×2 (07:10→11:08)
[2022-11-06] MEDS: Pregabalin 75 MG Capsule PO (10:31)
[2022-11-06] MEDS: guaiFENesin 1,200 MG Tablet 1200 MG PO (10:31)
[2022-11-06] MEDS: DULoxetine Hcl 30 MG Capsule PO (10:31)
[2022-11-06] MEDS: APIXABAN 5 MG TABLET PO (10:31)
[2022-11-06] MEDS: amLODIPine 10 MG Tablet PO (10:32)
[2022-11-06] MEDS: Famotidine 20 MG Tablet PO (10:32)
--- NOTE | 2022-11-06 11:16 | DCINST_ITS ---
Discharge Instructions Diet Discharge Diet: No restrictions Activity Discharge Activity: Return to Normal Activity Weight Bearing Status: Weight bearing as tolerated Dressing / Incision Call your doctor if you observe: Fever of 101 or Higher, Coldness, Increased Pain, Numbness or Tingling, Change in Color, Inability to urinate, Inability to have a bowel movement, Using more than 1 pad per hour, Shortness of breath, Dizziness, Fainting spells, Swelling in the ankles, Chest pain, Prolonged hiccupping, Increased palpitations (irregular heartbeat) and Calf discomfort Follow Up Care When: IN 2 WEEKS Test Results: Test results from this visit will be discussed in further detail at your follow- up appointment, if applicable. Discharge Plan Admission Admit Date/Time: 11/02/22 22:22 Primary Reason for Your Visit: Acute Ipock respiratory failure due to COPD exacerbation Attending Provider: Han Schuler [facility] Providers: David Nails; Monserrat Bedoya Discharge Orders/Prescriptions Prescriptions: New benzonatate 100 mg Capsule 100 mg PO 4X/DAY PRN PRN (Reason: COUGH) 30 Days Qty: 30 0RF nicotine 21 mg/24 hr Patch 24 Hour 21 mg transdermal 2200 30 Days Qty: 30 0RF Mucus Relief ER 1,200 mg Tablet Extended Release 12hr 1,200 mg PO BID 7 Days Qty: 14 0RF codeine-guaifenesin 10-100 mg/5 mL liquid 5 ml PO Q6H PRN (Reason: cough) Qty: 120 0RF azithromycin [Zithromax] 500 mg tablet 500 mg PO DAILY Qty: 3 0RF Rx Instructions: 2 more days prednisone 10 mg tablet 10 mg PO DAILY Qty: 30 0RF Rx Instructions: 40 mg for 3 days 30 mg for 3 days, 20 mg for 3 days,and 10 mg for 3 days Continued alendronate [Fosamax] 70 mg tablet 70 mg PO QWEEK Rx Instructions: every sunday famotidine 20 mg tablet 20 mg PO BID tizanidine 4 mg capsule 2 mg PO BID PRN (Reason: Pain) amlodipine 5 MG tablet 10 mg PO DAILY duloxetine 30 MG capsule 30 mg PO DAILY acetaminophen 325 MG tablet 650 mg PO Q6H PRN PRN (Reason: Pain) 0RF Hold Instructions: Ordered albuterol sulfate 2.5 MG/3 ML solution for nebulization 2.5 mg inhalation Q4H PRN PRN (Reason: Shortness Of Breath) albuterol sulfate 1 PUFF inhaler 2 puff inhalation Q4H PRN PRN (Reason: Shortness Of Breath) folic acid 1 mg Tablet 1 mg PO BREAKFAST Qty: 30 0RF pravastatin 20 mg tablet 20 mg PO QHS Patient Comments: TAKE 1 TABLET BY MOUTH EVERY DAY IN THE EVENING pregabalin 75 mg capsule 75 mg PO BID Patient Comments: TAKE 1 CAPSULE BY MOUTH TWICE A DAY omeprazole 40 mg capsule,delayed release(DR/EC) 40 mg PO DAILY Qty: 30 2RF Hold Instructions: not taking sucralfate [Carafate] 1 gram tablet 1 g PO TID 14 Days Qty: 42 0RF Hold Instructions: not taking benzonatate 200 mg capsule 200 mg PO BID Eliquis 5 mg tablet 5 mg PO Q12H Rx Instructions: TAKE 1 TABLET ORALLY TWICE A DAY FOR BLOOD CLOT fluticasone furoate-vilanterol [Breo Ellipta] 100-25 mcg/dose blister with device 1 inh INHALATION DAILY Qty: 60 11RF Spiriva with HandiHaler 18 mcg capsule, w/inhalation device 1 cap inhalation DAILY Qty: 30 11RF Rx Instructions: puncture 1 cap using device; one dose = 2 inhalations Discontinued azithromycin 250 mg tablet 250 mg PO DAILY prednisone 10 mg tablet 10 mg PO .COMPLEX Rx Instructions: 10 mg orally; [facility] - Jelani Ragland MD [Med Staff - Active Staff] - Within 2 Weeks Disposition Disposition (needs filled in before D/C Order can be placed): Home, Self Care
--- NOTE | 2022-11-06 11:24 | CASEMGMT ---
Social Work SW met with patient and introduced self and role as [facility] SW. Patient agreeable to speak with SW. SW inquired about patient's LW and HCPOA documents, explaining we do not have copies on patient's chart. Patient explained she has the documents completed and at home as they need to be notarized. SW encouraged patient to bring a copy to add to patient's chart once they are notarized. Patient reports understanding and has no other SW needs. Stephany Danielle MSW, MASHA
--- NOTE | 2022-11-06 12:53 | DS.PCM_ITS ---
Providers Date of Admission: 11/02/22 Date of Discharge: 11/06/22 Primary Care Physician: [facility] Reason For Visit: COPD EXACERBATION Diagnosis Discharge Diagnosis (1) COPD (chronic obstructive pulmonary disease): Status: Chronic Code(s): J44.9 - Chronic obstructive pulmonary disease, unspecified Qualifiers: COPD type: COPD with acute exacerbation Qualified Code(s): J44.1 - Chronic obstructive pulmonary disease with (acute) exacerbation (2) Acute respiratory failure with hypoxia: Status: Acute Code(s): J96.01 - Acute respiratory failure with hypoxia Plan Acute hypoxic respiratory failure secondary to acute exacerbation of COPD due to acute rhinovirus bronchitis Patient is still tachycardic, tachypneic but oxygen requirement came down to 2 L. Respiratory panel positive for rhinovirus. Patient on DuoNeb, IV Solu-Medrol, Mucinex, incentive spirometry and Pep. Patient on Robitussin with codeine. Patient not on home oxygen. Home oxygen qualification test ordered and was done. The patient pulse ox 90% at rest on room air and 90% ambulating on room air. Patient did not need home oxygen. Prescriptions were given for Robitussin with codeine, Mucinex, Tessalon Perles, azithromycin and tapering dose of prednisone. Patient has albuterol inhaler, nebulizer, Breo Ellipta at home. Advised to follow with Dr. Ragland in 2 weeks. Recurrent lower extremity DVT/PE -Continue apixaban 5 mg p.o. twice daily GERD -Continue famotidine 20 twice daily Hyperlipidemia/hypertension -Continue home statin -Continue home amlodipine Osteoporosis -We will restart alendronate at discharge Chronic pain -patient has spinal cord stimulator -continue home chronic pain medications Tobacco abuse -Recommend cessation -Nicotine patch if needed Alcohol abuse -Recommend cessation -No signs of withdrawal -Drinks 6-8 beers daily -Monitor DVT prophylaxis -Continue twice daily apixaban CODE STATUS -Full code Discharge medication reconciliation done. Discharge follow-up instructions completed. Discharge process discussed with the patient and all questions were answered to patient's satisfaction. Discharged home. Total time spent, exact 35 minutes on discharge meds reconciliation, examination, coordination of care with nurses and ancillary staff, review of imaging and blood test and discussion with the patient on follow-up instructions. Clinical Impression(s) from Imaging Studies Chest X-Ray 11/02/22 20:19 IMPRESSION: Mild basilar interstitial prominence. Medications at Discharge Home Medications amlodipine 5 mg tablet 10 mg PO DAILY blood pressure 12/09/17 duloxetine 30 mg capsule,delayed release 30 mg PO DAILY depression 04/15/18 acetaminophen 325 mg tablet 650 mg (2 x 325 mg) PO Q6H PRN PRN Pain 06/23/18 albuterol sulfate 2.5 mg/3 mL (0.083 %) solution for nebulization 2.5 mg inhalation Q4H PRN PRN Shortness Of Breath 06/30/19 albuterol sulfate 90 mcg/actuation aerosol inhaler 2 puff inhalation Q4H PRN PRN Shortness Of Breath 06/30/19 alendronate 70 mg tablet (Fosamax) 70 mg PO QWEEK bone health\ 09/17/19 fluticasone furoate 100 mcg-vilanterol 25 mcg/dose inhalation powder (Breo Ellipta) 1 inh inhalation DAILY breathing #60 ea 11/11/19 famotidine 20 mg tablet 20 mg PO BID gerd 04/11/21 tizanidine 4 mg capsule 2 mg PO BID PRN Pain 04/11/21 folic acid 1 mg tablet 1 mg PO BREAKFAST vitamin #30 tabs 02/16/22 pravastatin 20 mg tablet 20 mg PO QHS cholesterol 08/30/22 pregabalin 75 mg capsule 75 mg PO BID pain 08/30/22 omeprazole 40 mg capsule,delayed release 40 mg PO DAILY #30 caps 09/05/22 sucralfate 1 gram tablet (Carafate) 1 g PO TID 2 weeks #42 tabs 09/05/22 tiotropium bromide 18 mcg capsule with inhalation device (Spiriva with HandiHaler) 1 cap inhalation DAILY breathing #30 inhalations 09/26/22 apixaban 5 mg tablet (Eliquis) 5 mg PO Q12H blood thinner 11/02/22 benzonatate 200 mg capsule 200 mg PO BID 11/02/22 azithromycin 500 mg tablet (Zithromax) 500 mg PO DAILY #3 tabs 11/06/22 benzonatate 100 mg capsule 100 mg PO 4X/DAY PRN PRN COUGH 30 days #30 caps 11/06/22 codeine 10 mg-guaifenesin 100 mg/5 mL oral liquid 5 ml PO Q6H PRN cough #120 mL 11/06/22 guaifenesin 1,200 mg tablet, extended release 12 hr (Mucus Relief ER) 1,200 mg PO BID 7 days #14 tabs 11/06/22 nicotine 21 mg/24 hr daily transdermal patch 21 mg transdermal 2200 30 days #30 ea 11/06/22 prednisone 10 mg tablet 10 mg PO DAILY #30 tabs 11/06/22 Physical Exam Narrative Seen and examined. Patient on room air. Patient is still has cough but paroxysms of cough and spasm is better. Patient requested prescription for Robitussin-AC. She states he only uses at night. Physical exam General: Alert, Oriented x3, Cooperative HEENT: Atraumatic, PERRLA, EOMI, Normocephalic Oral: No Gingival or Mucosal Lesions/ Ulcerations Neck: Supple, No JVD, Negative Carotid Bruits Lungs: Air entry equal in both lungs. Still has cough. Tachypnea and hypoxia resolved. Cardiovascular: Regular rate, Regular Rhythm, Normal S1, Normal S2, No murmurs Abdomen: Bowel Sounds Present, Soft, Non Tender, Non-Distended : No renal angle tenderness. No suprapubic tenderness. Extremities: No edema, Capillary Refill Less than 3 Seconds Skin: No rashes, No breakdown Musculoskeletal: No Tenderness to Palpation of Joints or Extremities. ROM intact. Neurological: Cranial nerves II-XII grossly intact, DTR 2+/4 and Symmetrical, Neuro grossly intact Psych/Mental Status: Flat affect. Weight / BMI Weight Weight: 117 lb 8.102 oz Body Mass Index (BMI) 20.8 ABG / Lab / Microbiology Data 11/04/22 05:35 11/04/22 05:35 Microbiology: Microbiology 11/03/22 13:25 Mucosa - Nasopharyngeal Respiratory Panel (PCR) - Final Rhinovirus 11/03/22 08:40 Nasal Secretion SARS-CoV-2 Antigen (Rapid) - Final D/C Instructions Discharge Diet: No restrictions Weight Bearing Status: Weight bearing as tolerated Call your doctor if you observe: Fever of 101 or Higher, Coldness, Increased Pain, Numbness or Tingling, Change in Color, Inability to urinate, Inability to have a bowel movement, Using more than 1 pad per hour, Shortness of breath, Dizziness, Fainting spells, Swelling in the ankles, Chest pain, Prolonged hiccupping, Increased palpitations (irregular heartbeat) and Calf discomfort When: IN 2 WEEKS Meaningful Use Info Meaningful Use Diagnoses (Choose all that apply): None applicable Discharge Plan Admission Admit Date/Time: 11/02/22 22:22 Primary Reason for Your Visit: Acute Ipock respiratory failure due to COPD exacerbation Attending Provider: Han Schuler [facility] Providers: David Nails; Monserrat Bedoya Discharge Orders/Prescriptions Prescriptions: New benzonatate 100 mg Capsule 100 mg PO 4X/DAY PRN PRN (Reason: COUGH) 30 Days Qty: 30 0RF nicotine 21 mg/24 hr Patch 24 Hour 21 mg transdermal 2200 30 Days Qty: 30 0RF Mucus Relief ER 1,200 mg Tablet Extended Release 12hr 1,200 mg PO BID 7 Days Qty: 14 0RF codeine-guaifenesin 10-100 mg/5 mL liquid 5 ml PO Q6H PRN (Reason: cough) Qty: 120 0RF azithromycin [Zithromax] 500 mg tablet 500 mg PO DAILY Qty: 3 0RF Rx Instructions: 2 more days prednisone 10 mg tablet 10 mg PO DAILY Qty: 30 0RF Rx Instructions: 40 mg for 3 days 30 mg for 3 days, 20 mg for 3 days,and 10 mg for 3 days Continued alendronate [Fosamax] 70 mg tablet 70 mg PO QWEEK Rx Instructions: every sunday famotidine 20 mg tablet 20 mg PO BID tizanidine 4 mg capsule 2 mg PO BID PRN (Reason: Pain) amlodipine 5 MG tablet 10 mg PO DAILY duloxetine 30 MG capsule 30 mg PO DAILY acetaminophen 325 MG tablet 650 mg PO Q6H PRN PRN (Reason: Pain) 0RF Hold Instructions: Ordered albuterol sulfate 2.5 MG/3 ML solution for nebulization 2.5 mg inhalation Q4H PRN PRN (Reason: Shortness Of Breath) albuterol sulfate 1 PUFF inhaler 2 puff inhalation Q4H PRN PRN (Reason: Shortness Of Breath) folic acid 1 mg Tablet 1 mg PO BREAKFAST Qty: 30 0RF pravastatin 20 mg tablet 20 mg PO QHS Patient Comments: TAKE 1 TABLET BY MOUTH EVERY DAY IN THE EVENING pregabalin 75 mg capsule 75 mg PO BID Patient Comments: TAKE 1 CAPSULE BY MOUTH TWICE A DAY omeprazole 40 mg capsule,delayed release(DR/EC) 40 mg PO DAILY Qty: 30 2RF Hold Instructions: not taking sucralfate [Carafate] 1 gram tablet 1 g PO TID 14 Days Qty: 42 0RF Hold Instructions: not taking benzonatate 200 mg capsule 200 mg PO BID Eliquis 5 mg tablet 5 mg PO Q12H Rx Instructions: TAKE 1 TABLET ORALLY TWICE A DAY FOR BLOOD CLOT fluticasone furoate-vilanterol [Breo Ellipta] 100-25 mcg/dose blister with device 1 inh INHALATION DAILY Qty: 60 11RF Spiriva with HandiHaler 18 mcg capsule, w/inhalation device 1 cap inhalation DAILY Qty: 30 11RF Rx Instructions: puncture 1 cap using device; one dose = 2 inhalations Discontinued azithromycin 250 mg tablet 250 mg PO DAILY prednisone 10 mg tablet 10 mg PO .COMPLEX Rx Instructions: 10 mg orally; Referrals / Follow Up: Jelani Ragland MD [Med Staff - Active Staff] - 11/23/22 10:[address] [facility],Leslie Snowden [Primary Care Provider] - Disposition Disposition (needs filled in before D/C Order can be placed): Home, Self Care Charges/Coding Visit Charges Inpatient E&M: 63910 Disch Hosp >30min
--- NOTE | 2022-11-06 13:24 | CASEMGMT ---
Addendum entered by Neelam Rothman 11/06/22 14:14: Pt does not qualify for home oxygen. Original Note: Notified Zoraida at [facility] that pt will dc today.
--- NOTE | 2022-11-06 14:23 | PHA.DC_ITS ---
Pharmacy [facility] Pharmacy Service has performed discharge medication reconciliation and counseling for this patient. Patient instructed to take either scheduled Mucinex or codeine/guaifenesin to avoid taking above maximum dose. Patient also instructed to only take 2 PRN benzonatate as patient is already on scheduled 200mg BID. Has already had azithromycin and prednisone outpatient, did not risk reduction counselor. 1. NICOTINE PATCH 21MG TOPICAL DAILY 2. GUAIFENESIN 1200MG PO BID 3. CODEINE/GUAIFENESIN 5ML PO Q6H PRN COUGH The patient's discharge medication list was reviewed for discrepancies and discrepancies were resolved. The patient was counseled on the following discharge medications and changes in medications for homegoing were reviewed. The Reason for Use, instructions for use, and potential side effects were reviewed for all new medications. The patient's questions regarding all of their medications were answered. The patient was able to verbally demonstrate an understanding of their discharge medications. Patient counseled by pharmacy innovation assistant, Georges. Medications at Discharge Home Medications amlodipine 5 mg tablet 10 mg PO DAILY blood pressure 12/09/17 duloxetine 30 mg capsule,delayed release 30 mg PO DAILY depression 04/15/18 acetaminophen 325 mg tablet 650 mg (2 x 325 mg) PO Q6H PRN PRN Pain 06/23/18 albuterol sulfate 2.5 mg/3 mL (0.083 %) solution for nebulization 2.5 mg inhalation Q4H PRN PRN Shortness Of Breath 06/30/19 albuterol sulfate 90 mcg/actuation aerosol inhaler 2 puff inhalation Q4H PRN PRN Shortness Of Breath 06/30/19 alendronate 70 mg tablet (Fosamax) 70 mg PO QWEEK bone health\ 09/17/19 fluticasone furoate 100 mcg-vilanterol 25 mcg/dose inhalation powder (Breo Ellipta) 1 inh inhalation DAILY breathing #60 ea 11/11/19 famotidine 20 mg tablet 20 mg PO BID gerd 04/11/21 tizanidine 4 mg capsule 2 mg PO BID PRN Pain 04/11/21 folic acid 1 mg tablet 1 mg PO BREAKFAST vitamin #30 tabs 02/16/22 pravastatin 20 mg tablet 20 mg PO QHS cholesterol 08/30/22 pregabalin 75 mg capsule 75 mg PO BID pain 08/30/22 omeprazole 40 mg capsule,delayed release 40 mg PO DAILY #30 caps 09/05/22 sucralfate 1 gram tablet (Carafate) 1 g PO TID 2 weeks #42 tabs 09/05/22 tiotropium bromide 18 mcg capsule with inhalation device (Spiriva with HandiH aler) 1 cap inhalation DAILY breathing #30 inhalations 09/26/22 apixaban 5 mg tablet (Eliquis) 5 mg PO Q12H blood thinner 11/02/22 benzonatate 200 mg capsule 200 mg PO BID 11/02/22 azithromycin 500 mg tablet (Zithromax) 500 mg PO DAILY #3 tabs 11/06/22 benzonatate 100 mg capsule 100 mg PO 4X/DAY PRN PRN COUGH 30 days #30 caps 11/06/22 codeine 10 mg-guaifenesin 100 mg/5 mL oral liquid 5 ml PO Q6H PRN cough #120 mL 11/06/22 guaifenesin 1,200 mg tablet, extended release 12 hr (Mucus Relief ER) 1,200 mg PO BID 7 days #14 tabs 11/06/22 nicotine 21 mg/24 hr daily transdermal patch 21 mg transdermal 2200 30 days #30 ea 11/06/22 prednisone 10 mg tablet 10 mg PO DAILY #30 tabs 11/06/22
== END 2022-11-06 15:00 | disposition home health service (06) | DRG 190 ==
LOC: ED 22:29 → MS3 22:34
PROVIDERS: Internal Medicine; Admitting Provider Hospitalist; Emergency Provider Emergency Medicine; Visit Provider Internal Medicine
DX: J43.9 Emphysema, unspecified (principal); J96.01 Acute respiratory failure with hypoxia; J20.6 Acute bronchitis due to rhinovirus; E78.00 Pure hypercholesterolemia, unspecified; F17.210 Nicotine dependence, cigarettes, uncomplicated; I10 Essential (primary) hypertension; F10.10 Alcohol abuse, uncomplicated; K21.9 Gastro-esophageal reflux disease without esophagitis; G89.4 Chronic pain syndrome; M81.0 Age-related osteoporosis without current pathological fracture; Z20.822 Contact with and (suspected) exposure to COVID-19; Z79.51 Long term (current) use of inhaled steroids; Z79.01 Long term (current) use of anticoagulants; Z79.899 Other long term (current) drug therapy; Z86.711 Personal history of pulmonary embolism; Z86.718 Personal history of other venous thrombosis and embolism
CPT/HCPCS: 36415; 71045; 80048; 80053; 83735; 83880; 84100; 84484; 85025; 87426; 87633; 93005; 94640; 94668; 99252; 99284; 99406; J7050; A4216; G0463

== ENCOUNTER → 2023-02-03 | Outpatient (CLI) | payer MEDICARE, MEDICAID, SELFPAY ==
--- NOTE | 2023-02-03 09:18 | CT_ITS ---
STUDY: LOW DOSE CT LUNG CANCER SCREENING REASON FOR EXAM: Female, 62 years old. SMOKER 50+ PACK YEARS, COPD RADIATION DOSAGE (If Supplied By Facility): CTDIvol = ( 2.01 ) mGy, DLP = ( 70.47 ) mGycm TECHNIQUE: No contrast was administered. Low dose technique was utilized (average mAS-38 and kVp 120). 1.25 mm axial source images with a slice interval of 1.25-mm were reconstructed in lung windows. 2.5 mm axial source images with a slice interval of 2.5-mm were reconstructed in lung windows. 5.0 mm axial source images with a slice interval of 5.0-mm were reconstructed in soft tissue windows. COMPARISON: 01/30/2022 Emphysema: Mild emphysema. No noncalcified nodule or mass. Endobronchial lesion: None Aorta: Some calcified plaque in the aortic arch but no aortic aneurysm. CORONARY ARTERIES: Coronary artery calcification is seen. Heart: No cardiomegaly. Pulmonary artery: Normal Mediastinal nodes: Normal Other chest and abdominal findings: Mild levoscoliosis of thoracic spine. Dorsal column spinal stimulator in the lower thoracic spine. CT/Low Dose CT Lung Screening IMPRESSION: Lung-RADS category 1 - Continue annual screening with LDCT in 12 months. IMPORTANT NOTES FOR USE: ACR Lung-RADS Version 1.1 Assessment Categories Release Date: 2018 Category: Coded 0-4 bases on nodule(s) with highest degree of suspicion. Negative screen is defined as categories 1 and 2; a positive screen is defined as categories 3 and 4. Category 3 and 4A nodules that are unchanged on interval CT should be coded as category 2, and individuals returned to screening in 12 months. Category 4X: Category 3 or 4 nodules with additional imaging findings that increase the suspicion of lung cancer, such as spiculation, GGN that doubles in size in 1 year, enlarged lymph notes, etc. Category Modifiers: S (significant finding unrelated to lung cancer) Electronically Signed: Louis Cortez MD at 15:44 EDT ,
== END | disposition home or self-care (01) ==
LOC: CT 08:43
PROVIDERS: Referring Provider Nurse Practitioner Acute Care; Visit Provider Nurse Practitioner Acute Care
DX: F17.200 Nicotine dependence, unspecified, uncomplicated (principal)
CPT/HCPCS: 71271

== ENCOUNTER → 2023-03-28 | Outpatient (CLI) | payer MEDICARE, MEDICAID, SELFPAY ==
--- NOTE | 2023-03-28 12:45 | MRI_ITS ---
STUDY: MRI RIGHT SHOULDER REASON FOR EXAM: Female, 62 years old. Pain, rule out cuff tear. TECHNIQUE: Standardized fat and water weighted pulse sequences were obtained in all 3 orthogonal planes. COMPARISON: Right shoulder radiographs dated 01/05/2023. FINDINGS: There is supraspinatus, infraspinatus, and subscapularis tendinosis without a full-thickness tear. Normal teres minor tendon. Normal supraspinatus muscle. Normal infraspinatus muscle. Normal subscapularis muscle. Normal teres minor muscle. There is geographic and serpiginous signal abnormality along the superomedial aspect of the humeral head, compatible with avascular necrosis. There is curvilinear high signal paralleling the subchondral bone plate, compatible with subchondral collapse (coronal T2 series 8 images 7-11). There is a moderate glenohumeral joint effusion. Intact biceps labral complex. Normal labrum. Normal capsulo-ligamentous complex. There is tendinosis of the intracapsular long biceps tendon. There is mild acromioclavicular arthrosis. There is a Type II morphology (curved), with a neutral orientation. There is no subacromial-subdeltoid bursal fluid. Normal visualized coracohumeral and coracoacromial ligaments. Normal quadrilateral space. Normal axillary space. Normal deltoid muscle. Normal trapezius muscle. 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 Moderate glenohumeral joint effusion. Supraspinatus, infraspinatus, and subscapularis tendinosis without a full-thickness rotator cuff tear. Tendinosis of the intracapsular long biceps tendon. Mild acromioclavicular arthrosis. Electronically Signed: Guzman Bedoya MD at 14:10 EST ,
== END | disposition home or self-care (01) ==
LOC: MRI 12:24
PROVIDERS: Referring Provider Orthopaedic Surgery Sports Medicine; Visit Provider Orthopaedic Surgery Sports Medicine
DX: M25.511 Pain in right shoulder (principal)
CPT/HCPCS: 73221

== ENCOUNTER → 2023-09-17 | Outpatient (CLI) | payer MEDICARE, MEDICAID, SELFPAY ==
--- NOTE | 2023-09-17 10:10 | US_ITS ---
STUDY: ULTRASOUND OF THE FEMALE PELVIS - COMPLETE REASON FOR EXAM: Female, 63 years old. 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 TECHNIQUE: Transvaginal TECHNICAL QUALITY: Adequate. COMPARISON: None. FINDINGS: The uterus is anteverted and is in a midline position. The uterus measures 5.4 cm x 3.8 cm x 2.5 cm. Normal uterine cervix. The endometrium is thickened and measures 6 mm in thickness, and is fluid distended. There is no demonstrated endometrial mass. There is a 7 mm x 6 mm x 4 mm fibroid in the left anterior aspect of the uterus. I.U.D. - The patient does not have an I.U.D. The right ovary is visualized. The right ovary measures 1.7 cm x 1.2 cm x 0.9 cm. There is no right ovarian cyst or ovarian mass. There is no visualized right adnexal mass or complex lesion. There is normal arterial and normal venous vascularity. The left ovary is visualized. The left ovary measures 1.5 cm x 1.3 cm x 1.2 cm. There is no left ovarian cyst or ovarian mass. There is no visualized left adnexal mass or complex lesion. There is normal arterial and normal venous vascularity. There is no fluid in the cul-de-sac. US/Transvaginal Non- IMPRESSION: Endometrial thickening. Small anterior uterine fibroid. Electronically Signed: Pato Paniagua MD at 12:43 EDT ,
== END | disposition home or self-care (01) ==
LOC: US 10:09
PROVIDERS: PCP Nurse Practitioner Family; Referring Provider Nurse Practitioner Family; Visit Provider Nurse Practitioner Family
DX: Z78.0 Asymptomatic menopausal state (principal); N95.0 Postmenopausal bleeding
CPT/HCPCS: 76830

== ENCOUNTER → 2023-11-27 | Outpatient (CLI) | payer MEDICARE, MEDICAID, SELFPAY ==
--- NOTE | 2023-11-27 15:30 | RAD_ITS ---
EXAM: XR THORACIC SPINE, 3 VIEWS CLINICAL INDICATION: LUMBAR DEGENERATIVE DISC DISEASE TECHNIQUE: Frontal, lateral and swimmer''s views of the thoracic spine. COMPARISON: No relevant prior studies available. FINDINGS: VERTEBRAE: Unremarkable with the exception of 2 intraspinous electrodes extending superiorly to the level of the lower margin of T8 level. Apparently entering at the upper lumbar spine. Preserved vertebral body height. No fracture. No spondylolisthesis. Preservation of the normal thoracic kyphosis. No significant facet arthropathy. DISC SPACES: Disc spaces are maintained with the exception of narrowing at anterior disc space at multiple mid thoracic levels. RAD/Thoracic Spine 3 Views IMPRESSION: No evidence of thoracic spinal fracture or spondylolisthesis. Electronically Signed: Jennifer Awad MD at 2:10 EDT ,
== END | disposition home or self-care (01) ==
LOC: RAD 15:22
PROVIDERS: PCP Nurse Practitioner Family; Referring Provider Anesthesiology Pain Medicine; Visit Provider Anesthesiology Pain Medicine
DX: M51.36 Other intervertebral disc degeneration, lumbar region (principal); Z96.82 Presence of neurostimulator
CPT/HCPCS: 72072

== ENCOUNTER → 2024-02-05 | Outpatient (CLI) | payer MEDICARE, MEDICAID, SELFPAY ==
--- NOTE | 2024-02-05 12:37 | CT_ITS ---
EXAM: CT CHEST, LUNG CANCER SCREENING WITHOUT INTRAVENOUS CONTRAST CLINICAL INDICATION: smoker TECHNIQUE: Helically acquired images were obtained of the chest without intravenous contrast using low dose (LDCT) lung cancer screening protocol. This CT exam was performed using one or more of the following dose reduction techniques: automated exposure control, adjustment of the mA and/or kV according to patient size, and/or use of iterative reconstruction technique. COMPARISON: CT Lung Cancer Screening dated 02/03/2023 and 01/30/2022 FINDINGS: LUNGS AND PLEURAL SPACES: Stable diffuse centrilobular pulmonary emphysema. No evidence of a lung mass or nodule. No pleural effusion or thickening. No pneumothorax. HEART: Normal. No pericardial effusion. Normal heart size. Coronary artery calcifications present. MEDIASTINUM: Normal. No mediastinal or hilar adenopathy. Esophagus is unremarkable. No hiatal hernia. THYROID: Normal. No thyroid nodules or calcification. BONES/JOINTS: No suspicious lytic or blastic abnormality. SOFT TISSUES: Soft tissue piercing along the presternal region again noted. VASCULATURE: No aortic aneurysm. LYMPH NODES: Normal. No enlarged lymph nodes. TUBES, LINES AND DEVICES: Intraspinal stimulator wire remains in place. CT/Low Dose CT Lung Screening IMPRESSION: 1. No evidence of a lung mass or nodule. 2. Stable centrilobular pulmonary emphysema. Lung-RADS score: 1S - Negative. Additional clinically significant or potentially clinically significant findings are described. Recommend continued annual screening with a low-dose CT (LDCT) in 12 months. Electronically Signed: Avila Galicia MD at 16:26 EDT ,
== END | disposition home or self-care (01) ==
LOC: CT 12:33
PROVIDERS: PCP Nurse Practitioner Family; Referring Provider Nurse Practitioner Acute Care; Visit Provider Nurse Practitioner Acute Care
DX: F17.210 Nicotine dependence, cigarettes, uncomplicated (principal)
CPT/HCPCS: 71271

== ENCOUNTER → 2024-03-04 | Outpatient (CLI) | payer MEDICARE, MEDICAID, SELFPAY | END | disposition home or self-care (01) | LOC: PSN 09:26 | PROVIDERS: PCP Nurse Practitioner Family; Referring Provider Nurse Practitioner Acute Care; Visit Provider Nurse Practitioner Acute Care | DX: J44.9 Chronic obstructive pulmonary disease, unspecified (principal) | CPT/HCPCS: 94060; 94726; 94729 ==

== ENCOUNTER → 2024-03-06 | Outpatient (CLI) | payer MEDICARE, MEDICAID, SELFPAY ==
[2024-03-06 12:44] VITALS: PULSE 101; PULSE 102; PULSE 80; PULSE 84; PULSE 97; PULSE 98; PULSE 99; O2SAT 88; O2SAT 91; O2SAT 92; O2SAT 94; O2SAT 96; O2SAT 97
--- NOTE | 2024-03-11 10:24 | PCM.PSN.6M ---
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 Assistive device used: None Pre-test Oxygen Delivery Method Room Air Pulse Ox (%) 94 Pulse Rate (60-100 beats/min) 80 Dyspnea Nakia Scale (0-10) 0.5 Exertion Nakia Scale (6-20) 6 1st minute Oxygen Delivery Method Room Air Pulse Ox (%) 97 Pulse Rate (60-100 beats/min) 97 2nd minute Oxygen Delivery Method Room Air Pulse Ox (%) 92 Pulse Rate (60-100 beats/min) 102 H 3rd minute Oxygen Delivery Method Room Air Pulse Ox (%) 91 Pulse Rate (60-100 beats/min) 98 4th minute Oxygen Delivery Method Room Air Pulse Ox (%) 92 Pulse Rate (60-100 beats/min) 99 5th minute Oxygen Delivery Method Room Air Pulse Ox (%) 92 Pulse Rate (60-100 beats/min) 101 H 6th minute Oxygen Delivery Method Room Air Pulse Ox (%) 88 Pulse Rate (60-100 beats/min) 99 Dyspnea Nakia Scale (0-10) 4 Exertion Nakia Scale (6-20) 13 Post-test Oxygen Delivery Method Room Air Pulse Ox (%) 96 Pulse Rate (60-100 beats/min) 84 Full Laps Walked 18 Partial Lap, Number of Tiles Walked 12 Total Distance Walked (ft) 1074 Interpretation Interpretation: The patient ambulated 1074 feet over the course of 6 minutes beginning on room air without assistive devices. Pretesting oxygen saturation was noted to be 94% on room air. With ambulation, the zoey oxygen saturation was 88%, consistent with a significant exertional oxygen desaturation and pulmonary limitation to exercise tolerance. However, the patient desaturated to 88% Minute 6 of testing. Therefore, no supplemental oxygen was applied. Recommendations Recommendations: Repeat 6-minute walk test as the patient demonstrated significant exertional oxygen desaturation at the very end of testing, which would require supplemental O2.
== END | disposition home or self-care (01) ==
LOC: PSN 12:19
PROVIDERS: PCP Nurse Practitioner Family; Referring Provider Nurse Practitioner Acute Care; Visit Provider Nurse Practitioner Acute Care
DX: J44.9 Chronic obstructive pulmonary disease, unspecified (principal)
CPT/HCPCS: 94618

== ENCOUNTER → 2024-04-29 | Outpatient (CLI) | payer MEDICARE, MEDICAID, SELFPAY | END | disposition home or self-care (01) | PROVIDERS: PCP Nurse Practitioner Family; Referring Provider Nurse Practitioner Family; Visit Provider Nurse Practitioner Family | DX: R06.02 Shortness of breath (principal) ==

== ENCOUNTER 2024-08-10 22:20 | Inpatient (IN) | payer MEDICARE, MEDICAID, SELFPAY ==
[2024-08-10 22:20] VITALS: BP 156/82; PULSE 77; RESP 28; TEMP 36.1; O2SAT 94; BMI 20.1
--- NOTE | 2024-08-10 22:35 | EKG12_ITS ---
Test Reason : SOB Blood Pressure : */* mmHG Vent. Rate : 75 BPM Atrial Rate : 75 BPM P-R Int : 156 ms QRS Dur : 86 ms QT Int : 426 ms P-R-T Axes : 30 86 77 degrees QTcB Int : 475 ms Normal sinus rhythm Septal infarct (cited on or before 02-Nov-2022) Abnormal ECG Confirmed by BERNADETTE MILLIGAN, KENYA ([id number]), design editor JE PARHAM ([id number]) on 08/13/2024 11:56:54 AM Referred By: Tom Alegre Confirmed By: KENYA FLEMING MD
--- NOTE | 2024-08-10 22:35 | RAD_ITS ---
PROCEDURE: CHEST PA AND LATERAL 08/10/2024 REASON FOR EXAM: RESPIRATORY DISTRESS, BILATERAL WHEEZING, COUGH TECHNIQUE: Frontal and lateral views of the chest. FINDINGS: Hardware: Dorsal column spinal stimulator in the lower thoracic spine. Heart: The heart size is normal. Mediastinum: The mediastinal contour is unremarkable. Lungs: Hyperinflation of the lungs consistent with emphysematous changes. Bones: The bones are unremarkable. RAD/Chest PA and Lateral IMPRESSION: Emphysema without pneumonia or atelectasis. Reading Location: [id number]
--- NOTE | 2024-08-10 22:37 | ED.VIS.DYS ---
HPI History of Present Illness Chief Complaint: Shortness of Breath Detail of Chief Complaint: Shortness of breath, wheezing Informant: patient Onset/Context/Timing Onset: Days (Onset , August 07) Context: gradual Timing: Continuous and Waxes and wanes Quality: Positive for Dyspnea on exertion and Wheezing; Negative for Orthopnea or PND Current Severity: Severe Maximum Severity: Severe Worsened by: Exertion and Coughing Relieved by: Nothing (Patient states she has done 6 aerosol treatment without improvement.) Associated Symptoms cough; Negative for rhinorrhea, post nasal drip, ear pain, fever, sore throat, subjective, chills, sweats, clear sputum, white sputum, yellow sputum or green sputum Chest Pain: Positive for None Narrative Narrative: Patient is a 63-year-old woman. She has history of recurrent DVT on Eliquis and is seeing Dr. Kearns.'s note authored July 08 was reviewed. She is seen in the pulmonary office by nurse practitioner for her stage II moderate COPD by Gold classification. She states she has been on a steroid in the last 3 to 6 months. Patient denies headache, visual, ocular auditory symptoms. She denies rhinorrhea, congestion postnasal drainage sore throat. She does have a cough that is nonproductive. She is having trouble breathing at rest. She denies abdominal pain, nausea, vomiting or diarrhea. She denies dysuria, frequency, urgency or hematuria. She denies leg pain, swelling or discoloration from her baseline. She states she is compliant with the Eliquis. PE Risk Factors: Positive for Prior DVT or PE; Negative for Cancer, OCP + Smoking + > 35, Recent immobilization, Recent surgery or Recent travel Prior similar symptoms: Yes (COPD exacerbation) Recent Illness/Hospitalization: No PFSH PFSH Medical History Right shoulder pain Acute respiratory failure with hypoxia Smoking COPD (chronic obstructive pulmonary disease) Pulmonary embolism Wears dentures Wears glasses Post-menopausal Autism Alcohol use Rheumatoid arthritis Arthritis High cholesterol Back pain Injury of back Gastric reflux Sleep apnea Shortness of breath on exertion Chronic cough History of pain when walking History of echocardiogram Hypertension Alcohol abuse Anxiety Smoker Sleep apnea Community acquired pneumonia Left leg pain DVT (deep venous thrombosis) Spinal cord stimulator status GERD (gastroesophageal reflux disease) COPD (chronic obstructive pulmonary disease) Hypertension Chronic pain syndrome Vitamin D deficiency Age related osteoporosis Asthma Emphysema Depression [place] (obstructive sleep apnea) Angioedema History of pulmonary embolism Tobacco user Benign essential hypertension Home Medications ?Medication ?Instructions ?Recorded ?Last Taken ?Type duloxetine 30 mg capsule,delayed 30 mg PO DAILY depression 04/15/18 11/02/22 History release acetaminophen 325 mg tablet 650 mg (2 x 325 mg) PO Q6H PRN PRN 06/23/18 Unknown Rx Pain albuterol sulfate 2.5 mg/3 mL 2.5 mg inhalation Q4H PRN PRN 06/30/19 11/02/22 History (0.083 %) solution for nebulization Shortness Of Breath famotidine 20 mg tablet 20 mg PO BID gerd 04/11/21 11/02/22 History tizanidine 4 mg capsule 2 mg PO BID PRN Pain 04/11/21 11/02/22 History folic acid 1 mg tablet 1 mg PO BREAKFAST vitamin #30 tabs 02/16/22 11/02/22 Rx pravastatin 20 mg tablet 20 mg PO QHS cholesterol 08/30/22 11/02/22 History pregabalin 75 mg capsule 75 mg PO BID pain 08/30/22 11/02/22 History albuterol sulfate 90 mcg/actuation 2 puff inhalation Q4H PRN PRN 11/27/23 Unknown Rx aerosol inhaler Shortness Of Breath #8.5 grams fluticasone furoate 100 1 inh inhalation DAILY breathing 11/27/23 Unknown Rx mcg-vilanterol 25 mcg/dose #60 ea inhalation powder (Breo Ellipta) amlodipine 10 mg tablet 10 mg PO QDAY 02/28/24 Unknown History apixaban 5 mg tablet (Eliquis) 5 mg PO BID 30 days #60 TABLETS 07/08/24 Unknown Rx tiotropium bromide 2.5 2 inh inhalation QDAY #1 ea 07/29/24 Unknown Rx mcg/actuation mist for inhalation (Spiriva Respimat) Allergy/AdvReac Type Severity Reaction Status Date / Time buspirone Allergy Angioedema Verified 08/10/24 22:20 lisinopril Allergy Angioedema Verified 08/10/24 22:20 Sulfa (Sulfonamide Allergy Itching Verified 08/10/24 22:20 Antibiotics) codeine AdvReac Intermediate / Verified 08/10/24 22:20 Family History Mother Asthma Depression COPD (chronic obstructive pulmonary disease) Hypertension Hyperchloremia Father Respiratory abnormality, unspecified Hypertension Sister COPD (chronic obstructive pulmonary disease) Surgical History Previous back surgery Hx of tubal ligation History of carpal tunnel release of both wrists Status post correction of deviated nasal septum History of laminectomy History of carpal tunnel surgery of left wrist Social History household members: significant other Smoking Status: Current every day smoker tobacco type: cigarettes Tobacco: How many years used: 50 Electronic Cigarette Use: not used second hand exposure: Yes quit status: not considering quitting alcohol intake: current details: Currently 6-8 beers daily. substance use type: does not use ROS ROS ED Constitutional Constitutional ED: Denies chills, fever(s), sweats or weight loss Eyes Eyes: Denies blurry vision or change in vision ENT ENT ED: Denies ear pain, rhinorrhea or sore throat Cardiovascular Cardiovascular: Denies chest pain, orthopnea, palpitations or paroxysmal nocturnal dyspnea Respiratory/Chest Respiratory/Chest: Reports cough, dyspnea and dyspnea on exertion; Denies orthopnea, paroxysmal nocturnal dyspnea or sputum Gastrointestinal Gastrointestinal: Denies abdominal pain, nausea or vomiting Genitourinary Genitourinary ED: Denies dysuria, hematuria or urinary frequency Musculoskeletal Musculoskeletal: Denies back pain or neck pain Integumentary Denies rash Neurologic Neurologic: Denies headache(s) Psychiatric Psychiatric: Reports anxiety Endocrine Endocrinology: Denies cold intolerance or heat intolerance Hematologic/Lymphatic Hematologic/Lymphatic: Reports easy bruising EXAM Physical Exam Const Vital Signs: 08/10/24 22:20 08/10/24 22:38 08/10/24 23:00 Temperature 97 F L Temperature Source Temporal Pulse Rate 77 82 Respiratory Rate 28 H 28 H Respiratory Effort Short of Breath Labored Accessory Muscle Use Respiratory Depth Shallow Respiratory Pattern Tachypnea Blood Pressure 156/82 H Blood Pressure Mean 106 Pulse Ox 94 Oxygen Delivery Method Room Air Room Air 08/10/24 23:35 08/11/24 00:00 Temperature 98.2 F Temperature Source Pulse Rate 78 94 Respiratory Rate 18 18 Respiratory Effort Respiratory Depth Respiratory Pattern Blood Pressure 119/70 132/83 H Blood Pressure Mean 86 99 Pulse Ox 94 92 Oxygen Delivery Method Room Air Positive well developed and cachectic Constitutional Narrative: Patient is in respiratory distress. She has conversational dyspnea. He is able to see one-word at most. There is use of accessory muscles and retractions. General Appearance ED: well developed and cachectic; Negative for pallor Nutritional Appearance: cachectic HEENT Reports moist mucous membranes HEENT Narrative: Head is atraumatic and normocephalic. Ears normal. Nares patent. Posterior pharynx is normal. Eyes PERRL and EOMs intact bilaterally General Eye ED: Negative for pale conjunctiva or scleral icterus Neck no lymphadenopathy, supple, no meningeal signs and no JVD Resp No normal respiratory effort and No clear to auscultation bilaterally Resp Narrative: There is little air movement. There is fine high pitched expiratory wheezing with increased expiratory phase. Cardio regular rate, regular rhythm, S1 normal heart sound, S2 normal heart sound and no murmurs GI non-tender, non-distended and no masses Auscultation: normoactive bowel sounds Back/Spine no CVA tenderness Extremity normal to inspection Neuro oriented x3 and CN's II-XII intact bilaterally Sensorium / Orientation: alert Psych mental status grossly normal Skin no wounds and skin turgor normal General Skin Exam: Negative for jaundice or pallor Lesions: no lesions MDM MDM MDM Narrative Medical decision making narrative: Patient in obvious respiratory distress. Differential diagnosis would include COPD exacerbation, pneumothorax, pneumonia, pulmonary embolus. Workup was undertaken and a chest x-ray appropriate blood work was ordered. She was treated with Solu-Medrol, DuoNeb and multiple albuterol treatments as well. History & Record Review Additional record(s) reviewed:: Prior outpatient record (Dr. Dahl's outpatient note and nurse practitioner Seema Martines's most recent note April 2024.), Prior ED visit (Last ER visit was October 2022 for respiratory failure with hypoxia.) and Prior labs Lab Data Attestation: I reviewed the patient's lab results. Lab results narrative: See BC is remarkable for lymphocytosis. Lactate is normal. Competence of metabolic panel is unremarkable. CO2 is slightly low at 20.2 and albumin is slightly elevated 4.9. Labs: Laboratory Results - last 24 hr 08/10/24 22:51 WBC 6.5 RBC 5.19 Hgb 16.1 H Hct 46.0 MCV 88.6 MCH 31.0 MCHC 35.0 RDW Std Deviation 41.2 RDW Coeff of Jaqueline 12.7 Plt Count 175 MPV 8.8 Immature Gran % (Auto) 0.200 Neut % (Auto) 42.3 L Lymph % (Auto) 42.9 H [place] % (Auto) 13.0 H Eos % (Auto) 1.1 Baso % (Auto) 0.5 Absolute Neuts (auto) 2.8 Absolute Lymphs (auto) 2.80 Nucleated RBC % 0 Sodium 136 Potassium 3.2 L Chloride 100 Carbon Dioxide 20.2 L Anion Gap 17 H BUN 5 Creatinine 0.45 L Estim Creat Clear Calc 107.67 Est GFR (MDRD) Non-Af 108 BUN/Creatinine Ratio 11.5 Glucose 79 Lactic Acid 1.7 Calcium 9.8 Magnesium 2.0 Total Bilirubin 0.30 AST 35 H ALT 30 Alkaline Phosphatase 68 Total Protein 8.2 Albumin 4.9 H Globulin 3.3 Albumin/Globulin Ratio 1.5 ABG Data Attestation: I personally reviewed and interpreted this ABG as follows: Interpretation: Venous blood gas was obtained. Patient has no acid-base disturbance and specifically is not retaining CO2. ABG results: ABG 08/10/24 23:03 Specimen Type EDUARDO VBG pH 7.42 VBG pO2 33 VBG HCO3 24 VBG Total CO2 25 VBG O2 Sat (Calc) 66 VBG Base Excess -1 POC Mix VBG pCO2 Pt Tmp 36.5 L O2 Delivery Device ROOM AIR Radiography Chest X-Ray - ED: 2 View and Read by ED Physician (Independent reviewed interpreted by me at 2326. There is evidence of hyperaeration with flattening of the diaphragms. Patient has a nerve stimulator noted on the lateral view. The cardiac silhouette size is normal. The hilum is unremarkable. Osseous structures reveal no acute process. There is) Diagnostic Testing: Clinical Impression(s) from Imaging Studies Chest X-Ray 08/10/24 22:35 IMPRESSION: Emphysema without pneumonia or atelectasis. Reading Location: [facility] EKG Initial EKG: Attestation: I personally reviewed and interpreted this EKG as follows: Interpretation: Sinus Rhythm (Rate is 75. There is decreased anterior forces. There is evidence of artifact due to respiratory distress. MT interval is under 56 ms Rickers duration 86 ms. QT duration 4 to 26 ms. [place] is normal.) Treatment and Re-Evaluation :: Patient was reassessed at 2330. She still is having respiratory distress. She has improved. She is now able to answer in 2-3 words before taking her breath. There is still use of accessory muscles. There is slight retractions. Pulse ox on room air at rest is 91%. Comments:: Lead Mechanic was asked to page the hospitalist since patient is still in respiratory stress in spite of 3 treatments in the emergency department and 6 prior to coming. Discharge Plan Dx/Rx/DC Orders Clinical Impression: Acute exacerbation of chronic obstructive pulmonary disease, Tobacco user, Recurrent deep vein thrombosis (DVT) of left lower extremity, Acute bronchospasm, Acute respiratory distress, Anticoagulant long-term use, Acute hypokalemia Disposition Disposition: Acute Care Hospital [facility] Discharge Date/Time: 08/11/24 01:06
[2024-08-10 22:38] VITALS: O2SAT 97
[2024-08-10] MEDS: Ipratropium/Albuterol Sulfate 3 ML AMPUL.NEB INHALATION (22:44)
[2024-08-10] MEDS: MethylPREDNISolone 125 MG/2 ML Vial IV (22:44)
[2024-08-10 22:59] LABS: Absolute Neutrophil Count 2.8 X10^3/uL (2.0-7.7); Basophil# 0.03 X10^3/uL; Basophil% 0.5 % (0-1); Eosinophil# 0.07 X10^3/uL; Eosinophils% 1.1 % (0-5); Hemoglobin 16.1 g/dL (12.0-15.0); Lymphocyte % 42.9 % (19-41); Mean Corpuscular Volume 88.6 fL (81-99); Mean Platelet Vol. 8.8 fl (6.2-12.0); Monocyte# 0.85 X10^3/uL; NRBC Flagged by Analyzer 0 % (0-5); Neutrophil # 2.77 X10^3/uL (2.7-7.7); Neutrophil % 42.3 % (47-70); Platelet Count 175 K/mm3 (150-450); RBC Distribution Width CV 12.7 % (11.6-14.6); RBC Distribution Width SD 41.2 fl (35.1-43.9); Red Blood Count 5.19 M/mm3 (4.2-5.4); White Blood Count 6.5 K/mm3 (4.4-11.0)
[2024-08-10 23:00] VITALS: PULSE 82; RESP 28
[2024-08-10] MEDS: Albuterol 2.5 MG/3 ML VIAL.NEB. INHALATION ×3 (23:09)
[2024-08-10 23:19] LABS: ALB/GLOB Ratio 1.5 RATIO (0.9-2.4); AST(SGOT) 35 U/L (<=31); Alanine Aminotransfer ALT/SGPT 30 U/L (<=34); Albumin, Serum 4.9 g/dL (3.4-4.8); Alkaline Phosphatase 68 U/L (35-104); Anion Gap 17 (5-15); BUN 5 mg/dL (4-19); BUN/Creat Ratio 11.5 RATIO (10-20); Calcium,Total 9.8 mg/dL (7.6-11.0); Carbon Dioxide 20.2 mmol/L (21.0-32.0); Chloride 100 mmol/L (98-108); Creatinine, Serum 0.45 mg/dL (0.70-1.20); EST Glomerular Filtration Rate 108 (>60); Estimated Creatinine Clearance 107.67 ml/min (50-250); Globulin 3.3 g/dL (2.2-4.2); Glucose 79 mg/dL (70-99); Lactic Acid 1.7 mmol/L (0.0-2.0); Potassium 3.2 mmol/L (3.3-5.1); Protein, Total 8.2 g/dL (5.9-8.4); Sodium Level 136 mmol/L (133-145)
[2024-08-10 23:35] VITALS: BP 119/70; PULSE 78; RESP 18; TEMP 36.8; O2SAT 94
[2024-08-11] VITALS (14 sets, daily range): BP systolic 114–142; BP diastolic 72–84; PULSE 79–94; RESP 18–24; TEMP 36.6–36.7; O2SAT 92–99; BMI 19.8; BMI 19.7
--- NOTE | 2024-08-11 00:06 | HP.PCM.HOS_ITS ---
[facility] - [facility] General Date of Admission: 08/11/24 Date of Service: 08/11/24 Chief Complaint: SOB and Wheezing. STEPHANIE REILLY, is a 63 F with a past medical history of essential hypertension; on amlodipine, hyperlipidemia; on pravastatin, history of DVT/PE; on apixaban, chronic EtOH abuse; with patient drinking ~6-8 beers daily, history of tobacco abuse; with subsequent asthma/COPD on fluticasone furoate daily and as needed albuterol/tiotropium, history of pneumonia, history of polycythemia; attributed to smoking, DENVER; noncompliant with CPAP, neuropathy; on pregabalin twice daily, history of angioedema, history of abnormal SPEP, history of COVID-19, muscle spasms; on as needed tizanidine twice daily, history of vitamin D deficiency, depression; on duloxetine, GERD; on famotidine twice daily, RA, osteoporosis and OA; with Right shoulder pain with history of laminectomy; s/p spinal cord stimulator (2019) due to chronic pain syndrome who presents to [facility] ER complaining of shortness of breath and wheezing. Ms. Reilly reports her symptoms began 3 days ago on July with a gradual-onset of dyspnea on exertion that progressed to shortness of breath at rest. She also admits to severe wheezing, nonproductive cough and easy fatigability with heightened anxiety. She states her symptoms are similar to her previous acute exacerbations of asthma/COPD. She informed the ER staff that she is taking her Eliquis as prescribed. She denies associated fever, chills, changes in vision, runny nose, sore throat, ear pain, chest pain, palpitations, heart racing, lower extremity edema, abdominal pain, nausea, vomiting, diarrhea, constipation, dysuria, hematuria, back pain, headache, rash or SI/HI. In the ER she was noted to have a CXR that revealed emphysema without pneumonia or atelectasis and she was then diagnosed with AE asthma/COPD complicated by viral respiratory panel positive for Rhinovirus with both issues combining to cause Acute Respiratory Insufficiency in the setting of ongoing Chronic Tobacco Abuse and Chronic EtOH abuse compounded by laboratory evidence of Hypokalemia of 3.2 mmol/L present on admission and she was then admitted to the general medical floor under telemetric monitoring for a stay that is expected to extend beyond 2 midnights. [facility] Medical History Right shoulder pain Acute respiratory failure with hypoxia Smoking COPD (chronic obstructive pulmonary disease) Pulmonary embolism Wears dentures Wears glasses Post-menopausal Autism Alcohol use Rheumatoid arthritis Arthritis High cholesterol Back pain Injury of back Gastric reflux Sleep apnea Shortness of breath on exertion Chronic cough History of pain when walking History of echocardiogram Hypertension Alcohol abuse Anxiety Smoker Sleep apnea Community acquired pneumonia Left leg pain DVT (deep venous thrombosis) Spinal cord stimulator status GERD (gastroesophageal reflux disease) COPD (chronic obstructive pulmonary disease) Hypertension Chronic pain syndrome Vitamin D deficiency Age related osteoporosis Asthma Emphysema Depression DENVER (obstructive sleep apnea) Angioedema History of pulmonary embolism Tobacco user Benign essential hypertension Home Medications ?Medication ?Instructions ?Recorded ?Last Taken ?Type duloxetine 30 mg capsule,delayed 30 mg PO DAILY depres marisela 04/15/18 11/02/22 History release acetaminophen 325 mg tablet 650 mg (2 x 325 mg) PO Q6H PRN PRN 06/23/18 Unknown Rx Pain albuterol sulfate 2.5 mg/3 mL 2.5 mg inhalation Q4H MI N PRN 06/30/19 11/02/22 History (0.083 %) solution for nebulization Shortness Of Breat h famotidine 20 mg tablet 20 mg PO BID gerd 04/11/21 0 11/02/22 History tizanidine 4 mg capsule 2 mg PO BID PRN Pain 1 11/02/22 History folic acid 1 mg tablet 1 mg PO BREAKFAST vitamin #3 0 tabs 02/16/22 11/02/22 Rx pravastatin 20 mg tablet 20 mg PO QHS cholesterol 11/02/22 History pregabalin 75 mg capsule 75 mg PO BID pain 08/30/22 0 11/02/22 History albuterol sulfate 90 mcg/actuation 2 puff inhalation Q 4H PRN PRN 11/27/23 Unknown Rx aerosol inhaler Shortness Of Breath #8.5 gra ms fluticasone furoate 100 1 inh inhalation DAILY breat delroy 11/27/23 Unknown Rx mcg-vilanterol 25 mcg/dose #60 ea inhalation powder (Breo Ellipta) amlodipine 10 mg tablet 10 mg PO QDAY 02/28/24 Unkno wn History apixaban 5 mg tablet (Eliquis) 5 mg PO BID 30 days #60 TABLETS 07/08/24 Unknown Rx tiotropium bromide 2.5 2 inh inhalation QDAY #1 ea 07/29/24 Unknown Rx mcg/actuation mist for inhalation (Spiriva Respimat) Allergy/AdvReac Type Severity Reaction Status Date / Time buspirone Allergy Angioedema Verified 08/10/24 22:20 lisinopril Allergy Angioedema Verified 08/10/24 22:20 Sulfa (Sulfonamide Allergy Itching Verified 08/10/24 22:20 Antibiotics) codeine AdvReac Intermediate / Verified 08/10/24 22:20 Family History Mother Asthma Depression COPD (chronic obstructive pulmonary disease) Hypertension Hyperchloremia Father Respiratory abnormality, unspecified Hypertension Sister COPD (chronic obstructive pulmonary disease) Surgical History Previous back surgery Hx of tubal ligation History of carpal tunnel release of both wrists Status post correction of deviated nasal septum History of laminectomy History of carpal tunnel surgery of left wrist Social History household members: significant other Smoking Status: Current every day smoker tobacco type: cigarettes Tobacco: How many years used: 50 Electronic Cigarette Use: not used second hand exposure: Yes quit status: not considering quitting alcohol intake: current details: Currently 6-8 beers daily. substance use type: does not use ROS ROS Narrative Review of Systems: Constitutional: Patient denies fever or chills. Eyes: Patient denies change in vision or discharge from eyes. ENT: Patient denies runny nose, sore throat or ear pain. Resp: Patient missed a dyspnea on exertion that progressed to shortness of breath at rest with wheezing and nonproductive cough as per HPI. CV: Patient denies chest pain, palpitations, heart racing or lower extremity edema. GI: Patient denies abdominal pain, nausea, vomiting, diarrhea or constipation. : Patient denies dysuria, hematuria or urinary frequency. MSK: Patient denies arthralgias or myalgias. Skin: Patient denies rash, abscess, wounds or jaundice. Psych: Patient admits to heightened anxiety but she denies SI or HI. Neuro: Patient denies headache, paresthesias or focal neurologic deficits. Allergy: Patient denies lip swelling, tongue swelling or urticaria. Hematology: Patient admits to easy bleeding and easy bruisability on apixaban. Endocrinology: Patient denies polyuria, polydipsia, polyphagia or heat/cold intolerance. 14 point ROS otherwise negative save for positives noted above in HPI. Vital Signs Vital Signs Vital Signs: 08/10/24 22:20 08/10/24 22:38 08/10/24 23:00 Temperature 97 F L Temperature Source Temporal Pulse Rate 77 82 Respiratory Rate 28 H 28 H Respiratory Effort Short of Breath Labored Accessory Muscle Use Respiratory Depth Shallow Respiratory Pattern Tachypnea Blood Pressure 156/82 H Blood Pressure Mean 106 Pulse Ox 94 Oxygen Delivery Method Room Air Room Air 08/10/24 23:35 Temperature 98.2 F Temperature Source Pulse Rate 78 Respiratory Rate 18 Respiratory Effort Respiratory Depth Respiratory Pattern Blood Pressure 119/70 Blood Pressure Mean 86 Pulse Ox 94 Oxygen Delivery Method Weight Weight: 117 lb 8.102 oz Body Mass Index (BMI) 20.1 Physical Exam Const alert and oriented x3 Constitutional Narrative: Patient noted to be in moderate respiratory distress with accessory muscle use, retractions and conversational dyspnea with the patient able to speak up to ~3 word sentences. General Appearance: cooperative HEENT normocephalic, head/scalp atraumatic, hearing grossly normal bilaterally and moist oral mucous membranes Eyes PERRL, EOMs intact bilaterally and conjunctivae normal Neck no lymphadenopathy, supple and no JVD Resp Resp Narrative: Diminished breath sounds throughout with fine high-pitched wheezing on expiration. Auscultation: wheezes Cardio regular rate and regular rhythm GI normal to inspection, nondistended, normoactive bowel sounds, soft to palpation, non-tender and non-distended Extremity normal to inspection, full ROM and no clubbing, cyanosis or edema Skin Skin Narrative: Patient has no evidence of rash, abscess, wounds or jaundice. Neuro oriented x3, CN's II-XII intact bilaterally, moves all extremities and no focal motor deficits Sensorium / Orientation: awake, alert, oriented to person, oriented to place and oriented to time Speech: speech normal Psych Mood & Affect: anxious Results Medical Records Data Attestation: I reviewed the patient's medical records Lab / Micro Data Attestation: I reviewed the patient's lab results. 08/10/24 22:51 08/10/24 22:51 Labs: Laboratory Results - last 24 hr 08/10/24 22:51: WBC 6.5, RBC 5.19, Hgb 16.1 H, Hct 46.0, MCV 88.6, MCH 31.0, MCHC 35.0, RDW Std Deviation 41.2, RDW Coeff of Jaqueline 12.7, Plt Count 175, MPV 8.8, Immature Gran % (Auto) 0.200, Neut % (Auto) 42.3 L, Lymph % (Auto) 42.9 H, [place] % (Auto) 13.0 H, Eos % (Auto) 1.1, Baso % (Auto) 0.5, Absolute Neuts (auto) 2.8, Absolute Lymphs (auto) 2.80, Nucleated RBC % 0, Sodium 136, Potassium 3.2 L , Chloride 100, Carbon Dioxide 20.2 L, Anion Gap 17 H, BUN 5, Creatinine 0.45 L, Estim Creat Clear Calc 107.67, Est GFR (MDRD) Non-Af 108, BUN/Creatinine Ratio 11.5, Glucose 79, Lactic Acid 1.7, Calcium 9.8, Total Bilirubin 0.30, AST 35 H, ALT 30, Alkaline Phosphatase 68, Total Protein 8.2, Albumin 4.9 H, Globulin 3.3, Albumin/Globulin Ratio 1.5 Imaging Radiology Impression Chest X-Ray 08/10/24 22:35 IMPRESSION: Emphysema without pneumonia or atelectasis. Reading Location: [facility] Assessment & Plan Assessment/Plan (1) Acute exacerbation of COPD with asthma: (2) Rhinovirus infection: (3) Tobacco abuse: (4) Respiratory insufficiency: (5) Hypokalemia: (6) Alcohol abuse: (7) Recurrent deep vein thrombosis (DVT) of left lower extremity: PLAN: Plan 1. AE asthma/COPD in the setting of ongoing Tobacco Abuse and viral respiratory panel positive for Rhinovirus - Admit to general medical floor under telemetry monitoring on droplet precautions. Continue IV methylprednisolone begun in ER and add IV doxycycline. Give scheduled and as needed nebulizers as previous. Give as needed guaifenesin. Give acetaminophen as needed for pain or fever. Finally, we will give supplemental vitamin D3, vitamin C and zinc to help boost immunity and hopefully speedy recovery. 2. Acute Respiratory Insufficiency due to #1 - Wean supplemental oxygen as tolerated. 3. Hypokalemia of 3.2 mmol/L present on admission complicating #1 & #2 - Give supplemental KCl and then recheck level in a.m. to ensure repletion. 4. Chronic EtOH abuse; with patient drinking ~6-8 beers daily compounding #1 - #3 - EtOH Cessation will be strongly encouraged. Start phenobarbital taper per protocol to prevent withdrawal. Patient is in the precontemplative phase of her addiction process, therefore no additional consultations to help with EtOH cessation will be made at this time. 5. History of DVT/PE; on apixaban adding to the medical complexity of #1 - #4 - Maintain apixaban as before. 6. Essential hypertension; on amlodipine - Resume amlodipine as previous plus give hydralazine IV as needed for systolic blood pressure greater than 160 mmHg. 7. Hyperlipidemia; on pravastatin - Maintain statin. 8. History of pneumonia - Noted with no evidence of recurrence on CXR this admission. 9. History of polycythemia; attributed to smoking - Stable with hemoglobin of 16.1 g/dL present on admission. 10. DENVER; noncompliant with CPAP - CPAP will be offered and its use will be encouraged. 11. Neuropathy; on pregabalin twice daily - Continue current therapy. 12. History of angioedema - Stable with no evidence of recurrence this admission. 13. History of abnormal SPEP - Noted. 14. History of COVID-19 - Noted with viral panel pending. 15. Muscle spasms; on as needed tizanidine twice daily - Stable. 16. History of vitamin D deficiency - Start vitamin D supplementation and check level this admission. 17. Depression; on duloxetine - Continue duloxetine as before plus give as needed Xanax for breakthrough symptoms. 18. GERD; on famotidine twice - Resume H2 lindsey as previous. 19. RA - Stable. 20. Osteoporosis - Stable. 21. OA; with Right shoulder pain with history of laminectomy; s/p spinal cord stimulator (2020) due to chronic pain syndrome - Stable. Give acetaminophen as needed as outlined in #1. 22. DVT prophylaxis - Patient already on apixaban for #5 which will be continued. Total time: Approximately (but not less than) 75 minutes. Charges/Coding Visit Charges Inpatient E&M: 32012 Init Hosp L3
[2024-08-11] MEDS: Phenobarbital 32.4 MG Tablet 64.8 MG PO ×6 (01:49→23:40)
[2024-08-11] MEDS: Ascorbic Acid 500 MG Tablet 1000 MG PO ×3 (01:53→17:08)
[2024-08-11] MEDS: Zinc Sulfate 50 mg zinc (220 mg) ORAL capsule PO ×2 (01:53→08:58)
[2024-08-11] MEDS: Cholecalciferol (Vit D3) 125 MCG CAPSULE (5,000 UNITS) PO ×2 (01:53→08:56)
[2024-08-11] MEDS: Doxycycline 100 MG in 0.9% Normal Saline (250mL Bag) 250 ML 250 MG IV ×3 (01:54→23:45)
[2024-08-11] MEDS: 0.9% Normal Saline (1000mL) 1,000 ML 70 ML IV (01:58)
[2024-08-11] MEDS: Potassium Chloride Oral Tablet 20 MEQ 60 MEQ PO (02:16)
[2024-08-11] MEDS: Ipratropium/Albuterol Sulfate 3 ML AMPUL.NEB INHALATION ×3 (06:44→17:04)
[2024-08-11 07:11] LABS: Absolute Lymphocyte Count 0.55 X10^3/uL (0.83-4.51); Absolute Neutrophil Count 2.2 X10^3/uL (2.0-7.7); Basophil# 0.01 X10^3/uL; Basophil% 0.4 % (0-1); Hematocrit 40.6 % (37-47); Hemoglobin 14.1 g/dL (12.0-15.0); Lymphocyte # 0.55 X10^3/ul (0.83-4.51); Lymphocyte % 19.6 % (19-41); Mean Corp Hgb Conc 34.7 g/dL (32-36); Mean Corpuscular Hgb 31.1 pg (27.0-32.0); Mean Corpuscular Volume 89.4 fL (81-99); Mean Platelet Vol. 9.3 fl (6.2-12.0); Monocyte# 0.05 X10^3/uL; Monocyte% 1.8 % (0-10); NRBC Flagged by Analyzer 0 % (0-5); Neutrophil # 2.19 X10^3/uL (2.7-7.7); Neutrophil % 77.8 % (47-70); POSITIVE DIFFERENTIAL YES; Platelet Count 166 K/mm3 (150-450); RBC Distribution Width CV 12.6 % (11.6-14.6); RBC Distribution Width SD 41.3 fl (35.1-43.9); Red Blood Count 4.54 M/mm3 (4.2-5.4); White Blood Count 2.8 K/mm3 (4.4-11.0)
[2024-08-11 07:25] LABS: Differential Indicated SCAN CRITERIA MET
[2024-08-11 07:48] LABS: Blood Gas Specimen Type VEN
[2024-08-11 07:49] LABS: O2 Delivery Device ROOM AIR; VBG BASE EXCESS -1 mmol/L (-1.0-3.5); VBG Bicarbonate 24 mmol/L (22-26); VBG PO2 33 mmHg (25-40); VBG SO2 66 % (50-70); VBG pCO2 36.5 mmHg (41-51); VBG pH 7.42 (7.32-7.42)
[2024-08-11 07:50] LABS: VBG TCO2 25 mmol/L (23-33)
[2024-08-11 07:53] LABS: ALB/GLOB Ratio 1.5 RATIO (0.9-2.4); AST(SGOT) 28 U/L (<=31); Alanine Aminotransfer ALT/SGPT 26 U/L (<=34); Albumin, Serum 4.4 g/dL (3.4-4.8); Alkaline Phosphatase 61 U/L (35-104); Anion Gap 11 (5-15); BUN 6 mg/dL (4-19); BUN/Creat Ratio 14.1 RATIO (10-20); Carbon Dioxide 18.8 mmol/L (21.0-32.0); Chloride 105 mmol/L (98-108); Creatinine, Serum 0.41 mg/dL (0.70-1.20); EST Glomerular Filtration Rate 111 (>60); Estimated Creatinine Clearance 115.96 ml/min (50-250); Globulin 2.9 g/dL (2.2-4.2); Glucose 153 mg/dL (70-99); Phosphorus 3.5 mg/dL (2.7-4.5); Potassium 4.7 mmol/L (3.3-5.1); Protein, Total 7.3 g/dL (5.9-8.4); Sodium Level 135 mmol/L (133-145)
[2024-08-11 07:59] LABS: Thyroid Stim Hormone (TSH) 0.431 uIU/mL (0.300-4.200)
[2024-08-11] MEDS: Lactobacillis Acidophilus 1 CAP PO ×3 (08:56→23:55)
[2024-08-11] MEDS: Folic Acid 1 MG Tablet PO (08:57)
[2024-08-11] MEDS: Famotidine 20 MG Tablet PO ×2 (08:57→23:41)
[2024-08-11] MEDS: MethylPREDNISolone 125 MG/2 ML Vial 60 MG IV ×2 (08:57→23:40)
[2024-08-11] MEDS: Pregabalin 75 MG Capsule PO ×2 (08:58→23:45)
[2024-08-11] MEDS: APIXABAN 5 MG TABLET PO ×2 (08:58→23:41)
[2024-08-11] MEDS: Thiamine Hydrochloride 100 MG Tablet PO (08:58)
[2024-08-11] MEDS: amLODIPine 10 MG Tablet PO (08:58)
[2024-08-11] MEDS: DULoxetine Hcl 30 MG Capsule PO (08:58)
--- NOTE | 2024-08-11 11:46 | CASEMGMT ---
JHONATHAN TIDWELL Assessment Face to Face with patient for initial transition planning/care coordination assessment. JHONATHAN TIDWELL introduced self and role at [facility], pt voices understanding. Pt is A&Ox4 and is resting comfortably in bed and is calm. Care providers, pharmacy, and demographics verified. Admitting dx: AE COPD LACE Strata: 2 PCP: Roizna Greene ([facility]) Specialists: Jocelyn Pulmonary Medicine, Yohana (Oncology), Carson (PM) Preferred Pharmacy: [facility] Insurance: KOBY SOTO DUAL ADV, ERIKA Prescription Benefit: Yes LNOK: Feliberto Anthony (SO) Living Arrangements: Pt lives with her SO, Daughter + AYRA and their 8 y/o child, as well as her 14 y/o Grandchild that she has custody of. Pt lives in a 2 story home with 3 steps to enter ADLs/IADLs: Pt states that she is mostly independent and that her family can assist her if needed Transportation: Self, SO. Denies concerns DME: Pt states that she wears oxygen through [employer] @ HS only (2L). Pt states that she has a concentrator and also a POC. Pt states that she does not have a pulse ox any longer but that she can afford a new one. Pt also has a nebulizer, Cane, FWW, and shower chair. Pt states that she does not have a PAP machine. HHC/SNF: History with [facility] HH. Denies SNF ETOH/ Smoking/ Drugs: pt states that she drinks 6-8 beers per day. Pt states that she smokes 1/2 pack of cigarettes per day. Denies illicit drug use. Pt denies wanting any resources regarding these issues. Eliquis: Pt states that she takes this at home and that it is affordable through her insurance Pt?s goal: Home Plan: Home with OP Tx, pvt duty aid, follow for increased oxygen demands. Pt states that she would like to go to OP PT for general strengthening. Pt states that she would prefer to go to the [facility] in [place]. Pt states that she would like CM to set up the appt and prefers after 0900 and before 1500. Pt denies transportation issues. Pt also states that she would like help at home with tasks such as cleaning. CM to provide private duty resources. Pt states that she feels safe with this plan and denies further questions or concerns at this time. Report given to MS3 JHONATHAN TIDWELL. Tushar Dillon RN CM
--- NOTE | 2024-08-11 14:02 | CASEMGMT ---
Addendum entered by Neelam Rothman 08/11/24 16:00: Provided pt with a private duty list per request. Addendum entered by Neelam Rothman 08/11/24 15:26: JHONATHAN TIDWELL into pt room, she is aware of appt for PT that was set up. Pt is also aware that her order for home oxygen is 2L cont. Pt states she was only wearing at night. Pt states Feliberto can bring her POC or portable tank in upon dc. Pt denies any further needs at this time. Original Note: TC to [facility] therapy, [facility], appt made for pt for August 19 at noon. Pt to bring insurance card, ID and arrive a few minutes early for paperwork.
--- NOTE | 2024-08-11 15:21 | PCM.PROGNOTE ---
Subjective Subjective Patient seen and examined. She had no active complaints. She still feels like her shortness of breath at rest not resolved fully. She still coughing. She denies any chest pain, palpitations, dizziness, nausea vomiting or any other symptoms. Review of systems otherwise negative. Objective Data Objective Data Vital Signs: Vital Signs Temp Pulse Resp BP Pulse Ox O2 Del Method O2 Flow Rate 98 F 88 20 H 142/84 H 99 Nasal Cannula 2 08/11/24 14:00 08/11/24 14:57 08/11/24 14:00 08/11/24 14:00 08/11/24 14:00 08/11/24 14:15 08/11/24 14:15 Oxygen Flow Rate (L/min) 2 Oxygen Delivery Method Nasal Cannula Weight: 115 lb 4.828 oz Body Mass Index (BMI) 19.7 Intake & Output: Intake and Output for Last 24 Hours 08/09/24 08/10/24 08/11/24 23:59 23:59 23:59 Intake Total 1587 / 1587 Balance 1587 / 1587 Lab / Micro Data 08/11/24 06:54 08/11/24 06:54 Labs: Laboratory Results - last 24 hr 08/10/24 22:51: WBC 6.5, RBC 5.19, Hgb 16.1 H, Hct 46.0, MCV 88.6, MCH 31.0, MCHC 35.0, RDW Std Deviation 41.2, RDW Coeff of Jaqueline 12.7, Plt Count 175, MPV 8.8, Immature Gran % (Auto) 0.200, Neut % (Auto) 42.3 L, Lymph % (Auto) 42.9 H, [place] % (Auto) 13.0 H, Eos % (Auto) 1.1, Baso % (Auto) 0.5, Absolute Neuts (auto) 2.8, Absolute Lymphs (auto) 2.80, Nucleated RBC % 0, Sodium 136, Potassium 3.2 L, Chloride 100, Carbon Dioxide 20.2 L, Anion Gap 17 H, BUN 5, Creatinine 0.45 L, Estim Creat Clear Calc 107.67, Est GFR (MDRD) Non-Af 108, BUN/Creatinine Ratio 11.5, Glucose 79, Lactic Acid 1.7, Calcium 9.8, Magnesium 2.0, Total Bilirubin 0.30, AST 35 H, ALT 30, Alkaline Phosphatase 68, Total Protein 8.2, Albumin 4.9 H, Globulin 3.3, Albumin/Globulin Ratio 1.5 08/11/24 06:54: WBC 2.8 L, RBC 4.54, Hgb 14.1, Hct 40.6, MCV 89.4, MCH 31.1, MCHC 34.7, RDW Std Deviation 41.3, RDW Coeff of Jaqueline 12.6, Plt Count 166, MPV 9.3, Immature Gran % (Auto) 0.400, Neut % (Auto) 77.8 H, Lymph % (Auto) 19.6, [place] % (Auto) 1.8, Eos % (Auto) 0.0, Baso % (Auto) 0.4, Absolute Neuts (auto) 2.2, Absolute Lymphs (auto) 0.55 L, Nucleated RBC % 0, Sodium 135, Potassium 4.7, Chloride 105, Carbon Dioxide 18.8 L, Anion Gap 11, BUN 6, Creatinine 0.41 L, Estim Creat Clear Calc 115.96, Est GFR (MDRD) Non-Af 111, BUN/Creatinine Ratio 14.1, Glucose 153 H, Calcium 9.0, Phosphorus 3.5, Total Bilirubin 0.30, AST 28, ALT 26, Alkaline Phosphatase 61, Total Protein 7.3, Albumin 4.4, Globulin 2.9, Albumin/Globulin Ratio 1.5, TSH 0.431 Micro: Microbiology 08/11/24 01:10 Mucosa - Nasopharyngeal Respiratory Panel (PCR) - Final Rhinovirus ABG Data ABG results: ABG 08/10/24 23:03 Specimen Type EDUARDO VBG pH 7.42 VBG pO2 33 VBG HCO3 24 VBG Total CO2 25 VBG O2 Sat (Calc) 66 VBG Base Excess -1 POC Mix VBG pCO2 Pt Tmp 36.5 L O2 Delivery Device ROOM AIR Radiography Diagnostic Testing: Radiology Impression Chest X-Ray 08/10/24 22:35 IMPRESSION: Emphysema without pneumonia or atelectasis. Reading Location: [facility] Physical Exam Const alert, oriented x3 and no apparent distress General Appearance: cooperative HEENT normocephalic, head/scalp atraumatic and moist oral mucous membranes Eyes PERRL and EOMs intact bilaterally Neck no lymphadenopathy and supple Lymph Lymphatic: no lymphadenopathy noted and no lymphedema noted Resp Resp Narrative: diminished breath sounds bibasally, no wheezes or crackles. On 2L of oxygen Cardio regular rate, regular rhythm, S1 normal heart sound, S2 normal heart sound and no murmurs GI normal to inspection, nondistended, normoactive bowel sounds, soft to palpation, non-tender and non-distended Extremity normal capillary refill, no clubbing, cyanosis or edema and no calf tenderness General Extremity: no tenderness to palpation of joints or extremities Skin General Skin Exam: no breakdown Neuro CN's II-XII intact bilaterally, no focal motor deficits and no sensory deficits noted Motor Exam: strength 5/5 throughout and general weakness Psych thought process normal and cooperative Appearance: appropriate Assessment & Plan Assessment/Plan (1) Rhinovirus infection: (2) Acute exacerbation of COPD with asthma: PLAN: Plan #Acute exacerbation of COPD in the setting of acute rhinovirus infection Patient still feeling a bit short of breath. She is still coughing. She denies any chest pain or wheezing or any other symptoms. Currently on 2 L of oxygen. breathing treatment with bronchodilators titrate oxygen to maintain sats >90% # Hypokalemia: Potassium was 3.2 on admission. Replaced. Will monitor. #History of chronic alcohol use Drinks 6-8 beers daily. Started on phenobarbital taper for presumptive withdrawal. On thiamine, folic acid and Multi-Jak. Monitor CIWA protocol. #History of DVT and PE: On Eliquis #Benign essential hypertension: On amlodipine. 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 Hemoglobin was 16 on admission. Stable. Will monitor. #DENVER: Noncompliant with CPAP #DEpression: on duloxetine #GERD: on famotidine #HIstory of osteoarthritis Has a history of right shoulder pain and history of laminectomy status post spinal cord stimulator due to chronic pain syndrome. Stable DVT prophylaxis: On Eliquis Charges/Coding Visit Charges Inpatient E&M: 62019 Subs Hosp L2
--- NOTE | 2024-08-11 15:41 | CHAPLAIN ---
Type of Pastoral Visit ___ Initial Visit ___ Follow-up Visit ___ On-call Visit ___ General Patient Visit ___ Spiritual Assessment ___ Family Conference ___ Bereavement ___ Rapid Response ___ Code Blue ___ Other (describe below) Pastoral Care Referral From ___ Patient ___ Family ___ Nurse ___ Physician ___ Teacher Of The Sight Impaired ___ Librarian Special Collections ___ Other (describe below) Sacrament/Intervention ___ Active listening ___ Anointing ___ Orthodoxy ___ Bereavement ___ Communion ___ Cleo exploration ___ ___ Life review ___ Prayer ___ Reconciliation ___ Sacrament of Sick ___ Supportive presence ___ Wedding ___ Other (describe below) Pastoral Comments first attempt and the patient was with PT and OT; on second attempt the patient was sound asleep; left a calling card
[2024-08-11] MEDS: Pravastatin 20 MG Tablet PO (23:41)
[2024-08-12] VITALS (10 sets, daily range): BP systolic 110–130; BP diastolic 62–76; PULSE 65–79; RESP 16–22; TEMP 36.6–37.1; O2SAT 95–100
[2024-08-12] MEDS: Acetaminophen 325 MG Tablet 650 MG PO (00:52)
[2024-08-12] MEDS: Phenobarbital 32.4 MG Tablet 64.8 MG PO ×6 (01:23→21:23)
[2024-08-12 07:10] LABS: Absolute Lymphocyte Count 0.88 X10^3/uL (0.83-4.51); Absolute Neutrophil Count 5.2 X10^3/uL (2.0-7.7); Basophil# 0.01 X10^3/uL; Basophil% 0.2 % (0-1); Hemoglobin 13.7 g/dL (12.0-15.0); Lymphocyte # 0.88 X10^3/ul (0.83-4.51); Lymphocyte % 13.5 % (19-41); Mean Corp Hgb Conc 34.3 g/dL (32-36); Mean Corpuscular Hgb 30.6 pg (27.0-32.0); Mean Corpuscular Volume 89.5 fL (81-99); Mean Platelet Vol. 9.6 fl (6.2-12.0); Monocyte# 0.43 X10^3/uL; Monocyte% 6.6 % (0-10); NRBC Flagged by Analyzer 0 % (0-5); Neutrophil # 5.18 X10^3/uL (2.7-7.7); Neutrophil % 79.1 % (47-70); Platelet Count 166 K/mm3 (150-450); RBC Distribution Width CV 12.7 % (11.6-14.6); RBC Distribution Width SD 41.8 fl (35.1-43.9); Red Blood Count 4.47 M/mm3 (4.2-5.4); White Blood Count 6.5 K/mm3 (4.4-11.0)
[2024-08-12] MEDS: Ipratropium/Albuterol Sulfate 3 ML AMPUL.NEB INHALATION ×3 (07:38→19:45)
[2024-08-12 07:47] LABS: Anion Gap 12 (5-15); BUN 7 mg/dL (4-19); BUN/Creat Ratio 15.2 RATIO (10-20); Calcium,Total 9.2 mg/dL (7.6-11.0); Carbon Dioxide 20.7 mmol/L (21.0-32.0); Chloride 104 mmol/L (98-108); Creatinine, Serum 0.47 mg/dL (0.70-1.20); EST Glomerular Filtration Rate 107 (>60); Glucose 133 mg/dL (70-99); Sodium Level 137 mmol/L (133-145)
--- NOTE | 2024-08-12 09:11 | CASEMGMT ---
Faxed OP PT order to [facility] with demos at this time.
[2024-08-12] MEDS: Folic Acid 1 MG Tablet PO (09:20)
[2024-08-12] MEDS: Ascorbic Acid 500 MG Tablet 1000 MG PO ×2 (09:20→17:35)
[2024-08-12] MEDS: Thiamine Hydrochloride 100 MG Tablet PO (09:20)
[2024-08-12] MEDS: DULoxetine Hcl 30 MG Capsule PO (09:21)
[2024-08-12] MEDS: APIXABAN 5 MG TABLET PO ×2 (09:21→21:24)
[2024-08-12] MEDS: Lactobacillis Acidophilus 1 CAP PO ×4 (09:21→21:23)
[2024-08-12] MEDS: Zinc Sulfate 50 mg zinc (220 mg) ORAL capsule PO (09:21)
[2024-08-12] MEDS: amLODIPine 10 MG Tablet PO (09:21)
[2024-08-12] MEDS: Famotidine 20 MG Tablet PO ×2 (09:21→21:23)
[2024-08-12] MEDS: Cholecalciferol (Vit D3) 125 MCG CAPSULE (5,000 UNITS) PO (09:25)
[2024-08-12] MEDS: Pregabalin 75 MG Capsule PO ×2 (09:27→21:23)
[2024-08-12] MEDS: Doxycycline 100 MG in 0.9% Normal Saline (250mL Bag) 250 ML 250 MG IV (09:30)
[2024-08-12] MEDS: MethylPREDNISolone 125 MG/2 ML Vial 60 MG IV ×2 (09:32→21:24)
--- NOTE | 2024-08-12 11:09 | PN_ITS ---
Subjective Subjective Patient seen and examined. She still feels short of breath and feels her lungs are still tight. She remains on only 2L of oxygen, though she was visibly winded walking back from the bathroom. She is still coughing and has some mild wheezing. Review of systems is otherwise negative. Objective Data Objective Data Vital Signs: Vital Signs Temp Pulse Resp BP Pulse Ox O2 Del Method O2 Flow Rate 98.0 F 74 20 H 110/62 99 Nasal Cannula 2 08/12/24 08:43 08/12/24 08:43 08/12/24 08:43 08/12/24 08:43 08/12/24 08:43 08/12/24 09:51 08/12/24 09:51 Oxygen Flow Rate (L/min) 2 Oxygen Delivery Method Nasal Cannula Weight: 117 lb 1.047 oz Body Mass Index (BMI) 20.0 Intake & Output: Intake and Output for Last 24 Hours 08/10/24 08/11/24 08/12/24 23:59 23:59 23:59 Intake Total 2019 1060 / 1060 Balance 2019 1060 / 1060 Lab / Micro Data 08/12/24 06:06 08/12/24 06:06 Labs: Laboratory Results - last 24 hr 08/12/24 06:06: WBC 6.5, RBC 4.47, Hgb 13.7, Hct 40.0, MCV 89.5, MCH 30.6, MCHC 34.3, RDW Std Deviation 41.8, RDW Coeff of Jaqueline 12.7, Plt Count 166, MPV 9.6, Immature Gran % (Auto) 0.600, Neut % (Auto) 79.1 H, Lymph % (Auto) 13.5 L, [place] % (Auto) 6.6, Eos % (Auto) 0.0, Baso % (Auto) 0.2, Absolute Neuts (auto) 5.2, Absolute Lymphs (auto) 0.88, Nucleated RBC % 0, Sodium 137, Potassium 4.0, Chloride 104, Carbon Dioxide 20.7 L, Anion Gap 12, BUN 7, Creatinine 0.47 L, Estim Creat Clear Calc 102.70, Est GFR (MDRD) Non-Af 107, BUN/Creatinine Ratio 15.2, Glucose 133 H, Calcium 9.2 Micro: Microbiology 08/11/24 01:10 Mucosa - Nasopharyngeal Respiratory Panel (PCR) - Final Rhinovirus Physical Exam Const alert and oriented x3 General Appearance: cooperative HEENT normocephalic, head/scalp atraumatic, hearing grossly normal bilaterally and moist oral mucous membranes Eyes PERRL, EOMs intact bilaterally and conjunctivae normal Neck no lymphadenopathy, supple and no JVD Lymph Lymphatic: no lymphadenopathy noted and no lymphedema noted Resp Resp Narrative: mildly diminished breath sounds bibasally, mild wheezing, no crackles. On 2L of oxygen by nasal canula. Lungs still sound tight Auscultation: wheezes Cardio regular rate, regular rhythm, S1 normal heart sound, S2 normal heart sound and no murmurs GI normal to inspection, nondistended, normoactive bowel sounds, soft to palpation, non-tender and non-distended Extremity normal to inspection, full ROM, normal capillary refill, no clubbing, cyanosis or edema and no calf tenderness General Extremity: no tenderness to palpation of joints or extremities Skin General Skin Exam: no breakdown Neuro oriented x3, CN's II-XII intact bilaterally, moves all extremities, no focal motor deficits and no sensory deficits noted Sensorium / Orientation: awake, alert, oriented to person, oriented to place and oriented to time Speech: speech normal Motor Exam: strength 5/5 throughout and general weakness Psych thought process normal and cooperative Appearance: appropriate Mood & Affect: anxious Assessment & Plan Assessment/Plan (1) Rhinovirus infection: (2) Acute exacerbation of COPD with asthma: PLAN: Plan #Acute exacerbation of COPD in the setting of acute rhinovirus infection * Patient still feeling a bit short of breath. Lung sowund tight. She is still coughing. She denies any chest pain or wheezing or any other symptoms. * Currently on 2 L of oxygen. * breathing treatment with bronchodilators * titrate oxygen to maintain sats >90% * # Hypokalemia: resolved. #History of chronic alcohol use * Drinks 6-8 beers daily. Started on phenobarbital taper for presumptive withdrawal. * On thiamine, folic acid and Multi-Jak. Monitor CIWA protocol. #History of DVT and PE: On Eliquis #Benign essential hypertension: On amlodipine. 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 Hemoglobin was 16 on admission. Stable. Will monitor. #[place]: Noncompliant with CPAP #DEpression: on duloxetine #GERD: on famotidine #HIstory of osteoarthritis * Has a history of right shoulder pain and history of laminectomy status post spinal cord stimulator due to chronic pain syndrome. Stable DVT prophylaxis: On Eliquis Charges/Coding Visit Charges Inpatient E&M: 54496 Subs Hosp L2
--- NOTE | 2024-08-12 16:14 | CHAPLAIN ---
Type of Pastoral Visit _x__ Initial Visit ___ Follow-up Visit ___ On-call Visit ___ General Patient Visit ___ Spiritual Assessment ___ Family Conference ___ Bereavement ___ Rapid Response ___ Code Blue ___ Other (describe below) Pastoral Care Referral From _x__ Patient ___ Family ___ Nurse ___ Physician ___ Sheet Metal Helper ___ Media Executive ___ Other (describe below) Sacrament/Intervention ___ Active listening ___ Anointing ___ Zoroastrianism ___ Bereavement ___ Communion ___ Cleo exploration ___ ___ Life review _x__ Prayer ___ Reconciliation ___ Sacrament of Sick _x__ Supportive presence ___ Wedding ___ Other (describe below) Pastoral Comments after several attempts a visit was made with this patient who is sitting up in the chair; pt coughs throughout the brief encounter so the meeting was kept short to assist her health requirements; pt indicates that after 53 years of smoking this is what has happened to her; pt admits that she must stop smoking but that at this moment she is craving a cigarette; pt says that she was raised in the [employer] [place] and had uncles who were preachers; pt says that a prayer would be welcomed and needed to help her stop smoking; offer of future support was given as desired
[2024-08-12] MEDS: Pravastatin 20 MG Tablet PO (21:23)
[2024-08-13] VITALS (9 sets, daily range): BP systolic 108–131; BP diastolic 68–81; PULSE 58–87; RESP 16–22; TEMP 36.7–37.1; O2SAT 87–97
[2024-08-13] MEDS: Phenobarbital 32.4 MG Tablet 64.8 MG PO ×3 (01:35→09:43)
[2024-08-13] MEDS: Ipratropium/Albuterol Sulfate 3 ML AMPUL.NEB INHALATION (07:14)
[2024-08-13 08:37] LABS: Absolute Lymphocyte Count 1.76 X10^3/uL (0.83-4.51); Absolute Neutrophil Count 6.1 X10^3/uL (2.0-7.7); Basophil# 0.01 X10^3/uL; Basophil% 0.1 % (0-1); Hematocrit 40.3 % (37-47); Hemoglobin 13.7 g/dL (12.0-15.0); Lymphocyte # 1.76 X10^3/ul (0.83-4.51); Mean Corpuscular Hgb 31.1 pg (27.0-32.0); Mean Corpuscular Volume 91.4 fL (81-99); Mean Platelet Vol. 9.7 fl (6.2-12.0); Monocyte# 0.49 X10^3/uL; Monocyte% 5.9 % (0-10); NRBC Flagged by Analyzer 0 % (0-5); Neutrophil # 6.05 X10^3/uL (2.7-7.7); Neutrophil % 72.3 % (47-70); Platelet Count 170 K/mm3 (150-450); RBC Distribution Width CV 13.1 % (11.6-14.6); RBC Distribution Width SD 43.8 fl (35.1-43.9); Red Blood Count 4.41 M/mm3 (4.2-5.4); White Blood Count 8.4 K/mm3 (4.4-11.0)
[2024-08-13 09:19] LABS: Anion Gap 14 (5-15); BUN 7 mg/dL (4-19); BUN/Creat Ratio 13.7 RATIO (10-20); Calcium,Total 9.1 mg/dL (7.6-11.0); Carbon Dioxide 20.1 mmol/L (21.0-32.0); Chloride 102 mmol/L (98-108); EST Glomerular Filtration Rate 105 (>60); Estimated Creatinine Clearance 96.54 ml/min (50-250); Glucose 104 mg/dL (70-99); Potassium 4.2 mmol/L (3.3-5.1); Sodium Level 136 mmol/L (133-145)
[2024-08-13] MEDS: Lactobacillis Acidophilus 1 CAP PO (09:43)
[2024-08-13] MEDS: DULoxetine Hcl 30 MG Capsule PO (09:43)
[2024-08-13] MEDS: Cholecalciferol (Vit D3) 125 MCG CAPSULE (5,000 UNITS) PO (09:43)
[2024-08-13] MEDS: amLODIPine 10 MG Tablet PO (09:43)
[2024-08-13] MEDS: APIXABAN 5 MG TABLET PO (09:43)
[2024-08-13] MEDS: Thiamine Hydrochloride 100 MG Tablet PO (09:43)
[2024-08-13] MEDS: Zinc Sulfate 50 mg zinc (220 mg) ORAL capsule PO (09:43)
[2024-08-13] MEDS: Pregabalin 75 MG Capsule PO (09:44)
[2024-08-13] MEDS: MethylPREDNISolone 125 MG/2 ML Vial 60 MG IV (09:44)
[2024-08-13] MEDS: Famotidine 20 MG Tablet PO (09:44)
[2024-08-13] MEDS: Ascorbic Acid 500 MG Tablet 1000 MG PO (09:44)
[2024-08-13] MEDS: Folic Acid 1 MG Tablet PO (09:44)
--- NOTE | 2024-08-13 11:54 | DCINST_ITS ---
Discharge Instructions Diet Discharge Diet: Low fat / Low cholesterol DC O2, CPAP, BIPAP needs Home O2 Discharge instructions: Yes Type of respiratory needs?: Oxygen Oxygen frequency: Continuous Continuous oxygen liters per minute: 2 Dressing / Incision Discharge Activity: Return to Normal Activity Dressing / Incision Call your doctor if you observe: Fever of 101 or Higher, Shortness of breath, Dizziness, Swelling in the ankles and Chest pain Follow Up Care Test Results: Test results from this visit will be discussed in further detail at your follow- up appointment, if applicable. Discharge Plan Admission Admit Date/Time: 08/11/24 00:34 Primary Reason for Your Visit: COPD exacerbation Attending Provider: Brigitte Wahl Primary Care Provider: Rozina Greene Consulting Providers: Nate Moeller Instructions Patient Instructions: Discharge Instructions: COPD Discharge Orders/Prescriptions Prescriptions: New prednisone 20 mg tablet 40 mg PO DAILY Qty: 10 0RF Continued famotidine 20 mg tablet 20 mg PO BID tizanidine 4 mg capsule 2 mg PO BID PRN (Reason: Pain) amlodipine 10 mg tablet 10 mg PO QDAY Eliquis 5 mg tablet 5 mg PO BID 30 Days Qty: 60 6RF duloxetine 30 MG capsule 30 mg PO DAILY acetaminophen 325 MG tablet 650 mg PO Q6H PRN PRN (Reason: Pain) 0RF albuterol sulfate 2.5 MG/3 ML solution for nebulization 2.5 mg inhalation Q4H PRN PRN (Reason: Shortness Of Breath) folic acid 1 mg Tablet 1 mg PO BREAKFAST Qty: 30 0RF pravastatin 20 mg tablet 20 mg PO QHS Patient Comments: TAKE 1 TABLET BY MOUTH EVERY DAY IN THE EVENING pregabalin 75 mg capsule 75 mg PO BID Patient Comments: TAKE 1 CAPSULE BY MOUTH TWICE A DAY albuterol sulfate 90 mcg/actuation HFA aerosol inhaler 2 puff inhalation Q4H PRN PRN (Reason: Shortness Of Breath) Qty: 8.5 11RF fluticasone furoate-vilanterol [Breo Ellipta] 100-25 mcg/dose blister with device 1 inh INHALATION DAILY Qty: 60 11RF Spiriva Respimat 2.5 mcg/actuation mist 2 inh inhalation QDAY Qty: 1 6RF Rx Instructions: administer at approximately the same time(s) each day Referrals / Follow Up: Jc,Rozina VSC, [employer] OPERATOR-C [Primary Care Provider] - Within 1 Week Disposition Disposition (needs filled in before D/C Order can be placed): Home, Self Care
--- NOTE | 2024-08-13 11:54 | PCM.DC.SUM ---
Providers Date of Admission: 08/11/24 Date of Discharge: 08/13/24 Primary Care Physician: Rozina Greene [facility], WINDOWS DESKTOP ENGINEER-C Reason For Visit: AE COPD Diagnosis Discharge Diagnosis (1) Rhinovirus infection: Status: Acute Code(s): B34.8 - Other viral infections of unspecified site (2) Acute exacerbation of COPD with asthma: Status: Chronic Code(s): J44.1 - Chronic obstructive pulmonary disease with (acute) exacerbation Plan #Acute exacerbation of COPD in the setting of acute rhinovirus infection Patient still feeling a bit short of breath. Lung sowund tight. She is still coughing. She denies any chest pain or wheezing or any other symptoms. Currently on 2 L of oxygen. breathing treatment with bronchodilators titrate oxygen to maintain sats >90% # Hypokalemia: resolved. #History of chronic alcohol use Drinks 6-8 beers daily. Started on phenobarbital taper for presumptive withdrawal. On thiamine, folic acid and Multi-Jak. Monitor CIWA protocol. #History of DVT and PE: On Eliquis #Benign essential hypertension: On amlodipine. 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 Hemoglobin was 16 on admission. Stable. Will monitor. #[place]: Noncompliant with CPAP #DEpression: on duloxetine #GERD: on famotidine #HIstory of osteoarthritis Has a history of right shoulder pain and history of laminectomy status post spinal cord stimulator due to chronic pain syndrome. Stable DVT prophylaxis: On Eliquis Medications at Discharge Home Medications duloxetine 30 mg capsule,delayed release 30 mg PO DAILY depression 04/15/18 acetaminophen 325 mg tablet 650 mg (2 x 325 mg) PO Q6H PRN PRN Pain 06/23/18 albuterol sulfate 2.5 mg/3 mL (0.083 %) solution for nebulization 2.5 mg inhalation Q4H PRN PRN Shortness Of Breath 06/30/19 famotidine 20 mg tablet 20 mg PO BID gerd 04/11/21 tizanidine 4 mg capsule 2 mg PO BID PRN Pain 04/11/21 folic acid 1 mg tablet 1 mg PO BREAKFAST vitamin #30 tabs 02/16/22 pravastatin 20 mg tablet 20 mg PO QHS cholesterol 08/30/22 pregabalin 75 mg capsule 75 mg PO BID pain 08/30/22 albuterol sulfate 90 mcg/actuation aerosol inhaler 2 puff inhalation Q4H PRN PRN Shortness Of Breath #8.5 grams 11/27/23 fluticasone furoate 100 mcg-vilanterol 25 mcg/dose inhalation powder (Breo Ellipta) 1 inh inhalation DAILY breathing #60 ea 11/27/23 amlodipine 10 mg tablet 10 mg PO QDAY 02/28/24 apixaban 5 mg tablet (Eliquis) 5 mg PO BID 30 days #60 TABLETS 07/08/24 tiotropium bromide 2.5 mcg/actuation mist for inhalation (Spiriva Respimat) 2 inh inhalation QDAY #1 ea 07/29/24 prednisone 20 mg tablet 40 mg (2 x 20 mg) PO DAILY #10 tabs 08/13/24 Hospital Course Operations None Procedures None Summary of Care Provided Minutes Spent on Discharge: 45 Hospital Course: Patient is a 63-year-old female with past medical history as outlined was admitted through the ED on 08/11/2024 with complaint of shortness of breath and wheezing. His symptoms started 3 days prior to admission. Initially started as shortness of breath with exertion but gradually progressed to shortness of breath at rest. She has associated wheezing and nonproductive cough as well as easy fatigability. She denied any fever or chills or any sore throat, chest pain, nausea vomiting or any other symptoms. Chest x-ray showed evidence of emphysema without pneumonia or atelectasis. Respiratory panel was positive for rhinovirus. She was admitted and managed for acute exacerbation of COPD in the setting of rhinovirus upper respiratory tract infection. She was placed on breathing treatment bronchodilators and IV Solu-Medrol. Patient remained on her 2 L of oxygen but her shortness of breath gradually improved and she felt better. She was also placed on alcohol withdrawal protocol due to her history of drinking at least 6-8 beers daily. She improved and felt better and was discharged home on 08/13/2024. She was discharged on her baseline 2 L of oxygen and on p.o. prednisone 40 mg daily for 5 days. She is to follow-up with her primary care doctor within 1 to 2 weeks. She was counseled to quit smoking and also to quit drinking. Patient seen and examined prior to discharge. Still follow-up with wound but felt like she had improved a bit. She denied any chest pain, palpitations, dizziness, nausea vomiting or any other symptoms. Review of systems otherwise negative. Labs and vitals reviewed. Medication reviewed and reconciled. Physical Exam Const alert, oriented x3 and no apparent distress General Appearance: cooperative and comfortable Orientation / Consciousness: awake Exam Limitations: no limitations HEENT normocephalic, head/scalp atraumatic, hearing grossly normal bilaterally and moist oral mucous membranes Mouth: oral and palatal mucosa normal Eyes PERRL, EOMs intact bilaterally and conjunctivae normal Neck no lymphadenopathy, supple and no JVD Lymph Lymphatic: no lymphadenopathy noted and no lymphedema noted Resp Resp Narrative: mildly diminished breath sounds bibasally, mild wheezing, no crackles. On 2L of oxygen by nasal canula. Cardio regular rate, regular rhythm, S1 normal heart sound, S2 normal heart sound and no murmurs GI normal to inspection, nondistended, normoactive bowel sounds, soft to palpation, non-tender and non-distended Extremity normal to inspection, full ROM, normal capillary refill and no clubbing, cyanosis or edema General Extremity: no tenderness to palpation of joints or extremities Skin no rashes or lesions noted General Skin Exam: no breakdown Neuro oriented x3, CN's II-XII intact bilaterally, moves all extremities, no focal motor deficits and no sensory deficits noted Sensorium / Orientation: awake, alert, oriented to person, oriented to place and oriented to time Speech: speech normal Motor Exam: strength 5/5 throughout and general weakness Psych thought process normal and cooperative Appearance: appropriate Weight / BMI Weight Weight: 117 lb 1.047 oz Body Mass Index (BMI) 20.0 ABG / Lab / Microbiology Data 08/13/24 07:55 08/13/24 07:55 Laboratory: Laboratory Results - last 24 hr 08/13/24 07:55: WBC 8.4, RBC 4.41, Hgb 13.7, Hct 40.3, MCV 91.4, MCH 31.1, MCHC 34.0, RDW Std Deviation 43.8, RDW Coeff of Jaqueline 13.1, Plt Count 170, MPV 9.7, Immature Gran % (Auto) 0.700, Neut % (Auto) 72.3 H, Lymph % (Auto) 21.0, [place] % (Auto) 5.9, Eos % (Auto) 0.0, Baso % (Auto) 0.1, Absolute Neuts (auto) 6.1, Absolute Lymphs (auto) 1.76, Nucleated RBC % 0, Sodium 136, Potassium 4.2, Chloride 102, Carbon Dioxide 20.1 L, Anion Gap 14, BUN 7, Creatinine 0.50 L, Estim Creat Clear Calc 96.54, Est GFR (MDRD) Non-Af 105, BUN/Creatinine Ratio 13.7, Glucose 104 H, Calcium 9.1 Microbiology: Microbiology 08/11/24 01:10 Mucosa - Nasopharyngeal Respiratory Panel (PCR) - Final Rhinovirus D/C Instructions Discharge Diet: Low fat / Low cholesterol Discharge Activity: Return to Normal Activity Weight Bearing Status: Weight bearing as tolerated Call your doctor if you observe: Fever of 101 or Higher, Shortness of breath, Dizziness, Swelling in the ankles and Chest pain DC O2, CPAP, BIPAP Needs Home O2 Discharge instructions: Yes Type of respiratory needs?: Oxygen Oxygen frequency: Continuous Continuous oxygen liters per minute: 2 DC home with Oxygen: Yes Home O2 MD Review: I have reviewed the oxygen testing, and the patient qualifies for home oxygen equipment and portability. The patient is mobile in the home and the community. Meaningful Use Info Meaningful Use Meaningful Use Diagnoses (Choose all that apply): None applicable Ischemic Stroke Statin Dosing Therapy Reference: STATIN DOSE THERAPY REFERENCE: * Patients > 75 years receive moderate or high dose statin therapy. * Patients 75 years or YOUNGER should receive HIGH intensity statin dose unless contraindicated. You will be required to document reason for non-treatment if statin daily dose does not meet guidelines. HIGH DOSE STATIN THERAPY DAILY Atorvastatin > than or = to 40 mg Rosuvastatin > than or = to 20 mg Amlodipine + Atorvastatin > than or = to 2.5/40 mg Ezetimibe + Simvastatin 10/80 mg Simvastatin 80mg Discharge Plan Admission Admit Date/Time: 08/11/24 00:34 Primary Reason for Your Visit: COPD exacerbation Attending Provider: Brigitte Wahl Primary Care Provider: Rozina Greene Consulting Providers: Nate Moeller Instructions Patient Instructions: Discharge Instructions: COPD Discharge Orders/Prescriptions Prescriptions: New prednisone 20 mg tablet 40 mg PO DAILY Qty: 10 0RF Continued famotidine 20 mg tablet 20 mg PO BID tizanidine 4 mg capsule 2 mg PO BID PRN (Reason: Pain) amlodipine 10 mg tablet 10 mg PO QDAY Eliquis 5 mg tablet 5 mg PO BID 30 Days Qty: 60 6RF duloxetine 30 MG capsule 30 mg PO DAILY acetaminophen 325 MG tablet 650 mg PO Q6H PRN PRN (Reason: Pain) 0RF albuterol sulfate 2.5 MG/3 ML solution for nebulization 2.5 mg inhalation Q4H PRN PRN (Reason: Shortness Of Breath) folic acid 1 mg Tablet 1 mg PO BREAKFAST Qty: 30 0RF pravastatin 20 mg tablet 20 mg PO QHS Patient Comments: TAKE 1 TABLET BY MOUTH EVERY DAY IN THE EVENING pregabalin 75 mg capsule 75 mg PO BID Patient Comments: TAKE 1 CAPSULE BY MOUTH TWICE A DAY albuterol sulfate 90 mcg/actuation HFA aerosol inhaler 2 puff inhalation Q4H PRN PRN (Reason: Shortness Of Breath) Qty: 8.5 11RF fluticasone furoate-vilanterol [Breo Ellipta] 100-25 mcg/dose blister with device 1 inh INHALATION DAILY Qty: 60 11RF Spiriva Respimat 2.5 mcg/actuation mist 2 inh inhalation QDAY Qty: 1 6RF Rx Instructions: administer at approximately the same time(s) each day Referrals / Follow Up: Rozina Greene, WINDOWS DESKTOP ENGINEER-C [Primary Care Provider] - Within 1 Week Disposition Disposition (needs filled in before D/C Order can be placed): Home, Self Care Charges/Coding Visit Charges Inpatient E&M: 28886 Disch Hosp >30min
--- NOTE | 2024-08-13 13:13 | CASEMGMT ---
JHONATHAN CM into pt room, reviewed dc plan with pt regarding oxygen rx of what is currently ordered and that her rx was not changed with [facility]. Pt will have portable tank or POC brought in at time of dc for homegoing. Pt is able to obtain a pox. Pt aware of therapy ordered and scheduled. Pt has private duty list given. Pt denies any further homegoing needs at this time.
[2024-08-13 15:08] LABS: Vitamin D 1,25-Dihydroxy 63.7 pg/mL (24.8-81.5)
--- NOTE | 2024-08-13 16:37 | PHA.DC_ITS ---
Pharmacy [facility] has performed discharge medication reconciliation and counseling for this patient. 1. Prednisone 40mg PO DAILYCM x 5 days The patient's discharge medication list was reviewed for discrepancies and discrepancies were resolved. The patient was counseled on the following discharge medications and changes in medications for homegoing were reviewed. The Reason for Use, instructions for use, and potential side effects were reviewed for all new medications. The patient's questions regarding all of their medications were answered. The patient was able to verbally demonstrate an understanding of their discharge medications. Medications at Discharge Home Medications duloxetine 30 mg capsule,delayed release 30 mg PO DAILY depression 04/15/18 acetaminophen 325 mg tablet 650 mg (2 x 325 mg) PO Q6H PRN PRN Pain 06/23/18 albuterol sulfate 2.5 mg/3 mL (0.083 %) solution for nebulization 2.5 mg inhalation Q4H PRN PRN Shortness Of Breath 06/30/19 famotidine 20 mg tablet 20 mg PO BID gerd 04/11/21 tizanidine 4 mg capsule 2 mg PO BID PRN Pain 04/11/21 folic acid 1 mg tablet 1 mg PO BREAKFAST vitamin #30 tabs 02/16/22 pravastatin 20 mg tablet 20 mg PO QHS cholesterol 08/30/22 pregabalin 75 mg capsule 75 mg PO BID pain 08/30/22 albuterol sulfate 90 mcg/actuation aerosol inhaler 2 puff inhalation Q4H PRN PRN Shortness Of Breath #8.5 grams 11/27/23 fluticasone furoate 100 mcg-vilanterol 25 mcg/dose inhalation powder (Breo Ellipta) 1 inh inhalation DAILY breathing #60 ea 11/27/23 amlodipine 10 mg tablet 10 mg PO QDAY 02/28/24 apixaban 5 mg tablet (Eliquis) 5 mg PO BID 30 days #60 TABLETS 07/08/24 tiotropium bromide 2.5 mcg/actuation mist for inhalation (Spiriva Respimat) 2 inh inhalation QDAY #1 ea 07/29/24 prednisone 20 mg tablet 40 mg (2 x 20 mg) PO DAILY #10 tabs 08/13/24
== END 2024-08-13 16:16 | disposition home or self-care (01) | DRG 191 ==
LOC: ED 23:33 → MS3 08-11 05:20
PROVIDERS: Admitting Provider Internal Medicine; Emergency Provider Emergency Medicine; PCP Nurse Practitioner Family; Referring Provider Emergency Medicine; Visit Provider Student in an Organized Health Care Education/Training Program
DX: J44.1 Chronic obstructive pulmonary disease with (acute) exacerbation (principal); I82.502 Chronic embolism and thrombosis of unspecified deep veins of left lower extremity; F10.239 Alcohol dependence with withdrawal, unspecified; F84.0 Autistic disorder; M06.9 Rheumatoid arthritis, unspecified; J44.0 Chronic obstructive pulmonary disease with (acute) lower respiratory infection; I10 Essential (primary) hypertension; F32.A Depression, unspecified; J43.9 Emphysema, unspecified; E78.5 Hyperlipidemia, unspecified; E87.6 Hypokalemia; G47.33 Obstructive sleep apnea (adult) (pediatric); G62.9 Polyneuropathy, unspecified; F17.210 Nicotine dependence, cigarettes, uncomplicated; K21.9 Gastro-esophageal reflux disease without esophagitis; D75.1 Secondary polycythemia; M19.011 Primary osteoarthritis, right shoulder; M47.9 Spondylosis, unspecified; B34.8 Other viral infections of unspecified site; Z86.16 Personal history of COVID-19; Z79.51 Long term (current) use of inhaled steroids; G89.4 Chronic pain syndrome; Z79.01 Long term (current) use of anticoagulants; M81.0 Age-related osteoporosis without current pathological fracture; Z79.02 Long term (current) use of antithrombotics/antiplatelets; Z88.1 Allergy status to other antibiotic agents; Z91.199 Patient's noncompliance with other medical treatment and regimen due to unspecified reason; Z91.010 Allergy to peanuts; Z96.82 Presence of neurostimulator; Z87.01 Personal history of pneumonia (recurrent); Z88.8 Allergy status to other drugs, medicaments and biological substances; R06.89 Other abnormalities of breathing; Z86.711 Personal history of pulmonary embolism
CPT/HCPCS: 36415; 71046; 80048; 80053; 82652; 82803; 83605; 83735; 84100; 84443; 85025; 87633; 93005; 94640; 94668; 97161; 99285; 99406; A4216

== ENCOUNTER → 2024-08-19 | Outpatient (CLI) | payer MEDICARE, MEDICAID, SELFPAY ==
[2024-08-19 12:47] LABS: Absolute Lymphocyte Count 4.61 X10^3/uL (0.83-4.51); Absolute Neutrophil Count 5.1 X10^3/uL (2.0-7.7); Basophil# 0.04 X10^3/uL; Basophil% 0.4 % (0-1); Eosinophil# 0.07 X10^3/uL; Eosinophils% 0.6 % (0-5); Hematocrit 44.9 % (37-47); Hemoglobin 15.6 g/dL (12.0-15.0); Lymphocyte # 4.61 X10^3/ul (0.83-4.51); Lymphocyte % 41.7 % (19-41); Mean Corp Hgb Conc 34.7 g/dL (32-36); Mean Corpuscular Volume 89.1 fL (81-99); Mean Platelet Vol. 8.9 fl (6.2-12.0); Monocyte# 1.22 X10^3/uL; NRBC Flagged by Analyzer 0 % (0-5); Neutrophil # 5.08 X10^3/uL (2.7-7.7); Neutrophil % 45.9 % (47-70); POSITIVE MORPHOLOGY YES; Platelet Count 287 K/mm3 (150-450); RBC Distribution Width CV 12.7 % (11.6-14.6); RBC Distribution Width SD 41.6 fl (35.1-43.9); Red Blood Count 5.04 M/mm3 (4.2-5.4); White Blood Count 11.1 K/mm3 (4.4-11.0)
[2024-08-19 13:11] LABS: ALB/GLOB Ratio 1.5 RATIO (0.9-2.4); AST(SGOT) 25 U/L (<=31); Alanine Aminotransfer ALT/SGPT 28 U/L (<=34); Albumin, Serum 4.8 g/dL (3.4-4.8); Alkaline Phosphatase 53 U/L (35-104); Anion Gap 14 (5-15); BUN 8 mg/dL (4-19); BUN/Creat Ratio 15.6 RATIO (10-20); Calcium,Total 9.6 mg/dL (7.6-11.0); Chloride 96 mmol/L (98-108); Cholesterol 256 mg/dL (<=200); Creatinine, Serum 0.49 mg/dL (0.70-1.20); EST Glomerular Filtration Rate 106 (>60); Globulin 3.1 g/dL (2.2-4.2); Glucose 79 mg/dL (70-99); High Density Lipoprotein 107 mg/dL; Low Density Lipoprotein Calc. 135 mg/dL; Potassium 3.6 mmol/L (3.3-5.1); Protein, Total 7.8 g/dL (5.9-8.4); Sodium Level 136 mmol/L (133-145); Total Bilirubin 0.39 mg/dL (0.00-1.30); Triglycerides 68 mg/dL; Very Low Density Lipoprotein 14 mg/dL (5-40); cholesterol:hdl ratio screen 2.39
[2024-08-19 13:29] LABS: Differential Indicated SCAN CRITERIA MET
[2024-08-19 13:31] LABS: Atypical Lymphocyte 1+ %
== END | disposition home or self-care (01) ==
LOC: VSLAB 09:09
PROVIDERS: PCP Nurse Practitioner Family; Visit Provider Nurse Practitioner Family
DX: E87.6 Hypokalemia (principal); E78.5 Hyperlipidemia, unspecified
CPT/HCPCS: 36415; 80053; 80061; 85025

== ENCOUNTER 2024-08-24 10:08 | Emergency (ER) | payer MEDICARE, MEDICAID, SELFPAY ==
[2024-08-24 10:09] VITALS: BP 147/89; PULSE 93; RESP 16; TEMP 36.8; O2SAT 90; BMI 20.2
--- NOTE | 2024-08-24 10:19 | CT_ITS ---
PROCEDURE: BRAIN/HEAD WITHOUT CONTRAST 08/24/2024 REASON FOR EXAM: HEADACHE, SWELLING BETWEEN EYES TECHNIQUE: Contiguous axial scans of 3.75 mm slice thicknesses with sagittal and coronal reconstruction images. One or more dose reduction techniques were utilized (e.g., automated exposure control, adjustment of mA and/or kv according to patient size, use of iterative reconstruction technique). RADIATION DOSE SUMMARY: DLP: 796.11 mGycm COMPARISON: No relevant prior. FINDINGS: Cerebrum: No intraparenchymal hemorrhage. An area of hypoattenuation in the right basal ganglia measuring 1.8 x 1.0 cm, axial image 23. No mass effect or midline shift. Weir-white matter differentiation is normal. Ventricles and cisterns: Appropriate size for patient's age. Extra-axial fluid: Unremarkable. Posterior fossa: Unremarkable cerebellum. No abnormalities involving the brainstem. Paranasal sinuses: Normal. Vasculature: Unremarkable. Mastoid air cells: unremarkable. Calvarium: Unremarkable. Soft tissues: Soft tissue swelling overlies the frontal bone.. CT/Brain/Head without Contrast IMPRESSION: 1. An area of hypoattenuation in the right basal ganglia concerning for recent ischemic infarction. 2. No signs of intra cerebral hemorrhage. 3. Soft tissue swelling overlying the frontal bone. Reading Location: [place]
--- NOTE | 2024-08-24 10:21 | EDS_ITS ---
HPI History of Present Illness Chief Complaint: Edema Narrative Narrative: Patient is a 63-year-old female with past medical history of COPD, recurrent DVT on Eliquis, [place], GERD, alcohol abuse, hypertension, angioedema who presented to the emergency department the chief complaint of headache, swelling between her eyes and the top the bridge of her nose. Patient states that when she woke up this morning she noted that she had swelling in this region as well as part of her upper eyelid with a headache and pain. States that she feels like she got bit by something but does not recall this event. She states that she not take anything for pain and came here for further evaluation management. Patient states that she has not missed any doses of her Eliquis been taking this as prescribed. Patient denies any injuries or trauma to her head. [facility] Medical History Rhinovirus infection Tobacco abuse Respiratory insufficiency Acute exacerbation of COPD with asthma Recurrent deep vein thrombosis (DVT) of left lower extremity Right shoulder pain Acute respiratory failure with hypoxia Smoking COPD (chronic obstructive pulmonary disease) Pulmonary embolism Wears dentures Wears glasses Post-menopausal Autism Alcohol use Rheumatoid arthritis Arthritis High cholesterol Back pain Injury of back Gastric reflux Sleep apnea Shortness of breath on exertion Chronic cough History of pain when walking History of echocardiogram Hypertension Alcohol abuse Anxiety Smoker Sleep apnea Community acquired pneumonia Left leg pain DVT (deep venous thrombosis) Spinal cord stimulator status GERD (gastroesophageal reflux disease) COPD (chronic obstructive pulmonary disease) Hypertension Chronic pain syndrome Vitamin D deficiency Age related osteoporosis Asthma Emphysema Depression [place] (obstructive sleep apnea) Angioedema History of pulmonary embolism Tobacco user Benign essential hypertension Home Medications ?Medication ?Instructions ?Recorded ?Last Taken ?Type duloxetine 30 mg capsule,delayed 30 mg PO DAILY depres marisela 04/15/18 08/23/24 History release acetaminophen 325 mg tablet 650 mg (2 x 325 mg) PO Q6H PRN PRN 06/23/18 Unknown Rx Pain famotidine 20 mg tablet 20 mg PO BID gerd 04/11/21 0 08/23/24 History folic acid 1 mg tablet 1 mg PO BREAKFAST vitamin #3 0 tabs 02/16/22 08/23/24 Rx pravastatin 20 mg tablet 20 mg PO QHS cholesterol 08/23/24 History pregabalin 75 mg capsule 75 mg PO BID pain 08/30/22 0 08/23/24 History albuterol sulfate 90 mcg/actuation 2 puff inhalation Q 4H PRN PRN 11/27/23 08/24/24 Rx aerosol inhaler Shortness Of Breath #8.5 gra ms fluticasone furoate 100 1 inh inhalation DAILY breat delroy 11/27/23 08/23/24 Rx mcg-vilanterol 25 mcg/dose #60 ea inhalation powder (Breo Ellipta) amlodipine 10 mg tablet 10 mg PO QDAY 02/28/2408/23 History apixaban 5 mg tablet (Eliquis) 5 mg PO BID 30 days #60 TABLETS 07/08/24 08/23/24 Rx tiotropium bromide 2.5 2 inh inhalation QDAY #1 ea 07/29/24 Unknown Rx mcg/actuation mist for inhalation (Spiriva Respimat) cephalexin 500 mg capsule 500 mg PO BID 5 days #10 cap s 08/24/24 Unknown Rx tizanidine 4 mg tablet 2 - 4 mg PO BID PRN PRN musc le 08/24/24 08/23/24 History spasm Allergy/AdvReac Type Severity Reaction Status Date / Time buspirone Allergy Angioedema Verified 08/24/24 10:11 lisinopril Allergy Angioedema Verified 08/24/24 10:11 Sulfa (Sulfonamide Allergy Itching Verified 08/24/24 10:11 Antibiotics) codeine AdvReac Intermediate / Verified 08/24/24 10:11 Family History Mother Asthma Depression COPD (chronic obstructive pulmonary disease) Hypertension Hyperchloremia Father Respiratory abnormality, unspecified Hypertension Sister COPD (chronic obstructive pulmonary disease) Surgical History Previous back surgery Hx of tubal ligation History of carpal tunnel release of both wrists Status post correction of deviated nasal septum History of laminectomy History of carpal tunnel surgery of left wrist Social History household members: significant other Smoking Status: Current every day smoker tobacco type: cigarettes Tobacco: How many years used: 50 Electronic Cigarette Use: not used second hand exposure: Yes quit status: not considering quitting alcohol intake: current details: Currently 6-8 beers daily. substance use type: does not use ROS ROS ED ROS Narrative Constitutional: Complains of headache as noted above states this has gradually worsened through the morning and woke up with this. Denies any fevers, chills, lightness or dizziness Eyes: Denies double vision, complains of blurry vision however when she has her glasses on and states that is this different than her baseline and she states that is very similar Cardiovascular: Denies chest pain or palpitations Respiratory: Denies coughing wheezing shortness of breath Abdomen: Complains of some nausea, denies any abdominal pain vomiting or diarrhea : Denies any urinary symptoms Neurological: Denies numbness, weakness, tingling Musculoskeletal: Denies back pain Skin: Complains of swelling to her forehead as noted above EXAM Physical Exam Narrative Exam Narrative: General: Patient is lying in bed rest comfortably did not appear to be in acute distress Head: Atraumatic, normocephalic Eyes:, Patient does have some upper eyelid swelling noted on the right when compared to the left side, PERRL bilaterally, EOMI bilaterally, no conjunctival injection noted. No concern for periorbital or orbital cellulitis Neck: Soft, supple, trachea midline Cardiovascular: Regular rate and rhythm Extremities: +5/5 strength in the bilateral upper and lower extremities Neurological: Patient following commands knew that she was at [facility] year is 2024. NIH is 0 GCS 15 Skin: Warm, dry, patient has some swelling noted above the bridge of her nose extending into her right upper eyelid as noted above no petechia no purpura no sloughing of the skin noted Const Vital Signs: 08/24/24 10:09 08/24/24 11:43 Temperature 98.3 F Temperature Source Oral Pulse Rate 93 Respiratory Rate 16 Blood Pressure 147/89 H Blood Pressure Mean 108 Pulse Ox 90 Oxygen Delivery Method Room Air Room Air MDM MDM MDM Narrative Medical decision making narrative: Patient is a 63-year-old female who presented to the emergency department chief complaint of swelling to her forehead and headache. On the differential diagnosis includes but not limited to intracranial hemorrhage, bug bite, cellulitis. Once workup is obtained and reviewed she will be reevaluated. Patient be given a gram of Tylenol for her headache. Patient CT head and brain without contrast was reviewed and showed an area of hypoattenuation in the right basal ganglia concerning for recent ischemic infarction. No signs of intra cerebral hemorrhage soft tissue swelling overlying the frontal bone. Discussed this result with the patient and at this point in time we will initiate a stroke workup. She states that she had been feeling well overall recently states that she did recently get over a upper respiratory infection. She denies any other neurosymptoms at this point in time. Once the blood work is obtained and reviewed she will be reevaluated. Patient not tenecteplase candidate as well as a large vessel occlusion candidate as her last known well is unknown. Patient CBC was reviewed showed no evidence leukocytosis white blood count normal 7.2, hemoglobin 16, platelet count was 314. Patient's INR is 0.9, PT of 12 she states that she has been compliant with her Eliquis. Patient's sodium is 136, potassium normal at 3.7, creatinine was 0.47. Patient's troponin was noted to be 8. Patient's EKG showed sinus rhythm with a rate of 71 bpm. Patient's chest x-ray was reviewed by myself and by radiology showed no focal consolidations pulmonary emphysema noted. At this point in time we will discuss case with hospitalist for admission for further stroke workup given her incidental finding of concern for recent ischemic infarction of the right basal ganglia and given that her INR and PT are normal. Discussed the case with hospitalist Dr. Bedoya who states that she believes the patient can be discharged home with outpatient workup for her incidental finding of her CT scan as she has no focal neurologic deficits associated with this. I discussed this plan with the patient and she is agreeable this plan she would like to go home at this point time. She is advised that she needs to continue to take her Eliquis as prescribed the 5 mg twice a day and she was advised that she needs to start a 81 mg aspirin daily. She was vies to return with worsening symptoms or concerns. I will give her a prescription for a likely developing cellulitis from potential bug bite on her forehead region. Prescription was sent to the pharmacy for Keflex. She is agreeable this plan all question concerns answered she was discharged home in stable condition. Lab Data Labs: Laboratory Results - last 24 hr 08/24/24 11:55 WBC 7.2 RBC 5.14 Hgb 16.0 H Hct 46.3 MCV 90.1 MCH 31.1 MCHC 34.6 RDW Std Deviation 41.0 RDW Coeff of Jaqueline 12.4 Plt Count 314 MPV 8.2 Immature Gran % (Auto) 0.400 Neut % (Auto) 52.6 Lymph % (Auto) 35.0 [place] % (Auto) 10.1 H Eos % (Auto) 1.3 Baso % (Auto) 0.6 Absolute Neuts (auto) 3.8 Absolute Lymphs (auto) 2.50 Nucleated RBC % 0 PT 12.0 INR 0.9 APTT 25.3 Sodium 136 Potassium 3.7 Chloride 99 Carbon Dioxide 23.0 Anion Gap 14 BUN 4 Creatinine 0.47 L Estim Creat Clear Calc 103.26 Est GFR (MDRD) Non-Af 107 BUN/Creatinine Ratio 8.4 L Glucose 95 Calcium 9.6 Troponin T High Sens 8 Radiography Diagnostic Testing: Clinical Impression(s) from Imaging Studies Brain CT 08/24/24 10:19 IMPRESSION: 1. An area of hypoattenuation in the right basal ganglia concerning for recent ischemic infarction. 2. No signs of intra cerebral hemorrhage. 3. Soft tissue swelling overlying the frontal bone. Reading Location: [facility] Chest X-Ray 08/24/24 12:20 IMPRESSION: No focal consolidations. Pulmonary emphysema. Reading Location: [facility] Discharge Plan Triage Chief Complaint: Edema ED Provider: Josh Yadav Dx/Rx/DC Orders Clinical Impression: Cellulitis of face, Abnormal CT of the head Prescriptions: New cephalexin 500 mg capsule 500 mg PO BID 5 Days Qty: 10 0RF No Action famotidine 20 mg tablet 20 mg PO BID amlodipine 10 mg tablet 10 mg PO QDAY Eliquis 5 mg tablet 5 mg PO BID 30 Days Qty: 60 6RF duloxetine 30 MG capsule 30 mg PO DAILY acetaminophen 325 MG tablet 650 mg PO Q6H PRN PRN (Reason: Pain) 0RF folic acid 1 mg Tablet 1 mg PO BREAKFAST Qty: 30 0RF pravastatin 20 mg tablet 20 mg PO QHS Patient Comments: TAKE 1 TABLET BY MOUTH EVERY DAY IN THE EVENING pregabalin 75 mg capsule 75 mg PO BID Patient Comments: TAKE 1 CAPSULE BY MOUTH TWICE A DAY tizanidine 4 mg tablet 2 - 4 mg PO BID PRN PRN (Reason: muscle spasm) albuterol sulfate 90 mcg/actuation HFA aerosol inhaler 2 puff inhalation Q4H PRN PRN (Reason: Shortness Of Breath) Qty: 8.5 11RF fluticasone furoate-vilanterol [Breo Ellipta] 100-25 mcg/dose blister with device 1 inh INHALATION DAILY Qty: 60 11RF Spiriva Respimat 2.5 mcg/actuation mist 2 inh inhalation QDAY Qty: 1 6RF Rx Instructions: administer at approximately the same time(s) each day Primary Care Provider: Rozina Greene Referrals: Rozina Greene, [employer]-[facility] [Primary Care Provider] - Activity Restrictions/Additional Instructions: Your CT of your head showed concern for a small stroke at some point in time. It is imperative that you obtain a MRI and echocardiogram in the outpatient setting with your primary care physician you need to call them immediately on Sunday for an appointment and notify them that you were in the emergency department and had this incidental finding. You need to start taking 81 mg aspirin daily as well as the Eliquis as you are prescribed. You also need to take your pravastatin as prescribed as well. Take the antibiotic as prescribed and return with worsening symptoms or concerns. Print Language: British Disposition Disposition: Home, Self Care
[2024-08-24] MEDS: Acetaminophen 500 MG Tablet 1000 MG PO (10:36)
--- NOTE | 2024-08-24 11:43 | EKG12_ITS ---
Test Reason : Blood Pressure : */* mmHG Vent. Rate : 71 BPM Atrial Rate : 71 BPM P-R Int : 150 ms QRS Dur : 82 ms QT Int : 398 ms P-R-T Axes : 56 82 74 degrees QTcB Int : 432 ms Normal sinus rhythm Cannot rule out Septal infarct , age undetermined Abnormal ECG Confirmed by Shakeel Webster ([id number]), brands editor LUIS SILVA ([id number]) on 08/25/2024 9:18:34 AM Referred By: Confirmed By: Shakeel Webster
[2024-08-24 12:01] LABS: Absolute Neutrophil Count 3.8 X10^3/uL (2.0-7.7); Basophil# 0.04 X10^3/uL; Basophil% 0.6 % (0-1); Eosinophil# 0.09 X10^3/uL; Eosinophils% 1.3 % (0-5); Hematocrit 46.3 % (37-47); Mean Corp Hgb Conc 34.6 g/dL (32-36); Mean Corpuscular Hgb 31.1 pg (27.0-32.0); Mean Corpuscular Volume 90.1 fL (81-99); Mean Platelet Vol. 8.2 fl (6.2-12.0); Monocyte# 0.72 X10^3/uL; Monocyte% 10.1 % (0-10); NRBC Flagged by Analyzer 0 % (0-5); Neutrophil # 3.77 X10^3/uL (2.7-7.7); Neutrophil % 52.6 % (47-70); Platelet Count 314 K/mm3 (150-450); RBC Distribution Width CV 12.4 % (11.6-14.6); Red Blood Count 5.14 M/mm3 (4.2-5.4); White Blood Count 7.2 K/mm3 (4.4-11.0)
[2024-08-24] MEDS: Ceftriaxone 1 GM/50 ML BAG IV (12:08)
[2024-08-24 12:13] LABS: International Normalized Ratio 0.9
[2024-08-24 12:14] LABS: Partial Thromboplast Time 25.3 Seconds (24.1-36.2)
--- NOTE | 2024-08-24 12:20 | RAD_ITS ---
PROCEDURE: CHEST PA AND LATERAL 08/24/2024 REASON FOR EXAM: INFART ON HEAD CT TECHNIQUE: Frontal and lateral views of the chest. COMPARISON: 08/10/2024 FINDINGS: No focal consolidations. Pulmonary emphysema. No pleural effusion or pneumothorax. Neurostimulator device noted. Cardiac silhouette is unchanged. No acute fractures. RAD/Chest PA and Lateral IMPRESSION: No focal consolidations. Pulmonary emphysema. Reading Location: [id number]
[2024-08-24 12:25] LABS: Anion Gap 14 (5-15); BUN 4 mg/dL (4-19); BUN/Creat Ratio 8.4 RATIO (10-20); Calcium,Total 9.6 mg/dL (7.6-11.0); Chloride 99 mmol/L (98-108); Creatinine, Serum 0.47 mg/dL (0.70-1.20); EST Glomerular Filtration Rate 107 (>60); Estimated Creatinine Clearance 103.26 ml/min (50-250); Glucose 95 mg/dL (70-99); Potassium 3.7 mmol/L (3.3-5.1); Sodium Level 136 mmol/L (133-145); Troponin T High Sensitivity 8 ng/L (<=14)
--- NOTE | 2024-08-24 14:05 | CM.ED ---
Social Work: Date of referral: 08/24/2024 Reason for referral: Discharge planning Referred by: Social Work Identification Patient provided consent to social work visit. Patient stated she was just told that she is not being kept for admission for a stroke work-up as she was able to provide history and is being discharged home. Patient's right side of face was extremely swollen, red and itchy per patient report. Patient denied any needs/concerns at this time. Shelby Esteves, JOB ANALYST, [employer]
[2024-08-24 14:27] VITALS: BP 159/98; PULSE 74; RESP 16; O2SAT 97
== END 2024-08-24 14:29 | disposition home or self-care (01) ==
PROVIDERS: Emergency Provider Emergency Medicine; PCP Nurse Practitioner Family; Visit Provider Emergency Medicine
DX: L03.211 Cellulitis of face (principal); J43.9 Emphysema, unspecified; I10 Essential (primary) hypertension; Z79.01 Long term (current) use of anticoagulants; F17.210 Nicotine dependence, cigarettes, uncomplicated; R51.9 Headache, unspecified; K21.9 Gastro-esophageal reflux disease without esophagitis; F10.10 Alcohol abuse, uncomplicated; Z79.899 Other long term (current) drug therapy; R93.89 Abnormal findings on diagnostic imaging of other specified body structures
CPT/HCPCS: 70450; 71046; 80048; 84484; 85025; 85610; 85730; 93005; 96365; 99285; A4216

== ENCOUNTER 2024-08-25 11:25 | Emergency (ER) | payer MEDICARE, MEDICAID, SELFPAY ==
[2024-08-25 11:26] VITALS: BP 142/78; PULSE 110; RESP 16; TEMP 36.9; O2SAT 100; BMI 20.2
[2024-08-25 13:26] VITALS: BP 143/89; PULSE 88; RESP 18; O2SAT 93
[2024-08-25 13:57] VITALS: BP 127/87; PULSE 89; RESP 18; O2SAT 91
--- NOTE | 2024-08-25 14:01 | CT_ITS ---
PROCEDURE: ORB SELLA POST FOSSA EAR W/O 08/25/2024 REASON FOR EXAM: PERIORBITAL CELLULITIS TECHNIQUE: CT of the orbits without contrast. One or more dose reduction techniques were used (e.g., Automated exposure control, adjustment of the mA and/or kV according to patient size, use of iterative reconstruction technique). RADIATION DOSE SUMMARY: CTDlvol: 25.01 mGy DLP: 542.4 mGycm COMPARISON: CT scan of the head dated August 24, 2024. FINDINGS: Globes: Unremarkable Extraocular Muscles: Unremarkable Orbits: Right periorbital soft tissue swelling. This is unchanged. Lacrimal Glands: Unremarkable Bones: Unremarkable Other: Stable 1 cm x 1.8 cm hypodensity in the right basal ganglion. CT/Orb Sella Post Fossa Ear w/o IMPRESSION: Stable right periorbital soft tissue swelling. Stable hypodensity in the right basal ganglion. Reading Location: [id number]
--- NOTE | 2024-08-25 14:09 | EDS_ITS ---
HPI History of Present Illness Chief Complaint: Allergic Reaction Informant: patient Onset/Context/Timing Onset: Days Context: Gradual Onset Timing: Continuous Quality: Pressure Location: Bilateral periorbital areas, right greater than left Worsened by: Nothing Relieved by: Nothing Narrative Narrative: Patient presents with possible allergic reaction that became worse today. Patient was seen here yesterday and was given IV antibiotics at that time. Patient was discharged home. Patient states that her swelling has gotten worse today. Patient describes her pain as a pressure. Patient states it is over the periorbital areas and is now spreading into her cheeks. Patient states it is worse on the right. Patient admits to some nasal congestion but denies any difficulty breathing or difficulty swallowing. Patient states her vision is blurred because of the swelling. [facility] Medical History Rhinovirus infection Tobacco abuse Respiratory insufficiency Acute exacerbation of COPD with asthma Recurrent deep vein thrombosis (DVT) of left lower extremity Right shoulder pain Acute respiratory failure with hypoxia Smoking COPD (chronic obstructive pulmonary disease) Pulmonary embolism Wears dentures Wears glasses Post-menopausal Autism Alcohol use Rheumatoid arthritis Arthritis High cholesterol Back pain Injury of back Gastric reflux Sleep apnea Shortness of breath on exertion Chronic cough History of pain when walking History of echocardiogram Hypertension Alcohol abuse Anxiety Smoker Sleep apnea Community acquired pneumonia Left leg pain DVT (deep venous thrombosis) Spinal cord stimulator status GERD (gastroesophageal reflux disease) COPD (chronic obstructive pulmonary disease) Hypertension Chronic pain syndrome Vitamin D deficiency Age related osteoporosis Asthma Emphysema Depression [place] (obstructive sleep apnea) Angioedema History of pulmonary embolism Tobacco user Benign essential hypertension Home Medications ?Medication ?Instructions ?Recorded ?Last Taken ?Type duloxetine 30 mg capsule,delayed 30 mg PO DAILY depres marisela 04/15/18 08/23/24 History release acetaminophen 325 mg tablet 650 mg (2 x 325 mg) PO Q6H PRN PRN 06/23/18 Unknown Rx Pain famotidine 20 mg tablet 20 mg PO BID gerd 04/11/21 0 08/23/24 History folic acid 1 mg tablet 1 mg PO BREAKFAST vitamin #3 0 tabs 02/16/22 08/23/24 Rx pravastatin 20 mg tablet 20 mg PO QHS cholesterol 08/23/24 History pregabalin 75 mg capsule 75 mg PO BID pain 08/30/22 0 08/23/24 History albuterol sulfate 90 mcg/actuation 2 puff inhalation Q 4H PRN PRN 11/27/23 08/24/24 Rx aerosol inhaler Shortness Of Breath #8.5 gra ms fluticasone furoate 100 1 inh inhalation DAILY breat delroy 11/27/23 08/23/24 Rx mcg-vilanterol 25 mcg/dose #60 ea inhalation powder (Breo Ellipta) amlodipine 10 mg tablet 10 mg PO QDAY 02/28/2408/23 History apixaban 5 mg tablet (Eliquis) 5 mg PO BID 30 days #60 TABLETS 07/08/24 08/23/24 Rx tiotropium bromide 2.5 2 inh inhalation QDAY #1 ea 07/29/24 Unknown Rx mcg/actuation mist for inhalation (Spiriva Respimat) tizanidine 4 mg tablet 2 - 4 mg PO BID PRN PRN musc le 08/24/24 08/23/24 History spasm amoxicillin 875 mg-potassium 875 mg PO Q12H #20 TABLET S 08/25/24 Unknown Rx clavulanate 125 mg tablet Allergy/AdvReac Type Severity Reaction Status Date / Time buspirone Allergy Angioedema Verified 08/25/24 11:26 lisinopril Allergy Angioedema Verified 08/25/24 11:26 Sulfa (Sulfonamide Allergy Itching Verified 08/25/24 11:26 Antibiotics) codeine AdvReac Intermediate / Verified 08/25/24 11:26 Family History Mother Asthma Depression COPD (chronic obstructive pulmonary disease) Hypertension Hyperchloremia Father Respiratory abnormality, unspecified Hypertension Sister COPD (chronic obstructive pulmonary disease) Surgical History Previous back surgery Hx of tubal ligation History of carpal tunnel release of both wrists Status post correction of deviated nasal septum History of laminectomy History of carpal tunnel surgery of left wrist Social History household members: significant other Smoking Status: Current every day smoker tobacco type: cigarettes Tobacco: How many years used: 50 Electronic Cigarette Use: not used second hand exposure: Yes quit status: not considering quitting alcohol intake: current details: Currently 6-8 beers daily. substance use type: does not use ROS ROS ED Constitutional Constitutional ED: Denies chills or fever(s) Eyes Eyes: Reports blurry vision; Denies diplopia ENT ENT ED: Denies rhinorrhea or sore throat Cardiovascular Cardiovascular: Denies chest pain or palpitations Respiratory/Chest Respiratory/Chest: Denies cough or dyspnea Gastrointestinal Gastrointestinal: Denies nausea or vomiting Genitourinary Genitourinary ED: Denies dysuria or hematuria Musculoskeletal Musculoskeletal: Denies back pain or neck pain Integumentary Denies abscess or rash Neurologic Neurologic: Denies headache(s) or weakness Allergic/Immunologic Allergic/Immunologic ED: Denies mouth swelling or urticaria EXAM Physical Exam Const Vital Signs: 08/25/24 11:26 08/25/24 13:26 08/25/24 13:57 Temperature 98.5 F Temperature Source Oral Pulse Rate 110 H 88 89 Respiratory Rate 16 18 18 Blood Pressure 142/78 H 143/89 H 127/87 H Blood Pressure Mean 99 107 100 Pulse Ox 100 93 91 Oxygen Delivery Method Room Air Room Air Room Air 08/25/24 15:19 Temperature 98.6 F Temperature Source Oral Pulse Rate 84 Respiratory Rate 16 Blood Pressure 132/77 H Blood Pressure Mean 95 Pulse Ox 91 Oxygen Delivery Method Room Air Positive well nourished and well developed General Appearance ED: well developed and NAD HEENT Reports moist mucous membranes HEENT Narrative: Oropharynx is clear. Airway is patent. Neck is supple. Eyes Eyes Narrative: Pupils are equal, round, and reactive to light bilaterally. Extraocular muscles are intact. There is periorbital edema and erythema. There is no fluctuance. There is no discharge or drainage. Neck supple and no JVD Resp normal respiratory effort and clear to auscultation bilaterally Cardio regular rate and regular rhythm GI non-tender and non-distended Palpation: soft Extremity normal to inspection General Extremety ED: Negative for edema or tenderness General Extremity: Negative for edema Neuro oriented x3, CN's II-XII intact bilaterally and no sensory deficits noted Sensorium / Orientation: alert Motor Exam: strength 5/5 throughout MDM MDM MDM Narrative Medical decision making narrative: Diagnosis includes periorbital cellulitis, orbital cellulitis, facial cellulitis, sepsis, and anxiety. CBC will be obtained to assess for leukocytosis and anemia. Basic metabolic profile will be obtained to assess for electrolyte abnormality and renal function. Blood culture will be obtained to assess for sepsis. CT scan of the orbits and posterior fossa will be obtained to assess for orbital cellulitis and periorbital cellulitis. History & Record Review Additional record(s) reviewed:: Prior ED visit and Prior labs Lab Data Attestation: I reviewed the patient's lab results. Lab results narrative: CBC was reviewed and was within normal limits. Basic metabolic profile was reviewed and was within normal limits. Labs: Laboratory Results - last 24 hr 08/25/24 14:52 WBC 7.0 RBC 4.72 Hgb 14.5 Hct 42.3 MCV 89.6 MCH 30.7 MCHC 34.3 RDW Std Deviation 41.1 RDW Coeff of Jaqueline 12.4 Plt Count 294 MPV 8.4 Immature Gran % (Auto) 0.400 Neut % (Auto) 50.2 Lymph % (Auto) 36.5 Sumner % (Auto) 10.9 H Eos % (Auto) 1.7 Baso % (Auto) 0.3 Absolute Neuts (auto) 3.5 Absolute Lymphs (auto) 2.55 Nucleated RBC % 0 Sodium 137 Potassium 3.4 Chloride 100 Carbon Dioxide 23.0 Anion Gap 14 BUN 6 Creatinine 0.42 L Estim Creat Clear Calc 115.84 Est GFR (MDRD) Non-Af 110 BUN/Creatinine Ratio 14.1 Glucose 95 Calcium 9.7 Radiography Diagnostic Testing: Clinical Impression(s) from Imaging Studies CT Orbit Sella Inner 08/25/24 14:01 IMPRESSION: Stable right periorbital soft tissue swelling. Stable hypodensity in the right basal ganglion. Reading Location: [facility] CT scan of the orbits was obtained. There is right periorbital soft tissue swelling. There is a hypodensity in the right basal ganglia. These are stable compared to previous CT scan yesterday. Treatment and Re-Evaluation :: Patient was given Unasyn and Benadryl. Patient was feeling better on reevaluation. Patient was advised of her findings. Patient was instructed to stop recent Keflex. Patient was given a prescription for Augmentin. Patient was instructed to follow-up with her primary care physician in 3 to 5 days. Patient was instructed to return if worse in any way. Patient understood and was agreeable with the plan. All questions were answered. Discharge Plan Triage Chief Complaint: Allergic Reaction ED Provider: José Manuel Cadet Dx/Rx/DC Orders Clinical Impression: Cellulitis of face, Tobacco user Instructions: ED Cellulitis, Facial Prescriptions: New amoxicillin-pot clavulanate 875-125 mg tablet 875 mg PO Q12H Qty: 20 0RF Discontinued cephalexin 500 mg capsule 500 mg PO BID 5 Days Qty: 10 0RF No Action famotidine 20 mg tablet 20 mg PO BID amlodipine 10 mg tablet 10 mg PO QDAY Eliquis 5 mg tablet 5 mg PO BID 30 Days Qty: 60 6RF duloxetine 30 MG capsule 30 mg PO DAILY acetaminophen 325 MG tablet 650 mg PO Q6H PRN PRN (Reason: Pain) 0RF folic acid 1 mg Tablet 1 mg PO BREAKFAST Qty: 30 0RF pravastatin 20 mg tablet 20 mg PO QHS Patient Comments: TAKE 1 TABLET BY MOUTH EVERY DAY IN THE EVENING pregabalin 75 mg capsule 75 mg PO BID Patient Comments: TAKE 1 CAPSULE BY MOUTH TWICE A DAY tizanidine 4 mg tablet 2 - 4 mg PO BID PRN PRN (Reason: muscle spasm) albuterol sulfate 90 mcg/actuation HFA aerosol inhaler 2 puff inhalation Q4H PRN PRN (Reason: Shortness Of Breath) Qty: 8.5 11RF fluticasone furoate-vilanterol [Breo Ellipta] 100-25 mcg/dose blister with device 1 inh INHALATION DAILY Qty: 60 11RF Spiriva Respimat 2.5 mcg/actuation mist 2 inh inhalation QDAY Qty: 1 6RF Rx Instructions: administer at approximately the same time(s) each day Primary Care Provider: Rozina Greene Referrals: Rozina Greene, [facility] [Primary Care Provider] - 3-5 Days Print Language: Azeri Disposition Disposition: Home, Self Care
[2024-08-25 15:07] LABS: Absolute Lymphocyte Count 2.55 X10^3/uL (0.83-4.51); Absolute Neutrophil Count 3.5 X10^3/uL (2.0-7.7); Basophil# 0.02 X10^3/uL; Basophil% 0.3 % (0-1); Eosinophil# 0.12 X10^3/uL; Eosinophils% 1.7 % (0-5); Hematocrit 42.3 % (37-47); Hemoglobin 14.5 g/dL (12.0-15.0); Lymphocyte # 2.55 X10^3/ul (0.83-4.51); Lymphocyte % 36.5 % (19-41); Mean Corp Hgb Conc 34.3 g/dL (32-36); Mean Corpuscular Hgb 30.7 pg (27.0-32.0); Mean Corpuscular Volume 89.6 fL (81-99); Mean Platelet Vol. 8.4 fl (6.2-12.0); Monocyte# 0.76 X10^3/uL; Monocyte% 10.9 % (0-10); NRBC Flagged by Analyzer 0 % (0-5); Neutrophil # 3.51 X10^3/uL (2.7-7.7); Neutrophil % 50.2 % (47-70); Platelet Count 294 K/mm3 (150-450); RBC Distribution Width CV 12.4 % (11.6-14.6); RBC Distribution Width SD 41.1 fl (35.1-43.9); Red Blood Count 4.72 M/mm3 (4.2-5.4)
[2024-08-25] MEDS: Ampicillin/Sulbactam 3 GM in 0.9% Normal Saline (100mL MB+) 100 ML IV (15:12)
[2024-08-25] MEDS: DiphenhydrAMINE 50 MG/ML Syringe 25 MG IV (15:17)
[2024-08-25 15:19] VITALS: BP 132/77; PULSE 84; RESP 16; TEMP 37; O2SAT 91
[2024-08-25 15:28] LABS: Anion Gap 14 (5-15); BUN 6 mg/dL (4-19); BUN/Creat Ratio 14.1 RATIO (10-20); Calcium,Total 9.7 mg/dL (7.6-11.0); Chloride 100 mmol/L (98-108); Creatinine, Serum 0.42 mg/dL (0.70-1.20); EST Glomerular Filtration Rate 110 (>60); Estimated Creatinine Clearance 115.84 ml/min (50-250); Glucose 95 mg/dL (70-99); Potassium 3.4 mmol/L (3.3-5.1); Sodium Level 137 mmol/L (133-145)
[2024-08-25 16:23] VITALS: BP 132/77; PULSE 84; RESP 16; TEMP 37; O2SAT 91
== END 2024-08-25 16:27 | disposition home or self-care (01) ==
PROVIDERS: Emergency Provider Emergency Medicine; PCP Nurse Practitioner Family; Visit Provider Emergency Medicine
DX: L03.211 Cellulitis of face (principal); J43.9 Emphysema, unspecified; F17.210 Nicotine dependence, cigarettes, uncomplicated; I10 Essential (primary) hypertension; Z79.01 Long term (current) use of anticoagulants
CPT/HCPCS: 70480; 80048; 85025; 87040; 96365; 96375; 99283; A4216; J0295

== ENCOUNTER → 2024-10-14 | Outpatient (CLI) | payer MEDICARE, MEDICAID, SELFPAY ==
--- NOTE | 2024-10-14 10:03 | MRI_ITS ---
PROCEDURE: BRAIN WITHOUT CONTRAST 10/14/2024 REASON FOR EXAM: CEREBRAL INFARCTION TECHNIQUE: BRAIN WITHOUT CONTRAST Multiplanar and multisequence images were obtained. COMPARISON: CT brain without contrast, 08/24/2024. FINDINGS: There is a chronic lacunar infarction in the periventricular white matter of the right frontal lobe. There is patchy periventricular and subcortical white matter signal in both cerebral hemispheres. There is a normal sulcal pattern and gyral configuration. There is no evidence of acute intracranial hemorrhage or infarction. The roach-white differentiation is well preserved. There is no evidence of restricted diffusion. The ventricles and basilar cisterns are normal. There are normal flow voids demonstrated in the recognized intracranial vessels. There is a chronic infarction in the left side of the joni. The cerebellum and brainstem are otherwise unremarkable. The cerebellar pontine angles are normal. The craniovertebral junction is normal. The sella and suprasellar regions are normal. The orbits and retro-orbital regions are unremarkable. The nasal septum is deviated to the left. There is no significant paranasal sinus disease. There are multiple fluid-filled mastoid air cells on the right. The left mastoid air cells are clear. There is normal bone marrow signal in the skull base and calvarium. MRI/Brain without Contrast IMPRESSION: 1. There is a chronic lacunar infarction in the periventricular white matter o f the right frontal lobe. 2. There is a chronic infarction in the left side of the joni. 3. No evidence of acute intracranial pathology. 4. Other findings as noted. Reading Location: [id number]
== END | disposition home or self-care (01) ==
PROVIDERS: PCP Nurse Practitioner Family; Referring Provider Nurse Practitioner Family; Visit Provider Nurse Practitioner Family
DX: I63.9 Cerebral infarction, unspecified (principal)
CPT/HCPCS: 70551

== ENCOUNTER → 2024-10-21 | Outpatient (CLI) | payer MEDICARE, MEDICAID, SELFPAY ==
--- NOTE | 2024-10-21 12:45 | ECHOD_ITS ---
Reason For Study Reason For Study: CVA Procedure This was a 2D Doppler, Color Flow transthoracic echocardiogram. Exam performed in department. Left Ventricle Normal LV size. Left ventricular systolic function is normal. The left ventricular ejection fraction is 60 %. No regional wall motion abnormalities noted. Right Ventricle Normal RV size. Normal systolic function. Atria Normal left atrium. Normal right atrium. Bubble contrast study is negative for PFO/ASD. Mitral Valve Normal mitral valve. Tricuspid Valve Normal tricuspid valve. Aortic Valve Trisinus/trileaflet aortic valve. Mild focal aortic valve calcification. Pulmonic Valve Normal pulmonic valve. Great Vessels Normal aortic root. Pericardium/Pleural No pericardial effusion. Medication 22 gauge I.V. with prn adaptor inserted into left arm. Performed a rapid injection of agitated mix of 9 cc saline and 1cc air to assess for atrial septal defect. MMode/2D Measurements & Calculations LVIDd: 4.9 cm IVSd: 0.67 cm Ao root diam: 2.6 cm LVIDs: 3.3 cm LVPWd: 0.66 cm RVDd: 3.3 cm FS: 31.9 % LAV(MOD-sp4): 19.7 ml LA A4 area: 11.1 cm2 LA dimension(2D): 2.9 cm TAPSE: 3.1 cm RA A4 area: 11.3 cm2 Time Measurements MV dec time: 0.16 sec Doppler Measurements & Calculations MV E max domenic: 72.1 cm/sec Lat Peak E' Domenic: 13.9 cm/sec Med Peak E' Domenic: 13.6 cm/sec MV A max domenic: 68.5 cm/sec E/E' lat: 5.2 E/E' med: 5.3 MV E/A: 1.1 MV V2 max: 115.0 cm/sec MV P1/2t max domenic: 116.0 cm/sec Ao V2 max: 149.8 cm/sec MV max P.3 mmHg MV P1/2t: 70.2 msec Ao max P.0 mmHg MV V2 mean: 69.3 cm/sec MV dec slope: 483.8 cm/sec2 Ao V2 mean: 97.8 cm/sec MV mean P.2 mmHg Ao mean P.4 mmHg MV V2 VTI: 24.3 cm MVA(P1/2t): 3.1 cm2 Ao V2 VTI: 29.0 cm AV (velocity ratio): 0.80 LV V1 max: 118.1 cm/sec PA V2 max: 98.1 cm/sec LV V1 max P.6 mmHg LV V1 mean P.8 mmHg LV V1 mean: 77.5 cm/sec LV V1 VTI: 23.1 cm ECHO/Echo Complete Interpretation Summary Bubble contrast study is negative for PFO/ASD. Normal LV size. Left ventricular systolic function is normal. The left ventricular ejection fraction is 60 %. Ordering Physician: Roznia Greene Referring Physician: Rozina Greene Performed By: Carlos Shore RCS
== END | disposition home or self-care (01) ==
LOC: CVS 12:36
PROVIDERS: PCP Nurse Practitioner Family; Referring Provider Nurse Practitioner Family; Visit Provider Nurse Practitioner Family
DX: Z86.73 Personal history of transient ischemic attack (TIA), and cerebral infarction without residual deficits (principal)
CPT/HCPCS: 93306; A4216

== ENCOUNTER → 2024-12-08 | Outpatient (CLI) | payer MEDICARE, MEDICAID, SELFPAY ==
--- NOTE | 2024-12-08 08:54 | CDU_ITS ---
Reason For Study Reason For Study: Cerebral infarction Rt. Velocities/BP Lt. Velocities/BP Prox CCA 80.6/22 cm/sec. Prox CCA 82.3/22.9 cm/sec. Mid CCA 73/19.2 cm/sec. Mid CCA 63.9/22.1 cm/sec. Dist CCA 66.4/18.2 cm/sec. Dist CCA 63.1/17.7 cm/sec. Prox ICA 52.2/13.5 cm/sec. Prox ICA 44.8/16 cm/sec. Mid ICA 48/17.8 cm/sec. Mid ICA 66.6/26.4 cm/sec. Dist ICA 69.2/25.6 cm/sec. Dist ICA 93.8/35.5 cm/sec. Rt. ICA/CCA = 0.95. Lt. ICA/CCA = 1.47. Prox ECA 81.5/11.6 cm/sec. Prox ECA 91.6/20.1 cm/sec. Rt. Vert. 50.9/20.3 cm/sec. Lt. Vert. 14.7/4.4 cm/sec. Right Extracranial There is heterogeneous, irregular atherosclerotic plaque noted in the right common carotid artery. There is heterogeneous, irregular atherosclerotic plaque noted in the right internal carotid artery. There is heterogeneous, irregular atherosclerotic plaque noted in the right external carotid artery. Antegrade flow is noted in the right vertebral artery. Left Extracranial There is heterogeneous, irregular atherosclerotic plaque noted in the left common carotid artery. There is heterogeneous, irregular atherosclerotic plaque noted in the left internal carotid artery. There is heterogeneous, irregular atherosclerotic plaque noted in the left external carotid artery. Antegrade flow is noted in the left vertebral artery. Procedure Carotid Duplex 46607. This is a Carotid Duplex examination using B-mode, color flow and specral Doppler. Exam performed in department. VL/Carotid Duplex Ultrasound Interpretation Summary Mild (<50%) stenosis right extracranial internal carotid. Mild (<50%) stenosis left extracranial internal carotid. Flow within the vertebral arteries is antegrade bilaterally. A high-resistance wavef orm is noted in the left vertebral artery, which may be indicative of stenosis more distally. Clinical correlation is advised. Ordering Physician: Rozina Greene Referring Physician: Rozina Greene Performed By: Gabrielle Hogue RVT
== END | disposition home or self-care (01) ==
LOC: CVS 08:51
PROVIDERS: PCP Nurse Practitioner Family; Referring Provider Nurse Practitioner Family; Visit Provider Nurse Practitioner Family
DX: I63.9 Cerebral infarction, unspecified (principal); Z86.73 Personal history of transient ischemic attack (TIA), and cerebral infarction without residual deficits
CPT/HCPCS: 93880

== ENCOUNTER → 2025-01-20 | Outpatient (CLI) | payer MEDICARE, MEDICAID, SELFPAY ==
[2025-01-20 11:38] VITALS: PULSE 80; PULSE 81; PULSE 92; PULSE 93; PULSE 95; PULSE 96; O2SAT 91; O2SAT 92; O2SAT 93; O2SAT 94; O2SAT 95; O2SAT 96
--- NOTE | 2025-01-22 08:20 | PCM.PSN.6M ---
PSN 6 Minute Walk Test 6 Minute Walk Test 6 Minute Walk Test: 6 Minute Walk Test PSN:6-Minute Walk Test Start: 01/20/25 11:38 Freq: Status: Active Protocol: [id number] Document 01/20/25 11:38 JOSE DAVID (Rec: 01/20/25 11:43 JOSE DAVID [id number]) 6 Minute Walk Test Date Performed 01/20/25 Time Performed 11:20 Height 5 ft 4.75 in Weight: 117 lb Weight in Pounds 117.[address]: Chanel Mortensen Assistive device None used: Pre-test Oxygen Delivery Room Air Method Pulse Ox (%) 94 Pulse Rate (60-100 81 beats/min) Dyspnea Nakia Scale ( 1 0-10) Exertion Nakia Scale 6 (6-20) 1st minute Oxygen Delivery Room Air Method Pulse Ox (%) 95 Pulse Rate (60-100 92 beats/min) 2nd minute Oxygen Delivery Room Air Method Pulse Ox (%) 91 Pulse Rate (60-100 92 beats/min) 3rd minute Oxygen Delivery Room Air Method Pulse Ox (%) 93 Pulse Rate (60-100 93 beats/min) 4th minute Oxygen Delivery Room Air Method Pulse Ox (%) 92 Pulse Rate (60-100 95 beats/min) 5th minute Oxygen Delivery Room Air Method Pulse Ox (%) 92 Pulse Rate (60-100 96 beats/min) 6th minute Oxygen Delivery Room Air Method Pulse Ox (%) 92 Pulse Rate (60-100 96 beats/min) Dyspnea Nakia Scale ( 4 0-10) Exertion Nakia Scale 12 (6-20) Post-test Oxygen Delivery Room Air Method Pulse Ox (%) 96 Pulse Rate (60-100 80 beats/min) Full Laps Walked 14 Partial Lap, Number 39 of Tiles Walked Total Distance 865 Walked (ft) Interpretation Interpretation: The patient ambulated 865 feet over the course of 6 minutes beginning on room air without assistive devices. Pretesting oxygen saturation was noted to be 94% on room air. With ambulation, the zoey oxygen saturation was 91%. There was no significant exertional oxygen desaturation. Recommendations Recommendations: There is no indication for the use of supplemental oxygen at this time.
== END | disposition home or self-care (01) ==
LOC: PSN 11:02
PROVIDERS: PCP Nurse Practitioner Family; Referring Provider Nurse Practitioner Family; Visit Provider Nurse Practitioner Family
DX: J44.9 Chronic obstructive pulmonary disease, unspecified (principal)
CPT/HCPCS: 94618

== ENCOUNTER → 2025-02-05 | Outpatient (CLI) | payer MEDICARE, MEDICAID, SELFPAY ==
--- NOTE | 2025-02-05 12:45 | CT_ITS ---
PROCEDURE: LOW DOSE CT LUNG SCREENING 02/05/2025 REASON FOR EXAM: SMOKER TECHNIQUE: Procedure Code: [id number] Modality: CT Procedure: LOW DOSE CT LUNG SCREENING Coronal and Sagittal reconstruction series were provided. One or more dose reduction techniques were used (e.g., Automated exposure control, adjustment of the mA and/or kV according to patient size, use of iterative reconstruction technique). REFERENCE LINK: [employer] Lung-RADS RADIATION DOSE SUMMARY: CTDlvol: 1.55 mGy DLP: 51.53 mGycm COMPARISON: Low-dose lung screen, 02/05/2024 FINDINGS: PULMONARY NODULES: (Only nodules >3mm are reported) Lower neck:The thyroid gland is grossly unremarkable. There is no supraclavicular lymphadenopathy. Mediastinum:There is mediastinal and bilateral hilar lymphadenopathy. Index node, a right paratracheal lymph node, measuring 2.3 x 1.9 cm. Heart and Aorta:The heart size is upper limits of normal. There is no pericardial effusion. There is moderate calcific vascular disease of the coronary arteries and thoracic aorta. Esophagus:There is a small hiatal hernia. Upper Abdomen:There is calcific vascular disease of the visualized abdominal aorta. Chest wall:The soft tissues of the chest wall appear unremarkable. There is no axillary lymphadenopathy. There is an intrathecal stimulator with the tip at the midthoracic level. Lungs, airways and pleura: There is moderate upper lobe predominant paraseptal emphysema. There has been interval development of a soft tissue density nodule in the upper lobe of the right lung measuring 1.6 x 1.1 cm (image 93). There is a pleural-based nodule in the upper lobe of the right lung measuring 9 x 7 mm (image 82). There is a pleural-based nodule in the lower lobe of the right lung measuring 7 x 3 mm (image 97). There are no pleural effusions. CT/Low Dose CT Lung Screening IMPRESSION: 1. Interval development of a soft tissue nodule in the upper lobe of the right lung suspicious for neoplasm which could be primary or metastatic. 2. There are 2 pleural-based nodules in the right lung, consistent with pulmon lois lymphadenopathy. 3. There is mediastinal and bilateral hilar lymphadenopathy. 4. Emphysema. 5. Calcific vascular disease. 6. Other findings as noted. Lung-RADS Category: 4BS VERY SUSPICIOUS. RECOMMEND DIAGNOSTIC CHEST CT; PET/CT MAY BE CONSIDERED IF >= 8MM SOLID NODULE OR SOLID COMPONENT; TISSUE SAMPLING; AND/OR REFERRAL FOR CLINICAL EVALUATION. IF AIRWAY NODULE THEN REFER FOR CLINICAL EVAL UATION. Reading Location: [id number]
== END | disposition home or self-care (01) ==
LOC: CT 12:41
PROVIDERS: PCP Nurse Practitioner Family; Referring Provider Nurse Practitioner Acute Care; Visit Provider Nurse Practitioner Acute Care
DX: F17.210 Nicotine dependence, cigarettes, uncomplicated (principal)
CPT/HCPCS: 71271